=== PATIENT | male | born 1945 | race Caucasian/White ===

== ENCOUNTER 2023-02-24 12:26 | Outpatient (OUT) | payer MEDICARE, SELFPAY ==
[2023-02-24 13:14] LABS: Basophils Absolute Auto 0.1 10^3/uL (0.0-0.1); Basophils Percent Auto 0.8 % (0.2-2.0); Eosinophils Absolute Auto 0.3 10^3/uL (0.0-0.7); Eosinophils Percent Auto 3.8 % (0.9-7.0); Hematocrit 44.3 % (42.0-54.0); Hemoglobin 14.8 g/dL (14.0-18.0); Immature Granulocytes Abs Auto 0.02 10^3/uL (0.00-0.03); Immature Granulocytes Pct Auto 0.2 % (0.0-0.5); Lymphocytes Absolute Auto 2.1 10^3/uL (1.2-3.8); Lymphocytes Percent Auto 23.9 % (20.5-60.0); Mean Corpuscular HGB Conc 33.4 g/dL (29.9-35.2); Mean Corpuscular Hemoglobin 28.2 pg (25.9-34.0); Mean Corpuscular Volume 84.4 fL (80.0-94.0); Mean Platelet Volume 11.9 fL (9.5-13.5); Monocytes Absolute Auto 0.7 10^3/uL (0.3-0.8); Monocytes Percent Auto 8.2 % (1.7-12.0); Neutrophils Absolute Auto 5.6 10^3/uL (1.4-6.5); Neutrophils Percent Auto 63.1 % (43.0-75.0); Platelet Count 225 10^3/uL (150-450); Red Blood Count 5.25 10^6/uL (4.70-6.10); Red Cell Distribution Width 13.4 % (11.0-15.0); White Blood Count 8.9 10^3/uL (4.0-11.0)
[2023-02-24 13:40] LABS: Alanine Aminotransferase 29 U/L (16-63); Albumin Globulin Ratio 1.3; Albumin Level 4.4 g/dL (3.4-5.0); Alkaline Phosphatase 92 U/L (46-116); Anion Gap 15.3; Aspartate Amino Transferase 16 U/L (15-37); BUN Creatinine Ratio 13.6; Bilirubin Total 0.9 mg/dL (0.2-1.0); Calcium 9.3 mg/dL (8.5-10.1); Carbon Dioxide 27.3 mmol/L (21.0-32.0); Chloride 102 mmol/L (98-107); Estimated GFR (African America 56 (>=60); Estimated GFR (Non-African Ame 46 (>=60); Globulin 3.5 g/dL; Glucose 94 mg/dL (74-106); Potassium 4.6 mmol/L (3.5-5.1); Sodium 140 mmol/L (136-145); Total Protein 7.9 g/dL (6.4-8.2)
== END 2023-02-24 12:27 | disposition home or self-care (01) ==
LOC: LAB 12:32
PROVIDERS: Visit Provider Internal Medicine Interventional Cardiology
DX: I25.10 Atherosclerotic heart disease of native coronary artery without angina pectoris (principal); R06.09 Other forms of dyspnea
CPT/HCPCS: 36415; 80053; 85025

== ENCOUNTER 2023-03-15 08:53 | Outpatient (OUT) | payer MEDICARE, SELFPAY ==
--- NOTE | 2023-03-15 | NM_ITS ---
Patient Name: SCOTT ROSADO MR#: [id number] : 1945 Exam Date: 03/15/2023 Ordering Doctor: DR Sotero Carvalho M.D. RADIOLOGY REPORT PROCEDURE: NM CHAITANYA PERF SPECT REST STR COMPARISON: None. INDICATIONS: Atherosclerotic heart disease of [place] coronary artery TECHNIQUE: Exam Description: Stress/Rest two day protocol gated SPECT Rest Imagin.9 mCi Tc-99m Cardiolite IV on 03/16/2023 Stress Imaging 26.4 mCi Tc-99m Cardiolite IV on 03/15/2023 Exercise Protocol: 0.4 mg Lexiscan given IV Heart Rate (bpm): Rest: 72 Max: 89 PMHR: 62 Blood Pressure: Rest: 154/92 Max: 164/92 Symptoms: Rest and peak stress ECG findings were pending and the exercise portion of the study was pending per attending physician Dr. SAEED . For more details please see separate cardiac stress test report. FINDINGS: QUALITY OF STUDY: Good. PERFUSION DEFECT: LOCATION: Basal inferior. Mid-anterior. Mid-inferior. SIZE: Medium (3-4 segments). SEVERITY: Moderate. TYPE: Persistent. WALL MOTION: Mild hypokinesis: LV SIZE: Enlarged; EDV 124 mL. TID / TCD: None; 1.0 LVEF: Normal. Calculated EF 60%. SUMMARY: Myocardial perfusion imaging study has ABNORMAL findings. CONCLUSION: 1. Small size mild severity fixed defect mid anterior wall, LAD distribution 2. Moderate size moderate severity fixed defect in the inferior wall, RCA distribution 3. No reversible ischemia 4. Dilated left ventricle, EDV 124 milliliters 5. Pending exercise test results Dictated by: Scott Torres MD on 03/17/2023 at 09:50 Approved by: Scott Torres MD on 03/17/2023 at 09:56
[2023-03-15] MEDS: REGADENOSON 0.4 MG/5 ML SYRINGE IV (09:40)
== END 2023-03-15 08:54 | disposition home or self-care (01) ==
LOC: CARD 08:53
PROVIDERS: Visit Provider Internal Medicine Interventional Cardiology
DX: I25.10 Atherosclerotic heart disease of native coronary artery without angina pectoris (principal); R06.09 Other forms of dyspnea; I49.3 Ventricular premature depolarization
CPT/HCPCS: 78452; 93017; A9500; J2785

== ENCOUNTER 2023-03-17 09:03 | Outpatient (OUT) | payer MEDICARE, SELFPAY ==
--- NOTE | 2023-03-16 11:12 | CA_ITS ---
Patient Name: KRISTOFER ROSADO MR#: [id number] : 1945 Exam Date: 03/16/2023 Ordering Doctor: DR Sotero Carvalho M.D. ECHOCARDIOGRAM REPORT PROCEDURE: CA ECHO DOPPLER COMPLETE INDICATIONS: Dyspnea, PVCs COMPARISON: None. DESCRIPTION: COMPLETE ECHOCARDIOGRAM Real-time transthoracic echocardiography with 2D, M-mode, spectral and color flow Doppler performed. QUALITY: Technical quality was good. LEFT VENTRICLE: Normal chamber size. Mild concentric left ventricular hypertrophy. LV EF: Global left ventricular systolic function is normal; visually estimated ejection fraction is 55 to 60%. DIASTOLIC: Diastolic function is indeterminate. ATRIAL SEPTUM: Inadequately seen. LEFT ATRIUM: Mild dilatation. RIGHT ATRIUM: Moderate dilatation. RIGHT VENTRICLE: Appears mildly enlarged. Normal right ventricular systolic function. TRICUSPID VALVE: Normal mobility and thickness. Mild regurgitation. Mild pulmonary hypertension. RVSP 36mmHg MITRAL VALVE: Normal mobility and thickness. No evidence of mitral valve stenosis. There is no mitral annular calcification. Mild mitral regurgitation. AORTIC VALVE: Normal trileaflet appearance. Mildly calcified aortic valve. Normal leaflet mobility. No evidence of aortic valve stenosis. No aortic regurgitation. AORTIC ROOT: Normal diameter and appearance. PULMONIC VALVE: Normal thickness and mobility. No stenosis. Mild regurgitation. PERICARDIUM: No evidence of pericardial effusion. IVC: Collapses with inspirations. Normal size. CONCLUSION: 1. Global left ventricular systolic function is normal; visually estimated ejection fraction is 55 to 60% 2. Mildly increased left ventricular wall thickness 3. The right ventricle appears enlarged with normal systolic function 4. Biatrial enlargement 5. Diastolic function is indeterminate 6. Mild tricuspid regurgitation 7. Mild elevated right ventricular systolic pressure; RVSP 36 mmHg 8. Mild mitral regurgitation 9. Mild pulmonic regurgitation Adult Echocardiography Procedure Report Left Ventricle LVEDD (3.7 - 5.6 cm): 5.61 cm LVESD (2.2 - 4.0 cm): 3.68 cm LVIVS thickness (0.6 - 1.2 cm): 1.29 cm LVPW thickness (0.5 - 1.0 cm): 1.16 cm e': 0.12 m/s E - e': 6.01 LVOT Max Gradient: 4.98 mm[Hg] LVOT Area (cm2): 1.12 m/s Peak Velocity (LVOT): 1.12 m/s Mean Velocity (LVOT): 0.73 m/s LVOT Diameter 2.09 cm Left Ventricular Ejection Fraction: 54.08 % Left Atrium LA Volume Index (2D A2C): 40.29 ml/m2 Left Atrium Systolic Dimension: 4.66 cm Mitral Valve MV E to A Ratio: 1.29 Mitral Valve A-Wave Peak Velocity: 0.57 m/s Mitral Valve E-Wave Peak Velocity: 0.74 m/s Right Ventricle RV Internal Diastolic Dimension: 3.57 cm Aorta AO Root Diam: 3.41 cm Ascending Ao Diam: 3.54 cm Aortic Valve AoV Area (Peak Ger): 2.52 cm2, 2.48 cm2 AoV Area (VTI): 2.47 cm2, 2.45 cm2 Peak Velocity(Antegrade Flow): 1.55 m/s, 1.50 m/s Peak Gradient(Antegrade Flow): 9.55 mm[Hg], 8.95 mm[Hg] Mean Velocity(Antegrade Flow): 1.04 m/s, 1.03 m/s Mean Gradient(Antegrade Flow): 5.04 mm[Hg], 4.83 mm[Hg] Velocity Time Integral: 35.40 cm, 34.81 cm Tricuspid Valve Peak Velocity (Regurgitant Flow): 2.85 m/s, 2.49 m/s, 2.68 m/s, 2.87 m/s Pulmonic Valve Mean Gradient: 2.35 mm[Hg], 2.09 mm[Hg] Mean Velocity: 0.72 m/s, 0.65 m/s Peak Velocity: 1.00 m/s Peak Gradient: 3.88 mm[Hg], 4.20 mm[Hg] Right Atrium Right Atrium Systolic Pressure: 70.10 ml, 70.10 ml Dictated by: Sotero Carvalho M.D. on 03/16/2023 at 16:13 Approved by: Sotero Carvalho M.D. on 03/16/2023 at 16:18
--- NOTE | 2023-03-17 | PCN_ITS ---
CARDIAC STRESS TEST Requesting Physician: Procedure Date: 03/17/2023 INDICATION: Dyspnea on exertion, premature ventricular contractions. METHODS: After risks, benefits and alternatives were explained, written informed consent was obtained. The patient was connected to the appropriate hemodynamic and electrocardiographic monitoring. Lexiscan 0.4 mg was infused intravenously. The patient was monitored for the standard duration and discharged in a stable state. FINDINGS HEMODYNAMICS: Resting blood pressure was 154/92 with a maximum blood pressure of 164/92. Resting heart rate was 72 beats per minute, increasing to a maximum of 88 beats per minute. No significant symptoms were reported. ELECTROCARDIOGRAPHY REST EKG: Sinus rhythm, frequent premature ventricular contractures, incomplete right bundle branch block. Septal infarct, age indeterminate. Abnormal resting EKG. DURING INFUSION AND RECOVERY: Frequent premature ventricular contractions are noted. No significant ST-T wave changes seen. FINAL IMPRESSIONS: 1. No ischemic EKG changes seen on Lexiscan pharmacological stress test. 2. Nuclear images are to be read, interpreted and reported in a separate dictation. LORRAINED
== END 2023-03-17 09:04 | disposition home or self-care (01) ==
LOC: NM 09:03
PROVIDERS: Visit Provider Internal Medicine Interventional Cardiology
DX: I25.10 Atherosclerotic heart disease of native coronary artery without angina pectoris (principal); R06.09 Other forms of dyspnea; I49.3 Ventricular premature depolarization
CPT/HCPCS: 93306

== ENCOUNTER 2023-09-19 07:15 | Outpatient (OUT) | payer MEDICARE, SELFPAY ==
--- OUTSIDE RECORDS SUMMARY | 2023-09-19 07:21 | XMS_ITS | CCD ---
Author Organization [facility] CliniSyva Care Team Providers Care Park Aide Name Role Phone PHYSICIAN, DEFAULT Admitting Unavailable PHYSICIAN, DEFAULT Attending Unavailable PHYSICIAN, DEFAULT Admitting Unavailable PHYSICIAN, DEFAULT Attending Unavailable PHYSICIAN, DEFAULT Admitting Unavailable PHYSICIAN, DEFAULT Attending Unavailable PHYSICIAN, DEFAULT Admitting Unavailable PHYSICIAN, DEFAULT Attending Unavailable PHYSICIAN, DEFAULT Admitting Unavailable PHYSICIAN, DEFAULT Attending Unavailable ELTAHAWY, EHAB A Admitting Unavailable ELTAHAWChandan, EHAB A Attending Unavailable VALDOVINOS-JULIO, TARYN Referring Unavailable VALDOVINOS-EMERY, TARYN Primary Care Unavailable FRAN, HERMAN S Admitting Unavailable FRAN, HERMAN S Attending Unavailable VALDOVINOS-EMERY, TARYN Referring Unavailable VALDOVINOS-EMERY, TARYN Primary Care Unavailable [place] Procedure Practitioner Unavailab le FRAN, HERMAN S Surgeon Unavailable [place] Procedure Practitioner Unavailab ERA Buckley Surgeon Unavailable PHYSICIAN, DEFAULT Admitting Unavailable PHYSICIAN, DEFAULT Attending Unavailable VALDOVINOS-EMERY, TARYN Primary Care Unavailable NORMA FARIAS Attending Unavailable MAXIM RAY Referring Unavailable JESÚS, MAXIM Referring Unavailable JESÚS, MAXIM Referring Unavailable JESÚS, MAXIM Referring Unavailable JESÚS, MAXIM Attending Unavailable JESÚS, MAXIM Attending Unavailable JESÚS, MAXIM Admitting Unavailable JESÚS, MAXIM Attending Unavailable ELTAHAWY, EHAB Attending Unavailable Problems Active Problems Problem Classification Problem Date Documented Date Episodic/Chronic Cardiac dysrhythmias (5 sources) Unspecified atrial fibrillation; Translations: [Ventricular premature depolarization] Onset: 12-02-2017 Chronic Cardiac dysrhythmias (2 sources) Palpitations; Translations: [Palpitations] Onset: 09-12-2023 Episodic Coronary atherosclerosis and other heart disease (5 sources) Atherosclerotic heart disease of [place] coronary artery without angina pectoris; Translations: [ATHSCL HEART DISEASE OF [place] CORONARY ARTERY W/O ANG PCTRS] Onset: 11-28-2017 Chronic Essential hypertension (3 sources) Essential (primary) hypertension; Translations: [ESSENTIAL (PRIMARY) HYPERTENSION] Onset: 11-28-2017 Chronic Hypertension with complications and secondary hypertension (2 sources) Hypertensive heart disease without heart failure; Translations: [Hypertensive heart disease without heart failure] Onset: 08-23-2023 Chronic Unclassified (2 sources) + STRESS/CATH 11/28 Onset: 11-28-2017 Past or Other Problems Problem Classification Problem Date Documented Date Episodic/Chronic Other lower respiratory disease (4 sources) Shortness of breath; Translations: [SHORTNESS OF BREATH] Onset: 11-28-2017 Episodic Other lower respiratory disease (1 source) Dyspnea, unspecified; Translations: [DYSPNEA, UNSPECIFIED] Onset: 11-28-2017 Episodic Other lower respiratory disease (2 sources) Other forms of dyspnea; Translations: [Other forms of dyspnea] Onset: 01-13-2022 Episodic Other screening for suspected conditions (not mental disorders or infectious disease) (1 source) Abnormal result of other cardiovascular function study; Translations: [ABNORMAL RESULT OF OTHER CARDIOVASCULAR FUNCTION STUDY] Onset: 11-28-2017 Episodic Screening and history of mental health and substance abuse codes (1 source) Personal history of nicotine dependence; Translations: [PERSONAL HISTORY OF NICOTINE DEPENDENCE] Onset: 11-28-2017 Episodic Results Test Name Value Interpretation Reference Range Facility Office Visiton 08-23-2023 Follow-up visit [id number] Bret Fabian Sr. 1945 M Date Provider Department Center 08/23/2023 MAXIM GILMORE BRENDA [facility] Family History Problem Relation Age of Onset Coronary artery disease Mother Heart attack Mother Stroke Father Family Status - Relation Status Age at Mother Father Level of Service:48022 [place] OFFICE/OUTPATIENT ESTABLISHED LOW MDM 20 MIN Normal [facility] HPon 06-13-2023 [facility] Electrophysiology Consult Note Reason for visit: SVT/PVC HPI: Kristofer Fabian Sr. is a 78 y.o. year old with past medical history of CAD s/p CABG in 2018, hypertension, A-fib, CKD. He was recently seen by Dr. CONCEPCION who noted more shortness of breath than usual at the time during exam, noted that shortness of breath is similar to symptoms prior to his bypass surgery. After his CABG patient had postop A-fib and a supposed history of sinus bradycardia with frequent ventricular ectopy. Recently just had a 30-day event monitor ordered and a TTE to rule out A-fib and cardiomyopathy and lexiscan stress. He has been having increased DAO and can feel palpitations that are associated with dyspnea / racing heart feeling. He was seen by Norma WU and event monitor was reviewed which suggested AF and so was started on DOAC. On my personal review, this appears more of SVT which happened on 03/10/23 and 03/16/23 x 2 episodes. He flet the 03/16/23 episode. Lexiscan stress test on 03/15/23 shows no reversible ischemia, small sized mild severity fixed defect in mid anterior wall of LAD and moderate size moderate severity fixed defect in the inferior wall with RCA distribution, did note dilated LV and noted LVEF 60% TTE 03/16/2023 shows normal LVEF, LA mildly dilated, RA moderately dilated, RV mildly enlarged, RVSP 36 which is mildly elevated Event monitor 02/2023 has multiple events of SVT which appear like A-fib, tachyarrhythmias very fast and hard to differentiate but RR intervals irregular, he does seem to have a conversion pause of just under 2 seconds when converting from SVT to SR ECG 05/17/23 Sr with PVC in bigeminy 03/28/23 SR with PVC PMH: Past Medical History: Diagnosis Date Abnormal ECG Arrhythmia Atrial fibrillation (CMS/HCC) Coronary artery disease Hypertension PSH: Past Surgical History: Procedure Laterality Date CARDIAC CATHETERIZATION CORONARY ARTERY BYPASS GRAFT SH: Social Determinants of Health Tobacco Use: Medium Risk (03/28/2023) Patient History Smoking Tobacco Use: Former Smokeless Tobacco Use: Never Passive Exposure: Not on file Alcohol Use: Not on file Financial Resource Strain: Not on file Food Insecurity: Not on file Transportation Needs: Not on file Physical Activity: Not on file Stress: Not on file Social Connections: Not on file Intimate Partner Violence: Not on file Depression: Not on file Housing Stability: Not on file Utilities: Not on file Allergies: No Known Allergies Weight: 115kg Visit Vitals BP 132/72 (BP Location: Right arm, Patient Position: Sitting) Ht 1.829 m (6') Wt 115 kg (254 lb) SpO2 95% BMI 34.45 kg/m??? Smoking Status Former BSA 2.42 m??? Meds: Current Outpatient Medications on File Prior to Visit Medication Sig Dispense Refill amLODIPine (Norvasc) 5 mg tablet Take 1 tablet (5 mg) by mouth in the morning. as directed 90 tablet 3 apixaban (Eliquis) 5 mg tablet Take 1 tablet (5 mg) by mouth in the morning and at bedtime. 60 tablet 11 aspirin 81 mg EC tablet Take 1 tablet every day by oral route. atorvastatin (Lipitor) 80 mg tablet Take 1 tablet (80 mg) by mouth at bedtime. 90 tablet 3 lisinopril 40 mg tablet Take 1 tablet every day by oral route for 30 days. 90 tablet 3 metoprolol tartrate (Lopressor) 25 mg tablet TAKE ONE (1) TABLET BY MOUTH TWICE DAILY 180 tablet 3 No current facility-administered medications on file prior to visit. ROS: Review of Systems HENT: Positive for hearing loss (severe). Cardiovascular: Positive for dyspnea on exertion. All other systems reviewed and are negative. Physical Exam: Constitutional General Appearance: well-nourished, well-developed, appears stated age Level of Distress: comfortable Psychiatric Mental Status: alert, normal affect Orientation: oriented to time, place, and person Insight: good judgement Eyes Lids and Conjunctivae: non-injected, no xanthelasma ENMT Ears: no lesions on external ear Nose: no lesions on external nose Oropharynx: no cyanosis, no pallor Neck Neck: supple, trachea midline Carotid Arteries: bilateral normal upstroke, no bruits Jugular Veins: normal jugular venous pressure Thyroid: not enlarged Lungs Respiratory Effort: unlabored Chest Exam: normal curvature, no thoracic deformity Auscultation: clear, no wheezing, no rales, no rhonchi Cardiovascular Rate And Rhythm: regular Heart Sounds: normal S1, normal s2, no gallop Systolic Murmur: not heard Diastolic Murmur: not heard Extremities: no cyanosis, no edema, no peripheral signs of emboli Peripheral Pulses Radial Pulse: normal Abdomen Inspection and Palpation: soft, non distended, no bruit, non tender Musculoskeletal Inspection: no joint swelling Neurologic Gait: normal gait Skin Inspection and Palpation: warm and dry Nails: no clubbing Labs: @LABRESULTS@ No results found for: CHOLESTEROL TOTAL , HDL , LDL CALC , LDL D (more content not included)... Normal [facility] NURSTomi 06-13-2023 MARVIN RN educated pt on d/ c instructions. RN encouraged pt to voice any questions or concerns. Pt verbalizes no questions or concerns at this time. Normal [facility] Office Visiton 05-17-2023 Follow-up visit [id number] Bret N Sr[facility] 1945 [facility] Provider Department Center 05/17/2023 241-MAXIM RAY CARD [facility] Family History Problem Relation Age of Onset Coronary artery disease Mother Heart attack Mother Stroke Father Family Status - Relation Status Age at Mother Father Level of Service:72774 [place] OFFICE/OUTPATIENT NEW MODERATE MDM 45 MINUTES Normal [facility] Office Visiton 03-28-2023 Follow-up visit [id number] Bret N Sr. 1945 Provider Department Center 03/28/2023 1596-NORMA FARIAS [facility] Family History Problem Relation Age of Onset Coronary artery disease Mother Heart attack Mother Stroke Father Family Status - Relation Status Age at Mother Father Level of Service:35643 [place] OFFICE/OUTPATIENT ESTABLISHED MOD MDM 30 MIN Normal [facility] Office Visiton 02-24-2023 Follow-up visit [id number] BishopBret hancock N Sr. 1945 [facility] Provider Department Center 02/24/2023 271-SOTERO ASTORGA [facility] Family History Problem Relation Age of Onset Coronary artery disease Mother Heart attack Mother Stroke Father Family Status - Relation Status Age at Mother Father Level of Service:63813 [place] OFFICE/OUTPATIENT ESTABLISHED MOD MDM 30-39 MIN Normal [facility] Complete Blood Count Auto Di ffon 06-27-2020 Basophils (Bld) [#/Vol] 0.1 10*3/uL Normal 0.0-0.2 [facility] Comment on above: Result Comment: PERF ORMED BY: [address] [place] [address] PATHOLOGIST PERSONALIZATION SPECIALIST SANDRA AGUILAR M.D. Performed By: #### L IPID, CMP, CBC #### [address] Basophils/100 WBC (Bld) 0.8 % Normal . [facility] Comment on above: Performed By: #### L IPID, CMP, CBC #### [address] Eosinophils (Bld) [#/Vol] 0.3 10*3/uL Normal 0.0-0.45 [facility] Comment on above: Performed By: #### L IPID, CMP, CBC #### [address] Eosinophils/100 WBC (Bld) 3.5 % Normal . [facility] Comment on above: Performed By: #### L IPID, CMP, CBC #### [address] Erythrocyte distribution width (RBC) [Ratio] 13.4 % Normal 12.0-14.8 [facility] Comment on above: Performed By: #### L IPID, CMP, CBC #### [address] Hematocrit (Bld) [Volume fraction] 41.9 % Normal 38.8-50.0 [facility] Comment on above: Performed By: #### L IPID, CMP, CBC #### [address] Hemoglobin (Bld) [Mass/Vol] 14.5 g/dL Normal 13.0-17.0 [facility] Comment on above: Performed By: #### L IPID, CMP, CBC #### [address] Lymphocytes (Bld) [#/Vol] 1.7 10*3/uL Normal 1.00-4.8 [facility] Comment on above: Performed By: #### L IPID, CMP, CBC #### [place] [address] [place] Lymphocytes/100 WBC (Bld) 17.4 % Normal . [facility] Comment on above: Performed By: #### L IPID, CMP, CBC #### [address] MCH (RBC) [Entitic mass] 29.0 pg Normal 27.5-35.2 [facility] Comment on above: Performed By: #### L IPID, CMP, CBC #### [address] MCV (RBC) [Entitic vol] 83.5 fL Normal 83.5-101 [facility] Comment on above: Performed By: #### L IPID, CMP, CBC #### [address] Mean Corpuscular HGB Conc 34.7 g/dL Normal 32.5-35.6 [facility] Comment on above: Performed By: #### L IPID, CMP, CBC #### [address] Monocytes (Bld) [#/Vol] 0.6 10*3/uL Normal 0.0-0.8 [facility] Comment on above: Performed By: #### L IPID, CMP, CBC #### [address] Monocytes/100 WBC (Bld) 6.2 % Normal . [facility] Comment on above: Performed By: #### L IPID, CMP, CBC #### [address] Neutrophils (Bld) [#/Vol] 7.0 10*3/uL Normal 1.8-7.7 [facility] Comment on above: Performed By: #### L IPID, CMP, CBC #### [place] [address] [place] Neutrophils/100 WBC (Bld) 72.1 % Normal . [facility] Comment on above: Performed By: #### L IPID, CMP, CBC #### [address] Nucleated RBC/100 WBC (Bld) [Ratio] 0.1 % Normal 0-0.5 [facility] Comment on above: Performed By: #### L IPID, CMP, CBC #### [address] [place] [address] [place] Platelet mean volume (Bld) [Entitic vol] 10.9 fL High 6.6-10.1 [facility] Comment on above: Performed By: #### L IPID, CMP, CBC #### [facility] [address] Platelets (Bld) [#/Vol] 189 10*3/uL Normal 150-450 [facility] Comment on above: Performed By: #### L IPID, CMP, CBC #### [address] RBC (Bld) [#/Vol] 5.01 10*6/uL Normal 3.90-5.60 [facility] Comment on above: Performed By: #### L IPID, CMP, CBC #### [address] WBC (Bld) [#/Vol] 9.7 10*3/uL Normal 4.5-11.0 [facility] Comment on above: Performed By: #### L IPID, CMP, CBC #### [address] Comprehensive Metabolic Pane jasiel 06-27-2020 Albumin [Mass/Vol] 4.0 g/dL Normal 3.2-5.5 [facility] Comment on above: Performed By: #### L IPID, CMP, CBC #### [address] Albumin/Globulin [Mass ratio] 1.7 {ratio} Normal [facility] Comment on above: Performed By: #### L IPID, CMP, CBC #### [address] ALP [Catalytic activity/Vol] 68 U/L Normal 32-92 [facility] Comment on above: Performed By: #### L IPID, CMP, CBC #### [address] ALT [Catalytic activity/Vol] 32 U/L Normal 10-60 [facility] Comment on above: Performed By: #### L IPID, CMP, CBC #### [facility] [address] [place] [address] [place] AST [Catalytic activity/Vol] 21 U/L Normal 10-42 [facility] Comment on above: Performed By: #### L IPID, CMP, CBC #### [facility] [address] [place] [id number] [place] Bilirubin [Mass/Vol] 0.8 mg/dL Normal 0.3-1.2 [facility] Comment on above: Performed By: #### L IPID, CMP, CBC #### [facility] [address] Calcium [Mass/Vol] 9.5 mg/dL Normal 8.2-10.2 [facility] Comment on above: Performed By: #### L IPID, CMP, CBC #### [facility] [address] [place] [address] [place] Chloride [Moles/Vol] 104 mmol/L Normal 95-114 [facility] Comment on above: Performed By: #### L IPID, CMP, CBC #### [facility] [address] [place] [address] [place] CO2 [Moles/Vol] 22.8 mmol/L Normal 22.0-30.0 [facility] Comment on above: Performed By: #### L IPID, CMP, CBC #### [facility] [address] [place] [id number] [place] Creatinine [Mass/Vol] 1.38 mg/dL High 0.64-1.27 [facility] Comment on above: Performed By: #### L IPID, CMP, CBC #### [facility] [address] [place] [address] [place] Estimated GFR ( Belinda > 60 Normal [facility] Comment on above: Result Comment: GFR estimated reference range: According to KDOQI guidelines, <60 ml/min/1.73m2 is sufficient to diagnose a patient with chronic kidney disease. Performed By: #### L IPID, CMP, CBC #### [address] [place] [address] [place] Estimated GFR (Non- Am 50 Normal [facility] Comment on above: Performed By: #### L IPID, CMP, CBC #### [address] Globulin (S) [Mass/Vol] 2.4 g/dL Normal [facility] Comment on above: Performed By: #### L IPID, CMP, CBC #### [address] Glucose [Mass/Vol] 103 mg/dL High 70-100 [facility] Comment on above: Result Comment: [facility] Glucose Reference Range is dependent on time and content of last meal. Glucose of more than 200 mg/dL in a nonstressed, ambulatory subject supports the diagnosis of Diabetes Mellitus. ADA recommended reference range Performed By: #### L IPID, CMP, CBC #### [address] Potassium [Moles/Vol] 4.6 mmol/L Normal 3.5-5.1 [facility] Comment on above: Performed By: #### L IPID, CMP, CBC #### [address] Protein [Mass/Vol] 6.4 g/dL Normal 6.1-7.9 [facility] Comment on above: Performed By: #### L IPID, CMP, CBC #### [address] Sodium [Moles/Vol] 138 mmol/L Normal 136-146 [facility] Comment on above: Performed By: #### L IPID, CMP, CBC #### [address] Urea nitrogen [Mass/Vol] 21 mg/dL Normal 9-23 [facility] Comment on above: Performed By: #### L IPID, CMP, CBC #### [address] Lipid Panelon 06-27-2020 Cholesterol [Mass/Vol] 129 mg/dL Low 140-200 [facility] Comment on above: Result Comment: Chol less than 200 mg/dl low risk Chol 201-239 mg/dl borderline risk Chol 240 mg/dl and greater high risk Performed By: #### L IPID, CMP, CBC #### [facility] [address] [place] [id number] [place] Cholesterol in HDL [Mass/Vol] 37 mg/dL Normal 29-71 [facility] Comment on above: Result Comment: HDL CHOL ATP-III CLASSIFICATION Cardiovascular Risk HDL > or equal to 60 mg/dL LOW HDL < 40 mg/dL HIGH Performed By: #### L IPID, CMP, CBC #### [facility] [address] [place] [address] [place] Cholesterol.total/C holesterol in HDL [Mass ratio] 3.5 {ratio} Normal <5.0 [facility] Comment on above: Result Comment: PERF ORMED BY: [place] [address] PATHOLOGIST PERSONALIZATION SPECIALIST SANDRA AGUILAR M.D. Performed By: #### L IPID, CMP, CBC #### [facility] [address] LDL Cholesterol,Calcula ernie 69 mg/dL Normal 0-100 [facility] Comment on above: Result Comment: LDL ATP III CLASSIFICATION LDL less than 100 mg/dL Optimal LDL 100-129 mg/dL Near or above optimal LDL 130-159 mg/dL Borderline high LDL 160-189 mg/dL High LDL greater than 189 mg/dL Very high Performed By: #### L IPID, CMP, CBC #### [facility] [address] [place] [id number] [place] Triglyceride w/Reflex 116 mg/dL Normal 35-149 [facility] Comment on above: Result Comment: TRIG ATP III CLASSIFICATION TRIG less than 150 mg/dL Normal TRIG 150-199 mg/dL Borderline high TRIG 200-500 mg/dL High TRIG greater than 500 mg/dL Very high Standard traceable to the Center for Disease Conrtrol and Prevention (CDC) test method. Performed By: #### L IPID, CMP, CBC #### [facility] [address] [place] [address] [place] VLDL CHOLESTEROL 23 mg/dL Normal [facility] Comment on above: Performed By: #### L IPID, CMP, CBC #### [facility] [address] POC GLUCOSE LABon 12-06-2017 Glucose mass conc 170 mg/dL High 70-100 [facility] Comment on above: Performed By: #### 8 [id number] ####[facility] [address], [facility] Glucose mass conc 135 mg/dL High 70-100 [facility] Comment on above: Performed By: #### 8 [id number] ####[facility] [place] [address], [facility] Glucose mass conc 137 mg/dL High 70-100 [facility] Comment on above: Performed By: #### 8 [id number] ####[facility] BASIC METABOLIC PANELon 11-10 Calcium mass conc 8.8 mg/dL Normal 8.6-10.3 [facility] Comment on above: Order Comment: Unkno wn Performed By: #### [id number] #### [facility] [address] [place] [address], [facility] Chloride molar conc 96 mmol/L Low 98-107 [facility] Comment on above: Order Comment: Unkno wn Performed By: #### [id number] #### [facility] [address] [place] [address], [facility] CO2 molar conc 28 mmol/L Normal 21-31 [facility] Comment on above: Order Comment: Unkno wn Performed By: #### [id number] #### [facility] [address] [place] [address], [facility] Creatinine mass conc 1.43 mg/dL High 0.70-1.30 [facility] Comment on above: Order Comment: Unkno wn Performed By: #### [id number] #### [facility] [address] [place] [address], [place] GFR/1.73 sq M predicted among blacks MDRD vol rate/area (S/P/Bld) 59 ml/min/1.73sq m Abnormal >60 [facility] Comment on above: Order Comment: Unkno wn Result Comment: Calc ulation may not be valid for patients over 70 years Performed By: #### 8 [id number] #### [facility] [address] [place] [address], [place] GFR/1.73 sq M predicted among non-blacks MDRD vol rate/area (S/P/Bld) 49 ml/min/1.73sq m Abnormal >60 [facility] Comment on above: Order Comment: Unkno wn Result Comment: Calc ulation may not be valid for patients over 70 years Performed By: #### 8 [id number] #### [facility] [address] [place] [address], [place] Glucose mass conc 171 mg/dL High 70-100 [facility] Comment on above: Order Comment: Unkno wn Performed By: #### 8 [id number] #### [facility] [address] [place] [address], [place] Potassium molar conc 3.7 mmol/L Normal 3.5-5.1 [facility] Comment on above: Order Comment: Unkno wn Performed By: #### 8 [id number] #### [facility] [address] [place] [address], [place] Sodium molar conc 132 mmol/L Low 136-145 [facility] Comment on above: Order Comment: Unkno wn Performed By: #### [id number] #### [facility] [address] [place] [address], [place] Urea nitrogen mass conc 30 mg/dL High 7-25 [facility] Comment on above: Order Comment: Unkno wn Performed By: #### [id number] #### [facility] [address] CBC COMPLETE BLOOD COUNTon 0 12-05-2017 Erythrocyte distribution width Ratio (RBC) 12.8 % Normal 11.5-15.0 [facility] Comment on above: Order Comment: Unkno wn Performed By: #### 8 [id number] #### [facility] [address] Hematocrit Volume Fraction (Bld) 29.4 % Low 39.0-50.0 [facility] Comment on above: Order Comment: Unkno wn Performed By: #### [id number] #### [facility] [address] [place] [address], [facility] Hemoglobin mass conc (Bld) 10.0 g/dL Low 13.0-17.0 [facility] Comment on above: Order Comment: Unkno wn Performed By: #### [id number] #### [facility] [address] [place] [address], [facility] MCH Entitic mass (RBC) 28.2 pg Normal 27.0-33.0 [facility] Comment on above: Order Comment: Unkno wn Performed By: #### [id number] #### [facility] [address] [place] [address], [facility] MCHC mass conc (RBC) 34.0 g/dL Normal 32.0-35.0 [facility] Comment on above: Order Comment: Unkno wn Performed By: #### 8 [id number] #### [facility] [address] [place] [address], [facility] MCV Entitic volume (RBC) 83.1 fL Normal 82.0-98.0 [facility] Comment on above: Order Comment: Unkno wn Performed By: #### 8 [id number] #### [facility] [address] Nucleated RBC/100 WBC Ratio (Bld) 0 % Normal 0-0 [facility] Comment on above: Order Comment: Unkno wn Performed By: #### 8 5499 #### [facility] [address] [facility] [place] [address], [facility] PLAT CNT 161 10*3/uL Normal 150-400 The [facility] Comment on above: Order Comment: Unkno wn Performed By: #### 8 5499 #### [facility] [address] RBC #/vol (Bld) 3.54 10*6/uL Low 4.20-5.70 [facility] Comment on above: Order Comment: Unkno wn Performed By: #### 8 5499 #### [facility] [address] [facility]. [address] WBC #/vol (Bld) 14.56 10*3/uL High 4.00-10.60 The [facility] Comment on above: Order Comment: Unkno wn Performed By: #### 8 5499 #### [facility] [address] [facility]. [address] CPK-MB PROFILEon 12-05-2017 CK enzyme act/vol 181 U/L Normal 30-223 [facility] Comment on above: Performed By: #### 8 [id number] #### [facility] [address] [facility]. [address] CK.MB mass conc 2.1 ng/mL Critically high 0.0-1.9 [facility] Comment on above: Performed By: #### 8 5499 #### [facility] [address] [facility]. [address] CK.MB mass conc 3.8 ng/mL Normal 0.0-5.[address] [facility] Comment on above: Result Comment: IF T OTAL CK <200 U/L AND: 1. CKMB IS 5-10 NG/ML----BORDERLINE 2. CKMB IS >10 NG/ML----INDIC[place]IVE OF [place] OR IF TOTAL CK >200 U/L AND CKMB INDEX >1.9----[place] Performed By: #### 8 5499 #### [facility] [address] [facility] [address] MAGNESIUM BLOODon 12-05-2017 Magnesium mass conc 2.1 mg/dL Normal 1.9-2.7 The [facility] Comment on above: Order Comment: Unkno wn Performed By: #### 8 [id number] #### [facility] [address] [facility] [address] Operative Reporton 8 Operative Report MR#: [id number] I [facility] Pt. Name: Kristofer Fabian Room #: 3AB [id number] Discharge Date: Birthdate: 1945 OPERATIVE REPORT DATE OF SURGERY: 12/02/2017 SURGEON: Herman Peters MD PREOPERATIVE DIAGNOSIS: Critical coronary artery disease with positive stress test. POSTOPERATIVE DIAGNOSIS: Critical coronary artery disease with positive stress test. PROCEDURE PERFORMED: Coronary artery bypass grafting x3 with a VUONG to the distal left anterior descending coronary artery and reverse saphenous vein grafts to the first diagonal and right posterolateral branch. ANESTHESIA: General endotracheal. COMPLICATIONS: None. DRAINS: #32 mediastinal, #28 left pleural, and #19 pericardial Renato drain. WIRES: Bipolar ventricular. COMPLICATIONS: None. ESTIMATED BLOOD LOSS: 250 mL. INDICATIONS FOR PROCEDURE: Mr. Fabian is a 72-year-old gentleman who had complaints of chest pain and had a positive stress test. Cardiac catheterization was performed, which demonstrated several tight lesions in his proximal and mid left anterior descending coronary artery and a completely occluded right coronary artery. His circumflex system did not have any critical or hemodynamically significant lesions. Ventricular function was well preserved by echocardiography and there was no significant valvular abnormalities. DESCRIPTION OF PROCEDURE: After informed consent had been obtained, the patient was taken to the operating room and after an appropriate time out, general anesthesia was induced successfully. Appropriate cardiovascular monitoring was placed including a radial arterial line and central venous catheter. A transesophageal echo probe was introduced and the preoperative RICHARD was consistent with the patient's previous studies. The patient was positioned and his chest was prepped and draped in the usual sterile fashion. A time-out was again performed and the patient's greater saphenous vein was harvested from the left lower extremity utilizing an endoscopic vein technique. The vein was approximately 3-3.5 mm in size and of fair quality. Simultaneously, a median sternotomy was created and a mammary retractor was placed. The left internal mammary artery was then harvested as a skeletonized pedicle. After mobilization of the left internal mammary artery, a sternal retractor was placed and the pericardium was opened. The patient was heparinized. After the ACT had risen to greater than 400, aorto-atrial cannulation was carried out. A retrograde cardioplegia catheter was placed in the coronary sinus. Cardiopulmonary bypass was then initiated after the ACT had risen to greater than 450. The VUONG pedicle was ligated distally and divided and noted to have excellent flow. Examination of the diaphragmatic surface of the heart showed that there was an adequate posterolateral branch of the right coronary artery that was available for grafting. In a similar fashion, both the VUONG and first diagonal were identified. Aorta was then crossclamped and approximately 1500 mL of cold blood cardioplegia were given in a combined antegrade and retrograde fashion. Additional cardioplegia was given every 20-30 minutes both via the aortic root, coronary sinus, and intermittently down the vein grafts to maintain a nice diastolic arrest. Topical hypothermia was also utilized. The posterolateral branch of the right coronary artery was opened. It was approximately 1.25 mm in size and a fair quality. A segment of reverse saphenous vein was then beveled and anastomosed to the PL branch utilizing a running 7-0 Prolene. It was probed proximally and distally with a 1.25 mm probe. The graft was then brought to the ascending aorta and after creating aortotomy with a 4 mm punch, a proximal anastomosis was created with a running 5-0 suture. Attention was then turned to the fist diagonal, which bifurcated beyond a 90% stenosis. One of two branches was chosen and opened. It was approximately 1.25 mm in size and a fair quality. A reverse saphenous vein graft was anastomosed to this vessel with a running 7-0 Prolene. It was probed prior to completion of the anastomosis with a 1.25 mm probe. This was brought over the pulmonary artery to the left-sided ascending aorta and after creating an aortotomy with a 4 mm punch, a proximal anastomosis was performed with a running 5-0 Prolene stitch. The left-sided pericardium was then divided and the VUONG pedicle was brought into the field. The left anterior descending was opened in its distal third. It was probed and could accommodate a 1.5 mm probe. The VUONG pedicle was spatulated and anastomosed to the LAD with a running 7-0 Prolene stitch. At the completion of this anastomosis, the VUONG was tacked to the epicardium with a single 6-0 suture. The aortic cross-clamp was then removed with suction on the aortic root and the VUONG pedicle was unclamped. The heart returned to a slow junctional rhythm and a bipolar ventricular pacing wire was placed and brought out through the skin. Ventricular pacing was initiated for approximately 10 minutes after the cross-clamp was removed for returning to and sinus rhythm of approximately 80. With reperfusion and rewarming overall contractility looked quite good and the patient was weaned from cardiopulmonary bypass on no inotropic support. The RICHARD showed no segmental wall motion abnormalities and no new valvular abnormalities. Cannula were removed and protamine was given. Hemostasis was obtained. A flow probe was utilized to interrogate all of the grafts and was noted to have adequate flow of approximately 25 mL/minute in both of the vein grafts and approximately 30 mL/minute in the VUONG pedicle. Hemostasis was obtained with the addition of protamine. All cannulation sites were oversewn. The left pleural space was drained with a right angle pleural tubes and the mediastinum was drained with a straight chest tube as well as a 19 mm Renato drain in the posterior pericardium. After hemostasis was assured, the sternum was wired. The tissues overlying the sternum were closed in layers with a subcuticular stitch for the skin. The patient tolerated the procedure well and was then transported to the cardiac recovery unit in hemodynamically stable condition, intubated, and on no inotropic support. At the completion of the procedure, the sponge, needle, and instrument counts were all noted to be correct. Electronically Signed by: Herman Peters MD 12/07/2017 09:40 A Herman Peters MD Date Dict: 12/05/2017/10:54 A/Herman Peters MD Date Trans: 12/05/2017 08:48 P/mmo [id number] cc: Herman Peters MD [address] [facility] [address] Taryn Coley M.D. [address] [facility] [address] Normal [facility] POC GLUCOSE LABon 12-05-2017 Glucose mass conc 144 mg/dL High 70-100 [facility] Comment on above: Performed By: #### 8 5499 ####[facility] [facility] [place] [address], [facility] Glucose mass conc 132 mg/dL High 70-100 [facility] Comment on above: Performed By: #### 8 5499 ####[facility] [facility] [place] [place] [address], [facility] Glucose mass conc 139 mg/dL High 70-100 [facility] Comment on above: Performed By: #### 8 5499 #### [facility] [address] [facility] [place] [address], [facility] Glucose mass conc 152 mg/dL High 70-100 [facility] Comment on above: Performed By: #### 8 5499 #### [facility] [address] [facility] [place] [address], [facility] PORTABLE ABDOMENon 8 PORTABLE ABDOMEN [facility] Department of Radiology [address] [place] [id number] ======== Patient Name: KRISTOFER FABIAN : 1945 Sex: M Age: Race: White Pt. Location: [address] [place] [address] Patient Status: I Ordered Date: 12/05/2017 10:00:00 AM Completed Date: 12/05/2017 11:04 AM Requesting Provider: IRENE BENITEZ Attending Provider: HERMAN PETERS Report Copy To: Signs & Symptoms: Distention History: Patient history not available Comments: R/O Ileus Exam: PORTABLE ABDOMEN ======== PORTABLE ABDOMEN 12/05/2017 11:04 AM EDT SIGNS AND SYMPTOMS: Distention TECHNOLOGIST COMMENTS: abdomen distention check progress QUESTION FOR THE RADIOLOGIST: R/O Ileus PROTOCOL: AP(PA) view was obtained. COMPARISON: None FINDINGS: No gross organomegaly is noted. There is dilated cecum and transverse colon. No mucosal edema is noted however. There is no thumbprinting. No dilatation is significant in the small bowel. Air is seen in the rectum and descending colon. EKG wire overlies the left upper quadrant. No abnormal calcifications. No significant skeletal deformity. IMPRESSION: Colonic dilatation. This can be seen with hypokalemia or localized ileus. It is not extensive enough to be considered pseudoobstruction or [place]'s syndrome. Electronically signed by:Kimberlyn Collado. Transcribed by: [email or web address], User Resident: Electronically Signed by: KIMBERLYN COLLADO @ 12/05/2017 03:22 PM Normal [facility] Comment on above: Order Comment: R/O I leus POTASSIUM BLOODon 12-05-2017 Potassium molar conc 3.8 mmol/L Normal 3.5-5.1 [facility] Comment on above: Order Comment: No: D o not add to previous draw Performed By: #### 4 1406 ####[facility] [place] [address], [facility] TROPONIN-Ion 12-05-2017 Troponin I.cardiac mass conc 0.41 ng/mL High 0.00-0.04 [facility] Comment on above: Result Comment: REFE RENCE RANGES: 0.00 - 0.04 ng/ml NORMAL 0.05 - 0.50 ng/ml INDETERMINATE > 0.50 ng/ml CONSISTENT WITH AN M.I. Performed By: #### 8 5499 #### [facility] [address] [place] [address], [facility] POC GLUCOSE LABon 12-04-2017 Glucose mass conc 164 mg/dL High 70-100 [facility] Comment on above: Performed By: #### 8 5499 #### [facility] [address] [place] [address], [facility] Glucose mass conc 173 mg/dL High 70-100 [facility] Comment on above: Performed By: #### 8 5499 #### [facility] [address] [place] [address], [facility] Glucose mass conc 148 mg/dL High 70-100 [facility] Comment on above: Performed By: #### 8 5499 #### [facility] [address] [place] [address], [facility] ARTERIAL BLOOD GAS WITH ICAo n 12-03-2017 BASE EXCESS -3 mmol/L Low -2-2 [facility] Comment on above: Performed By: #### 3 1302 #### [facility] [address] [place] [address], [facility] [employer] [place] Normal [facility] Comment on above: Performed By: #### 3 1302 #### [facility] [address] [place] [address], [place] HCO3 molar conc (Bld) 22 mmol/L Low 23-27 [facility] Comment on above: Performed By: #### 3 1302 #### [facility] [address] [place] [address], [facility] IONIZED CALCIUM 1.24 mmol/L Normal 1.13-1.32 [facility] Comment on above: Performed By: #### 3 1302 #### [facility] [address] [place] [address], [facility] LPM 3.0 LPM Normal 0.5-20.0 [facility] Comment on above: Performed By: #### 3 1302 #### [facility] [address] [place] [address], [facility] Oxygen ppres (Bld) 121 mm[Hg] Critically high 75-100 T [facility] Comment on above: Performed By: #### 3 1302 #### [facility] [address] [place] [address], [facility] Oxygen saturation in Blood 96.5 % Normal 94.0-97.0 [facility] Comment on above: Performed By: #### 3 1302 #### [facility] [address] [facility] [place] [address], [facility] PCO2 38 mmHg Normal 35-45 [facility] Comment on above: Performed By: #### 3 1302 #### [facility] [address] [place] [address], [facility] pH (Bld) 7.37 [pH] Normal 7.35-7.45 [facility] Comment on above: Performed By: #### 3 1302 #### [facility] [address] [place] [address], [facility] BASIC METABOLIC PANELon 11-10 Calcium mass conc 9.0 mg/dL Normal 8.6-10.3 [facility] Comment on above: Order Comment: , , = ========= , Ordering Provider - VENESSA [employer] SPECIALIST, S , Performed By: #### 0 0071, 45148, 51996 ####[facility] [facility] [place] [address], [facility] Chloride molar conc 105 mmol/L Normal 98-107 [facility] Comment on above: Order Comment: , , = ========= , Ordering Adia [employer] SPECIALIST, S , Performed By: #### 0 0071, , 98850 ####[facility] [place] [address], [facility] CO2 molar conc 24 mmol/L Normal 21-31 The [facility] Comment on above: Order Comment: , , = ========= , Ordering Adia [employer] SPECIALIST, S , Performed By: #### 0 0071, , 16157 ####[place] [address] [facility] [place] [address], [facility] Creatinine mass conc 1.42 mg/dL High 0.70-1.30 [facility] Comment on above: Order Comment: , , = ========= , Ordering Adia - VENESSA [employer] SPECIALIST, S , Performed By: #### 0 0071, , 28784 ####[place] [address] [facility] [place] [address], [facility] GFR/1.73 sq M predicted among blacks MDRD vol rate/area (S/P/Bld) 59 ml/min/1.73sq m Abnormal >60 [facility] Comment on above: Order Comment: , , = ========= , Ordering Adia [employer] SPECIALIST, S , Result Comment: Calc ulation may not be valid for patients over 70 years Performed By: #### 0 0071, 03712, 38780 ####[place] [address] [place] [address], [facility] GFR/1.73 sq M predicted among non-blacks MDRD vol rate/area (S/P/Bld) 49 ml/min/1.73sq m Abnormal >60 [facility] Comment on above: Order Comment: , , = ========= , Ordering Adia [employer] SPECIALIST, S , Result Comment: Calc ulation may not be valid for patients over 70 years Performed By: #### 0 70, , 07870 ####[facility] [facility] [place] [address], [facility] Glucose mass conc 115 mg/dL High 70-100 [facility] Comment on above: Order Comment: , , = ========= , Ordering Adia [employer] SPECIALIST, S , Performed By: #### 0 70, , 14063 ####[place] [address] [facility] [place] [address], [facility] Potassium molar conc 4.3 mmol/L Normal 3.5-5.1 [facility] Comment on above: Order Comment: , , = ========= , Ordering Adia [employer] SPECIALIST, S , Performed By: #### 0 70, , 75374 ####[place] [address] [facility] [place] [address], [facility] Sodium molar conc 134 mmol/L Low 136-145 [facility] Comment on above: Order Comment: , , = ========= , Ordering Adia - VENESSA [employer] SPECIALIST, S , Performed By: #### 0 70, , 32285 ####[facility] [facility] [place] [address], [facility] Urea nitrogen mass conc 23 mg/dL Normal 7-25 [facility] Comment on above: Order Comment: , , = ========= , Ordering Provider - VENESSA [employer] SPECIALIST, S , Performed By: #### 0 0071, 20981, [address]5611 ####[address] CBC COMPLETE BLOOD COUNTon 0 12-03-2017 Erythrocyte distribution width Ratio (RBC) 13.0 % Normal 11.5-15.0 [facility] Comment on above: Order Comment: , , = ========= , Ordering Provider - VENESSA [employer] SPECIALIST, S , Performed By: #### 5 0608 ####[address] Hematocrit Volume Fraction (Bld) 34.0 % Low 39.0-50.0 [facility] Comment on above: Order Comment: , , = ========= , Ordering Provider - VENESSA [employer] SPECIALIST, S , Performed By: #### 5 0608 ####[address] Hemoglobin mass conc (Bld) 11.7 g/dL Low 13.0-17.0 [facility] Comment on above: Order Comment: , , = ========= , Ordering Provider - VENESSA [employer] SPECIALIST, S , Performed By: #### 5 0608 ####[address] MCH Entitic mass (RBC) 28.3 pg Normal 27.0-33.0 [facility] Comment on above: Order Comment: , , = ========= , Ordering Adia - VENESSA WH[employer] SPECIALIST, S , Performed By: #### 5 0608 ####[address] MCHC mass conc (RBC) 34.4 g/dL Normal 32.0-35.0 [facility] Comment on above: Order Comment: , , = ========= , Ordering Provider - VENESSA [employer] SPECIALIST, S , Performed By: #### 5 0608 ####[facility] MCV Entitic volume (RBC) 82.3 fL Normal 82.0-98.0 [facility] Comment on above: Order Comment: , , = ========= , Ordering Provider - VENESSA [employer] SPECIALIST, S , Performed By: #### 5 0608 ####[address] Nucleated RBC/100 WBC Ratio (Bld) 0 % Normal 0-0 [facility] Comment on above: Order Comment: , , = ========= , Ordering Provider - VENESSA [employer] SPECIALIST, S , Performed By: #### 5 0608 ####[address] PLAT CNT 184 10*3/uL Normal 150-400 [facility] Comment on above: Order Comment: , , = ========= , Ordering Provider - VENESSA [employer] SPECIALIST, S , Performed By: #### 5 0608 ####[address] RBC #/vol (Bld) 4.13 10*6/uL Low 4.20-5.70 [facility] Comment on above: Order Comment: , , = ========= , Ordering Provider - VENESSA [employer] SPECIALIST, S , Performed By: #### 5 0608 ####[facility] WBC #/vol (Bld) 15.96 10*3/uL High 4.00-10.60 [facility] Comment on above: Order Comment: , , = ========= , Ordering Provider - VENESSA [employer] SPECIALIST, S , Performed By: #### 5 0608 ####[facility] CPK-MB PROFILEon 12-03-2017 CK enzyme act/vol 228 U/L High 30-223 [facility] Comment on above: Order Comment: post op day 1No: Do not add to previous draw Performed By: #### 3 1302 #### [facility] [address] CK.MB mass conc 8.9 ng/mL Critically high 0.0-1.9 [facility] Comment on above: Order Comment: post op day 1No: Do not add to previous draw Result Comment: M-CR ITICAL RESULT(S) REVIEWED, CALLED TO AND READ BACK BY MARGARETTE RODRIGUEZ RN @ 0542 Performed By: #### 3 1302 #### [facility] [address] CK.MB mass conc 20.2 ng/mL High 0.0-5.0 [place] Comment on above: Order Comment: post op day 1No: Do not add to previous draw Result Comment: M-CR ITICAL RESULT(S) REVIEWED, CALLED TO AND READ BACK BY CRITICAL RESULT(S) REVIEWED, CALLED TO AND READ BACK BY MARGARETTE RODRIGUEZ RN @ 0542 IF TOTAL CK <200 U/L AND: 1. CKMB IS 5-10 NG/ML----BORDERLINE 2. CKMB IS >10 NG/ML----[place]IC[place] OF [place] OR IF TOTAL CK >200 U/L AND CKMB INDEX >1.9----[place] Performed By: #### 3 1302 #### [facility] [address] [place] [address], [place] MAGNESIUM BLOODon 12-03-2017 Magnesium mass conc 2.3 mg/dL Normal 1.9-2.7 [facility] Comment on above: Order Comment: , , = ========= , Ordering Provider - VENESSA [employer] SPECIALIST, S , Performed By: #### 0 0071, 31638, 14658 ####[facility] [place] [address], [place] POC GLUCOSE LABon 12-03-2017 Glucose mass conc 139 mg/dL High 70-100 [facility] Comment on above: Performed By: #### 3 1302 #### [facility] [address] [place] [address], [place] Glucose mass conc 145 mg/dL High 70-100 [facility] Comment on above: Performed By: #### 3 1302 #### [facility] [address] [place] [address], [place] Glucose mass conc 126 mg/dL High 70-100 [facility] Comment on above: Performed By: #### 3 1302 #### [facility] [address] [place] [address], [place] Glucose mass conc 116 mg/dL High 70-100 [facility] Comment on above: Performed By: #### 3 1302 #### [facility] [address] [place] [address], [place] Glucose mass conc 128 mg/dL High 70-100 [facility] Comment on above: Performed By: #### 3 1302 #### [facility] [address] [place] [address], [place] Glucose mass conc 119 mg/dL High 70-100 [facility] Comment on above: Performed By: #### 3 1302 #### [facility] [address] [facility] [place] [place] [address], [facility] Glucose mass conc 129 mg/dL High 70-100 [facility] Comment on above: Performed By: #### 8 5499 ####[facility] [facility] [place] [address], [place] Glucose mass conc 116 mg/dL High 70-100 [facility] Comment on above: Performed By: #### 8 5499 ####[facility] [facility] [place] [place] [address], [place] Glucose mass conc 116 mg/dL High 70-100 [facility] Comment on above: Performed By: #### 8 5499 ####[facility] [facility] [facility] [place] [address], [place] Glucose mass conc 116 mg/dL High 70-100 [facility] Comment on above: Performed By: #### 8 5499 ####[facility] [facility] [place] [place] [address], [place] Glucose mass conc 144 mg/dL High 70-100 [facility] Comment on above: Performed By: #### 8 5499 ####[facility] [facility] [place] [place] [address], [facility] Glucose mass conc 147 mg/dL High 70-100 [facility] Comment on above: Performed By: #### 8 5499 ####[facility] [facility] [place] [place] [address], [facility] PORTABLE CHEST 1 VIEWon 11-10 PORTABLE CHEST 1 VIEW [facility] Department of Radiology [address] [place] [id number] ======== Patient Name: KRISTOFER FABIAN : 1945 Sex: M Age: Race: White Pt. Location: [address] [place] [address] Patient Status: I Ordered Date: 12/03/2017 9:30:00 AM Completed Date: 12/03/2017 10:06 AM Requesting Provider: HERMAN PETERS Attending Provider: HERMAN PETERS Report Copy To: Signs & Symptoms: CABG History: Patient history not available Comments: R/O Atelectasis, Post op day 1 CABG Exam: PORTABLE CHEST 1 VIEW ======== PORTABLE CHEST 1 VIEW 12/03/2017 10:06 AM EDT SIGNS AND SYMPTOMS: CABG TECHNOLOGIST COMMENTS: sob recent cabg QUESTION FOR THE RADIOLOGIST: R/O Atelectasis, Post op day 1 CABG PROTOCOL: AP(PA) view was obtained. COMPARISON: December 02, 2017. FINDINGS: Interval removal of ET tube and NG tube. Right-sided IJ central venous line, left-sided chest tube and mediastinal drain are unchanged. The cardiomediastinal silhouette is unchanged. Trachea is midline. There is obliteration of the left costophrenic angle. Bibasilar airspace opacities. No pneumothorax. IMPRESSION: Interval removal of ET and NG tube, otherwise support tubes and lines are unchanged. Left-sided pleural effusion. Bibasilar airspace opacities likely representing atelectasis. Approved by:Rosalio Reyes on 12/03/2017 1:25 PM EDT. I, Shaw Dent, have reviewed the images and report and concur with these findings. Electronically signed by:Shaw Dent. Transcribed by: [id number], User Resident: ROSALIO REYES Electronically Signed by: SHAW DENT @ 12/03/2017 02:01 PM I personally read this/these film(s) with this resident Normal [facility] Comment on above: Order Comment: R/O A telectasis, Post op day 1 CABG PROTHROMBIN TIMEon 8 INR Coag RelTime (PPP) 1.14 {INR} Normal 0.91-1.16 [facility] Comment on above: Order Comment: , , = ========= , Ordering Provider - VENESSA WHITE NP S , Result Comment: ACCC P RECOMMENDED INR FOR WARFARIN THERAPY ------ ------- CONDITION INR PROPHYLAXIS OF VENOUS THROMBOSIS 2-3 (HIGH-RISK SURGERY) TREATMENT OF VENOUS THROMBOSIS 2-3 TREATMENT OF PULMONARY EMBOLISM 2-3 PREVENTION OF SYSTEMIC EMBOLISM: 2-3 ACUTE MYOCARDIAL INFARCTION TISSUE HEART VALVES VALVULAR HEART DISEASE ATRIAL FIBRILLATION RECURRENT SYSTEMIC EMBOLISM MECHANICAL HEART VALVE 2.5-3.5 FROM: ORAL ANTICOAGULANTS. MECHANISM OF ACTION, CLINICAL EFFECTIVENESS, AND OPTIMAL THERAPEUTIC RANGE. CHEST 1995;108:231S-246S. Performed By: #### 5 1081 ####[facility] [facility] Prothrombin time (PT) Coag time (PPP) 14.6 s Normal 12.3-14.8 [facility] Comment on above: Order Comment: , , = ========= , Ordering Provider - VENESSA WHITE NP S , Result Comment: ALL RESULTS MUST BE INTERPRETED WITH RESPECT TO BLOOD DRAWING ARTIFACT OR DILUTION ERROR OF ANTICOAGULANT AT THE TIME OF SAMPLING. Performed By: #### 5 1391 ####[facility] [place] [address], [place] ACTIVATED CLOTTING TIMEon ACTIVATED CLOTTING TIME 132 sec Normal 82-152 [facility] Comment on above: Performed By: #### 4 6447 #### [facility] [address] [place] [address], [place] ACTIVATED CLOTTING TIME 508 sec High 82-152 [facility] Comment on above: Performed By: #### 6 2586 #### [facility] [address] [place] [address], [place] ACTIVATED CLOTTING TIME 644 sec High 82-152 [facility] Comment on above: Performed By: #### 6 2586 #### [facility] [address] [place] [address], [place] ACTIVATED CLOTTING TIME 479 sec High 82-152 [facility] Comment on above: Performed By: #### 6 2586 #### [facility] [address] [place] [address], [place] ACTIVATED CLOTTING TIME 467 sec High 82-152 [facility] Comment on above: Performed By: #### 6 2586 #### [facility] [address] [place] [address], [place] ACTIVATED CLOTTING TIME 138 sec Normal 82-152 [facility] Comment on above: Performed By: #### 6 2586 #### [facility] [address] [place] [address], [place] APTTon 12-02-2017 aPTT Coag time (Bld) 36.5 s High 25.0-35.0 [facility] Comment on above: Result Comment: ALL RESULTS MUST BE INTERPRETED WITH RESPECT TO BLOOD DRAWING ARTIFACT OR DILUTION ERROR OF ANTICOAGULANT AT THE TIME OF SAMPLING. THE APTT SHOULD NOT BE USED TO MONITOR UNFRACTIONATED HEPARIN THERAPY, THIS LABORATORY NO LONGER HAS AN ESTABLISHED THERAPEUTIC RANGE BASED ON THE APTT. IT IS RECOMMENDED THAT THE [facility] - HEPARIN ASSAY (ANTI-XA ACTIVITY) BE USED FOR THIS PURPOSE. Performed By: #### 5 6101, [id number], [address] #### [facility] [address] ARTERIAL BLOOD GAS WITH ICAo n 12-02-2017 BASE EXCESS -4 mmol/L Low -2-2 [facility] Comment on above: Performed By: #### 4 6447 #### [facility] [address] DELIVERY SYSTEMS MV Normal [facility] Comment on above: Performed By: #### 4 6447 #### [facility] [address] [facility]. [address] FIO2 40 % Normal 21-100 [facility] Comment on above: Performed By: #### 4 6447 #### [facility] [address] [facility] [address] HCO3 molar conc (Bld) 21 mmol/L Low 23-27 [facility] Comment on above: Performed By: #### 4 6447 #### [facility] [address] [facility]. [address] IONIZED CALCIUM 1.23 mmol/L Normal 1.13-1.32 [facility] Comment on above: Performed By: #### 4 6447 #### [facility] [address] [facility] [place] [address], [facility] MIN VOLUME 11.3 Normal [facility] Comment on above: Performed By: #### 4 6447 #### [facility] [address] [facility] [place] [place] [address], [facility] MODALITY CPAP Normal [facility] Comment on above: Performed By: #### 4 6447 #### [facility] [address] Oxygen ppres (Bld) 106 mm[Hg] Critically high 75-100 T [facility] Comment on above: Performed By: #### 4 6447 #### [facility] [address] [place] [address], [place] Oxygen saturation in Blood 95.0 % Normal 94.0-97.0 [facility] Comment on above: Performed By: #### 4 6447 #### [facility] [address] [place] [address], [place] PCO2 38 mmHg Normal 35-45 [facility] Comment on above: Performed By: #### 4 6447 #### [facility] [address] [place] [address], [place] PEEP 5.0 CMH20 Normal [facility] Comment on above: Performed By: #### 4 6447 #### [facility] [address] [place] [address], [place] PF RATIO 265 mmHg Normal 50-400 [facility] Comment on above: Performed By: #### 4 6447 #### [facility] [address] [place] [address], [place] pH (Bld) 7.35 [pH] Normal 7.35-7.45 [facility] Comment on above: Performed By: #### 4 6447 #### [facility] [address] [place] [address], [place] PRESSURE SUPPORT 5 Normal [facility] Comment on above: Performed By: #### 4 6447 #### [facility] [address] [place] [address], [place] BASE EXCESS -5 mmol/L Low -2-2 [facility] Comment on above: Order Comment: on ar rival to CVU Performed By: #### 4 6462 #### [facility] [address] [place] [address], [place] DELIVERY SYSTEMS MV Normal [facility] Comment on above: Order Comment: on ar rival to CVU Performed By: #### 4 6447 #### [facility] [address] [place] [address], [facility] FIO2 50 % Normal 21-100 [facility] Comment on above: Order Comment: on ar rival to CVU Performed By: #### 4 6447 #### [facility] [address] [place] [address], [place] HCO3 molar conc (Bld) 21 mmol/L Low 23-27 [facility] Comment on above: Order Comment: on ar rival to CVU Performed By: #### 4 6447 #### [facility] [address] [place] [address], [facility] IONIZED CALCIUM 1.26 mmol/L Normal 1.13-1.32 [facility] Comment on above: Order Comment: on ar rival to CVU Performed By: #### 4 6447 #### [facility] [address] [place] [address], [place] MIN VOLUME 7.5 Normal [facility] Comment on above: Order Comment: on ar rival to CVU Performed By: #### 4 6447 #### [facility] [address] [place] [address], [place] MODALITY SIMV Normal [facility] Comment on above: Order Comment: on ar rival to CVU Performed By: #### 4 6447 #### [facility] [address] [place] [address], [place] Oxygen ppres (Bld) 113 mm[Hg] Critically high 75-100 T [facility] Comment on above: Order Comment: on ar rival to CVU Performed By: #### 4 6447 #### [facility] [address] [place] [address], [place] Oxygen saturation in Blood 95.0 % Normal 94.0-97.0 [facility] Comment on above: Order Comment: on ar rival to CVU Performed By: #### 4 6447 #### [facility] [address] [place] [address], [facility] PCO2 43 mmHg Normal 35-45 [facility] Comment on above: Order Comment: on ar rival to CVU Performed By: #### 4 6447 #### [facility] [address] [place] [address], [facility] PEEP 5.0 CMH20 Normal [facility] Comment on above: Order Comment: on ar rival to CVU Performed By: #### 4 6447 #### [facility] [address] [place] [address], [facility] PF RATIO 226 mmHg Normal 50-400 [facility] Comment on above: Order Comment: on ar rival to CVU Performed By: #### 4 6447 #### [facility] [address] [place] [address], [facility] pH (Bld) 7.30 [pH] Low 7.35-7.45 [facility] Comment on above: Order Comment: on ar rival to CVU Performed By: #### 4 6447 #### [facility] [address] [place] [address], [facility] PRESSURE SUPPORT 8 Normal [facility] Comment on above: Order Comment: on ar rival to CVU Performed By: #### 4 6447 #### [facility] [address] TIDAL VOLUME (VT) CC 500 Normal [facility] Comment on above: Order Comment: on ar rival to CVU Performed By: #### 4 6447 #### [facility] [address] [place] [address], [facility] BASIC METABOLIC PANELon 08-2 Calcium mass conc 7.7 mg/dL Low 8.6-10.3 [facility] Comment on above: Performed By: #### 4 6447 #### [facility] [address] [place] [address], [place] Chloride molar conc 105 mmol/L Normal 98-107 [facility] Comment on above: Performed By: #### 4 6447 #### [facility] [address] [place] [address], [place] CO2 molar conc 23 mmol/L Normal 21-31 [facility] Comment on above: Performed By: #### 4 6447 #### [facility] [address] [place] [address], [place] Creatinine mass conc 1.45 mg/dL High 0.70-1.30 [facility] Comment on above: Performed By: #### 4 6447 #### [facility] [address] [place] [address], [place] GFR/1.73 sq M predicted among blacks MDRD vol rate/area (S/P/Bld) 58 ml/min/1.73sq m Abnormal >60 [facility] Comment on above: Result Comment: Calc ulation may not be valid for patients over 70 years Performed By: #### 4 6472 #### [facility] [address] [place] [address], [place] GFR/1.73 sq M predicted among non-blacks MDRD vol rate/area (S/P/Bld) 48 ml/min/1.73sq m Abnormal >60 [facility] Comment on above: Result Comment: Calc ulation may not be valid for patients over 70 years Performed By: #### 4 6449 #### [facility] [address] [place] [address], [place] Glucose mass conc 139 mg/dL High 70-100 [facility] Comment on above: Performed By: #### 4 6461 #### [facility] [address] [place] [address], [place] Potassium molar conc 4.6 mmol/L Normal 3.5-5.1 [facility] Comment on above: Performed By: #### 4 6447 #### [facility] [address] [place] [address], [facility] Sodium molar conc 135 mmol/L Low 136-145 [facility] Comment on above: Performed By: #### 4 6447 #### [facility] [address] [place] [address], [facility] Urea nitrogen mass conc 23 mg/dL Normal 7-25 [facility] Comment on above: Performed By: #### 4 6447 #### [facility] [address] [facility]. [address] CBC COMPLETE BLOOD COUNTon 0 12-02-2017 Erythrocyte distribution width Ratio (RBC) 12.8 % Normal 11.5-15.0 [facility] Comment on above: Performed By: #### 4 6447 #### [facility] [address] Hematocrit Volume Fraction (Bld) 33.3 % Low 39.0-50.0 [facility] Comment on above: Performed By: #### 4 6495 #### [facility] [address] [place] [address], [facility] Hemoglobin mass conc (Bld) 11.4 g/dL Low 13.0-17.0 [facility] Comment on above: Performed By: #### 4 6447 #### [facility] [address] [place] [address], [facility] MCH Entitic mass (RBC) 28.1 pg Normal 27.0-33.0 [facility] Comment on above: Performed By: #### 4 6488 #### [facility] [address] [place] [address], [facility] MCHC mass conc (RBC) 34.2 g/dL Normal 32.0-35.0 [facility] Comment on above: Performed By: #### 4 3347 #### [facility] [address] MCV Entitic volume (RBC) 82.2 fL Normal 82.0-98.0 [facility] Comment on above: Performed By: #### 4 6447 #### [facility] [address] [facility] [place] [address], [facility] Nucleated RBC/100 WBC Ratio (Bld) 0 % Normal 0-0 [facility] Comment on above: Performed By: #### 4 6447 #### [facility] [address] [facility] [place] [address], [facility] PLAT CNT 141 10*3/uL Low 150-400 The [facility] Comment on above: Performed By: #### 4 6447 #### [facility] [address] [facility]. [address] RBC #/vol (Bld) 4.05 10*6/uL Low 4.20-5.70 [facility] Comment on above: Performed By: #### 4 6447 #### [facility] [address] WBC #/vol (Bld) 20.03 10*3/uL High 4.00-10.60 [facility] Comment on above: Performed By: #### 4 6447 #### [facility] [address] FIBRINOGENon 12-02-2017 FIBRINOGEN 294 mg/dL Normal 150-425 [facility] Comment on above: Performed By: #### 6 2586 #### [facility] [address] [facility] [address] MAGNESIUM BLOODon 12-02-2017 Magnesium mass conc 2.7 mg/dL Normal 1.9-2.7 [facility] Comment on above: Performed By: #### 4 6447 #### [facility] [address] [place] [address], [facility] PERFUSION BLOOD PANELon 11-10 BASE EXCESS 0.0 mmol/L Normal -2.0-3.0 [facility] Comment on above: Performed By: #### 4 6447 #### [facility] [address] [place] [address], [facility] Glucose mass conc 109 mg/dL High 70-105 [facility] Comment on above: Performed By: #### 4 6447 #### [facility] [address] [place] [address], [facility] Hematocrit Volume Fraction (Bld) 28 % Low 38-51 [facility] Comment on above: Performed By: #### 4 6447 #### [facility] [address] [place] [address], [facility] Hemoglobin mass conc (Bld) 9.5 g/dL Low 12.0-17.0 [facility] Comment on above: Performed By: #### 4 6447 #### [facility] [address] [place] [address], [facility] IONIZED CALCIUM 1.14 mmol/L Normal 1.12-1.32 [facility] Comment on above: Performed By: #### 4 6496 #### [facility] [address] [place] [address], [facility] Oxygen ppres (Bld) 238.0 mm[Hg] High 80.0-105.0 [facility] Comment on above: Performed By: #### 4 6467 #### [facility] [address] [place] [address], [facility] PCO2 41.3 mmHg Normal 35.0-45.0 [facility] Comment on above: Performed By: #### 4 6445 #### [facility] [address] [place] [address], [facility] pH (Bld) 7.39 [pH] Normal 7.35-7.45 [facility] Comment on above: Performed By: #### 4 9709 #### [facility] [address] [place] [address], [facility] Potassium molar conc 4.7 mmol/L Normal 3.5-4.9 [facility] Comment on above: Performed By: #### 4 5770 #### [facility] [address] [facility] [place] [place] [address], [facility] Sodium molar conc 136 mmol/L Low 138-146 [facility] Comment on above: Performed By: #### 4 3828 #### [facility] [address] BASE EXCESS -1.0 mmol/L Normal -2.0-3.0 The [facility] Comment on above: Performed By: #### 4 5530 #### [facility] [address] [facility]. [address] Glucose mass conc 112 mg/dL High 70-105 [facility] Comment on above: Performed By: #### 4 0120 #### [facility] [address] Hematocrit Volume Fraction (Bld) 27 % Low 38-51 [facility] Comment on above: Performed By: #### 4 4499 #### [facility] [address] [place] [address], [facility] Hemoglobin mass conc (Bld) 9.2 g/dL Low 12.0-17.0 [facility] Comment on above: Performed By: #### 4 0161 #### [facility] [address] [place] [address], [facility] IONIZED CALCIUM 0.94 mmol/L Low 1.12-1.32 [facility] Comment on above: Performed By: #### 4 3365 #### [facility] [address] [place] [address], [facility] Oxygen ppres (Bld) 299.0 mm[Hg] High 80.0-105.0 [facility] Comment on above: Performed By: #### 4 6447 #### [facility] [address] [place] [address], [place] PCO2 31.5 mmHg Low 35.0-45.0 [facility] Comment on above: Performed By: #### 4 6447 #### [facility] [address] [place] [address], [facility] pH (Bld) 7.47 [pH] High 7.35-7.45 [facility] Comment on above: Performed By: #### 4 6460 #### [facility] [address] [place] [address], [facility] Potassium molar conc 4.9 mmol/L Normal 3.5-4.9 [facility] Comment on above: Performed By: #### 4 6447 #### [facility] [address] [place] [address], [facility] Sodium molar conc 134 mmol/L Low 138-146 [facility] Comment on above: Performed By: #### 4 6447 #### [facility] [address] [place] [address], [facility] BASE EXCESS 2.0 mmol/L Normal -2.0-3.0 The [facility] Comment on above: Performed By: #### 6 2586 #### [facility] [address] [place] [address], [facility] Glucose mass conc 121 mg/dL High 70-105 [facility] Comment on above: Performed By: #### 6 2586 #### [facility] [address] [place] [address], [facility] Hematocrit Volume Fraction (Bld) 28 % Low 38-51 [facility] Comment on above: Performed By: #### 6 2586 #### [facility] [address] [place] [address], [facility] Hemoglobin mass conc (Bld) 9.5 g/dL Low 12.0-17.0 [facility] Comment on above: Performed By: #### 6 2586 #### [facility] [address] [facility] [place] [address], [facility] IONIZED CALCIUM 1.01 mmol/L Low 1.12-1.32 [facility] Comment on above: Performed By: #### 6 2586 #### [facility] [address] [facility] [place] [address], [facility] Oxygen ppres (Bld) 299.0 mm[Hg] High 80.0-105.0 [facility] Comment on above: Performed By: #### 6 2586 #### [facility] [address] [facility] [place] [address], [facility] PCO2 37.3 mmHg Normal 35.0-45.0 [facility] Comment on above: Performed By: #### 6 2586 #### [facility] [address] [facility] [place] [address], [facility] pH (Bld) 7.45 [pH] Normal 7.35-7.45 [facility] Comment on above: Performed By: #### 6 2586 #### [facility] [address] [place] [address], [facility] Potassium molar conc 4.6 mmol/L Normal 3.5-4.9 [facility] Comment on above: Performed By: #### 6 2586 #### [facility] [address] [place] [address], [facility] Sodium molar conc 134 mmol/L Low 138-146 [facility] Comment on above: Performed By: #### 6 2586 #### [facility] [address] [place] [address], [facility] BASE EXCESS 1.0 mmol/L Normal -2.0-3.0 [facility] Comment on above: Performed By: #### 6 2586 #### [facility] [address] [place] [address], [facility] Glucose mass conc 110 mg/dL High 70-105 [facility] Comment on above: Performed By: #### 6 2586 #### [facility] [address] [place] [address], [facility] Hematocrit Volume Fraction (Bld) 31 % Low 38-51 [facility] Comment on above: Performed By: #### 6 2586 #### [facility] [address] [place] [address], [facility] Hemoglobin mass conc (Bld) 10.5 g/dL Low 12.0-17.0 [facility] Comment on above: Performed By: #### 6 2586 #### [facility] [address] [place] [address], [facility] IONIZED CALCIUM 1.01 mmol/L Low 1.12-1.32 [facility] Comment on above: Performed By: #### 6 2586 #### [facility] [address] [place] [address], [facility] Oxygen ppres (Bld) 334.0 mm[Hg] High 80.0-105.0 [facility] Comment on above: Performed By: #### 6 2586 #### [facility] [address] [place] [address], [facility] PCO2 36.3 mmHg Normal 35.0-45.0 [facility] Comment on above: Performed By: #### 6 2586 #### [facility] [address] [place] [address], [facility] pH (Bld) 7.45 [pH] Normal 7.35-7.45 [facility] Comment on above: Performed By: #### 6 2586 #### [facility] [address] [place] [address], [facility] Potassium molar conc 4.6 mmol/L Normal 3.5-4.9 [facility] Comment on above: Performed By: #### 6 2586 #### [facility] 3000 [place] [address], [facility] Sodium molar conc 135 mmol/L Low 138-146 [facility] Comment on above: Performed By: #### 6 2586 #### [facility] [address] [place] [address], [facility] BASE EXCESS -1.0 mmol/L Normal -2.0-3.0 [facility] Comment on above: Performed By: #### 6 2586 #### [facility] [address] [place] [address], [facility] Glucose mass conc 97 mg/dL Normal 70-105 [facility] Comment on above: Performed By: #### 6 2586 #### [facility] [address] [place] [address], [facility] Hematocrit Volume Fraction (Bld) 36 % Low 38-51 [facility] Comment on above: Performed By: #### 6 2586 #### [facility] [address] [place] [address], [facility] Hemoglobin mass conc (Bld) 12.2 g/dL Normal 12.0-17.0 [facility] Comment on above: Performed By: #### 6 2586 #### [facility] [address] [place] [address], [facility] IONIZED CALCIUM 1.10 mmol/L Low 1.12-1.32 [facility] Comment on above: Performed By: #### 6 2586 #### [facility] [address] [place] [address], [facility] Oxygen ppres (Bld) 396.0 mm[Hg] High 80.0-105.0 [facility] Comment on above: Performed By: #### 6 2586 #### [facility] [address] [place] [address], [facility] PCO2 46.9 mmHg High 35.0-45.0 [facility] Comment on above: Performed By: #### 6 2586 #### [facility] [address] [place] [address], [facility] pH (Bld) 7.34 [pH] Low 7.35-7.45 [facility] Comment on above: Performed By: #### 6 2586 #### [facility] [address] [place] [address], [facility] Potassium molar conc 3.9 mmol/L Normal 3.5-4.9 [facility] Comment on above: Performed By: #### 6 2586 #### [facility] [address] [place] [address], [facility] Sodium molar conc 140 mmol/L Normal 138-146 [facility] Comment on above: Performed By: #### 6 2586 #### [facility] [address] [place] [address], [facility] BASE EXCESS 0.0 mmol/L Normal -2.0-3.0 [facility] Comment on above: Performed By: #### 6 2586 #### [facility] [address] [place] [address], [facility] Glucose mass conc 100 mg/dL Normal 70-105 [facility] Comment on above: Performed By: #### 6 2586 #### [facility] [address] [place] [address], [facility] Hematocrit Volume Fraction (Bld) 43 % Normal 38-51 [facility] Comment on above: Performed By: #### 6 8446 #### [facility] [address] [place] [address], [facility] Hemoglobin mass conc (Bld) 14.6 g/dL Normal 12.0-17.0 [facility] Comment on above: Performed By: #### 6 2586 #### [facility] [address] [place] [address], [facility] IONIZED CALCIUM 1.18 mmol/L Normal 1.12-1.32 [facility] Comment on above: Performed By: #### 6 2586 #### [facility] [address] [place] [address], [facility] Oxygen ppres (Bld) 89.0 mm[Hg] Normal 80.0-105.0 [facility] Comment on above: Performed By: #### 6 2586 #### [facility] [address] [place] [address], [facility] PCO2 35.7 mmHg Normal 35.0-45.0 [facility] Comment on above: Performed By: #### 6 2586 #### [facility] [address] [place] [address], [facility] pH (Bld) 7.43 [pH] Normal 7.35-7.45 [facility] Comment on above: Performed By: #### 6 2586 #### [facility] [address] [place] [address], [facility] Potassium molar conc 4.2 mmol/L Normal 3.5-4.9 [facility] Comment on above: Performed By: #### 6 2586 #### [facility] [address] [place] [address], [facility] Sodium molar conc 138 mmol/L Normal 138-146 [facility] Comment on above: Performed By: #### 6 2586 #### [facility] [address] [place] [address], [facility] POC GLUCOSE LABon 12-02-2017 Glucose mass conc 147 mg/dL High 70-100 [facility] Comment on above: Performed By: #### 4 6447 #### [facility] [address] [facility] [place] [address], [facility] Glucose mass conc 145 mg/dL High 70-100 [facility] Comment on above: Performed By: #### 4 6447 #### [facility] [address] [facility] [place] [place] [address], [facility] Glucose mass conc 128 mg/dL High 70-100 [facility] Comment on above: Performed By: #### 8 5499 ####[facility] [place] [address], [facility] Glucose mass conc 113 mg/dL High 70-100 [facility] Comment on above: Performed By: #### 8 5499 #### [facility] [address] [place], [place] [address] [place] [address] PORTABLE CHEST 1 VIEWon 11-10 PORTABLE CHEST 1 VIEW [facility] Department of Radiology [address] [place] [address] ======== Patient Name: KRISTOFER FABIAN : 1945 Sex: M Age: Race: White Pt. Location: OUTP Patient Status: I Ordered Date: 12/02/2017 6:10:00 PM Completed Date: 12/02/2017 07:11 PM Requesting Provider: HERMAN PETERS Attending Provider: HERMAN PETERS Report Copy To: Signs & Symptoms: Post CABG History: Patient history not available Comments: Check E.T. Position Exam: PORTABLE CHEST 1 VIEW ======== PORTABLE CHEST 1 VIEW 12/02/2017 7:11 PM EDT SIGNS AND SYMPTOMS: Post CABG TECHNOLOGIST COMMENTS: Post op s/p intubation and chest tube placement. QUESTION FOR THE RADIOLOGIST: Check E.T. Position PROTOCOL: AP(PA) view was obtained. COMPARISON: November 28, 2017 FINDINGS: Status post median sternotomy with expected postsurgical changes including left chest tube placement and mediastinal drain. Right IJ venous catheter terminates at the atriocaval junction. ET tube is in satisfactory position. Enteric tube terminates below left hemidiaphragm. Trachea is in the midline. Cardiomediastinal silhouette unchanged. Obliteration of the left costophrenic angle. Bibasilar consolidation more on the left. No pneumothorax. IMPRESSION: Supportive tubes and lines are in satisfactory position. No pneumothorax. Left pleural effusion. Bibasilar consolidation likely represent atelectasis. Approved by:Robin Lenz on 12/02/2017 7:46 PM EDT. I, Shaw Dent, have reviewed the images and report and concur with these findings. Electronically signed by:Shaw Dent. Transcribed by: [id number], User Resident: ROBIN LENZ Electronically Signed by: SHAW DENT @ 12/03/2017 08:48 AM I personally read this/these film(s) with this resident Normal [facility] Comment on above: Order Comment: Check E.T. Position PROTHROMBIN TIMEon 8 INR Coag RelTime (PPP) 1.38 {INR} High 0.91-1.16 [facility] Comment on above: Result Comment: [facility] P RECOMMENDED INR FOR WARFARIN THERAPY ------ ------- CONDITION INR PROPHYLAXIS OF VENOUS THROMBOSIS 2-3 (HIGH-RISK SURGERY) TREATMENT OF VENOUS THROMBOSIS 2-3 TREATMENT OF PULMONARY EMBOLISM 2-3 PREVENTION OF SYSTEMIC EMBOLISM: 2-3 ACUTE MYOCARDIAL INFARCTION TISSUE HEART VALVES VALVULAR HEART DISEASE ATRIAL FIBRILLATION RECURRENT SYSTEMIC EMBOLISM MECHANICAL HEART VALVE 2.5-3.5 FROM: ORAL ANTICOAGULANTS. MECHANISM OF ACTION, CLINICAL EFFECTIVENESS, AND OPTIMAL THERAPEUTIC RANGE. CHEST 1995;108:231S-246S. Performed By: #### 5 6101, 10718, 18321 #### [facility] [address] Prothrombin time (PT) Coag time (PPP) 17.0 s High 12.3-14.8 [facility] Comment on above: Result Comment: ALL RESULTS MUST BE INTERPRETED WITH RESPECT TO BLOOD DRAWING ARTIFACT OR DILUTION ERROR OF ANTICOAGULANT AT THE TIME OF SAMPLING. Performed By: #### 5 6101, 14663, 66775 #### [facility] [address] TYPE AND CROSSMATCHon 2017 ABO INTERPRETATION B Normal [facility] Comment on above: Performed By: #### 6 2594 #### [facility] [address] [facility]. [address] RH INTERPRETATION Negative Normal [facility] Comment on above: Performed By: #### 6 2594 #### [facility] [address] Cardiovascular Lab Reporton 11-29-2017 Cardiovascular Lab Report [facility] Patient Name: Kristofer Fabian MR #: [id number] [facility] Physician: Sotero Astorga M.D. Department of Service Date: 11/28/2017 Medicine Birthdate: 1945 Division of Room #: [facility]iology Adult Cardiovascular Services [address], [place] [address] Cardiovascular Laboratory Report FINAL IMPRESSIONS: 1. 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 2. 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 3. Mild disease of the left circumflex coronary artery. 4. Normal global left ventricular systolic function by noninvasive imaging. RECOMMENDATIONS/PLAN: 1. Consult Cardiothoracic Surgery for coronary artery bypass graft surgery given the number, location, and characteristics of the coronary stenosis and/or occlusion. 2. Aggressive cardiovascular risk factor modification. 3. Optimization of medical management; aspirin, beta-jose ramon, high-intensity statin, and angiotensin-converting enzyme inhibitor are indicated. 4. Follow up with Dr. Coley as scheduled. 5. Follow up with me in the [facility] in the next 2-4 weeks. PROCEDURES: Limited femoral angiography, bilateral selective coronary angiography, placement of a 6-Mosotho MynxGrip closure device. METHODS: After risks, benefits, and alternatives were explained, written informed consent was obtained. The patient was prepped and draped in the usual sterile fashion over both groins. Using 1% lidocaine solution, local infiltration anesthesia was achieved. Using a modified Seldinger technique, access to the right common femoral artery was obtained. A 6-Mosotho 11 cm sheath was inserted without difficulty. Baseline femoral arterial angiography was performed. Bilateral selective coronary angiography was then performed using JL4 and JR4 catheters. After reviewing the images, it was elected to conclude the procedure. A 6-Mosotho MynxGrip closure device was deployed per protocol achieving optimal hemostasis. Overall, the patient tolerated the procedure well. There were no overt complications. He was to be transferred to the [place] [facility] area in stable condition. FINDINGS: Hemodynamics: AO 126/81. LEFT VENTRICULOGRAPHY: This was not performed. Ejection fraction is 60% on stress testing. CORONARY ARTERIES: Left main coronary artery: This arises from the left coronary cusp. It bifurcates into the left anterior descending and left circumflex coronary arteries. It shows 10% distal stenosis. Left anterior descending coronary artery: This shows an 80% proximal stenosis at the bifurcation with a large branching 1st diagonal. The ostium of the diagonal shows an 80%-90% stenosis. The midportion of the left anterior descending shows sequential 80%-90% stenosis. The remainder of the vessel shows mild plaque and luminal irregularities. There are prominent septal to septal collaterals supplying the occluded right coronary artery. Left circumflex coronary artery: This shows a 40%-50% ostial stenosis and a long segment 30%-40% mid-vessel stenosis. It continues as a small caliber AV groove branch. There are zter-yv-dhyud collaterals. Right coronary artery: This is a dominant vessel giving rise to the posterior descending and posterolateral branches. There is a long segment stenosis in the midportion followed by complete occlusion. There are ipsilateral collaterals and contralateral collaterals supplying the distal vessel. Limited femoral angiography: that shows mild plaque and anatomy suitable for closure device. INDICATIONS: Exertional shortness of breath. Electronically Signed by: Sotero Astorga M.D. 12/02/2017 12:54 P Sotero Astorga M.D. Date Dict: 11/28/2017/09:07 Rashaun/Sotero Astorga M.D. Date Trans: 11/29/2017 03:52 Rashaun/dawna DN_[id number] cc: Taryn Coley M.D. [address] [facility] [address] Normal [facility] *MRSA/MSSA CULTUREon 018 *MRSA/MSSA CULTURE Clinical Report: (D) Specimen: NASAL SWAB Collected: 11/28/2017 11:27 Status: Final Last Updated: 11/29/2017 10:02 ISO (Final) No Methicillin Resistant Staphylococcus aureus Isolated (MRSA) ISO (Final) No Methicillin Sensitive Staphylococcus aureus Isolated (MSSA) Normal [facility] Comment on above: Performed By: #### 3 1302 #### [address] CHEST AND LATERALon 11-29-19 18 CHEST AND LATERAL [facility] Department of Radiology [address] [place] [address] ======== Patient Name: KRISTOFER FABIAN : 1945 Sex: M Age: Race: White Pt. Location: Patient Status: O Ordered Date: 11/28/2017 12:50:00 PM Completed Date: 11/28/2017 12:59 PM Requesting Provider: VENESSA WHITE Attending Provider: SOTERO ASTORGA Report Copy To: TARYN COLEY Signs & Symptoms: I25.10 Athscl heart disease of tlingit & ha[place] coronary artery w/o ang pctrs I10 History: [place] Comments: , , , Ordering Provider - VENESSA WHITE YOUTH SERVICES SPECIALIST, S , Exam: CHEST AND LATERAL ======== CHEST AND LATERAL 11/28/2017 12:59 PM EDT SIGNS AND SYMPTOMS: I25.10 Athscl heart disease of tlingit & ha[place] coronary artery w/o ang pctrs I10 TECHNOLOGIST COMMENTS: Pre-op clearance. 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 COMPARISON: None FINDINGS: Trachea is midline. Cardiomediastinal silhouette is enlarged. Bibasilar atelectatic changes. Bilateral costophrenic sulci are clear. There is no pneumothorax. There is no subdiaphragmatic free air. The osseous structures reveal no acute abnormalities. IMPRESSION: Cardiomegaly. Minor bibasilar atelectatic changes. Approved by:ANAHI JAMES on 11/28/2017 1:34 PM EDT. I, Kimberlyn Collado, have reviewed the images and report and concur with these findings. Electronically signed by:Kimberlyn Collado. Transcribed by: [email or web address], User Resident: ANAHI JAMES Electronically Signed by: KIMBERLYN COLLADO @ 11/28/2017 02:39 PM I personally read this/these film(s) with this resident Normal [facility] Comment on above: Order Comment: , , = ========= , Ordering Provider - VENESSA WHITE NP, S , HEMOGLOBIN A1Con 11-28-2017 Hemoglobin A1c/Hemoglobin.tota l mass fraction (Bld) 5.8 % Normal 4.0-6.0 [facility] Comment on above: Performed By: #### 4 6447 #### [facility] [address] [place] [address], [facility] Hemoglobin A1c/Hemoglobin.tota l mass fraction (Bld) 120 mg/dL Normal 70-126 [facility] Comment on above: Performed By: #### 4 6447 #### [facility] [address] [place] [address], [facility] LIVER BATTERYon 11-28-2017 Albumin mass conc 4.0 g/dL Normal 3.5-5.7 [facility] Comment on above: Performed By: #### 9 9909 #### [facility] [address] [place] [address], [facility] ALKALINE PHOSPH 51 IU/L Normal 34-104 [facility] Comment on above: Performed By: #### 9 9909 #### [facility] [address] [place] [address], [place] ALT enzyme act/vol 14 U/L Normal 7-52 [facility] Comment on above: Performed By: #### 9 9909 #### [facility] [address] [place] [address], [facility] AST enzyme act/vol 18 U/L Normal 13-39 [facility] Comment on above: Performed By: #### 9 9909 #### [facility] [address] [place] [address], [place] Bilirubin mass conc 0.5 mg/dL Normal 0.3-1.0 [facility] Comment on above: Performed By: #### 9 9909 #### [facility] [address] [place] [address], [place] Bilirubin.direct mass conc 0.1 mg/dL Normal 0.0-0.2 [facility] Comment on above: Performed By: #### 9 9909 #### [facility] [address] [place] [address], [facility] Protein mass conc 6.5 g/dL Normal 6.0-8.3 [facility] Comment on above: Performed By: #### 9 9909 #### [facility] [address] [place] [address], [facility] TYPE AND SCREENon 11-28-2017 ABO INTERPRETATION B Normal [facility] Comment on above: Performed By: #### 6 2586 #### [facility] [address] [place] [address], [place] RH INTERPRETATION Negative Normal [facility] Comment on above: Performed By: #### 6 2586 #### [facility] [address] [place] [address], [place] Vital Signs Date Time Vital Sign Value Performing Clinician Romeo lora 12-02-2017 21:32-0400 Respiratory rate 12 /min DEFAULT PHYSICIAN [facility] Comment on above: Order Comment: on ar rival to CVU Performed By: #### 4 6447 #### [facility] [address] [place] [address], [facility] Encounters Encounter Date Encounter Type Care Provider Facility Start: 09-16-2023 ambulatory [facility] Start: 09-12-2023 ambulatory [facility] Start: 08-23-2023 End: 08-23-2023 ambulatory [facility] Start: 06-13-2023 End: 06-13-2023 ambulatory [facility] Start: 05-17-2023 End: 05-17-2023 ambulatory [facility] Start: 03-28-2023 End: 03-28-2023 ambulatory NORMA FARIAS [facility] Start: 02-24-2023 End: 02-24-2023 [facility] Start: 01-24-2018 End: 01-25-2018 Patient encounter procedure DEFAULT PHYSICIAN Facility:[facility] Start: 12-02-2017 End: 12-06-2017 Evaluation and management of inpatient HERMAN S FRAN Facility:[facility] Start: 11-28-2017 End: 11-29-2017 Patient encounter procedure EHAB Rashaun [facility]ADDENPAR[facility]AMARIA DEL CARMEN Facility:[facility] Start: 11-22-2017 End: 11-23-2017 Patient encounter procedure DEFAULT PHYSICIAN Facility:[facility] Start: 11-21-2017 End: 11-22-2017 Patient encounter procedure DEFAULT PHYSICIAN Facility:[facility] Start: 11-16-2017 End: 11-17-2017 Patient encounter procedure DEFAULT PHYSICIAN Facility:[facility] Start: 11-16-2017 End: 11-17-2017 Patient encounter procedure DEFAULT PHYSICIAN Facility:[facility] Start: 11-04-2017 End: 11-05-2017 Patient encounter procedure DEFAULT PHYSICIAN Facility:[facility] Procedures Date Procedure Procedure Detail Performing Clinician Start: 12-02-2017 Antibody screen DEFAULT PHYSICIAN Comment on above: Performed By: #### 6 2594 #### [facility] [address] [place] [address], [facility] Start: 12-02-2017 BYPASS 1 COR ART FRO M L INT MAMMARY, OPEN APPROACH HERMAN S FRAN Start: 12-02-2017 BYPASS 2 COR ART FRO M AORTA WITH AUTOL VN, OPEN APPROACH HERMAN S FRAN Start: 12-02-2017 EXCISION OF LEFT SAP HENOUS VEIN, PERC ENDO APPROACH HERMAN Austin PETERS Start: 12-02-2017 INSERT INFUSION DEV IN R INT JUGULAR VEIN, PERC ERA GILLIS Start: 12-02-2017 INSERTION OF MONITOR ING DEVICE INTO UP ART, PERC APPROACH ERA GILLIS Start: 12-02-2017 MEASURE OF ARTERIAL SATURATION, PERIPHERAL, PERC APPROACH HERMAN PETERS Start: 12-02-2017 Performance of Cardi ac Output, Continuous HERMAN Austin PETERS Start: 12-02-2017 ULTRASONOGRAPHY OF R IGHT AND LEFT HEART, TRANSESOPHAGEAL ERA GILLIS Start: 12-02-2017 Ultrasonography of R ight Jugular Veins, Guidance ERA GILLIS Start: 11-28-2017 Antibody screen DEFAULT PHYSICIAN Comment on above: Performed By: #### 6 2586 #### [facility] [address] Payers Date Payer Category Payer Medicare [id number] 2012 [facility] [id number] 1946 Unknown [id number] 1945 Unknown [id number] 1945 Unknown [id number] 1945 Unknown [id number] [id number]. 1945 Unknown [id number] [id number]. 1945 Unknown [id number] 1945 Unknown [id number] 1945 Unknown [id number] Medicare [id number] Unknown Unknown [id number] Progress note 08-23-2023 Note Date & Type Note Facility 08-23-2023 Note [place] Electrophysiology Consult Note Reason for visit: SVT/PVC 08/23/23 Patient here for 2 mo follow up s/p loop monitor implant which was one on 06/13/23. Says he's had 3 episodes of epistaxis since starting Eliquis a few months ago. He is doing well and does not endorse any palpitations. LOOP data: HPI: Kristofer Fabian Sr. is a 78 y.o. year old with past medical history of CAD s/p CABG in 2018, hypertension, A-fib, CKD. He was recently seen by Dr. CONCEPCION who noted more shortness of breath than usual at the time during exam, noted that shortness of breath is similar to symptoms prior to his bypass surgery. After his CABG patient had postop A-fib and a supposed history of sinus bradycardia with frequent ventricular ectopy. Recently just had a 30-day event monitor ordered and a TTE to rule out A-fib and cardiomyopathy and lexiscan stress. He has been having increased DAO and can feel palpitations that are associated with dyspnea / racing heart feeling. He was seen by Norma WU and event monitor was reviewed which suggested AF and so was started on DOAC. On my personal review, this appears more of SVT which happened on 03/10/23 and 03/16/23 x 2 episodes. He flet the 03/16/23 episode. Lexiscan stress test on 03/15/23 shows no reversible ischemia, small sized mild severity fixed defect in mid anterior wall of LAD and moderate size moderate severity fixed defect in the inferior wall with RCA distribution, did note dilated LV and noted LVEF 60% TTE 03/16/2023 shows normal LVEF, LA mildly dilated, RA moderately dilated, RV mildly enlarged, RVSP 36 which is mildly elevated Event monitor 02/2023 has multiple events of SVT which appear like A-fib, tachyarrhythmias very fast and hard to differentiate but RR intervals irregular, he does seem to have a conversion pause of just under 2 seconds when converting from SVT to SR ECG 05/17/23 Sr with PVC in bigeminy 03/28/23 SR with PVC PMH: Past Medical History: Diagnosis Date Abnormal ECG Arrhythmia Atrial fibrillation (CMS/HCC) Coronary artery disease Hypertension PSH: Past Surgical History: Procedure Laterality Date CARDIAC CATHETERIZATION CORONARY ARTERY BYPASS GRAFT SH: Social Determinants of Health Tobacco Use: Medium Risk (06/02/2023) Patient History Smoking Tobacco Use: Former Smokeless Tobacco Use: Never Passive Exposure: Not on file Alcohol Use: Not on file Financial Resource Strain: Not on file Food Insecurity: Not on file Transportation Needs: Not on file Physical Activity: Not on file Stress: Not on file Social Connections: Not on file Intimate Partner Violence: Unknown (06/02/2023) [place] Safety & Environment Fear of Current or Ex-Partner: Not on file Emotionally Abused: Not on file Physically Abused: Not on file Sexually Abused: Not on file Physically or Sexually Abused: Not on file Depression: Not on file Housing Stability: Not on file Utilities: Not on file Allergies: No Known Allergies Weight: 114kg Visit Vitals BP 112/68 (BP Location: Left arm, Patient Position: Sitting) Pulse 58 Ht 1.829 m (6') Wt 114 kg (252 lb) SpO2 95% BMI 34.18 kg/m??? Smoking Status Former BSA 2.41 m??? Meds: Current Outpatient Medications on File Prior to Visit Medication Sig Dispense Refill amLODIPine (Norvasc) 5 mg tablet Take 1 tablet (5 mg) by mouth in the morning. as directed 90 tablet 3 apixaban (Eliquis) 5 mg tablet Take 1 tablet (5 mg) by mouth in the morning and at bedtime. 60 tablet 11 aspirin 81 mg EC tablet Take 1 tablet every day by oral route. atorvastatin (Lipitor) 80 mg tablet Take 1 tablet (80 mg) by mouth at bedtime. 90 tablet 3 lisinopril 40 mg tablet Take 1 tablet every day by oral route for 30 days. 90 tablet 3 metoprolol tartrate (Lopressor) 25 mg tablet TAKE ONE (1) TABLET BY MOUTH TWICE DAILY 180 tablet 3 No current facility-administered medications on file prior to visit. ROS: Review of Systems HENT: Positive for hearing loss (severe) and nosebleeds. Cardiovascular: Positive for dyspnea on exertion and leg swelling. Hematologic/Lymphatic: Bruises/bleeds easily. All other systems reviewed and are negative. Physical Exam: Constitutional General Appearance: well-nourished, well-developed, appears stated age Level of Distress: comfortable Psychiatric Mental Status: alert, normal affect Orientation: oriented to time, place, and person Insight: good judgement Eyes Lids and Conjunctivae: non-injected, no xanthelasma ENMT Ears: no lesions on external ear Nose: no lesions on external nose Oropharynx: no cyanosis, no pallor Neck Neck: supple, trachea midline Carotid Arteries: bilateral normal upstroke, no bruits Jugular Veins: normal jugular venous pressure Thyroid: not enlarged Lungs Respiratory Effort: unlabored Chest Exam: normal curvature, no thoracic deformity Auscultation: clear, no wheezing, no rales, no rhonchi Cardiovascular Rate And Rh (more content not included)... [facility] Procedure note 06-13-2023 Note Date & Type Note Facility 06-13-2023 Note LOOP IMPLANT PROCEDU RE NOTE DATE OF PROCEDURE: 06/13/23 PERFORMING PHYSICIAN: Dr. Maxim Ray RN TRANSITION: KARMA INDICATIONS FOR PROCEDURE: 1. SVT/AF surveillance CONSENT: Patient LOCATION: EP lab PROCEDURAL SEDATION: None FLUOROSCOPY TIME: 0min PREPARATION: Preoperative antibiotics was administered. EBL: 5cc SPECIMEN REMOVED: None PROCEDURES PERFORMED: 1. LOOP implant PROCEDURE NOTE: Patient was brought to the EP lab in the post absorptive state. A procedural pause was performed verifying the patient, the procedure. Sterile prep and drape were performed over the left precordium and anesthesia with 1% lidocaine was followed by a small incision was made in the 3rd intercostal space near the sternum on the left using the [employer] tool. The loop recorder was then injected subcutaneously and noted to have good sensing parameters. Technical details of the device as noted below. The skin was then closed with 3-0 absorbable monofilament suture and glue applied to hold the edges together. Tegaderm was applied to cover the wound. The patient appeared to tolerate the procedure well and was returned to the room in stable condition. No complications were immediately observed. IMPRESSION: Successful placement of LOOP implant with excellent sensing parameters. COMPLICATIONS: None RECOMMENDATIONS: 1. Occlusive dressing to be changed after 7 days. 2. Do not wet the incision. Maxim Ray MD Cardiac Electrophysiology. [facility] Progress note 05-17-2023 Note Date & Type Note Facility 05-17-2023 Note [facility] Consult Note Reason for visit: SVT/PVC HPI: Kristofer N Fabian Sr. is a 78 y.o. year old with past medical history of CAD s/p CABG in 2018, hypertension, A-fib, CKD. He was recently seen by Dr. CONCEPCION who noted more shortness of breath than usual at the time during exam, noted that shortness of breath is similar to symptoms prior to his bypass surgery. After his CABG patient had postop A-fib and a supposed history of sinus bradycardia with frequent ventricular ectopy. Recently just had a 30-day event monitor ordered and a TTE to rule out A-fib and cardiomyopathy and lexiscan stress. He has been having increased DAO and can feel palpitations that are associated with dyspnea / racing heart feeling. He was seen by Norma WU and event monitor was reviewed which suggested AF and so was started on DOAC. On my personal review, this appears more of SVT which happened on 03/10/23 and 03/16/23 x 2 episodes. He flet the 03/16/23 episode. Lexiscan stress test on 03/15/23 shows no reversible ischemia, small sized mild severity fixed defect in mid anterior wall of LAD and moderate size moderate severity fixed defect in the inferior wall with RCA distribution, did note dilated LV and noted LVEF 60% TTE 03/16/2023 shows normal LVEF, LA mildly dilated, RA moderately dilated, RV mildly enlarged, RVSP 36 which is mildly elevated Event monitor 02/2023 has multiple events of SVT which appear like A-fib, tachyarrhythmias very fast and hard to differentiate but RR intervals irregular, he does seem to have a conversion pause of just under 2 seconds when converting from SVT to SR ECG 05/17/23 Sr with PVC in bigeminy 03/28/23 SR with PVC PMH: Past Medical History: Diagnosis Date Abnormal ECG Arrhythmia Atrial fibrillation (CMS/HCC) Coronary artery disease Hypertension PSH: Past Surgical History: Procedure Laterality Date CARDIAC CATHETERIZATION CORONARY ARTERY BYPASS GRAFT SH: Social Determinants of Health Tobacco Use: Medium Risk (03/28/2023) Patient History Smoking Tobacco Use: Former Smokeless Tobacco Use: Never Passive Exposure: Not on file Alcohol Use: Not on file Financial Resource Strain: Not on file Food Insecurity: Not on file Transportation Needs: Not on file Physical Activity: Not on file Stress: Not on file Social Connections: Not on file Intimate Partner Violence: Not on file Depression: Not on file Housing Stability: Not on file Utilities: Not on file Allergies: No Known Allergies Weight: 115kg Visit Vitals BP 132/72 (BP Location: Right arm, Patient Position: Sitting) Ht 1.829 m (6') Wt 115 kg (254 lb) SpO2 95% BMI 34.45 kg/m??? Smoking Status Former BSA 2.42 m??? Meds: Current Outpatient Medications on File Prior to Visit Medication Sig Dispense Refill amLODIPine (Norvasc) 5 mg tablet Take 1 tablet (5 mg) by mouth in the morning. as directed 90 tablet 3 apixaban (Eliquis) 5 mg tablet Take 1 tablet (5 mg) by mouth in the morning and at bedtime. 60 tablet 11 aspirin 81 mg EC tablet Take 1 tablet every day by oral route. atorvastatin (Lipitor) 80 mg tablet Take 1 tablet (80 mg) by mouth at bedtime. 90 tablet 3 lisinopril 40 mg tablet Take 1 tablet every day by oral route for 30 days. 90 tablet 3 metoprolol tartrate (Lopressor) 25 mg tablet TAKE ONE (1) TABLET BY MOUTH TWICE DAILY 180 tablet 3 No current facility-administered medications on file prior to visit. ROS: Review of Systems HENT: Positive for hearing loss (severe). Cardiovascular: Positive for dyspnea on exertion. All other systems reviewed and are negative. Physical Exam: Constitutional General Appearance: well-nourished, well-developed, appears stated age Level of Distress: comfortable Psychiatric Mental Status: alert, normal affect Orientation: oriented to time, place, and person Insight: good judgement Eyes Lids and Conjunctivae: non-injected, no xanthelasma ENMT Ears: no lesions on external ear Nose: no lesions on external nose Oropharynx: no cyanosis, no pallor Neck Neck: supple, trachea midline Carotid Arteries: bilateral normal upstroke, no bruits Jugular Veins: normal jugular venous pressure Thyroid: not enlarged Lungs Respiratory Effort: unlabored Chest Exam: normal curvature, no thoracic deformity Auscultation: clear, no wheezing, no rales, no rhonchi Cardiovascular Rate And Rhythm: regular Heart Sounds: normal S1, normal s2, no gallop Systolic Murmur: not heard Diastolic Murmur: not heard Extremities: no cyanosis, no edema, no peripheral signs of emboli Peripheral Pulses Radial Pulse: normal Abdomen Inspection and Palpation: soft, non distended, no bruit, non tender Musculoskeletal Inspection: no joint swelling Neurologic Gait: normal gait Skin Inspection and Palpation: warm and dry Nails: no clubbing Labs: @LABRESULTS@ No results found for: CHOLESTEROL TOTAL , HDL , LDL CALC , LDL D (more content not included)... [facility] Progress note 03-28-2023 Note Date & Type Note Facility 03-28-2023 Note Patient here for new afib per event monitor. Denies chest pain. Had recent stress test and echo. Says a day or so after these tests, he could feel his heart race for about 30 seconds. This is the only time this has happened he says. He has not been started on AC. Review of Systems HENT: Positive for hearing loss (severe). Cardiovascular: Positive for dyspnea on exertion and palpitations (1 episode of racing ). All other systems reviewed and are negative. [facility] Progress note 03-28-2023 Note Date & Type Note Facility 03-28-2023 Note [facility] Consult Note Reason for visit: afib, hx of post cabg AF, event monitor 03/2023 showing AF HPI: Kristofer Moran Bishop Adan. is a 78 y.o. year old with past medical history of CAD s/p CABG in 2018, hypertension, A-fib, CKD He was recently seen by Dr. astorga who noted more shortness of breath than usual at the time during exam, noted that shortness of breath is similar to symptoms prior to his bypass surgery. After his CABG patient had postop A-fib and a supposed history of sinus bradycardia with frequent ventricular ectopy. Recently just had a 30-day event monitor ordered and a TTE to rule out A-fib and cardiomyopathy and lexiscan stress He has been having increased DAO and can feel palpitations that are associated with dyspnea / racing heart feeling Lexiscan stress test on 03/15/23 shows no reversible ischemia, small sized mild severity fixed defect in mid anterior wall of LAD and moderate size moderate severity fixed defect in the inferior wall with RCA distribution, did note dilated LV and noted LVEF 60% TTE 03/16/2023 shows normal LVEF, LA mildly dilated, RA moderately dilated, RV mildly enlarged, RVSP 36 which is mildly elevated Event monitor 02/2023 has multiple events of SVT which appear like A-fib, tachyarrhythmias very fast and hard to differentiate but RR intervals irregular, he does seem to have a conversion pause of just under 2 seconds when converting from SVT to SR ECG 03/28/23 SR with PVC PMH: Past Medical History: Diagnosis Date Abnormal ECG Arrhythmia Atrial fibrillation (CMS/HCC) Coronary artery disease Hypertension PSH: Past Surgical History: Procedure Laterality Date CARDIAC CATHETERIZATION CORONARY ARTERY BYPASS GRAFT SH: Social Determinants of Health Tobacco Use: Medium Risk (03/28/2023) Patient History Smoking Tobacco Use: Former Smokeless Tobacco Use: Never Passive Exposure: Not on file Alcohol Use: Not on file Financial Resource Strain: Not on file Food Insecurity: Not on file Transportation Needs: Not on file Physical Activity: Not on file Stress: Not on file Social Connections: Not on file Intimate Partner Violence: Not on file Depression: Not on file Housing Stability: Not on file Allergies: No Known Allergies Weight: 112kg Visit Vitals BP 122/80 (BP Location: Left arm, Patient Position: Sitting) Pulse 72 Ht 1.829 m (6') Wt 112 kg (248 lb) SpO2 96% BMI 33.63 kg/m??? Smoking Status Former BSA 2.39 m??? Meds: Current Outpatient Medications on File Prior to Visit Medication Sig Dispense Refill amLODIPine (Norvasc) 5 mg tablet Take 1 tablet (5 mg) by mouth in the morning. as directed 90 tablet 3 aspirin 81 mg EC tablet Take 1 tablet every day by oral route. atorvastatin (Lipitor) 80 mg tablet Take 1 tablet (80 mg) by mouth at bedtime. 90 tablet 3 lisinopril 40 mg tablet Take 1 tablet every day by oral route for 30 days. 90 tablet 3 metoprolol tartrate (Lopressor) 25 mg tablet TAKE ONE (1) TABLET BY MOUTH TWICE DAILY 180 tablet 3 No current facility-administered medications on file prior to visit. ROS: Cardio Basic Cardiovascular Symptoms: no lightheadedness, no leg edema, no syncope, no orthopnea, no PND, no claudication, Constitutional Constitutional: no fever, no night sweats, no significant weight gain, no significant weight loss, no exercise intolerance Eyes Eyes: no dry eyes, no irritation, no vision change ENMT Ears: no difficulty hearing, no ear pain Nose: no frequent nosebleeds, Mouth/Throat: no sore throat, no bleeding gums, no snoring, no dry mouth, no mouth ulcers, no oral abnormalities, no teeth problems Respiratory Respiratory: no cough, no wheezing, no coughing up blood, no sleep apnea Musculoskeletal Musculoskeletal: no muscle aches, no muscle weakness, joint pain+, no back pain, no swelling in the extremities Integumentary Skin no rash, no ulcer, no varicosities, no discoloration, no pruritus Neurologic Neurologic: no loss of consciousness, no weakness, no numbness, no seizures, no dizziness, no headaches Psychiatric Psych: no depression, feeling safe in relationship, no alcohol abuse, Hematologic/Lymphatic Hematologic/Lymphatic no swollen glands, no bruising Physical Exam: Constitutional General Appearance: well-nourished, well-developed, appears stated age Level of Distress: comfortable Psychiatric Mental Status: alert, normal affect Orientation: oriented to time, place, and person Insight: good judgement Eyes Lids and Conjunctivae: non-injected, no xanthelasma ENMT Ears: no lesions on external ear Nose: no lesions on external nose Oropharynx: no cyanosis, no pallor Neck Neck: supple, trachea midline Carotid Arteries: bilateral normal upstroke, no bruits Jugular Veins: normal jugular venous pressure Thyroid: not enlarged Lungs Respiratory Effort: unlabored Chest Exam: normal curvature, no thoracic deformity (more content not included)... [facility] Progress note 02-24-2023 Note Date & Type Note Facility 02-24-2023 Note [facility] Cardiology Clinic Note Chief Complaint: Patient here for 1.5 year follow up CAD, afib, and hypertension. No recent lab work or testing. He denies chest pain, but is c/o worsening SOB w/ minimal exertion. He denies LE edema, but states he does have it. Doesn't know when his BP was last checked. HPI: Kristofer Fabian is a 78 y.o. male with a h/o CAD, CABG in 2018, HTN here in routine follow up He has been having more shortness of breath for the past several months. He denies chest pain. Pertinently, shortness of breath was a symptom prior to bypass surgery. He has no orthopnea, paroxysmal internal dyspnea, he has intermittent lower extremity edema. He denies palpitations, lightheadedness, dizziness or syncope. Cardiology ROS: Review of Systems HENT: Positive for hearing loss (severe). Cardiovascular: Positive for dyspnea on exertion. All other systems reviewed and are negative. Past Medical History He has no past medical history on file. Surgical History He has no past surgical history on file. Social History He has no history on file for tobacco use, alcohol use, and drug use. Family History No family history on file. Allergies Patient has no allergy information on record. Medications Current Outpatient Medications: amLODIPine (Norvasc) 5 mg tablet, Take 1 tablet (5 mg) by mouth in the morning. as directed, Disp: 90 tablet, Rfl: 3 aspirin 81 mg EC tablet, Take 1 tablet every day by oral route., Disp: , Rfl: atorvastatin (Lipitor) 80 mg tablet, Take 1 tablet (80 mg) by mouth at bedtime., Disp: 90 tablet, Rfl: 3 lisinopril 40 mg tablet, Take 1 tablet every day by oral route for 30 days., Disp: 90 tablet, Rfl: 3 metoprolol tartrate (Lopressor) 25 mg tablet, TAKE ONE (1) TABLET BY MOUTH TWICE DAILY, Disp: 180 tablet, Rfl: 3 Last Recorded Vitals BP 120/62 (BP Location: Left arm, Patient Position: Sitting) Pulse 63 Ht 1.829 m (6') Wt 114 kg (251 lb) SpO2 96% BMI 34.04 kg/m??? Physical Examination: GENERAL: alert and oriented x3, well developed, in no acute distress. HEAD: atraumatic, normocephalic. EYES: PAUL, EOMI. NECK: trachea midline, no JVD present, no carotid bruits present. CARDIAC: S1, S2 present. RRR. No murmur, rubs, or gallops. RESPIRATORY: CTAB, no increased effort of breathing, no rales, rhonchi, or wheezing. ABDOMEN: soft, nontender, nondistended. EXTREMITIES: no lower extremity edema, peripheral pulses are 2+ bilaterally. No rash/skin discoloration present. NEURO: strength/sensation equal and symmetric in bilateral upper and lower extremities. PSYCH: appropriate mood, affect, and judgement. 12 lead EKG and strip Sinus bradycardia with frequent premature ventricular contractions and infrequent premature supraventricular contractions. No significant ST-T wave changes. Assessment: 1. Coronary atherosclerosis - s/p 3-V CABG 11/2017 -Denies chest pain, dyspnea -Recent LDL 69 -Continue ASA 81mg daily, atorvastatin 80mg daily, metoprolol 25mg BID I25.10: Atherosclerotic heart disease of [place] coronary artery without angina pectoris 2. Essential hypertension - ??? Controlled, continue amlodipine 5mg daily, lisinopril 40mg daily, metoprolol 25mg BID I10: Essential (primary) hypertension lisinopril 40 mg tablet - Take 1 tablet(s) every day by oral route for 30 days. Qty: 90 tablet(s) Refills: 3 Pharmacy: [facility] 3. Atrial fibrillation - POST OP Regular rhythm on exam today with occasional premature beats I48.91: Unspecified atrial fibrillation 4. Sinus bradycardia with frequent ventricular ectopy Plan: A 30-day event monitor A complete echocardiogram Given his shortness of breath, frequent ventricular ectopy, and the duration of time since his bypass surgery, an ischemic work-up is warranted. We will schedule him for a Lexiscan stress test. Depending on the results of his echocardiogram and stress test he may need further investigations namely coronary angiography Continue medical therapy for coronary artery disease; Aspirin, high intensity statin therapy, beta-jose ramon and an angiotensin-converting enzyme inhibitor Follow-up after testing is complete Sotero Astorga MD, MPH, [facility], [facility], [facility] Interventional Cardiology Pager Email: [email or web address] Summary Purpose Family History No Family History Records FoundNo Family History Records FoundNo Family History Records Found Advance Directives No Advanced Directives Records FoundNo Advanced Directives Records FoundNo Advanced Directives Records Found Hospital Course Note MR#: [id number] [facility] Pt. Name: Kristofer Fabian Admitted: 12/02/2017 Discharged: 12/06/2017 Date of : 1945 Physician: Herman Peters MD DISCHARGE SUMMARY ADMISSION DIAGNOSIS: Coronary artery disease. DISCHARGE DIAGNOSIS: Coronary artery disease status post surgical coronary revascularization. ADMITTING AND DISCHARGING PHYSICIAN: Dr. Peters. PROCEDURES PERFORMED: During this hospitalization, coronary artery bypass grafting x3 on 12/02/2017. HISTORY OF PRESENT STAY AND HOSPITAL COURSE: The patient is a 72-year-old man who has had previous complaints of chest pain suspicious of angina and a positive stress test. He underwent cardiac catheterization, which demonstrated significant disease in his left anterior descending coronary artery and complete occlusion of his right coronary system with [id number] collaterals. He was deemed to be suitable for coronary artery bypass grafting on consultation. The patient was admitted on 12/02/2017 and und (more content not included)... Additional Source Comments (unrecognized sect ion and content) No Status Records FoundNo Status Records FoundNo Status Records Found INFORMATION SOURCE (unrecogn ized section and content) DATE CREATED AUTHOR 08/03/2018 [place] DATE CREATED AUTHOR AUTHOR'S ORGANIZ ATION 04/26/2021 [facility] DATE CREATED AUTHOR AUTHOR'S ORGANIZ ATION 09/17/2023 [facility] FOR RECORDS PERTAINING TO PATIENTS WHO ARE OR HAVE BEEN ENROLLED IN A CHEMICAL DEPENDENCY/SUBSTANCEABUSE PROGRAM, SOME INFORMATION MAY BE OMITTED. This clinical summary was aggregated from multiple sources. Caution should be exercised in using it in the provision of clinical care. This summary normalizes information from multiple sources, and as a consequence, information in this document may materially change the coding, format and clinical context of patient data. In addition, data may be omitted in some cases. CLINICAL DECISIONS SHOULD BE BASED ON THE PRIMARY CLINICAL RECORDS. [employer] provides no warranty or guarantee of the accuracy or completeness of information in this document.
--- NOTE | 2023-09-19 07:26 | CA_ITS ---
Patient Name: KRISTOFER ROSADO MR#: [id number] : 1945 Exam Date: 09/19/2023 Ordering Doctor: DMITRY ESPINOSA ECHOCARDIOGRAM REPORT PROCEDURE: CA ECHO DOPPLER COMPLETE INDICATIONS: Frequent PVCs COMPARISON: None. DESCRIPTION: COMPLETE ECHOCARDIOGRAM Real-time transthoracic echocardiography with 2D, M-mode, spectral and color flow Doppler performed. QUALITY: Technical quality was good. LEFT VENTRICLE: Normal chamber size. Mild concentric left ventricular hypertrophy. Global left ventricular systolic function is normal. LV EF: Estimated left ventricular ejection fraction is 60-65% DIASTOLIC: Normal diastolic function. ATRIAL SEPTUM: LEFT ATRIUM: Normal chamber size. RIGHT ATRIUM: Moderate dilatation. RIGHT VENTRICLE: Mild dilatation. Normal right ventricular systolic function. TRICUSPID VALVE: Normal mobility and thickness. No stenosis with mild to moderate regurgitation. No evidence of pulmonary hypertension. RVSP 31 mmHg MITRAL VALVE: Normal mobility and thickness. No evidence of mitral valve stenosis. There is no mitral annular calcification. Trivial mitral regurgitation. AORTIC VALVE: Normal trileaflet appearance. Thickened aortic valve. Normal leaflet mobility. No evidence of aortic valve stenosis. No aortic regurgitation. AORTIC ROOT: Normal diameter and appearance. PULMONIC VALVE: Normal thickness and mobility. No stenosis. Trivial regurgitation. PERICARDIUM: No evidence of pericardial effusion. IVC: Collapses with inspirations. Normal size. PLEURA: CONCLUSION: 1. Mild concentric left ventricular hypertrophy with normal systolic function. LVEF is estimated at 60 to 65%. 2. Mildly dilated right ventricle with normal systolic function. 3. Right atrium is moderately dilated. 4. Mild to moderate tricuspid regurgitation. 5. Normal right-sided pressures. 6. Patient appears to be in sinus rhythm. Frequent PVCs noted during the exam. Adult Echocardiography Procedure Report Left Ventricle LVEDD (3.7 - 5.6 cm): 5.70 cm LVESD (2.2 - 4.0 cm): 4.01 cm LVIVS thickness (0.6 - 1.2 cm): 1.07 cm LVPW thickness (0.5 - 1.0 cm): 1.17 cm e': 0.11 m/s E - e': 7.00 LVOT Max Gradient: 7.18 mm[Hg] LVOT Area (cm2): 1.34 m/s Peak Velocity (LVOT): 1.34 m/s Mean Velocity (LVOT): 0.83 m/s LVOT Diameter 2.21 cm Left Ventricular Ejection Fraction: 63.27 % Left Atrium LA Volume Index (2D A2C): 30.35 ml/m2 Left Atrium Systolic Dimension: 4.51 cm Mitral Valve MV E to A Ratio: 1.58 Mitral Valve A-Wave Peak Velocity: 0.51 m/s Mitral Valve E-Wave Peak Velocity: 0.80 m/s Right Ventricle RV Internal Diastolic Dimension: 3.92 cm Aorta AO Root Diam: 3.57 cm Ascending Ao Diam: 3.16 cm Aortic Valve AoV Area (Peak Ger): 3.99 cm2, 3.99 cm2 AoV Area (VTI): 3.56 cm2, 3.56 cm2 Peak Velocity(Antegrade Flow): 1.29 m/s Peak Gradient(Antegrade Flow): 6.64 mm[Hg] Mean Velocity(Antegrade Flow): 0.88 m/s Mean Gradient(Antegrade Flow): 3.57 mm[Hg] Velocity Time Integral: 31.04 cm Tricuspid Valve Peak Velocity (Regurgitant Flow): 2.20 m/s, 2.04 m/s, 2.64 m/s Pulmonic Valve Mean Gradient: 2.21 mm[Hg], 2.73 mm[Hg] Mean Velocity: 0.69 m/s, 0.77 m/s Peak Velocity: 1.05 m/s Peak Gradient: 4.11 mm[Hg], 4.71 mm[Hg] Right Atrium Right Atrium Systolic Pressure: 106.34 ml, 106.34 ml Dictated by: Elliott Silverio M.D. on 09/19/2023 at 19:13 Approved by: Elliott Silverio M.D. on 09/19/2023 at 19:17
== END 2023-09-19 07:16 | disposition home or self-care (01) ==
LOC: CARD 07:16
PROVIDERS: Visit Provider Internal Medicine Cardiovascular Disease
DX: I49.3 Ventricular premature depolarization (principal); I10 Essential (primary) hypertension; I48.0 Paroxysmal atrial fibrillation
CPT/HCPCS: 93306

== ENCOUNTER 2024-04-24 14:14 | Outpatient (OUT) | payer MEDICARE, SELFPAY ==
[2024-04-24 14:33] LABS: Basophils Absolute Auto 0.1 10^3/uL (0.0-0.1); Basophils Percent Auto 0.8 % (0.2-2.0); Eosinophils Absolute Auto 0.4 10^3/uL (0.0-0.7); Eosinophils Percent Auto 5.3 % (0.9-7.0); Hematocrit 41.1 % (42.0-54.0); Hemoglobin 13.9 g/dL (14.0-18.0); Immature Granulocytes Abs Auto 0.02 10^3/uL (0.00-0.03); Immature Granulocytes Pct Auto 0.3 % (0.0-0.5); Lymphocytes Absolute Auto 2.1 10^3/uL (1.2-3.8); Lymphocytes Percent Auto 27.4 % (20.5-60.0); Mean Corpuscular HGB Conc 33.8 g/dL (29.9-35.2); Mean Corpuscular Hemoglobin 29.1 pg (25.9-34.0); Mean Platelet Volume 10.9 fL (9.5-13.5); Monocytes Absolute Auto 0.7 10^3/uL (0.3-0.8); Monocytes Percent Auto 8.8 % (1.7-12.0); Neutrophils Absolute Auto 4.4 10^3/uL (1.4-6.5); Neutrophils Percent Auto 57.4 % (43.0-75.0); Platelet Count 208 10^3/uL (150-450); Red Blood Count 4.78 10^6/uL (4.70-6.10); Red Cell Distribution Width 13.3 % (11.0-15.0); White Blood Count 7.6 10^3/uL (4.0-11.0)
--- OUTSIDE RECORDS SUMMARY | 2024-04-24 14:34 | XMS_ITS | CCD ---
Author Organization [facility] Care Team Providers Care Rn Hemodialysis Name Role Phone PHYSICIAN, DEFAULT Admitting Unavailable PHYSICIAN, DEFAULT Attending Unavailable PHYSICIAN, DEFAULT Admitting Unavailable PHYSICIAN, DEFAULT Attending Unavailable PHYSICIAN, DEFAULT Admitting Unavailable PHYSICIAN, DEFAULT Attending Unavailable PHYSICIAN, DEFAULT Admitting Unavailable PHYSICIAN, DEFAULT Attending Unavailable PHYSICIAN, DEFAULT Admitting Unavailable PHYSICIAN, DEFAULT Attending Unavailable ELTAHAWY, EHAB A Admitting Unavailable ELTAHAWY, EHAB A Attending Unavailable VALDOVINOS-JULIO, TARYN Referring Unavailable VALDOVINOS-EMERY, TARYN Primary Care Unavailable FRAN, JOHAN S Admitting Unavailable FRAN, JOHAN S Attending Unavailable VALDOVINOS-EMERY, TARYN Referring Unavailable VALDOVINOS-EMERY, TARYN Primary Care Unavailable [place] Procedure Practitioner Unavailab guillaume PETERS JOHAN S Surgeon Unavailable [place] Procedure Practitioner Unavailab ERA Buckley Surgeon Unavailable PHYSICIAN, DEFAULT Admitting Unavailable PHYSICIAN, DEFAULT Attending Unavailable VALDOVINOS-EMERY, TARYN Primary Care Unavailable Allison Brooks Attending Unavailable Allison Brooks Admitting Unavailable Provider, None Primary Care Unavailable MAXIM RAY Referring Unavailable JESÚSMAXIM Referring Unavailable JESÚS, MAXIM Referring Unavailable JESÚS, MAXIM Attending Unavailable JESÚS, MAXIM Attending Unavailable JESÚSMAXIM Referring Unavailable XIOMARAVELASQUEZ Referring Unavailable JESÚSMAXIM Attending Unavailable JESÚSMAXIM Heller Admitting Unavailable JESÚS, MAXIM Attending Unavailable JESÚSMAXIM Referring Unavailable JESÚS, MAXIM Referring Unavailable JESÚS, MAXIM Referring Unavailable JESÚS, MAXIM Referring Unavailable JESÚS, MAXIM Attending Unavailable JESÚSMAXIM Heller Referring Unavailable JESÚS, MAXIM Referring Unavailable JESÚS, MAXIM Referring Unavailable JESÚS, MAXIM Referring Unavailable JESÚSMAXIM Heller Referring Unavailable Allergies Allergy Classification Reported Allergen(s) Allergy Type Date of Onset Reaction(s) Facility (1 source) No Known Medication Allergies; Translations: [No Known Medication Allergies] Propensity to adverse reactions to drug (disorder) [facility] Repository Problems Active Problems Problem Classification Problem Date Documented Date Episodic/Chronic Cardiac dysrhythmias (5 sources) Unspecified atrial fibrillation; Translations: [Ventricular premature depolarization] Onset: 12-02-2017 Chronic Coronary atherosclerosis and other heart disease (5 sources) Atherosclerotic heart disease of [place] coronary artery without angina pectoris; Translations: [ATHSCL HEART DISEASE OF [place] CORONARY ARTERY W/O ANG PCTRS] Onset: 11-28-2017 Chronic Essential hypertension (3 sources) Essential (primary) hypertension; Translations: [ESSENTIAL (PRIMARY) HYPERTENSION] Onset: 11-28-2017 Chronic Hypertension with complications and secondary hypertension (2 sources) Hypertensive heart disease without heart failure; Translations: [Hypertensive heart disease without heart failure] Onset: 08-23-2023 Chronic Unclassified (2 sources) + STRESS/CATH 11/28 Onset: 11-28-2017 Unclassified (1 source) Supraventricular tachycardia, unspecified; Translations: [Supraventricular tachycardia, unspecified] Onset: 03-20-2024 Past or Other Problems Problem Classification Problem Date Documented Date Episodic/Chronic Cardiac dysrhythmias (4 sources) Bradycardia, unspecified; Translations: [Palpitations] Onset: 09-12-2023 Episodic Other lower respiratory disease (4 sources) Shortness of breath; Translations: [SHORTNESS OF BREATH] Onset: 11-28-2017 Episodic Other lower respiratory disease (1 source) Dyspnea, unspecified; Translations: [DYSPNEA, UNSPECIFIED] Onset: 11-28-2017 Episodic Other screening for suspected conditions (not mental disorders or infectious disease) (1 source) Abnormal result of other cardiovascular function study; Translations: [ABNORMAL RESULT OF OTHER CARDIOVASCULAR FUNCTION STUDY] Onset: 11-28-2017 Episodic Screening and history of mental health and substance abuse codes (1 source) Personal history of nicotine dependence; Translations: [PERSONAL HISTORY OF NICOTINE DEPENDENCE] Onset: 11-28-2017 Episodic Unclassified (1 source) Supraventricular tachycardia, unspecified; Translations: [Supraventricular tachycardia, unspecified] Onset: 03-20-2024 Results Test Name Value Interpretation Reference Range Facility Prep for Procedureon 024 Prep for Procedure [id number] Bret Fabian Sr. 1945 M Date Provider Department Center 03/27/2024 1987-MINNIE FALCON [facility] Family History Problem Relation Age of Onset Coronary artery disease Mother Heart attack Mother Stroke Father Family Status - Relation Status Age at Mother Father Normal [facility] Office Visiton 03-20-2024 Follow-up visit [id number] Bret Fabian Sr. 1945 M Date Provider Department Center 03/20/2024 241-MAXIM RAY [facility] Family History Problem Relation Age of Onset Coronary artery disease Mother Heart attack Mother Stroke Father Family Status - Relation Status Age at Mother Father Level of Service:05816 [place] OFFICE/OUTPATIENT ESTABLISHED HIGH MDM 40 MIN Normal [facility] Coding Summaryon 03-06-2024 Coding Summary HTMLBase 64 DbebsnusEKh4iDi+PGhlYW Q+RK5JVTTkN18llPKpeS6a I4FHDUsBAgngYWCSZKcVUs GqcgBsXG0suPKySBZn IC8+MK8nYSDzNzfrsFQeu4 F5lQZ3P34lov0dITvmpDL4 ZORwPoHgsefzi7tbiFm7ZA cuNmluOyBt TUGsaR86PQD5mG31Zf16nI TntZAvm4dthGi4HqZsDAKq CQR4wWpdAIiyl1JuHRTiJ8 3wjYAlo8B0 UYSakOwddITwImHdcID8dZ 6zBBllnotbm6jufjlsKid8 ml36aEDly7R9zEG8E8Ykwj L2DZBsyALb EbxxsYUXuG4vzgeza9zmjd lpYzBsTZHlXLy5HLw4JLYj tFsdCeCjPN04IPC8LJEyra FvU0VrCFRb jQukBeL6f3S4Dn6IS3NNBh swB2OWNEBCTQnimGP+PC90 ig13E0HwGhbtUud7KRJpXB R2wKA3nP1g JXIlLIgds4Q9mVY3V4Hsto Babn6om3ytUOEbKGuaL76v nHWrc3P2DRTywVU3JTGvfE uzMsFbgH84 Oyc+MCZxcNdlv8ZwSexck8 lda3andOh2NkotKRLchwFm rTecXEA1l1AxKn1bMJEipJ G9jCH2kK1i BpQyVjC1MWllT854LbMqwJ KgAqkpH13jI1MddKX+PHRy Iwp4BAEvoGxrBE8fB9WbRK RpbmctbGVm gFybFS6bJNTksvjoZSZvnZ 3dXAOfK4p2QgJqXuK0TRui U6QwSLRuwemwGs47vC5eVe OpMdR7STtc M2MtjbJ6LPFxoKPwQMgpCE I9D54um2S4PGEwSEQaYDF5 fQP5oQ3idGivdblccDScbA sgdmVydGlj CRcgCLekH051ECQwpIynLr NvZGluZyBEYXRlOiAgMTEv MjYvMjAyNDwvdGQ+PHRkIH F6dMljJEIs sDYwVMkaVc4cvSfopCcmIR 6aWWIutxciQPQufL6oHYLb vYSjoGobZY7zJODyiknxd4 08ZxLyANW7 SSDpyIZbF6JsrI9fIhVqKE AdTXUpP6MisFEnRHckA033 NZovPmO9DKEwcfIhV2LqND FsaWduOiB0 o1Z8Na8Re4TpmllaC5KfuA WhKzMoCbwhRNq3Y9CjZqhx dHI+OE24HORiOL10TJb5PB H3lDzxYUjp OZZcK5ZdrE3zOoIfNKRwKJ RkOyc+PHRhYmxlIHdpZHRo JMpzFZHqAgEtcJtcMG0hOv 9yZGVyLWNv eVmkzKDjSzVmg2cwZUAiGC peQR5rdHwkB2McpWO2OMUy w6b2Hu68W98oX9TzfMU+PG CntHK6iYG8 dK1bQaLfCrW9ZGziG163Zl UdjYMsXnebc1rps2ubpYf6 HaD5QPMfuyUdlRzqCQH7j8 PiUt61A32c IHdpZHRoPSIxNSUiIHZhbG sqbv8weW8aEs0+PGNvbCB3 tUS9iH1lYaLmVwM5IPpcU5 49InRvcCIv Wecre2dkf9iijAm7WaRkGO TgozBrtZdiLPX6n8FlIp19 Q5SjkOonp2NqPio7mp33kP Rsz6R8oMD0 J3GoURJycowfxRLowDcmBA 5kPSJoichwBRSrtM1oFBLt N9o7YxZdIvW7XRluN2Qfig H7LYGwlJYm YSKzgJNEzI0gennxf7ldks akSjYnNXZjMWm8FZk0UJYe kVlsXbKgEMU6JxB3NCG1vG SxkM5wfHcn vyaamL3gExp+HTW0aKPucY HDFJ1zAldtcKK+PHRkIHN0 uSnyPKuhMDVvyV8rUINdJ7 f1ZkJfFaA7 ECcdD8CkmlK0NHTqxMMtPP OwmCADrC8qknlmh2snheqb SlDgUYPhAQv0NAz2FAWygR duOiBsZWZ0 QwL6LEP0hKVdwK9haLhlhc llsH2gQea+QmlydGggRGF0 JBg4P0AqUrb3CGMwlBliUR 0ncGFkZGlu Lt0jwKauxCquOH3bJXGdvs gta979UzQkb2neHQHpdOEh QPkeNFU9R19pd0N1ILZdGY KmGMR2fJV4 bI7cjFzlgobtdUMoiUrbmm StmXomLFrrXAtcK199WQMt aUjkSxGfJFi1Z2JiWqs3QF HkfMipXW8z dJZsEVzjDq6rlKhneBhaJY 8aGDUvnasbh904LdIsr5wo STLffMHyMIyvYKA9O09ts5 C6NTVoIDBo FLV7uUW8yT7fyWlnyouwvB VmdDsgdmVydGljYWwtYWxp W125QETudIrdKkGhtUg9Y2 PlOkl7AKTx pGsfET2qvAMxUXsaDu8cpO eenOkrYH2bYRHocsmmb659 UtGot8oiLXNdiIMnMVahBD Y1F32px7U1 DDIpDOGhMZC2aDY9mX9jvR lnbjogbGVmdDsgdmVydGlj LGbzMUvhA630GAThlHihVm BhdGllbnQg AQhhSWc1W3YdZvbjsQK+PC 71NNLaNF28vLIshLMec9os vRe9BqEzSHIrXXN4sNzfGF mzh5GiYRCn M64tcOXdi1U9LHLcgJhijC KtIzOqdJY2bR1xQJizbrnh b1pydlivMxpzx9gksg39eO 70U98eOTgw ZHRoPSIzMCUiIHZhbGlnbj 6ndU3aKf0+ZYWufMW9pIV6 aU8bLHLcNuC1QWlqV832Ql RvcCIvPjxj t9drv9qoxWn6LlX5EZGxdp LdsCjxSIP4x3TcXo58L19t IHdpZHRoPSIyMCUiIHZhbG iwxn4dfE0s Ii8+PBXvoXK5fWG9eD4xBa DtQmD2RGscG289IyMclKKv XokaW89qW3EefAX+PHRyPj m5WZFrdNko ON9yuJGxXLmbZo8wMVD5Xf QeWiOkKKidG1IuQFCtkeus acizoTY5NMQfQMUvjK33Na 9udDogMTBw bYTFwQ1ihxpuj2cvneopFi KiNQVrHTm1FJk2MDNsjQfc RiEbGLC6KdX2IQB4gDUlvZ 1hbGlnbjog fK6mT6BpMEMofwerNk41eQ 1vOdHxYzQ7SCsiLge+QklT IH5TUIVISFUKORUNEB71NL 91oAIir2X6 nXF4Q7JoQFJskxzxdjtseJ I6RGVkCRYocT12nESlIZhe Of0ps5X9s488PQKfILIhnT 41Jl5csGjg HPTbgKTBqQ7bbjfdd3qrkg hfScZpCPFzCFs8EZa6JJXw dBgmYgRoFVC7NfP1TYK8xG WieV2giJtt rnvxcF6cWoo+MTEvMTAvMT n9BsabvGL+RUTnGTS4eDrh VScnQYBaaS2uCRLrD4m0Kq XrVaN8XMmf R1NnCWXyxrsyAe61cE3xQa EwNjU3OTbuT4TuarJ4VVDr bHIjCZmmEOY4K54xp8G5VK MwMDAwMDA7 pET2uX3exFkwlufkgVXwmI xmvzKukEszFRlnWUbkY379 GWVkeUsqHxi5HMxbGMDtOD 75CH40yZRt k8I4hVF1D4HqFSZpysryvm grwFB8QMTbIORrzX91lNDm KHzwUe6vq9Q8v611QLPbIA CyqE82Po3n xDygCWArkJBJpI6qngqei1 rhtvnqDwDyPCTfPYd4NKi7 SCNdlRopAcZsVAP0OjE8KJ F8wSKtwY8b vUllsfkqnB9kJjw+TUFMRT wvdGQ+WVHuALQ3kTwbILeg AUMqlS8oRPSbI4m3GtNvRu H4AJixP6Kd CJGaocwiAb56dY9bDbXpXo X4LQpwS4JlscG8XQXkrHNo TPseZLR1N39gb4W6QZJiMC WwODQ0iHP1 tC9rrOvjrrppwTBnoBlsdb KgnPmtJNqpHJznQ985TXBq zMfwPlWkSWKwHE6nqArrwM Q+PF33yw78 B7RmDzivNgy7XUHlWWH1aB I8pC6nLSPcSXrnf5J8zPG2 O1MfziFmyk0jo6isKYIzBG wuQ50bfHYp b5K8DDTziXP9YEPghDrpCb VtyP80Ikz+QYZqeHcwq1Sm Devdg6qwd8sqrJn7EqSqUX IgdmFsaWdu SIJ2x2TmYl36G78vFBxjTM YdMTXyGXAkRMTblGdsxf0u aT0eRy8+SLFegYP2tNY0qQ 6bYhMnFsO2 XWynL238FkAatMPzDfpoq7 mah0nrwHn7FwXzVDDdzdJo cNtyLNS7u8EfTi66P7BghS rmr0NqYmg0 re12pJVcg4Y4aTL4P7IyVQ UeuqyldSXprZsqVZ9lQMWt rvvuQCGepY5kRYIjX0g4Wx ItXcB2KEul S6AuvtY8EAZjrRWnOZStsH MTeG2dbaitc8hosxpqTaYm HCSbIBs2LRp2GTHdpHzgGr HvWJO4ErZ7 ZZI4fWZzjN5jjXqebpxtkE 9wOyc+OHs0x6awkBHyAH2m oTK0PJ89DT47eILxu6V5aI L6N2VvBZCa xejucqruoLT9BOEjUMCqdE 79Uk5ilYjlOx2sXNXjADQ9 ENEjhGThC7CimC6xZvYeHX YhYQBiM1Jb wHXxVWvtM181KFfgHmM3FC IbgdXrJ9YnKJOexTnxAvD0 i4R7Fc8VXQ79GH17LE06jC Xfl9E6dSF8 F3VlCWYlanebgkigbFN0ZP JxXIWqvQ48Ud0cmTjeOw5d TDGoKPS2SPGnrOBwM7CzlD 9yOiAjMDAw VBRhD6FquZOoSQtuY782GD yqYdK3AKMabzDkV9VtMRBv zKynSsG9e4J2Lr8NCq50ZY 41OI64zQLy p7W0sEA2T1NsJIZeevjbvr cwrMN1PNEqFUVrfF39Qd1g nAwkYa2qDRNaWEM3FGArpO ZaT4MutM6w MqElZPTuMERzW1HngAQjNZ jpI689VDzsLlU8ZRLwlaDy G2VdHUIwiJavWgL4g2O3Jh 3WAHrncsg6 T8LaOitthMG+TN47WFNtEY 67eRBqoCBxj2hmcBb5RfWf RXAqFSR9jZbcQCnyj8EkAO IaW69npFHa c2U (more content not included)... Normal [facility] ED Clinical Summaryon 2023 ED Clinical Summary [facility] - Emergency Department [address] [place] [id number] ED Clinical Summary PERSON INFORMATION Name: KRISTOFER FABIAN Age: 79 Years Sex: MALE : 1945 MRN: Acct#: Visit Reason: Fall; LT ARM SKIN TEAR Arrival: 02/27/2024 13:52:03 Discharge: 02/27/2024 15:08:00 LOS: 000 01:16 Check In: 02/27/2024 13:52:03 Checkout:02/27/2024 15:08:00 Address: [address] [place] [address] PCP: Provider, None PROVIDER INFORMATION Provider Role Assigned Unassigned Deepti Harper ELECTROTHERAPIST Nurse 02/27/2024 13:55:09 Allison Brooks PET COUNSELOR ED PA 02/27/2024 13:56:44 VITALS INFORMATION Vital Sign Triage Latest Temperature Tympanic Temperature Temporal Artery 36.4 DegC Pulse Rate 78 bpm 78 bpm O2 Sat 98 % 98 % Respiratory Rate 18 br/min 18 br/min Blood Pressure /94 mmHg /94 mmHg MEDICAL INFORMATION Medications Given: Medication Dose Route tetanus/diphth/pertuss (Tdap) adult/adol 0.5 mL Intramuscular bacitracin topical 500 unit(s) Topical Allergy Information: No Known Medication Allergies PHYSICIAN DOCUMENTATION DISCHARGE INFORMATION: Discharge Disposition: Home Discharge Location: Home PATIENT EDUCATION INFORMATION Instructions: Fall Prevention in the Home, Adult; Wound Care, Adult Follow-Up: With: Address: When: Follow up with primary care provider Within 3 to 5 days DIAGNOSIS: 1:Fall at home; 2:Skin tear of upper extremity; Unspecified place in unspecified non-institutional (private) residence as the place of occurrence of the external cause Patient Understands: Yes - Patient/family/caregiv er verbalizes understanding of instructions given Comment: [facility] ED Note-Nursingon 02-27-2024 ED Note-Nursing Pt ambulatory back t o ED RM 6 C/O falling into a trash can in his yard and having a medium size skin tear on the left arm, pt has a little scrap on his forehead. Pt is on blood thinners, pt stated i tripped in my yard while pushing the trash can and ended up head first in the can' pt denies any dizziness. pt skin tear is up on the top part of his arm, open, not bleeding. skin is gone. pt is A/Ox4 call light within reach [facility] ED Patient Summaryon 024 ED Patient Summary [facility] - Emergency Department [address] [place] [address] PATIENT DISCHARGE INSTRUCTIONS Patient Information Name: KRISTOFER FABIAN Age: 79 Years Date of : 1945 Reason For Visit: Fall; LT ARM SKIN TEAR Arrival Time: 02/27/2024 13:52:03 Primary Care Physician: Provider, None Attending Physician: Hunter Zavala MD Comment: Visit Diagnosis: Diagnoses This Visit Fall ([id number]) Fall at home (W19.XXXA) Skin tear of upper extremity (S41.119A) Unspecified place in unspecified non-institutional (private) residence as the place of occurrence of the external cause (Y92.009) The Pharmacy at [facility] is open Tuesday through Tuesday from 9A to 6P and Tuesday and Tuesday from 9A to 5P Prescription Information: If you have been given a prescription for narcotics, seek immediate medical attention if you have any difficulty breathing or any sudden status changes such as confusion and sleepiness. If you or anyone you know is experiencing suicidal thoughts, mental health, alcohol and/or drug addiction problems; contact the [facility] 01/11 Crisis Hotline -Text 6DZFX zl 075495. If you received any narcotics, sedation, or any other medication that causes drowsiness for the next 24 hours, unless otherwise directed: ? Do not drive a car. ? Do not operate machinery such as power tools, lawn mowers, drills, sewing machines, or stoves ? Avoid alcoholic beverages and drugs for allergies, nerves, or sleep ? Do not make important personal or business decisions or sign any legal documents With: Address: When: Follow up with primary care provider Within 3 to 5 days Medication Information: The exam and treatment you received today in the [facility] Emergency Department were for an urgent problem and are not intended as complete care. It is important for you to follow up with a doctor, nurse practitioner, or physician?s preschool teacher assistant for ongoing care. If your symptoms become worse or you do not improve as expected and you are unable to reach your usual health care provider, you should return to the Emergency Department, we are available 24 hours a day. For those patients who have received Radiology results, the interpretation of your X-ray as given to you by our Emergency Department physician is only a preliminary report. The Radiologist will review your films and if there is a change in the diagnosis you will be notified by phone. Please make sure you have provided a working phone number so we can reach you if necessary. In the event that you had a lab culture while you were a patient in the Emergency Department, you will be notified by phone if there is a need to change your antibiotic. Please make sure you have provided a working phone number so we can reach you if necessary. [facility] Emergency Department has provided you with a complete list of medications post discharge. Please inform your clinical researcher/provider of your visit and for further instruction on these medications. Any specific questions regarding your chronic medications and dosages should be discussed with your primary care physician(s) and/or pharmacist. New Medications [facility] [address], [place] [id number], [phone] bacitracin topical (bacitracin 500 units/g topical ointment) 1 suleiman Topical (on the skin) 4 times a day for 3 Days. Refills: 0. Additional medications on your home medication list not specifically addressed. Please contact the ordering physician if you have questions about these medications. amLODIPine (amLODIPine 5 mg oral tablet) apixaban (Eliquis 5 mg oral tablet) 1 tab(s) Oral (given by mouth) 2 times per day. atorvastatin (atorvastatin 80 mg oral tablet) metoprolol (Metoprolol Tartrate 25 mg oral tablet) Visit Information Allergies: Substance Reaction Symptoms Type Comments No Known Medication Allergies Drug Vital Signs: Vitals and Measurements this Visit (last charted value for your 02/27/2024 visit) Vital Signs This Visit Temperature Temporal Artery: 36.4 DegC Peripheral Pulse Rate: 78 bpm Respiratory Rate: 18 br/min Systolic Blood Pressure: 160 mmHg Diastolic Blood Pressure: 94 mmHg SpO2: 98 % Oxygen Therapy: Room air Measurements This Visit Height/Length Measured: 183 cm Weight Measured: 113.40 kg Weight Dosin.400 kg Body Mass Index: 33.86 kg/m2 Problems List: Problem Onset Comments No Problems found Patient Education Fall Prevention in the Home, Adult Falls can cause injuries and affect people of all ages. There are many simple things that you can do to make your home safe and to help prevent falls. If you need it, ask for help making these changes. What actions can I take to prevent falls? General information ? Use good lighting in all rooms. Make sure to: ? Replace any light bulbs that (more content not included)... Normal [facility] Office Visiton 11-22-2023 Follow-up visit [id number] Bret Fabian Sr. 1945 M Date Provider Department Center 11/22/2023 MAXIM GILMORE Family History Problem Relation Age of Onset Coronary artery disease Mother Heart attack Mother Stroke Father Family Status - Relation Status Age at Mother Father Level of Service:20474 [place] OFFICE/OUTPATIENT ESTABLISHED LOW MDM 20 MIN Normal [facility] Office Visiton 08-23-2023 Follow-up visit [id number] Wu Fabianbrent Moran Sr. 1945 M Date Provider Department Center 08/23/2023 Robinson-JESÚS MAXIM BRENDA Wheelermiki Ornelas Family History Problem Relation Age of Onset Coronary artery disease Mother Heart attack Mother Stroke Father Family Status - Relation Status Age at Mother Father Level of Service:61318 [place] OFFICE/OUTPATIENT ESTABLISHED LOW MDM 20 MIN Normal [facility] Reason for visit: SVT/PVC [...] racing heart feeling. He was seen by Alonzo WU and event monitor was reviewed which [...] LDL D (more content not included)... Normal [facility] NURSNOTEon 06-13-2023 NURSNOTE RN educated pt on d/ c instructions. RN encouraged pt to voice any questions or concerns. Pt verbalizes no questions or concerns at this time. Normal [facility] Office Visiton 05-17-2023 Follow-up visit [id number] Bret Fabian Sr. 1945 M Date Provider Department Center 05/17/2023 MAXIM GILMORE BRENDA [facility] Family History Problem Relation Age of Onset Coronary artery disease Mother Heart attack Mother Stroke Father Family Status - Relation Status Age at Mother Father Level of Service:08848 [place] OFFICE/OUTPATIENT NEW MODERATE MDM 45 MINUTES Normal [facility] Complete Blood Count Auto Di ffon 06-27-2020 Basophils (Bld) [#/Vol] 0.1 10*3/uL Normal 0.0-0.2 [facility] Comment on above: Result Comment: PERF ORMED BY: [facility] [address] [place] [address] PATHOLOGIST HONING JOB SETTER SANDRA AGUILAR M.D. Performed By: #### L IPID, CMP, CBC #### [facility] [address] [place] [address] [place] Basophils/100 WBC (Bld) 0.8 % Normal . [facility] Comment on above: Performed By: #### L IPID, CMP, CBC #### [facility] [address] Eosinophils (Bld) [#/Vol] 0.3 10*3/uL Normal 0.0-0.45 [facility] Comment on above: Performed By: #### L IPID, CMP, CBC #### [facility] [address] [place] [address] [place] Eosinophils/100 WBC (Bld) 3.5 % Normal . [facility] Comment on above: Performed By: #### L IPID, CMP, CBC #### [address] Erythrocyte distribution width (RBC) [Ratio] 13.4 % Normal 12.0-14.8 [facility] Comment on above: Performed By: #### L IPID, CMP, CBC #### [address] Hematocrit (Bld) [Volume fraction] 41.9 % Normal 38.8-50.0 [facility] Comment on above: Performed By: #### L IPID, CMP, CBC #### [place] [address] [place] Hemoglobin (Bld) [Mass/Vol] 14.5 g/dL Normal 13.0-17.0 [facility] Comment on above: Performed By: #### L IPID, CMP, CBC #### [place] [address] [place] Lymphocytes (Bld) [#/Vol] 1.7 10*3/uL Normal 1.00-4.8 [facility] Comment on above: Performed By: #### L IPID, CMP, CBC #### [place] [address] [place] Lymphocytes/100 WBC (Bld) 17.4 % Normal . [facility] Comment on above: Performed By: #### L IPID, CMP, CBC #### [address] MCH (RBC) [Entitic mass] 29.0 pg Normal 27.5-35.2 [facility] Comment on above: Performed By: #### L IPID, CMP, CBC #### [address] MCV (RBC) [Entitic vol] 83.5 fL Normal 83.5-101 [facility] Comment on above: Performed By: #### L IPID, CMP, CBC #### [address] Mean Corpuscular HGB Conc 34.7 g/dL Normal 32.5-35.6 [facility] Comment on above: Performed By: #### L IPID, CMP, CBC #### [address] Monocytes (Bld) [#/Vol] 0.6 10*3/uL Normal 0.0-0.8 [facility] Comment on above: Performed By: #### L IPID, CMP, CBC #### [address] Monocytes/100 WBC (Bld) 6.2 % Normal . [facility] Comment on above: Performed By: #### L IPID, CMP, CBC #### [address] Neutrophils (Bld) [#/Vol] 7.0 10*3/uL Normal 1.8-7.7 [facility] Comment on above: Performed By: #### L IPID, CMP, CBC #### [address] Neutrophils/100 WBC (Bld) 72.1 % Normal . [facility] Comment on above: Performed By: #### L IPID, CMP, CBC #### [address] Nucleated RBC/100 WBC (Bld) [Ratio] 0.1 % Normal 0-0.5 [facility] Comment on above: Performed By: #### L IPID, CMP, CBC #### [address] Platelet mean volume (Bld) [Entitic vol] 10.9 fL High 6.6-10.1 [facility] Comment on above: Performed By: #### L IPID, CMP, CBC #### [address] Platelets (Bld) [#/Vol] 189 10*3/uL Normal 150-450 [facility] Comment on above: Performed By: #### L IPID, CMP, CBC #### [address] RBC (Bld) [#/Vol] 5.01 10*6/uL Normal 3.90-5.60 [place] Comment on above: Performed By: #### L IPID, CMP, CBC #### [address] WBC (Bld) [#/Vol] 9.7 10*3/uL Normal 4.5-11.0 [facility] Comment on above: Performed By: #### L IPID, CMP, CBC #### [address] Comprehensive Metabolic Pane jasiel 06-27-2020 Albumin [Mass/Vol] 4.0 g/dL Normal 3.2-5.5 [facility] Comment on above: Performed By: #### L IPID, CMP, CBC #### [address] Albumin/Globulin [Mass ratio] 1.7 {ratio} Normal [facility] Comment on above: Performed By: #### L IPID, CMP, CBC #### [address] ALP [Catalytic activity/Vol] 68 U/L Normal 32-92 [facility] Comment on above: Performed By: #### L IPID, CMP, CBC #### [facility] [address] [place] [address] [place] ALT [Catalytic activity/Vol] 32 U/L Normal 10-60 [facility] Comment on above: Performed By: #### L IPID, CMP, CBC #### [facility] [address] [place] [address] [place] AST [Catalytic activity/Vol] 21 U/L Normal 10-42 [facility] Comment on above: Performed By: #### L IPID, CMP, CBC #### [facility] [address] [place] [id number] [place] Bilirubin [Mass/Vol] 0.8 mg/dL Normal 0.3-1.2 [facility] Comment on above: Performed By: #### L IPID, CMP, CBC #### [facility] [address] [place] [address] [place] Calcium [Mass/Vol] 9.5 mg/dL Normal 8.2-10.2 [facility] Comment on above: Performed By: #### L IPID, CMP, CBC #### [facility] [address] [place] [address] [place] Chloride [Moles/Vol] 104 mmol/L Normal 95-114 [facility] Comment on above: Performed By: #### L IPID, CMP, CBC #### [facility] [address] [place] [address] [place] CO2 [Moles/Vol] 22.8 mmol/L Normal 22.0-30.[address] [facility] Comment on above: Performed By: #### L IPID, CMP, CBC #### [facility] [address] [place] [id number] [place] Creatinine [Mass/Vol] 1.38 mg/dL High 0.64-1.27 [facility] Comment on above: Performed By: #### L IPID, CMP, CBC #### [facility] [address] [place] [id number] [place] Estimated GFR ( Belinda > 60 Normal [facility] Comment on above: Result Comment: GFR estimated reference range: According to KDOQI guidelines, <60 ml/min/1.73m2 is sufficient to diagnose a patient with chronic kidney disease. Performed By: #### L IPID, CMP, CBC #### [facility] [address] Estimated GFR (Non- Am 50 Normal [facility] Comment on above: Performed By: #### L IPID, CMP, CBC #### [facility] [address] Globulin (S) [Mass/Vol] 2.4 g/dL Normal [facility] Comment on above: Performed By: #### L IPID, CMP, CBC #### [address] Glucose [Mass/Vol] 103 mg/dL High 70-100 [facility] Comment on above: Result Comment: [place] Glucose Reference Range is dependent on time and content of last meal. Glucose of more than 200 mg/dL in a nonstressed, ambulatory subject supports the diagnosis of Diabetes Mellitus. ADA recommended reference range Performed By: #### L IPID, CMP, CBC #### [address] Potassium [Moles/Vol] 4.6 mmol/L Normal 3.5-5.1 [facility] Comment on above: Performed By: #### L IPID, CMP, CBC #### [address] Protein [Mass/Vol] 6.4 g/dL Normal 6.1-7.9 [facility] Comment on above: Performed By: #### L IPID, CMP, CBC #### [place] [address] [place] Sodium [Moles/Vol] 138 mmol/L Normal 136-146 [facility] Comment on above: Performed By: #### L IPID, CMP, CBC #### [facility] [address] Urea nitrogen [Mass/Vol] 21 mg/dL Normal 9-23 [facility] Comment on above: Performed By: #### L IPID, CMP, CBC #### [facility] [address] [place] [id number] [place] Lipid Panelon 06-27-2020 Cholesterol [Mass/Vol] 129 mg/dL Low 140-200 [facility] Comment on above: Result Comment: Chol less than 200 mg/dl low risk Chol 201-239 mg/dl borderline risk Chol 240 mg/dl and greater high risk Performed By: #### L IPID, CMP, CBC #### [facility] [address] Cholesterol in HDL [Mass/Vol] 37 mg/dL Normal 29-71 [facility] Comment on above: Result Comment: HDL CHOL ATP-III CLASSIFICATION Cardiovascular Risk HDL > or equal to 60 mg/dL LOW HDL < 40 mg/dL HIGH Performed By: #### L IPID, CMP, CBC #### [facility] [address] Cholesterol.total/C holesterol in HDL [Mass ratio] 3.5 {ratio} Normal <5.0 [facility] Comment on above: Result Comment: PERF ORMED BY: [place] [address] PATHOLOGIST H[employer]ING JOB SETTER SANDRA AGUILAR M.D. Performed By: #### L IPBIJAL, CMP, CBC #### [facility] [address] LDL Cholesterol,Calcula ernie 69 mg/dL Normal 0-100 [facility] Comment on above: Result Comment: LDL ATP III CLASSIFICATION LDL less than 100 mg/dL Optimal LDL 100-129 mg/dL Near or above optimal LDL 130-159 mg/dL Borderline high LDL 160-189 mg/dL High LDL greater than 189 mg/dL Very high Performed By: #### L IPID, CMP, CBC #### [facility] [address] [place] [address] [place] Triglyceride w/Reflex 116 mg/dL Normal 35-149 [facility] Comment on above: Result Comment: TRIG ATP III CLASSIFICATION TRIG less than 150 mg/dL Normal TRIG 150-199 mg/dL Borderline high TRIG 200-500 mg/dL High TRIG greater than 500 mg/dL Very high Standard traceable to the Center for Disease Conrtrol and Prevention (CDC) test method. Performed By: #### L IPID, CMP, CBC #### [facility] [address] VLDL CHOLESTEROL 23 mg/dL Normal [facility] Comment on above: Performed By: #### L IPID, CMP, CBC #### [facility] [address] POC GLUCOSE LABon 12-06-2017 Glucose mass conc 170 mg/dL High 70-100 [facility] Comment on above: Performed By: #### 8 5499 ####[facility] [place] [address], [facility] Glucose mass conc 135 mg/dL High 70-100 [facility] Comment on above: Performed By: #### 8 5499 ####[facility] [place] [address], [facility] Glucose mass conc 137 mg/dL High 70-100 [facility] Comment on above: Performed By: #### 8 5499 ####[facility] [place] [address], [facility] BASIC METABOLIC PANELon 11-10 Calcium mass conc 8.8 mg/dL Normal 8.6-10.3 [facility] Comment on above: Order Comment: Unkno wn Performed By: #### 8 5499 #### [facility] [address] [place] [address], [facility] Chloride molar conc 96 mmol/L Low 98-107 [facility] Comment on above: Order Comment: Unkno wn Performed By: #### 8 5499 #### [facility] [address] [place] [address], [facility] CO2 molar conc 28 mmol/L Normal 21-31 [facility] Comment on above: Order Comment: Unkno wn Performed By: #### 8 5499 #### [facility] [address] [place] [address], [place] Creatinine mass conc 1.43 mg/dL High 0.70-1.30 The [facility] Comment on above: Order Comment: Unkno wn Performed By: #### 8 5499 #### [facility] [address] [place] [address], [place] GFR/1.73 sq M predicted among blacks MDRD vol rate/area (S/P/Bld) 59 ml/min/1.73sq m Abnormal >60 [facility] Comment on above: Order Comment: Unkno wn Result Comment: Calc ulation may not be valid for patients over 70 years Performed By: #### 8 5499 #### [facility] [address] [place] [address], [place] GFR/1.73 sq M predicted among non-blacks MDRD vol rate/area (S/P/Bld) 49 ml/min/1.73sq m Abnormal >60 [facility] Comment on above: Order Comment: Unkno wn Result Comment: Calc ulation may not be valid for patients over 70 years Performed By: #### 8 5499 #### [facility] [address] [place] [address], [place] Glucose mass conc 171 mg/dL High 70-100 [facility] Comment on above: Order Comment: Unkno wn Performed By: #### 8 5499 #### [facility] [address] [place] [address], [place] Potassium molar conc 3.7 mmol/L Normal 3.5-5.1 [facility] Comment on above: Order Comment: Unkno wn Performed By: #### 8 5499 #### [facility] [address] [place] [address], [place] Sodium molar conc 132 mmol/L Low 136-145 [facility] Comment on above: Order Comment: Unkno wn Performed By: #### 8 5499 #### [facility] [address] [place] [address], [facility] Urea nitrogen mass conc 30 mg/dL High 7-25 [facility] Comment on above: Order Comment: Unkno wn Performed By: #### 8 5499 #### [facility] [address] [place] [address], [facility] CBC COMPLETE BLOOD COUNTon 12-05-2017 Erythrocyte distribution width Ratio (RBC) 12.8 % Normal 11.5-15.0 The [facility] Comment on above: Order Comment: Unkno wn Performed By: #### 8 5499 #### [facility] [address] [place] [address], [facility] Hematocrit Volume Fraction (Bld) 29.4 % Low 39.0-50.0 The [facility] Comment on above: Order Comment: Unkno wn Performed By: #### 8 5499 #### [facility] [address] [place] [address], [facility] Hemoglobin mass conc (Bld) 10.0 g/dL Low 13.0-17.0 The [facility] Comment on above: Order Comment: Unkno wn Performed By: #### 8 5499 #### [facility] [address] [place] [address], [facility] MCH Entitic mass (RBC) 28.2 pg Normal 27.0-33.0 The [facility] Comment on above: Order Comment: Unkno wn Performed By: #### 8 5499 #### [facility] [address] [place] [address], [facility] MCHC mass conc (RBC) 34.0 g/dL Normal 32.0-35.0 The [facility] Comment on above: Order Comment: Unkno wn Performed By: #### 8 [id number] #### [facility] [address] [place] [address], [facility] MCV Entitic volume (RBC) 83.1 fL Normal 82.0-98.0 [facility] Comment on above: Order Comment: Unkno wn Performed By: #### 8 [id number] #### [facility] [address] [facility]. [address] Nucleated RBC/100 WBC Ratio (Bld) 0 % Normal 0-0 The [facility] Comment on above: Order Comment: Unkno wn Performed By: #### 8 [id number] #### [facility] [address] [facility] [place] [address], [facility] PLAT CNT 161 10*3/uL Normal 150-400 The [facility] Comment on above: Order Comment: Unkno wn Performed By: #### 8 [id number] #### [facility] [address] [facility]. [address] RBC #/vol (Bld) 3.54 10*6/uL Low 4.20-5.70 [facility] Comment on above: Order Comment: Unkno wn Performed By: #### 8 5499 #### [facility] [address] [facility]. [address] WBC #/vol (Bld) 14.56 10*3/uL High 4.00-10.[address] [facility] Comment on above: Order Comment: Unkno wn Performed By: #### 8 5499 #### [facility] [address] [facility]. [address] CPK-MB PROFILEon 12-05-2017 CK enzyme act/vol 181 U/L Normal 30-223 [facility] Comment on above: Performed By: #### 8 5499 #### [facility] [address] [facility]. [address] CK.MB mass conc 2.1 ng/mL Critically high 0.0-1.9 The [facility] Comment on above: Performed By: #### 8 5499 #### [facility] [address] [facility]. [address] CK.MB mass conc 3.8 ng/mL Normal 0.0-5.0 [facility] Comment on above: Result Comment: IF T OTAL CK <200 U/L AND: 1. CKMB IS 5-10 NG/ML----BORDERLINE 2. CKMB IS >10 NG/ML----INDIC[place]IVE OF [place] OR IF TOTAL CK >200 U/L AND CKMB INDEX >1.9----[place] Performed By: #### 8 5499 #### [facility] [address] MAGNESIUM BLOODon 12-05-2017 Magnesium mass conc 2.1 mg/dL Normal 1.9-2.7 [facility] Comment on above: Order Comment: Unkno wn Performed By: #### 8 5499 #### [facility] [address] Operative Reporton 8 Operative Report MR#: [id number] I [facility] Pt. Name: Kristofer Fabian Room #: 3AB [id number] Discharge Date: Birthdate: 1945 OPERATIVE REPORT DATE OF SURGERY: 12/02/2017 SURGEON: Johan Peters MD PREOPERATIVE DIAGNOSIS: Critical coronary artery [...] noted to be correct. Electronically Signed by: Johan Peters MD 12/07/2017 09:40 A Johan Peters MD Date Dict: 12/05/2017/10:54 A/Johan Peters MD Date Trans: 12/05/2017 08:48 P/mmo [id number] cc: Johan Peters MD [address] [facility] M S [address] [facility] [address] Taryn Coley M.D. [address] [facility]. [facility] [address] Normal The [facility] POC GLUCOSE LABon 12-05-2017 Glucose mass conc 144 mg/dL High 70-100 [facility] Comment on above: Performed By: #### 8 5499 ####[facility] [place] [address], [facility] Glucose mass conc 132 mg/dL High 70-100 [facility] Comment on above: Performed By: #### 8 5499 ####[facility] [place] [address], [facility] Glucose mass conc 139 mg/dL High 70-100 [facility] Comment on above: Performed By: #### 8 5499 #### [facility] [address] [place] [address], [facility] Glucose mass conc 152 mg/dL High 70-100 [facility] Comment on above: Performed By: #### 8 5499 #### [facility] [address] [place] [address], [facility] PORTABLE ABDOMENon 8 PORTABLE ABDOMEN [facility] Department of Radiology [address] [place] [id number] ======== Patient Name: KRISTOFER FABIAN : 1945 Sex: M Age: Race: White Pt. Location: [address] [place] [address] Patient Status: I Ordered Date: 12/05/2017 10:00:00 AM Completed Date: 12/05/2017 11:04 AM Requesting Provider: IRENE BENITEZ Attending Provider: JOHAN PETERS Report Copy To: Signs & Symptoms: [...] extensive enough to be considered pseudoobstruction or Angie's syndrome. Electronically signed by:Kimberlyn Collado. Transcribed by: [email or web address], User Resident: Electronically Signed by: KIMEBRLYN COLLADO @ 12/05/2017 03:22 PM Normal The [facility] Comment on above: Order Comment: R/O I leus POTASSIUM BLOODon 12-05-2017 Potassium molar conc 3.8 mmol/L Normal 3.5-5.1 [facility] Comment on above: Order Comment: No: D o not add to previous draw Performed By: #### 4 1406 ####[facility] [facility] [place] [address], [facility] TROPONIN-Ion 12-05-2017 Troponin I.cardiac mass conc 0.41 ng/mL High 0.00-0.04 [facility] Comment on above: Result Comment: REFE RENCE RANGES: 0.00 - 0.04 ng/ml NORMAL 0.05 - 0.50 ng/ml INDETERMINATE > 0.50 ng/ml CONSISTENT WITH AN M.I. Performed By: #### 8 5499 #### [facility] [address] [place] [address], [facility] POC GLUCOSE LABon 12-04-2017 Glucose mass conc 164 mg/dL High 70-100 [facility] Comment on above: Performed By: #### 8 5499 #### [facility] [address] [place] [address], [facility] Glucose mass conc 173 mg/dL High 70-100 [facility] Comment on above: Performed By: #### 8 5499 #### [facility] [address] [place] [address], [facility] Glucose mass conc 148 mg/dL High 70-100 [facility] Comment on above: Performed By: #### 8 5499 #### [facility] [address] [place] [address], [facility] ARTERIAL BLOOD GAS WITH ICAo n 12-03-2017 BASE EXCESS -3 mmol/L Low -2-[address] [facility] Comment on above: Performed By: #### 3 1302 #### [facility] [address] [place] [address], [facility] [employer] [place] Normal The [facility] Comment on above: Performed By: #### 3 1302 #### [facility] [address] [place] [address], [facility] HCO3 molar conc (Bld) 22 mmol/L Low 23-27 The [facility] Comment on above: Performed By: #### 3 1302 #### [facility] [address] [place] [address], [facility] IONIZED CALCIUM 1.24 mmol/L Normal 1.13-1.[address] [facility] Comment on above: Performed By: #### 3 1302 #### [facility] [address] [place] [address], [facility] LPM 3.0 LPM Normal 0.5-20.0 The [facility] Comment on above: Performed By: #### 3 1302 #### [facility] [address] [place] [address], [facility] Oxygen ppres (Bld) 121 mm[Hg] Critically high 75-100 T he [facility] Comment on above: Performed By: #### 3 1302 #### [facility] [address] [place] [address], [facility] Oxygen saturation in Blood 96.5 % Normal 94.0-97.0 The [facility] Comment on above: Performed By: #### 3 1302 #### [facility] [address] [place] [address], [facility] PCO2 38 mmHg Normal 35-45 The [facility] Comment on above: Performed By: #### 3 1302 #### [facility] [address] [place] [address], [facility] pH (Bld) 7.37 [pH] Normal 7.35-7.45 The [facility] Comment on above: Performed By: #### 3 1302 #### [facility] [address] [place] [address], [place] BASIC METABOLIC PANELon 11-10 Calcium mass conc 9.0 mg/dL Normal 8.6-10.3 [facility] Comment on above: Order Comment: , , = ========= , Ordering Provider - VENESSA WHITE BRINE MIXER OPERATOR, S , Performed By: #### 0 0071, , 50850 ####[facility] [facility] [place] [place] [address], [facility] Chloride molar conc 105 mmol/L Normal 98-107 [facility] Comment on above: Order Comment: , , = ========= , Ordering Adia WHITE BRINE MIXER OPERATOR, S , Performed By: #### 0 0071, , 30586 ####[facility] [facility] [place] [place] [address], [facility] CO2 molar conc 24 mmol/L Normal 21-31 The [facility] Comment on above: Order Comment: , , = ========= , Ordering Adia - VENESSA WHITE BRINE MIXER OPERATOR, S , Performed By: #### 0 1, , 23503 ####[facility] [facility] [place] [address], [facility] Creatinine mass conc 1.42 mg/dL High 0.70-1.30 The [facility] Comment on above: Order Comment: , , = ========= , Ordering Adia - VENESSA WHITE BRINE MIXER OPERATOR, S , Performed By: #### 0 1, , 41993 ####[facility] [facility] [place] [address], [facility] GFR/1.73 sq M predicted among blacks MDRD vol rate/area (S/P/Bld) 59 ml/min/1.73sq m Abnormal >60 The [facility] Comment on above: Order Comment: , , = ========= , Ordering Adia - VENESSA WHITE BRINE MIXER OPERATOR, S , Result Comment: Calc ulation may not be valid for patients over 70 years Performed By: #### 0 70, , 75249 ####[facility] [place] [address], [facility] GFR/1.73 sq M predicted among non-blacks MDRD vol rate/area (S/P/Bld) 49 ml/min/1.73sq m Abnormal >60 [facility] Comment on above: Order Comment: , , = ========= , Ordering Adia WHITE BRINE MIXER OPERATOR, S , Result Comment: Calc ulation may not be valid for patients over 70 years Performed By: #### 0 70, , 19296 ####[place] [address] [place] [address], [facility] Glucose mass conc 115 mg/dL High 70-100 [facility] Comment on above: Order Comment: , , = ========= , Ordering Adia - VENESSA WHITE BRINE MIXER OPERATOR, S , Performed By: #### 0 70, , 06291 ####[place] [address], [facility] Potassium molar conc 4.3 mmol/L Normal 3.5-5.1 The [facility] Comment on above: Order Comment: , , = ========= , Ordering Adia WHITE BRINE MIXER OPERATOR, S , Performed By: #### 0 70, , 81152 ####[place] [address] [place] [address], [facility] Sodium molar conc 134 mmol/L Low 136-145 [facility] Comment on above: Order Comment: , , = ========= , Ordering Adia WHITE BRINE MIXER OPERATOR, S , Performed By: #### 0 70, , [address]1666 ####[place] [address] [facility].[address] Urea nitrogen mass conc 23 mg/dL Normal 7-25 The [facility] Comment on above: Order Comment: , , = ========= , Ordering Adia WHITE BRINE MIXER OPERATOR, S , Performed By: #### 0 0071, [address]3927, [address] ####[address] CBC COMPLETE BLOOD COUNTon 0 12-03-2017 Erythrocyte distribution width Ratio (RBC) 13.0 % Normal 11.5-15.0 The [facility] Comment on above: Order Comment: , , = ========= , Ordering Adia - VENESSA WHITE BRINE MIXER OPERATOR, S , Performed By: #### 5 0608 ####[address] Hematocrit Volume Fraction (Bld) 34.0 % Low 39.0-50.0 The [facility] Comment on above: Order Comment: , , = ========= , Ordering Adia - VENESSA WHITE BRINE MIXER OPERATOR, S , Performed By: #### 5 0608 ####[address] Hemoglobin mass conc (Bld) 11.7 g/dL Low 13.0-17.0 The [facility] Comment on above: Order Comment: , , = ========= , Ordering Adia - VENESSA WHITE BRINE MIXER OPERATOR, S , Performed By: #### 5 0608 ####[address] MCH Entitic mass (RBC) 28.3 pg Normal 27.0-33.0 The [facility] Comment on above: Order Comment: , , = ========= , Ordering Provider - VENESSA WHITE BRINE MIXER OPERATOR, S , Performed By: #### 5 0608 ####[place] [address] [facility].[address] MCHC mass conc (RBC) 34.4 g/dL Normal 32.0-35.0 [facility] Comment on above: Order Comment: , , = ========= , Ordering Provider - VENESSA WHITE BRINE MIXER OPERATOR, S , Performed By: #### 5 0608 ####[address] MCV Entitic volume (RBC) 82.3 fL Normal 82.0-98.0 [facility] Comment on above: Order Comment: , , = ========= , Ordering Provider - VENESSA WHITE BRINE MIXER OPERATOR, S , Performed By: #### 5 0608 ####[place] [address] Nucleated RBC/100 WBC Ratio (Bld) 0 % Normal 0-0 The [facility] Comment on above: Order Comment: , , = ========= , Ordering Provider - VENESSA WHITE BRINE MIXER OPERATOR, S , Performed By: #### 5 0608 ####[address] PLAT CNT 184 10*3/uL Normal 150-400 The [facility] Comment on above: Order Comment: , , = ========= , Ordering Provider - VENESSA WHITE BRINE MIXER OPERATOR, S , Performed By: #### 5 0608 ####[address] RBC #/vol (Bld) 4.13 10*6/uL Low 4.20-5.70 [facility] Comment on above: Order Comment: , , = ========= , Ordering Provider - VENESSA WHITE BRINE MIXER OPERATOR, S , Performed By: #### 5 0608 ####[facility] WBC #/vol (Bld) 15.96 10*3/uL High 4.00-10.60 [facility] Comment on above: Order Comment: , , = ========= , Ordering Provider - VENESSA WHITE BRINE MIXER OPERATOR, S , Performed By: #### 5 0608 ####[facility] CPK-MB PROFILEon 12-03-2017 CK enzyme act/vol 228 U/L High 30-223 [facility] Comment on above: Order Comment: post op day 1No: Do not add to previous draw Performed By: #### 3 1302 #### [facility] [address] CK.MB mass conc 8.9 ng/mL Critically high 0.0-1.9 [facility] Comment on above: Order Comment: post op day 1No: Do not add to previous draw Result Comment: M-CR ITICAL RESULT(S) REVIEWED, CALLED TO AND READ BACK BY MARGARETTE RODRIGUEZ RN @ 0542 Performed By: #### 3 1302 #### [facility] [address] [place] [address], [facility] CK.MB mass conc 20.2 ng/mL High 0.0-5.0 [facility] Comment on above: Order Comment: post op day 1No: Do not add to previous draw Result Comment: M-CR ITICAL RESULT(S) REVIEWED, CALLED TO AND READ BACK BY CRITICAL RESULT(S) REVIEWED, CALLED TO AND READ BACK BY MARGARETTE RODRIGUEZ RN @ 0542 IF TOTAL CK <200 U/L AND: 1. CKMB IS 5-10 NG/ML----BORDERLINE 2. CKMB IS >10 NG/ML----INDIC[place]IVE OF [place] OR IF TOTAL CK >200 U/L AND CKMB INDEX >1.9----[place] Performed By: #### 3 1302 #### [facility] [address] [place] [address], [place] MAGNESIUM BLOODon 12-03-2017 Magnesium mass conc 2.3 mg/dL Normal 1.9-2.7 [facility] Comment on above: Order Comment: , , = ========= , Ordering Provider - VENESSA WHITE NP, S , Performed By: #### 0 0071, [id number], [id number] ####[facility] [place] [address], [place] POC GLUCOSE LABon 12-03-2017 Glucose mass conc 139 mg/dL High 70-100 [facility] Comment on above: Performed By: #### 3 1302 #### [facility] [address] [place] [address], [place] Glucose mass conc 145 mg/dL High 70-100 [facility] Comment on above: Performed By: #### 3 1302 #### [facility] [address] [facility] [place] [address], [place] Glucose mass conc 126 mg/dL High 70-100 [facility] Comment on above: Performed By: #### 3 1302 #### [facility] [address] [place] [address], [place] Glucose mass conc 116 mg/dL High 70-100 [facility] Comment on above: Performed By: #### 3 1302 #### [facility] [address] [place] [address], [place] Glucose mass conc 128 mg/dL High 70-100 [facility] Comment on above: Performed By: #### 3 1302 #### [facility] [address] [place] [address], [place] Glucose mass conc 119 mg/dL High 70-100 [facility] Comment on above: Performed By: #### 3 1302 #### [facility] [address] [place] [address], [place] Glucose mass conc 129 mg/dL High 70-100 [facility] Comment on above: Performed By: #### 8 5499 ####[facility] [place] [address], [place] Glucose mass conc 116 mg/dL High 70-100 [facility] Comment on above: Performed By: #### 8 5499 ####[facility] [place] [address], [place] Glucose mass conc 116 mg/dL High 70-100 [facility] Comment on above: Performed By: #### 8 5499 ####[facility] [facility] [place] [address], [place] Glucose mass conc 116 mg/dL High 70-100 [facility] Comment on above: Performed By: #### 8 5499 ####[facility] [facility] [place] [address], [place] Glucose mass conc 144 mg/dL High 70-100 [facility] Comment on above: Performed By: #### 8 5499 ####[facility] [place] [address], [place] Glucose mass conc 147 mg/dL High 70-100 [facility] Comment on above: Performed By: #### 8 5499 ####[facility] [place] [address], [place] PORTABLE CHEST 1 VIEWon 11-10 PORTABLE CHEST 1 VIEW [facility] Department of Radiology [address] [place] [id number] ======== Patient Name: KRISTOFER FABIAN : 1945 Sex: M Age: Race: White Pt. Location: [id number] Patient Status: I Ordered Date: 12/03/2017 9:30:00 AM Completed Date: 12/03/2017 10:06 AM Requesting Provider: JOHAN PETERS Attending Provider: JOHAN PETERS Report Copy To: Signs & Symptoms: [...] by:Rosalio Reyes on 12/03/2017 1:25 PM EDT. Shaw Lancaster, have reviewed the images and report and concur with these findings. Electronically signed by:Shaw Dent. Transcribed by: [id number], User Resident: ROSALIO REYES Electronically Signed by: SHAW DENT @ 12/03/2017 02:01 PM I personally read this/these film(s) with this resident Normal The [facility] Comment on above: Order Comment: R/O A telectasis, Post op day 1 CABG PROTHROMBIN TIMEon 8 INR Coag RelTime (PPP) 1.14 {INR} Normal 0.91-1.16 [facility] Comment on above: Order Comment: , , = ========= , Ordering Provider - VENESSA WHITE NP, S , Result Comment: ACCC P RECOMMENDED [...] RANGE. CHEST 1995;108:[id number]. Performed By: #### 5 6101 ####[facility] Prothrombin time (PT) Coag time (PPP) 14.6 s Normal 12.3-14.8 [facility] Comment on above: Order Comment: , , = ========= , Ordering Provider - VENESSA WHITE BRINE MIXER OPERATOR, S , Result Comment: ALL RESULTS MUST BE INTERPRETED WITH RESPECT TO BLOOD DRAWING ARTIFACT OR DILUTION ERROR OF ANTICOAGULANT AT THE TIME OF SAMPLING. Performed By: #### 5 6101 ####[facility] [place] [address], [place] ACTIVATED CLOTTING TIMEon ACTIVATED CLOTTING TIME 132 sec Normal 82-152 [facility] Comment on above: Performed By: #### 4 6447 #### [facility] [address] [place] [address], [place] ACTIVATED CLOTTING TIME 508 sec High 82-152 [facility] Comment on above: Performed By: #### 6 2586 #### [facility] [address] [place] [address], [place] ACTIVATED CLOTTING TIME 644 sec High 82-152 [facility] Comment on above: Performed By: #### 6 2586 #### [facility] [address] [place] [address], [place] ACTIVATED CLOTTING TIME 479 sec High 82-152 [facility] Comment on above: Performed By: #### 6 2586 #### [facility] [address] [place] [address], [place] ACTIVATED CLOTTING TIME 467 sec High 82-152 [facility] Comment on above: Performed By: #### 6 2586 #### [facility] [address] [place] [address], [place] ACTIVATED CLOTTING TIME 138 sec Normal 82-152 [facility] Comment on above: Performed By: #### 6 2586 #### [facility] [address] [place] [address], [place] APTTon 12-02-2017 aPTT Coag time (Bld) 36.5 s High 25.0-35.0 [facility] Comment on above: Result Comment: ALL RESULTS [...] THIS PURPOSE. Performed By: #### 5 6101, [id number], 97[address] #### [facility] [address] ARTERIAL BLOOD GAS WITH ICAo n 12-02-2017 BASE EXCESS -4 mmol/L Low -2-[address] [facility] Comment on above: Performed By: #### 4 6447 #### [facility] [address] DELIVERY SYSTEMS MV Normal [facility] Comment on above: Performed By: #### 4 6447 #### [facility] [address] FIO2 40 % Normal 21-100 [facility] Comment on above: Performed By: #### 4 6447 #### [facility] [address] HCO3 molar conc (Bld) 21 mmol/L Low 23-27 [facility] Comment on above: Performed By: #### 4 6447 #### [facility] [address] IONIZED CALCIUM 1.23 mmol/L Normal 1.13-1.32 [facility] Comment on above: Performed By: #### 4 6447 #### [facility] [address] [place] [address], [facility] MIN VOLUME 11.3 Normal [facility] Comment on above: Performed By: #### 4 6439 #### [facility] [address] [place] [address], [facility] MODALITY CPAP Normal [facility] Comment on above: Performed By: #### 4 1345 #### [facility] [address] [place] [address], [place] Oxygen ppres (Bld) 106 mm[Hg] Critically high 75-100 T he [facility] Comment on above: Performed By: #### 4 6447 #### [facility] [address] [place] [address], [place] Oxygen saturation in Blood 95.0 % Normal 94.0-97.0 [facility] Comment on above: Performed By: #### 4 6447 #### [facility] [address] [place] [address], [place] PCO2 38 mmHg Normal 35-45 [facility] Comment on above: Performed By: #### 4 6447 #### [facility] [address] [place] [address], [place] PEEP 5.0 CMH20 Normal [facility] Comment on above: Performed By: #### 4 6447 #### [facility] [address] [place] [address], [place] PF RATIO 265 mmHg Normal 50-400 [facility] Comment on above: Performed By: #### 4 6447 #### [facility] [address] [place] [address], [place] pH (Bld) 7.35 [pH] Normal 7.35-7.45 [facility] Comment on above: Performed By: #### 4 6447 #### [facility] [address] [place] [address], [place] PRESSURE SUPPORT 5 Normal [facility] Comment on above: Performed By: #### 4 6451 #### [facility] [address] [place] [address], [place] BASE EXCESS -5 mmol/L Low -2-[address] [facility] Comment on above: Order Comment: on ar rival to CVU Performed By: #### 4 7302 #### [facility] [address] [place] [address], [facility] DELIVERY SYSTEMS MV Normal [facility] Comment on above: Order Comment: on ar rival to CVU Performed By: #### 4 6447 #### [facility] [address] [place] [address], [place] FIO2 50 % Normal 21-100 The [facility] Comment on above: Order Comment: on ar rival to CVU Performed By: #### 4 6447 #### [facility] [address] [place] [address], [facility] HCO3 molar conc (Bld) 21 mmol/L Low 23-27 The [facility] Comment on above: Order Comment: on ar rival to CVU Performed By: #### 4 6447 #### [facility] [address] [place] [address], [facility] IONIZED CALCIUM 1.26 mmol/L Normal 1.13-1.[address] [facility] Comment on above: Order Comment: on ar rival to CVU Performed By: #### 4 6447 #### [facility] [address] [place] [address], [facility] MIN VOLUME 7.5 Normal [facility] Comment on above: Order Comment: on ar rival to CVU Performed By: #### 4 6447 #### [facility] [address] [place] [address], [facility] MODALITY SIMV Normal [facility] Comment on above: Order Comment: on ar rival to CVU Performed By: #### 4 6451 #### [facility] [address] [place] [address], [facility] Oxygen ppres (Bld) 113 mm[Hg] Critically high 75-100 T he [facility] Comment on above: Order Comment: on ar rival to CVU Performed By: #### 4 6444 #### [facility] [address] [place] [address], [facility] Oxygen saturation in Blood 95.0 % Normal 94.0-97.0 [facility] Comment on above: Order Comment: on ar rival to CVU Performed By: #### 4 6447 #### [facility] [address] [place] [address], [place] PCO2 43 mmHg Normal 35-45 The [facility] Comment on above: Order Comment: on ar rival to CVU Performed By: #### 4 6447 #### [facility] [address] [place] [address], [place] PEEP 5.0 CMH20 Normal [facility] Comment on above: Order Comment: on ar rival to CVU Performed By: #### 4 6447 #### [facility] [address] [place] [address], [place] PF RATIO 226 mmHg Normal 50-400 The [facility] Comment on above: Order Comment: on ar rival to CVU Performed By: #### 4 6447 #### [facility] [address] [place] [address], [place] pH (Bld) 7.30 [pH] Low 7.35-7.45 [facility] Comment on above: Order Comment: on ar rival to CVU Performed By: #### 4 6447 #### [facility] [address] [place] [address], [place] PRESSURE SUPPORT 8 Normal [facility] Comment on above: Order Comment: on ar rival to CVU Performed By: #### 4 6447 #### [facility] [address] [place] [address], [place] TIDAL VOLUME (VT) CC 500 Normal [facility] Comment on above: Order Comment: on ar rival to CVU Performed By: #### 4 6447 #### [facility] [address] [place] [address], [place] BASIC METABOLIC PANELon 08-2 4-2018 Calcium mass conc 7.7 mg/dL Low 8.6-10.3 [facility] Comment on above: Performed By: #### 4 6447 #### [facility] [address] [place] [address], [place] Chloride molar conc 105 mmol/L Normal 98-107 [facility] Comment on above: Performed By: #### 4 6447 #### [facility] [address] [place] [address], [place] CO2 molar conc 23 mmol/L Normal 21-31 The [facility] Comment on above: Performed By: #### 4 6447 #### [facility] [address] [place] [address], [place] Creatinine mass conc 1.45 mg/dL High 0.70-1.30 [facility] Comment on above: Performed By: #### 4 6447 #### [facility] [address] [place] [address], [place] GFR/1.73 sq M predicted among blacks MDRD vol rate/area (S/P/Bld) 58 ml/min/1.73sq m Abnormal >60 [facility] Comment on above: Result Comment: Calc ulation may not be valid for patients over 70 years Performed By: #### 4 6411 #### [facility] [address] [place] [address], [place] GFR/1.73 sq M predicted among non-blacks MDRD vol rate/area (S/P/Bld) 48 ml/min/1.73sq m Abnormal >60 [facility] Comment on above: Result Comment: Calc ulation may not be valid for patients over 70 years Performed By: #### 4 6481 #### [facility] [address] [place] [address], [place] Glucose mass conc 139 mg/dL High 70-100 [facility] Comment on above: Performed By: #### 4 6447 #### [facility] [address] Potassium molar conc 4.6 mmol/L Normal 3.5-5.1 [facility] Comment on above: Performed By: #### 4 6447 #### [facility] [address] Sodium molar conc 135 mmol/L Low 136-145 [facility] Comment on above: Performed By: #### 4 6447 #### [facility] [address] Urea nitrogen mass conc 23 mg/dL Normal 7-25 [facility] Comment on above: Performed By: #### 4 6447 #### [facility] [address] [facility] [address] CBC COMPLETE BLOOD COUNTon 0 12-02-2017 Erythrocyte distribution width Ratio (RBC) 12.8 % Normal 11.5-15.0 [facility] Comment on above: Performed By: #### 4 6447 #### [facility] [address] [facility] [address] Hematocrit Volume Fraction (Bld) 33.3 % Low 39.0-50.0 [facility] Comment on above: Performed By: #### 4 6450 #### [facility] [address] Hemoglobin mass conc (Bld) 11.4 g/dL Low 13.0-17.0 The [facility] Comment on above: Performed By: #### 4 6440 #### [facility] [address] MCH Entitic mass (RBC) 28.1 pg Normal 27.0-33.0 The [facility] Comment on above: Performed By: #### 4 6481 #### [facility] 3000 [facility]. [address] MCHC mass conc (RBC) 34.2 g/dL Normal 32.0-35.0 [facility] Comment on above: Performed By: #### 4 6447 #### [facility] [address] [facility] [place] [address], [facility] MCV Entitic volume (RBC) 82.2 fL Normal 82.0-98.0 The [facility] Comment on above: Performed By: #### 4 6447 #### [facility] [address] [facility]. [address] Nucleated RBC/100 WBC Ratio (Bld) 0 % Normal 0-0 The [facility] Comment on above: Performed By: #### 4 6447 #### [facility] [address] [facility]. [address] PLAT CNT 141 10*3/uL Low 150-400 The [facility] Comment on above: Performed By: #### 4 6447 #### [facility] [address] [facility] [place] [address], [facility] RBC #/vol (Bld) 4.05 10*6/uL Low 4.20-5.70 [facility] Comment on above: Performed By: #### 4 6447 #### [facility] [address] [facility] [place] [address], [facility] WBC #/vol (Bld) 20.03 10*3/uL High 4.00-10.[address] [facility] Comment on above: Performed By: #### 4 6447 #### [facility] [address] [facility] [place] [address], [facility] FIBRINOGENon 12-02-2017 FIBRINOGEN 294 mg/dL Normal 150-425 [facility] Comment on above: Performed By: #### 6 2586 #### [facility] [address] [facility] [place] [place] [address] MAGNESIUM BLOODon 12-02-2017 Magnesium mass conc 2.7 mg/dL Normal 1.9-2.7 [facility] Comment on above: Performed By: #### 4 6447 #### [facility] [address] [place] [address], [place] PERFUSION BLOOD PANELon 11-10 BASE EXCESS 0.0 mmol/L Normal -2.0-3.[address] [facility] Comment on above: Performed By: #### 4 6447 #### [facility] [address] [place] [address], [facility] Glucose mass conc 109 mg/dL High 70-105 [facility] Comment on above: Performed By: #### 4 6447 #### [facility] [address] [place] [address], [facility] Hematocrit Volume Fraction (Bld) 28 % Low 38-51 [facility] Comment on above: Performed By: #### 4 6447 #### [facility] [address] [place] [address], [facility] Hemoglobin mass conc (Bld) 9.5 g/dL Low 12.0-17.0 [facility] Comment on above: Performed By: #### 4 6447 #### [facility] [address] [place] [address], [facility] IONIZED CALCIUM 1.14 mmol/L Normal 1.12-1.[address] [facility] Comment on above: Performed By: #### 4 6447 #### [facility] [address] [place] [address], [facility] Oxygen ppres (Bld) 238.0 mm[Hg] High 80.0-105.0 [facility] Comment on above: Performed By: #### 4 6447 #### [facility] [address] [place] [address], [facility] PCO2 41.3 mmHg Normal 35.0-45.0 [facility] Comment on above: Performed By: #### 4 6447 #### [facility] [address] [place] [address], [facility] pH (Bld) 7.39 [pH] Normal 7.35-7.45 [facility] Comment on above: Performed By: #### 4 6447 #### [facility] [address] [place] [address], [facility] Potassium molar conc 4.7 mmol/L Normal 3.5-4.9 The [facility] Comment on above: Performed By: #### 4 6447 #### [facility] [address] [place] [address], [facility] Sodium molar conc 136 mmol/L Low 138-146 [facility] Comment on above: Performed By: #### 4 6447 #### [facility] [address] BASE EXCESS -1.0 mmol/L Normal -2.0-3.0 The [facility] Comment on above: Performed By: #### 4 6447 #### [facility] [address] [facility]. [address] Glucose mass conc 112 mg/dL High 70-105 [facility] Comment on above: Performed By: #### 4 6447 #### [facility] [address] Hematocrit Volume Fraction (Bld) 27 % Low 38-51 The [facility] Comment on above: Performed By: #### 4 6447 #### [facility] [address] [place] [address], [facility] Hemoglobin mass conc (Bld) 9.2 g/dL Low 12.0-17.0 [facility] Comment on above: Performed By: #### 4 6447 #### [facility] [address] [place] [address], [facility] IONIZED CALCIUM 0.94 mmol/L Low 1.12-1.32 [facility] Comment on above: Performed By: #### 4 6447 #### [facility] [address] [place] [address], [facility] Oxygen ppres (Bld) 299.0 mm[Hg] High 80.0-105.0 The [facility] Comment on above: Performed By: #### 4 6447 #### [facility] [address] [place] [address], [facility] PCO2 31.5 mmHg Low 35.0-45.0 The [facility] Comment on above: Performed By: #### 4 6447 #### [facility] [address] [place] [address], [facility] pH (Bld) 7.47 [pH] High 7.35-7.45 [facility] Comment on above: Performed By: #### 4 6447 #### [facility] [address] [place] [address], [facility] Potassium molar conc 4.9 mmol/L Normal 3.5-4.9 [facility] Comment on above: Performed By: #### 4 6447 #### [facility] [address] [place] [address], [facility] Sodium molar conc 134 mmol/L Low 138-146 [facility] Comment on above: Performed By: #### 4 6447 #### [facility] [address] [place] [address], [facility] BASE EXCESS 2.0 mmol/L Normal -2.0-3.0 The [facility] Comment on above: Performed By: #### 6 2586 #### [facility] [address] [place] [address], [facility] Glucose mass conc 121 mg/dL High 70-105 [facility] Comment on above: Performed By: #### 6 2586 #### [facility] [address] [place] [address], [facility] Hematocrit Volume Fraction (Bld) 28 % Low 38-51 The [facility] Comment on above: Performed By: #### 6 2586 #### [facility] [address] [place] [address], [facility] Hemoglobin mass conc (Bld) 9.5 g/dL Low 12.0-17.0 [facility] Comment on above: Performed By: #### 6 2586 #### [facility] [address] [place] [address], [facility] IONIZED CALCIUM 1.01 mmol/L Low 1.12-1.32 [facility] Comment on above: Performed By: #### 6 2586 #### [facility] [address] [place] [address], [facility] Oxygen ppres (Bld) 299.0 mm[Hg] High 80.0-105.0 [facility] Comment on above: Performed By: #### 6 2586 #### [facility] [address] [place] [address], [facility] PCO2 37.3 mmHg Normal 35.0-45.0 [facility] Comment on above: Performed By: #### 6 2586 #### [facility] [address] [place] [address], [facility] pH (Bld) 7.45 [pH] Normal 7.35-7.45 [facility] Comment on above: Performed By: #### 6 2586 #### [facility] [address] [place] [address], [facility] Potassium molar conc 4.6 mmol/L Normal 3.5-4.9 [facility] Comment on above: Performed By: #### 6 2586 #### [facility] [address] [place] [address], [place] Sodium molar conc 134 mmol/L Low 138-146 [facility] Comment on above: Performed By: #### 6 2586 #### [facility] [address] [facility]. [address] BASE EXCESS 1.0 mmol/L Normal -2.0-3.[address] [facility] Comment on above: Performed By: #### 6 2586 #### [facility] [address] [facility]. [address] Glucose mass conc 110 mg/dL High 70-105 [facility] Comment on above: Performed By: #### 6 2586 #### [facility] [address] [facility]. [address] Hematocrit Volume Fraction (Bld) 31 % Low 38-51 [facility] Comment on above: Performed By: #### 6 2586 #### [facility] [address] [facility]. [address] Hemoglobin mass conc (Bld) 10.5 g/dL Low 12.0-17.0 [facility] Comment on above: Performed By: #### 6 2586 #### [facility] [address] IONIZED CALCIUM 1.01 mmol/L Low 1.12-1.[address] [facility] Comment on above: Performed By: #### 6 2586 #### [facility] [address] [facility]. [address] Oxygen ppres (Bld) 334.0 mm[Hg] High 80.0-105.0 [facility] Comment on above: Performed By: #### 6 2586 #### [facility] [address] [place] [address], [facility] PCO2 36.3 mmHg Normal 35.0-45.0 [facility] Comment on above: Performed By: #### 6 2586 #### [facility] [address] [place] [address], [facility] pH (Bld) 7.45 [pH] Normal 7.35-7.45 [facility] Comment on above: Performed By: #### 6 2586 #### [facility] [address] [place] [address], [place] Potassium molar conc 4.6 mmol/L Normal 3.5-4.9 [facility] Comment on above: Performed By: #### 6 2586 #### [facility] [address] [place] [address], [facility] Sodium molar conc 135 mmol/L Low 138-146 [facility] Comment on above: Performed By: #### 6 2586 #### [facility] [address] [place] [address], [facility] BASE EXCESS -1.0 mmol/L Normal -2.0-3.0 [facility] Comment on above: Performed By: #### 6 2586 #### [facility] [address] [place] [address], [facility] Glucose mass conc 97 mg/dL Normal 70-105 [facility] Comment on above: Performed By: #### 6 2586 #### [facility] [address] [place] [address], [facility] Hematocrit Volume Fraction (Bld) 36 % Low 38-51 [facility] Comment on above: Performed By: #### 6 2586 #### [facility] [address] [place] [address], [facility] Hemoglobin mass conc (Bld) 12.2 g/dL Normal 12.0-17.0 [facility] Comment on above: Performed By: #### 6 2586 #### [facility] [address] [place] [address], [place] IONIZED CALCIUM 1.10 mmol/L Low 1.12-1.[address] [facility] Comment on above: Performed By: #### 6 2586 #### [facility] [address] [place] [address], [facility] Oxygen ppres (Bld) 396.0 mm[Hg] High 80.0-105.0 [facility] Comment on above: Performed By: #### 6 2586 #### [facility] [address] [place] [address], [facility] PCO2 46.9 mmHg High 35.0-45.0 [facility] Comment on above: Performed By: #### 6 2586 #### [facility] [address] [facility] [place] [address], [facility] pH (Bld) 7.34 [pH] Low 7.35-7.45 [facility] Comment on above: Performed By: #### 6 2586 #### [facility] [address] [facility] [place] [address], [facility] Potassium molar conc 3.9 mmol/L Normal 3.5-4.9 [facility] Comment on above: Performed By: #### 6 2586 #### [facility] [address] [facility] [place] [address], [facility] Sodium molar conc 140 mmol/L Normal 138-146 [facility] Comment on above: Performed By: #### 6 2586 #### [facility] [address] [place] [address], [facility] BASE EXCESS 0.0 mmol/L Normal -2.0-3.0 The [facility] Comment on above: Performed By: #### 6 2586 #### [facility] [address] [facility] [place] [address], [facility] Glucose mass conc 100 mg/dL Normal 70-105 [facility] Comment on above: Performed By: #### 6 2586 #### [facility] [address] [place] [address], [facility] Hematocrit Volume Fraction (Bld) 43 % Normal 38-51 [facility] Comment on above: Performed By: #### 6 2586 #### [facility] [address] [place] [address], [facility] Hemoglobin mass conc (Bld) 14.6 g/dL Normal 12.0-17.0 [facility] Comment on above: Performed By: #### 6 2586 #### [facility] [address] [place] [address], [facility] IONIZED CALCIUM 1.18 mmol/L Normal 1.12-1.[address] [facility] Comment on above: Performed By: #### 6 2586 #### [facility] [address] [place] [address], [facility] Oxygen ppres (Bld) 89.0 mm[Hg] Normal 80.0-105.0 The [facility] Comment on above: Performed By: #### 6 2586 #### [facility] [address] [place] [address], [facility] PCO2 35.7 mmHg Normal 35.0-45.0 [facility] Comment on above: Performed By: #### 6 2586 #### [facility] [address] [place] [address], [facility] pH (Bld) 7.43 [pH] Normal 7.35-7.45 [facility] Comment on above: Performed By: #### 6 2586 #### [facility] [address] [place] [address], [facility] Potassium molar conc 4.2 mmol/L Normal 3.5-4.9 [facility] Comment on above: Performed By: #### 6 2586 #### [facility] [address] [place] [address], [place] Sodium molar conc 138 mmol/L Normal 138-146 [facility] Comment on above: Performed By: #### 6 2586 #### [facility] [address] [facility] [place] [address], [facility] POC GLUCOSE LABon 12-02-2017 Glucose mass conc 147 mg/dL High 70-100 [facility] Comment on above: Performed By: #### 4 6447 #### [facility] [address] [place] [address], [facility] Glucose mass conc 145 mg/dL High 70-100 [facility] Comment on above: Performed By: #### 4 6447 #### [facility] [address] [facility] [place] [address], [facility] Glucose mass conc 128 mg/dL High 70-100 [facility] Comment on above: Performed By: #### 8 5499 ####[facility] [facility] [place] [address], [facility] Glucose mass conc 113 mg/dL High 70-100 [facility] Comment on above: Performed By: #### 8 5499 #### [facility] [address] [facility] [place] [address], [facility] PORTABLE CHEST 1 VIEWon 11-10 PORTABLE CHEST 1 VIEW [facility] Department of Radiology [address] [place] [id number] ======== Patient Name: KRISTOFER FABIAN : 1945 Sex: M Age: Race: White Pt. Location: OUTP Patient Status: I Ordered Date: 12/02/2017 6:10:00 PM Completed Date: 12/02/2017 07:11 PM Requesting Provider: JOHAN PETERS Attending Provider: JOHAN PETERS Report Copy To: Signs & Symptoms: [...] findings. Electronically signed by:Shaw Dent. Transcribed by: [email or web address], User Resident: ROBIN LENZ Electronically Signed by: SHAW DENT @ 12/03/2017 08:48 AM I personally read this/these film(s) with this resident Normal [facility] Comment on above: Order Comment: Check E.T. Position PROTHROMBIN TIMEon 8 INR Coag RelTime (PPP) 1.38 {INR} High 0.91-1.16 [facility] Comment on above: Result Comment: ACCC P RECOMMENDED INR FOR [...] CHEST 1995;108:[id number]-246S. Performed By: #### 5 6101, 15291, 89[address] #### [facility] [address] Prothrombin time (PT) Coag time (PPP) 17.0 s High 12.3-14.8 [facility] Comment on above: Result Comment: ALL RESULTS MUST BE INTERPRETED WITH RESPECT TO BLOOD DRAWING ARTIFACT OR DILUTION ERROR OF ANTICOAGULANT AT THE TIME OF SAMPLING. Performed By: #### 5 6101, 73230, 585[address] #### [facility] [address] TYPE AND CROSSMATCHon 2017 ABO INTERPRETATION B Normal [facility] Comment on above: Performed By: #### 6 2594 #### [facility] [address] [place] [address], [place] RH INTERPRETATION Negative Normal [facility] Comment on above: Performed By: #### 6 2594 #### [facility] [address] [place] [address], [facility] Cardiovascular Lab Reporton 11-29-2017 Cardiovascular Lab Report [facility] Patient Name: Kristofer Fabian MR #: [id number] [facility] Physician: Sotero Hugo M.D. Department of Service Date: 11/28/2017 Medicine Birthdate: 1945 Division of Room #: Cardiology Adult Cardiovascular Services [facility] [address] [place] [id number] Cardiovascular Laboratory Report FINAL IMPRESSIONS: 1. 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 2. Chronic total occlusion of the [...] 5. Follow up with me in the [facility] in the next 2-4 weeks. PROCEDURES: Limited femoral angiography, bilateral selective coronary angiography, placement of a 6-Fijian MynxGrip closure device. METHODS: After risks, benefits, and alternatives were explained, written informed consent was obtained. The patient was prepped and draped in the usual sterile fashion over both groins. Using 1% lidocaine solution, local infiltration anesthesia was achieved. Using a modified Seldinger technique, access to the right common femoral artery was obtained. A 6-Fijian 11 cm sheath was inserted without difficulty. Baseline femoral arterial angiography was performed. Bilateral selective coronary angiography was then performed using JL4 and JR4 catheters. After reviewing the images, it was elected to conclude the procedure. A 6-Fijian MynxGrip closure device was deployed per protocol achieving optimal hemostasis. Overall, the patient tolerated the procedure well. There were no overt complications. He was to be transferred to the holding area in stable condition. FINDINGS: Hemodynamics: AO [...] small caliber AV groove branch. There are uklh-pj-eqght collaterals. Right coronary artery: This is a [...] shortness of breath. Electronically Signed by: Sotero Hugo M.D. 12/02/2017 12:54 P Sotero Hugo M.D. Date Dict: 11/28/2017/09:07 Rashaun/Sotero Hugo M.D. Date Trans: 11/29/2017 03:52 Rashaun/dawna [id number] cc: Taryn Coley M.D. [address] [place] [address] Normal [facility] *MRSA/MSSA CULTUREon 018 *MRSA/MSSA CULTURE Clinical Report: (D) Specimen: NASAL SWAB Collected: 11/28/2017 11:27 Status: Final Last Updated: 11/29/2017 10:02 ISO (Final) No Methicillin Resistant Staphylococcus aureus Isolated (MRSA) ISO (Final) No Methicillin Sensitive Staphylococcus aureus Isolated (MSSA) Normal The [facility] Comment on above: Performed By: #### 3 1302 #### [address] [place] [address], [facility] CHEST AND LATERALon 11-29-19 CHEST AND LATERAL [facility] Department of Radiology [address] [place] [phone] ======== Patient Name: KRISTOFER FABIAN : 1945 Sex: M Age: Race: White Pt. Location: Patient Status: O Ordered Date: 11/28/2017 12:50:00 PM Completed Date: 11/28/2017 12:59 PM Requesting Provider: VENESSA WHITE Attending Provider: SOTERO HUGO Report Copy To: TARYN COLEY Signs & Symptoms: I25.10 Athscl heart disease of [place] coronary artery w/o ang pctrs I10 History: Verónica Comments: , , , Ordering Provider - Austin BARROSO NP , Exam: CHEST AND LATERAL ======== CHEST AND LATERAL 11/28/2017 12:59 PM EDT SIGNS AND SYMPTOMS: I25.10 Athscl heart disease of [place] coronary artery w/o ang pctrs I10 TECHNOLOGIST COMMENTS: Pre-op clearance. S/P label rewinder procedure today QUESTION FOR THE RADIOLOGIST: , , , Ordering Provider - Austin BARROSO NP , PROTOCOL: AP(PA) and Lateral views were [...] findings. Electronically signed by:Kimberlyn Collado. Transcribed by: [email or web address], User Resident: ANAHI JAMES Electronically Signed by: KIMBERLYN COLLADO @ 11/28/2017 02:39 PM I personally read this/these film(s) with this resident Normal The [facility] Comment on above: Order Comment: , , = ========= , Ordering Provider - VENESSA WHITE NP, S , HEMOGLOBIN A1Con 11-28-2017 Hemoglobin A1c/Hemoglobin.tota l mass fraction (Bld) 5.8 % Normal 4.0-6.0 [facility] Comment on above: Performed By: #### 4 6447 #### [facility] [address] [facility]. [address] Hemoglobin A1c/Hemoglobin.tota l mass fraction (Bld) 120 mg/dL Normal 70-126 [facility] Comment on above: Performed By: #### 4 6447 #### [facility] [address] [facility] [place] [address], [facility] LIVER BATTERYon 11-28-2017 Albumin mass conc 4.0 g/dL Normal 3.5-5.7 [facility] Comment on above: Performed By: #### 9 9909 #### [facility] [address] [facility] [place] [address], [facility] ALKALINE PHOSPH 51 IU/L Normal 34-104 The [facility] Comment on above: Performed By: #### 9 9909 #### [facility] [address] [place] [address], [place] ALT enzyme act/vol 14 U/L Normal 7-[address] [facility] Comment on above: Performed By: #### 9 9909 #### [facility] [address] [place] [address], [place] AST enzyme act/vol 18 U/L Normal 13-[address] [facility] Comment on above: Performed By: #### 9 9909 #### [facility] [address] [place] [address], [place] Bilirubin mass conc 0.5 mg/dL Normal 0.3-1.0 The [facility] Comment on above: Performed By: #### 9 9909 #### [facility] [address] [place] [address], [place] Bilirubin.direct mass conc 0.1 mg/dL Normal 0.0-0.2 [facility] Comment on above: Performed By: #### 9 9909 #### [facility] [address] [place] [address], [place] Protein mass conc 6.5 g/dL Normal 6.0-8.3 [facility] Comment on above: Performed By: #### 9 9909 #### [facility] [address] [place] [address], [facility] TYPE AND SCREENon 11-28-2017 ABO INTERPRETATION B Normal The [facility] Comment on above: Performed By: #### 6 2586 #### [facility] [address] [place] [address], [place] RH INTERPRETATION Negative Normal [facility] Comment on above: Performed By: #### 6 2586 #### [facility] [address] [place] [address], [place] Vital Signs Date Time Vital Sign Value Performing Clinician Romeo lora 12-02-2017 21:32-0400 Respiratory rate 12 /min DEFAULT PHYSICIAN The [facility] Comment on above: Order Comment: on ar rival to CVU Performed By: #### 4 6447 #### [facility] [address] Encounters Encounter Date Encounter Type Care Provider Facility Start: 04-16-2024 ambulatory [facility] Start: 04-16-2024 ambulatory [facility] Start: 04-09-2024 ambulatory [facility] Start: 04-05-2024 ambulatory [facility] Start: 03-20-2024 End: 03-20-2024 ambulatory [facility] Start: 03-19-2024 [facility] Start: 02-27-2024 End: 02-27-2024 Emergency department patient visit Allison Brooks Facility:[facility] Start: 02-20-2024 ambulatory [facility] Start: 02-09-2024 ambulatory [facility] Start: 01-11-2024 [facility] Start[facility] 12-29-2023 [facility] Start: 11-22-2023 End: 11-22-2023 [facility] Start: 11-15-2023 [facility] Start: 09-16-2023 ambulatory [facility] Start: 09-12-2023 ambulatory [facility] Start: 08-23-2023 End: 08-23-2023 [facility] Start: 06-13-2023 End: 06-13-2023 [facility] Start: 05-17-2023 End: 05-17-2023 [facility] Start: 01-24-2018 End: 01-25-2018 Patient encounter procedure DEFAULT PHYSICIAN Facility:[facility] Start: 12-02-2017 End: 12-06-2017 Evaluation and management of inpatient JOHAN S FRAN Facility:[facility] Start: 11-28-2017 End: 11-29-2017 Patient encounter procedure EHAB Rashaun HUGO Facility:[facility] Start: 11-22-2017 End: 11-23-2017 Patient encounter procedure DEFAULT PHYSICIAN Facility:[facility] Start: 11-21-2017 End: 11-22-2017 Patient encounter procedure DEFAULT PHYSICIAN Facility:[facility] Start: 11-16-2017 End: 11-17-2017 Patient encounter procedure DEFAULT PHYSICIAN Facility:[facility] Start: 11-16-2017 End: 11-17-2017 Patient encounter procedure DEFAULT PHYSICIAN Facility:[facility] Start: 11-04-2017 End: 11-05-2017 Patient encounter procedure DEFAULT PHYSICIAN Facility:[facility] Procedures Date Procedure Procedure Detail Performing Clinician Start: 12-02-2017 Antibody screen DEFAULT PHYSICIAN Comment on above: Performed By: #### 6 2594 #### [facility] [address] [facility] [address] Start: 12-02-2017 BYPASS 1 COR ART FRO M L INT MAMMARY, OPEN APPROACH JOHAN S FRAN Start: 12-02-2017 BYPASS 2 COR ART FRO M AORTA WITH AUTOL VN, OPEN APPROACH JOHAN S FRAN Start: 12-02-2017 EXCISION OF LEFT SAP HENOUS VEIN, PERC ENDO APPROACH JOHAN S FRAN Start: 12-02-2017 INSERT INFUSION DEV IN R INT JUGULAR VEIN, PERC ERA GILLIS Start: 12-02-2017 INSERTION OF MONITOR ING DEVICE INTO UP ART, PERC APPROACH ERA GILLIS Start: 12-02-2017 MEASURE OF ARTERIAL SATURATION, PERIPHERAL, PERC APPROACH JOHAN S FRAN Start: 12-02-2017 Performance of Cardi ac Output, Continuous JOHAN S FRAN Start: 12-02-2017 ULTRASONOGRAPHY OF R IGHT AND LEFT HEART, TRANSESOPHAGEAL ERA GILLIS Start: 12-02-2017 Ultrasonography of R ight Jugular Veins, Guidance ERA GILLIS Start: 11-28-2017 Antibody screen DEFAULT PHYSICIAN Comment on above: Performed By: #### 6 2586 #### [facility] [address] [place] [address], [place] Payers Date Payer Category Payer Medicare [id number] 2012 Unknown [id number] 1946 Unknown [id number] 2.16.8 [id number] 1945 Unknown [id number] 2.16.8 [id number] 1945 Unknown [id number] 2.16.8 [id number] 1945 Unknown [id number] 2.16.8 [id number] 1945 Unknown [id number] 2.16.8 [id number] 1945 Unknown [id number] 2.16.8 [id number] 1945 Unknown [id number] 2.16.8 [id number] 1945 Unknown [id number] 2.16.8 [id number] 1945 Unknown [id number] 2.16.8 [id number] Medicare [id number] Unknown Unknown [id number] Progress note 03-20-2024 Note Date & Type Note Facility 03-20-2024 Note [facility] Electrophysiology Consult Note Reason for visit: SVT/PVC 03/20/24 Doing very well, but tires easily. Denies chest pain, palpitations, lightheadedness/syncope, and bleeding on Eliquis. Denies feeling heart racing or palpitations. States he has only felt one episode of palpitations months ago. Pulse check: NSR, PVCs Loop review: Likely AF seen on monitor along with episodes of SVT 11/22/23 Patient here for 3 mo follow up afib and loop recorder data review. Denies chest pain, palpitations, lightheadedness/syncope, and bleeding on Eliquis. DAO remains unchanged. Had echo in September 2023. During rest he was noted to be in sinus rhythm with PVC and bigeminy but with ambulation his heart rate picked up with suppression of PVC. Despite the absence of PVC patient completed an exercise related dyspnea. His last stress test that was done in March 2023 revealed fixed defect in the inferior wall with no reversible ischemia. 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 08/23/23 Patient here for 2 mo follow up s/p loop monitor implant which was one on 06/13/23. Says he's had 3 episodes of epistaxis since starting Eliquis a few months ago. He is doing well and does not endorse any palpitations. LOOP data: HPI: Kristofer Fabian . is a 79 y.o. year old with past medical history [...] racing heart feeling. He was seen by Alonzo WU and event monitor was reviewed which [...] on file Intimate Partner Violence: Unknown (06/02/2023) [facility] Safety & Environment Fear of Current or Ex-Partner: Not on file Emotionally Abused: Not on file Physically Abused: Not on file Sexually Abused: Not on file Physically or Sexually Abused: Not on file Depression: Not on file Housing Stability: Not on file Utilities: Not on file Health Literacy: Not on file Allergies: No Known Allergies Weight: 118kg Visit Vitals BP 142/80 (BP Location: Left arm, Patient Position: Sitting) Pulse 68 Ht 1.829 m (6') Wt 118 kg (261 lb) SpO2 97% BMI 35.40 kg/m??? Smoking Status Former BSA 2.45 m??? Meds: Current Outpatient Medications on File Prior to Visit Medication Sig Dispense Refill amLODIPine (Norvasc) 5 mg tablet Take 1 tablet (5 mg) by mouth once daily as directed. as directed 90 tablet 3 apixaban (Eliquis) 5 mg tablet Take 1 tablet (5 mg) by mouth two times daily. 180 tablet 3 atorvastatin (Lipitor) 80 mg tablet Take 1 tablet (80 mg) by mouth at bedtime. 90 tablet 3 lisinopril 40 mg tablet Take 1 tablet every day by oral route for 30 days. 90 tablet 3 metoprolol tartrate (Lopressor) 25 mg tablet TAKE ONE (1) TABLET BY MOUTH TWICE DAILY 180 tablet 3 [DISCONTINUED] aspirin 81 mg EC tablet Take 1 tablet every day by oral route. No current facility-administered medications on fi (more content not included)... [facility] Progress note 03-20-2024 Note Date & Type Note Facility 03-20-2024 Note Patient here for 4 m o follow up CAD, hypertension, and SVT. Doing very well, but tires easily. Denies chest pain, palpitations, lightheadedness/syncope, and bleeding on Eliquis. Review of Systems Constitutional: Positive for malaise/fatigue. HENT: Positive for hearing loss. Cardiovascular: Positive for dyspnea on exertion. All other systems reviewed and are negative. [facility] Clinical Note 02-27-2024 Note Date & Type Note Facility 02-27-2024 Note Education Materials Caregiving Fall Prevention in the Home, Adult Falls can cause injuries and affect people of all ages. There are many simple things that you can do to make your home safe and to help prevent falls. If you need it, ask for help making these changes. What actions can I take to prevent falls? General information ? Use good lighting in all rooms. Make sure to: ? Replace any light bulbs that burn out. ? Turn on lights if it is dark and use night-lights. ? Keep items that you use often in [id number] places. Lower the shelves around your home if needed. ? Move furniture so that there are clear paths around it. ? Do not keep throw rugs or other things on the floor that can make you trip. ? If any of your floors are uneven, fix them. ? Add color or contrast paint or tape to clearly sixto and help you see: ? Grab bars or handrails. ? First and last steps of staircases. ? Where the edge of each step is. ? If you use a ladder or stepladder: ? Make sure that it is fully opened. Do not climb a closed ladder. ? Make sure the sides of the ladder are locked in place. ? Have someone hold the ladder while you use it. ? Know where your pets are as you move through your home. What can I do in the bathroom? ? Keep the floor dry. Clean up any water that is on the floor right away. ? Remove soap buildup in the bathtub or shower. Buildup makes bathtubs and showers slippery. ? Use non-skid mats or decals on the floor of the bathtub or shower. ? Attach bath mats securely with double-sided, non-slip rug tape. ? If you need to sit down while you are in the shower, use a non-slip stool. ? Install grab bars by the toilet and in the bathtub and shower. Do not use towel bars as grab bars. What can I do in the bedroom? ? Make sure that you have a light by your bed that is easy to reach. ? Do not use any sheets or blankets on your bed that hang to the floor. ? Have a firm bench or chair with side arms that you can use for support when you get dressed. What can I do in the kitchen? ? Clean up any spills right away. ? If you need to reach something above you, use a sturdy step stool that has a grab bar. ? Keep electrical cables out of the way. ? Do not use floor chinese or wax that makes floors slippery. What can I do with my stairs? ? Do not leave anything on the stairs. ? Make sure that you have a light switch at the top and the bottom of the stairs. Have them installed if you do not have them. ? Make sure that there are handrails on both sides of the stairs. Fix handrails that are broken or loose. Make sure that handrails are as long as the staircases. ? Install non-slip stair treads on all stairs in your home if they do not have carpet. ? Avoid having throw rugs at the top or bottom of stairs, or secure the rugs with carpet tape to prevent them from moving. ? Choose a carpet design that does not hide the edge of steps on the stairs. Make sure that carpet is firmly attached to the stairs. Fix any carpet that is loose or worn. What can I do on the outside of my home? ? Use bright outdoor lighting. ? Repair the edges of walkways and driveways and fix any cracks. Clear paths of anything that can make you trip, such as tools or rocks. ? Add color or contrast paint or tape to clearly sixto and help you see high doorway thresholds. ? Trim any bushes or trees on the main path into your home. ? Check that handrails are securely fastened and in good repair. Both sides of all steps should have handrails. ? Install guardrails along the edges of any raised decks or porches. ? Have leaves, snow, and ice cleared regularly. Use sand, salt, or ice melt on walkways during winter months if you live where there is ice and snow. ? In the garage, clean up any spills right away, including grease or oil spills. What other actions can I take? ? Review your medicines with your health care provider. Some medicines can make you confused or feel dizzy. This can increase your chance of falling. ? Wear closed-toe shoes that fit well and support your feet. Wear shoes that have rubber soles and low heels. ? Use a cane, walker, scooter, or crutches that help you move around if needed. Talk with your provider about other ways that you can decrease your risk of falls. This may include seeing a physical therapist to learn to do exercises to improve movement and strength. Where to find more information ? Centers for Disease Control and Prevention, [place]: cdc.gov ? National [place] on Aging: main.nih.gov ? [employer] [place] on Aging: main.nih.gov Contact a health care provider if: ? You are afraid of falling at home. ? You feel weak, drowsy, or dizzy at home. ? You fall at home. Get help right away if you: ? Lose consciousness or have trouble moving after a fall. ? Have a fall that causes a head injury. These symptoms may be an emergency. Get (more content not included)... [facility] Progress note 11-22-2023 Note Date & Type Note Facility 11-22-2023 Note [facility] Electrophysiology Consult Note Reason for visit: SVT/PVC 11/22/23 Patient here for 3 mo follow up afib and loop recorder data review. Denies chest pain, palpitations, lightheadedness/syncope, and bleeding on Eliquis. DAO remains unchanged. Had echo in September 2023. During rest he was noted to be in sinus rhythm with PVC and bigeminy but with ambulation his heart rate picked up with suppression of PVC. Despite the absence of PVC patient completed an exercise related dyspnea. His last stress test that was done in March 2023 revealed fixed defect in the inferior wall with no reversible ischemia. 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 08/23/23 Patient here for 2 mo follow [...] racing heart feeling. He was seen by Alonzo WU and event monitor was reviewed which [...] on file Intimate Partner Violence: Unknown (06/02/2023) [facility] Safety & Environment Fear of Current or Ex-Partner: Not on file Emotionally Abused: Not on file Physically Abused: Not on file Sexually Abused: Not on file Physically or Sexually Abused: Not on file Depression: Not on file Housing Stability: Not on file Utilities: Not on file Allergies: No Known Allergies Weight: 115kg Visit Vitals BP 130/64 (BP Location: Right arm, Patient Position: Sitting) Pulse 58 Ht 1.829 m (6') Wt 115 kg (253 lb) SpO2 96% BMI 34.31 kg/m??? Smoking Status Former BSA 2.42 m??? Meds: Current Outpatient Medications on File Prior to Visit Medication Sig Dispense Refill amLODIPine (Norvasc) 5 mg tablet Take 1 tablet (5 mg) by mouth once daily as directed. as directed 90 tablet 3 apixaban (Eliquis) 5 mg tablet Take 1 tablet (5 mg) by mouth two times daily. 180 tablet 3 aspirin 81 mg EC tablet [...] BY MOUTH TWICE DAILY 180 tablet 3 [DISCONTINUED] apixaban (Eliquis) 5 mg tablet Take 1 tablet (5 mg) by mouth in the morning and at bedtime. 60 tablet 11 No current facility-administered medications on file prior to visit. ROS: Review of Systems HENT: Positive for hearing loss (severe). Cardiovascular: Positive for dyspnea on exertion. All other systems reviewed and are negative. Physical Exam: Constitutional General Appearance: well-nourished, (more content not included)... [facility] Progress note 08-23-2023 Note Date & Type Note Facility 08-23-2023 Note [facility] Electrophysiology Consult Note Reason for visit: SVT/PVC [...] racing heart feeling. He was seen by Alonzo WU and event monitor was reviewed which [...] on file Intimate Partner Violence: Unknown (06/02/2023) [facility] Safety & Environment Fear of Current or [...] Rate And Rh (more content not included)... [facility] Procedure note 06-13-2023 Note Date & Type Note Facility 06-13-2023 Note LOOP IMPLANT PROCEDU RE NOTE DATE OF PROCEDURE: 06/13/23 PERFORMING PHYSICIAN: Dr. Maxim Ray LOADER OPERATOR/GROUND LEADER: KARMA INDICATIONS FOR PROCEDURE: 1. SVT/AF surveillance [...] the sternum on the left using the [employer] tool. The loop recorder was then injected [...] the incision. Maxim Ray MD Cardiac Electrophysiology. [facility] Progress note 05-17-2023 Note Date & Type Note Facility 05-17-2023 Note [facility] Electrophysiology Consult Note Reason for visit: SVT/PVC HPI: Kristofer Fabian is a 78 y.o. year old with [...] racing heart feeling. He was seen by Alonzo WU and event monitor was reviewed which [...] , LDL D (more content not included)... [facility] Summary Purpose Family History No Family History Records FoundNo Family History Records FoundNo Family History Records FoundNo Family History Records Found Advance Directives No Advanced Directives Records FoundNo Advanced Directives Records FoundNo Advanced Directives Records FoundNo Advanced Directives Records Found Hospital Course Note MR#: [id number] [facility] Pt. Name: Kristofer Fabian Admitted: 12/02/2017 Discharged: 12/06/2017 Date of : 1945 Physician: Johan Peters MD DISCHARGE SUMMARY ADMISSION DIAGNOSIS: Coronary [...] occlusion of his right coronary system with [id number] collaterals. He was deemed to be suitable for coronary artery bypass grafting on consultation. The patient was admitted on 12/02/2017 and und (more content not included)... Additional Source Comments (unrecognized sect ion and content) No Status Records FoundNo Status Records FoundNo Status Records FoundNo Status Records Found INFORMATION SOURCE (unrecogn ized section and content) DATE CREATED AUTHOR 08/03/2018 [facility] DATE CREATED AUTHOR AUTHOR'S ORGANIZ ATION 04/26/2021 [facility] DATE CREATED AUTHOR AUTHOR'S ORGANIZ ATION 03/08/2024 [facility] DATE CREATED AUTHOR AUTHOR'S ORGANIZ ATION 04/22/2024 [facility] FOR RECORDS PERTAINING TO PATIENTS WHO ARE [...] BE BASED ON THE PRIMARY CLINICAL RECORDS. [facility]. provides no warranty or guarantee of the accuracy or completeness of information in this document.
[2024-04-24 14:54] LABS: Anion Gap 11.9; BUN Creatinine Ratio 11.5; Calcium 9.5 mg/dL (8.5-10.1); Chloride 105 mmol/L (98-107); Estimated GFR (African America 56 (>=60 mL/min/1.73m^2); Estimated GFR (Non-African Ame 46 (>=60 mL/min/1.73m^2); Glucose 97 mg/dL (74-106); Potassium 4.9 mmol/L (3.5-5.1); Sodium 139 mmol/L (136-145)
== END 2024-04-24 14:15 | disposition home or self-care (01) ==
LOC: LAB 14:15
PROVIDERS: Visit Provider Internal Medicine Cardiovascular Disease
DX: I48.0 Paroxysmal atrial fibrillation (principal)
CPT/HCPCS: 36415; 80048; 85025

== ENCOUNTER 2025-01-28 09:25 | Outpatient (OUT) | payer MEDICARE, SELFPAY ==
--- OUTSIDE RECORDS SUMMARY | 2025-01-22 10:20 | XMS_ITS | Encounter Summary ---
Author Organization [facility] Address [address] [place] [address] Care Team Providers Care Environmental Inspector Name Role Phone Scott Logan MD Primary Care Provider Reason for Referral * Consultation (Routine) - Pending Review Specialty Diagnoses / Procedures Referred By Alexander nichols Referred To Contact Cardiology Diagnoses Frequent PVCs Procedures FL OFFICE/OUTPATIENT [facility] HIGH MDM 60 MINUTES Sandrine Toledo CNP [address] [place] [address] Phone: tel: fax: [facility] [address] [place] [address] Referral ID Status Reason Start Date Expiration Date Visits Requested Visits Authorized [id number] Pending Review Specialty Services Required 5 01/22/2026 1 1 * Imaging (Routine) - Pending Review Specialty Diagnoses / Procedures Referred By Alexander nichols Referred To Contact Cardiology Diagnoses PVC (premature ventricular contraction) Procedures Transthoracic echo (TTE) complete Sandrine Toledo CNP [address] [place] [address] Phone: tel: fax: Referral ID Status Reason Start Date Expiration Date Visits Requested Visits Authorized [id number] Pending Review Perform Procedure 01/22/2026 1 1 Reason for Visit * Reason Comments Follow-up Patient is here toda y for a 6 month follow up appointment. Patient denies chest pain. Patient has had no testing since his last office visit with cardiology. [facility] Atrial Fibrillation Coronary Artery Disease Hypertension SVT PVC Cardiomyopathy Shortness of Breath SOB/DAO not as bad a s it use to be Fatigue Not as bad as it has been in the past Edema Bilateral edema whic h resolves with elevating legs. Encounter Details Date Type Department Care Team (Late st Contact Info) Description 01/22/2025 10:20 AM EDT Office Visit [facility] [address] [place] [address] Sandrine Toledo, COMPLAINT COORDINATOR [address] [place] [id number] PVC (premature ventricular contraction) (Primary Dx); Venous insufficiency of both lower extremities; Benign hypertensive heart disease without congestive heart failure; Frequent PVCs; Mixed hyperlipidemia; Coronary artery disease involving [place] coronary artery of [place] heart without angina pectoris; Hx of CABG; Leg edema Social History Tobacco Use Types Packs/Day Years Used Date Smoking Tobacco: Former Cigarettes Smokeless Tobacco: Never Alcohol Use Standard Drinks/Week Comments Not Currently 0 (1 standard drink = 0.6 oz pur e alcohol) [facility] Utilities Answer Date Recorded In the past 12 months has e Consulted, gas, oil, or water [employer] threatened to shut off services in your home? No 05/10/2024 Humiliation, Afraid, Rape, and Kick questionnair e Answer Date Recorded Within the last year, have y ou been afraid of your partner or ex-partner? No 05/10/2024 Emotionally Abused Not on file 05/10/2024 Physically Abused Not on file 05/10/2024 Sexually Abused Not on file 05/10/2024 Overall Financial Resource Strain (CARDIA) Answe r Date Recorded How hard is it for you to pa y for the very basics like food, housing, medical care, and heating? Not hard at all 05/10/2024 Transportation Answer Date Recorded In the past 12 months, has l ack of transportation kept you from medical appointments or from getting medications? No 05/10/2024 Lack of Transportation (Non-Medical) Not on file 05/10/2024 Housing Stability Vital Sign Answer Jere e Recorded In the last 12 months, was t here a time when you were not able to pay the mortgage or rent on time? No 05/10/2024 Number of Times Moved in the Last Year Not on fi le 05/10/2024 At any time in the past 12 m [facility], were you homeless or living in a retirement (including now)? No 05/10/2024 Hunger Vital Sign Answer Date Recorded Within the past 12 months, y ou worried that your food would run out before you got the money to buy more. Never true 05/10/19 25 Ran Out of Food in the Last Year Not on file 05/10/2024 Sex and Gender Information Value Date Recorded Sex Assigned at Male 05/16/2023 7:18 AM EST Legal Sex Male 12:07 AM EDT Gender Identity Male 05/16/2023 7:18 AM EST Sexual Orientation Heterosexual or Straight 08/2023 7:18 AM EST documented as of this encounter Last Filed Vital Signs Vital Sign Reading Time Taken Comments Blood Pressure 150/71 01/22/2025 10:19 AM EDT Pulse 60 01/22/2025 10:19 AM EDT Temperature - - Respiratory Rate - - Oxygen Saturation 95% 01/22/2025 10:19 AM EDT Inhaled Oxygen Concentration - - Weight 115 kg (253 lb) 01/22/2025 10:19 AM EDT Height 182.9 cm (6') 01/22/2025 10:19 AM EDT Body Mass Index 34.31 01/22/2025 10:19 AM EDT documented in this encounter Functional Status * BP Answer Date of Assessment Author 150/71 01/22/2025 10:19 AM EDT Suzy White am, [place] * Pulse Answer Date of Assessment Author 60 01/22/2025 10:19 AM EDT Suzy White am, [place] * Patient Position Answer Date of Assessment Author Sitting 01/22/2025 10:19 AM EDT Suzy White am, [place] * BP Answer Date of Assessment Author 150/71 01/22/2025 10:19 AM EDT Suzy White am, [place] * Pulse Answer Date of Assessment Author 60 01/22/2025 10:19 AM EDT Suzy White am, [place] * SpO2 Answer Date of Assessment Author 95 01/22/2025 10:19 AM EDT Suzy White am, [place] * BP Location Answer Date of Assessment Author Left arm 01/22/2025 10:19 AM EDT Suzy White am, [place] * Patient Position Answer Date of Assessment Author Sitting 01/22/2025 10:19 AM EDT Suzy White am, [place] documented as of this encounter Patient Instructions * Patient Instructions* Sandrine Toledo CNP - 01/22/2025 10:20 AM EDT Replace metoprolol with carvedilol. Dose is 6.25mg twice daily. Continue to monitor your blood pressure at home. Best to take 2 hours after AM medications. Let us know if you are getting low readings or high readings of BP >130/90 consistently. Let us know if you do not hear from [facility] for referral for management of your frequent PVCs. documented in this encounter Progress Notes * Sandrine Toledo CNP - 01/22/2025 10:20 AM EDT Images from the original note were not included. Cardiovascular Medicine [facility] SUBJECTIVE Chief Complaint Patient presents with Follow-up Patient is here today for a 6 month follow up appointment. Patient denies chest pain. Patient has had no testing since his last office visit with cardiology. [facility] Atrial Fibrillation Coronary Artery Disease Hypertension SVT PVC Cardiomyopathy Shortness of Breath SOB/DAO not as bad as it use to be Fatigue Not as bad as it has been in the past Edema Bilateral edema which resolves with elevating legs. Scott Luisa Fabian Sr. is a 79 y.o. male here for follow-up. Atrial Fibrillation Symptoms include shortness of breath. Past medical history includes atrial fibrillation and CAD. Coronary Artery Disease Symptoms include shortness of breath. Hypertension Associated symptoms include shortness of breath. Shortness of Breath His past medical history is significant for CAD. Fatigue Associated symptoms include fatigue. Edema Associated symptoms include fatigue. Past medical history is significant for CAD. PMHx: CAD s/p CABG in 2018, hypertension, A-fib, CKD, PVCs s/p ablation Patient here for follow up PVC ablation performed on 05/10/[address] Ray. Says his DAO is muchbetter. Denies chest pain, palpitations, lightheadedness/syncope, and bleeding on Eliquis. 06/07/2024 He states he feels like he has more energy and is able to do more activities without getting SOB. He has mild leg swelling - this is stable. Denies c/o CP, dyspnea, orthopnea, PND, dizziness/LH, palpitations, syncope. 01/22/2025 He states he has been doing well since last seen. Dr. Ray referred him to [facility] after his last visit to further discuss repeat PVC ablation. He has not seen them, he notes he never received a phone call. Denies c/o CP, dyspnea, orthopnea, PND, dizziness/LH, palpitations, syncope. Leg swelling has been controlled. He is taking lasix maybe one day a week. 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 Paroxysmal A-fib ([facility]/HCC) SVT (supraventricular tachycardia) PVC (premature ventricular contraction) Cardiomyopathy ([facility]/HCC) Past Medical History: Diagnosis Date Abnormal ECG Arrhythmia Atrial fibrillation (CMS/HCC) Coronary arteriosclerosis Coronary artery disease HL (hearing loss) Hyperlipidemia Hypertension PVC (premature ventricular contraction) Family History Problem Relation Name Age of Onset Coronary artery disease Mother Heart attack Mother Stroke Father Social History Tobacco Use Smoking status: Former Types: Cigarettes Smokeless tobacco: Never Substance Use Topics Alcohol use: Not Currently Drug use: Not Currently No Known Allergies Review of Systems Constitutional: Positive for fatigue. Respiratory: Positive for shortness of breath. Constitutional: Positive for malaise/fatigue. HENT: Positive for hearing loss. Cardiovascular: Positive for dyspnea on exertion (improving). All other systems reviewed and are negative. OBJECTIVE Visit Vitals BP 150/71 (BP Location: Left arm, Patient Position: Sitting) Pulse 60 Ht 1.829 m (6') Wt 115 kg (253 lb) SpO2 95% BMI 34.31 kg/m?? Smoking Status Former BSA 2.42 m?? Medications: Current Outpatient Medications: acetaminophen (Tylenol) 500 mg tablet, Take by mouth every 6 (six) hours if needed for mild pain (1-3 pain score)., Disp: , Rfl: amLODIPine (Norvasc) 5 mg tablet, Take 1 tablet (5 mg) by mouth once daily as directed. as directed, Disp: 90 tablet, Rfl: 3 apixaban (Eliquis) 5 mg tablet, Take 1 tablet (5 mg) by mouth two times daily., Disp: 180 tablet, Rfl: 3 atorvastatin (Lipitor) 80 mg tablet, Take 1 tablet (80 mg) by mouth at bedtime., Disp: 90 tablet, Rfl: 3 cyanocobalamin (Vitamin B-12) 1,000 mcg tablet, Take 1,000 mcg by mouth in the morning., Disp: , Rfl: furosemide (Lasix) 40 mg tablet, Take 1 tablet (40 mg) by mouth if needed each day (fluid retentionwtih abdomional distention or leg swelling)., Disp: 30 tablet, Rfl: 3 glucosamine-chondroitin 500-400 mg tablet, Take 1 tablet by mouth two times daily., Disp: , Rfl: lisinopril 40 mg tablet, Take 1 tablet every day by oral route for 30 days. (Patient taking differently: in the morning. Take 1 tablet every day by oral route for 30 days.), Disp: 90 tablet, Rfl: 3 multivitamin tablet, Take 1 tablet by mouth in the morning., Disp: , Rfl: carvedilol (Coreg) 6.25 mg tablet, Take 1 tablet (6.25 mg) by mouth with breakfast and with eveningmeal., Disp: 180 tablet, Rfl: 3 Physical Exam Constitutional: Appearance: Normal appearance. HENT: Head: Normocephalic and atraumatic. Right Ear: External ear normal. Left Ear: External ear normal. Eyes: Extraocular Movements: Extraocular movements intact. Pupils: Pupils are equal, round, and reactive to light. Neck: Vascular: No carotid bruit. Cardiovascular: Rate and Rhythm: Regular rhythm. Bradycardia present. Pulses: Normal pulses. Heart sounds: Normal heart sounds. Comments: Occasional premature beats Pulmonary: Effort: Pulmonary effort is normal. Breath sounds: Normal breath sounds. Abdominal: General: Bowel sounds are normal. Palpations: Abdomen is soft. Musculoskeletal: General: Normal range of motion. Cervical back: Neck supple. Right lower leg: Edema present. Left lower leg: Edema present. Comments: +1 BLE edema Skin: General: Skin is warm and dry. Neurological: General: No focal deficit present. Mental Status: He is alert and oriented to person, place, and time. Psychiatric: Mood and Affect: Mood normal. Behavior: Behavior normal. Thought Content: Thought content normal. Judgment: Judgment normal. Labs: Admission on 05/10/2024, Discharged on 05/11/2024 Component Date Value Ref Range Status Ventricular Rate 05/10/2024 83 BPM Corrected Atrial Rate 05/10/2024 60 BPM Corrected FL Interval 05/10/2024 206 ms Corrected QRS DURATION 05/10/2024 98 ms Corrected QT Interval 05/10/2024 422 ms Corrected QTC CALCULATION(BAZETT) 05/10/2024 495 ms Corrected P [place] 05/10/2024 40 degrees Corrected R-[place] 05/10/2024 -4 degrees Corrected T Wave [place] 05/10/2024 22 degrees Corrected Protime 05/10/2024 14.5 12.3 - 14.8 Seconds Final INR 05/10/2024 1.13 (H) 0.90 - 1.10 Final Glucose POC 05/10/2024 109 (H) 70 - 105 mg/dL Final Ventricular Rate 05/10/2024 74 BPM Final Atrial Rate 05/10/2024 74 BPM Final FL Interval 05/10/2024 186 ms Final QRS DURATION 05/10/2024 102 ms Final QT Interval 05/10/2024 434 ms Final QTC CALCULATION(BAZETT) 05/10/2024 481 ms Final P [place] 05/10/2024 55 degrees Final R-[place] 05/10/2024 -15 degrees Final T Wave [place] 05/10/2024 32 degrees Final Glucose POC 05/10/2024 115 (H) 70 - 105 mg/dL Final Ventricular Rate 05/11/2024 74 BPM Final Atrial Rate 05/11/2024 74 BPM Final FL Interval 05/11/2024 178 ms Final QRS DURATION 05/11/2024 102 ms Final QT Interval 05/11/2024 408 ms Final QTC CALCULATION(BAZETT) 05/11/2024 452 ms Final P [place] 05/11/2024 35 degrees Final R-[place] 05/11/2024 -10 degrees Final T Wave [place] 05/11/2024 37 degrees Final Auto WBC 05/11/2024 9.74 4.00 - 10.60 10*3/uL Final RBC 05/11/2024 4.83 4.20 - 5.70 10*6/uL Final Hemoglobin 05/11/2024 13.9 13.0 - 17.0 g/dL Final Hematocrit 05/11/2024 41.2 39.0 - 55.0 % Final MCV 05/11/2024 85.3 82.0 - 98.0 fL Final MCH 05/11/2024 28.8 27.0 - 33.0 pg Final MCHC 05/11/2024 33.7 32.0 - 35.0 g/dL Final RDW 05/11/2024 13.6 11.5 - 15.0 % Final Platelets 05/11/2024 225 150 - 400 10*3/uL Final BNP 05/11/2024 113 (H) 0 - 100 pg/mL Final Sodium 05/11/2024 137 136 - 145 mmol/L Final Potassium 05/11/2024 3.9 3.5 - 5.1 mmol/L Final Chloride 05/11/2024 103 98 - 107 mmol/L Final CO2 05/11/2024 27 21 - 31 mmol/L Final Anion Gap 05/11/2024 11 7 - 20 mmol/L Final BUN 05/11/2024 24 7 - 25 mg/dL Final Creatinine 05/11/2024 1.27 0.70 - 1.30 mg/dL Final BUN/Creatinine Ratio 05/11/2024 18.9 Final Glucose 05/11/2024 147 (H) 70 - 100 mg/dL Final Calcium 05/11/2024 9.3 8.6 - 10.3 mg/dL Final AST 05/11/2024 21 13 - 39 U/L Final ALT (SGPT) 05/11/2024 11 7 - 52 U/L Final Alkaline Phosphatase 05/11/2024 71 34 - 104 U/L Final Total Protein 05/11/2024 7.1 6.0 - 8.3 g/dL Final Albumin 05/11/2024 4.5 3.5 - 5.7 g/dL Final Total Bilirubin 05/11/2024 1.0 0.3 - 1.0 mg/dL Final eGFR 05/11/2024 57.8 (L) >60.0 mL/min/1.73m*2 Final Magnesium 05/11/2024 2.2 1.9 - 2.7 mg/dL Final Lab Results Component Value Date BNP 113 (H) 05/11/2024 No results found for: CHOL , TRIG , HDL , LDLCALC , LDLDIRECT Testing/Procedures: No results found for this or any previous visit (from the past 4464 hours). EKG 07/31/24 PVC/ VT ABLATION PROCEDURE REPORT DATE OF PROCEDURE: 05/10/2024 PERFORMING PHYSICIAN: Dr. Maxim Ray NAME OF THE PROCEDURE: PVC/ VT Ablation INDICATIONS FOR PROCEDURE: 1. Symptomatic PVC burden. 2. Non sustained VT. 3. Cardiomyopathy. POST PROCEDURE DIAGNOSIS 1. Symptomatic PVC burden with limited frequency after anesthesia was instituted. The location was mapped to the inferoseptal aspect of the RV adjacent to tricuspid valve. 2. Dual AV node physiology. 3. No retrograde accessory pathway. RECOMMENDATIONS 1. Eliquis 5mg bid to be continued. 2. Observe and allow for lesion maturation. 3. If PVC burden still high, then re-map without GA/ referral to [facility]. Maxim Ray MD Cardiac Electrophysiology Lexiscan stress test on 03/15/23 shows no reversible ischemia, small sized mild severity fixed defect in mid anterior wall of LAD and moderate size moderate severity fixed defect in the inferior wall with RCA distribution, did note dilated LV and noted LVEF 60% TTE 03/16/2023 shows normal LVEF, LA mildly dilated, RA moderately dilated, RV mildly enlarged, [id number] which is mildly elevated Event monitor 02/2023 has multiple events of SVT which appear like A-fib, tachyarrhythmias very fast and hard to differentiate but RR intervals irregular, he does seem to have a conversion pause of just under 2 seconds when converting from SVT to SR ECG 03/28/23 SR with PVC Coronary angiogram: Refer to [facility] heart cath 11/28/2017 ASSESSMENT/PLAN: Diagnoses and all orders for this visit: PVC (premature ventricular contraction) - Transthoracic echo (TTE) complete; Future Venous insufficiency of both lower extremities - Compression stockings Benign hypertensive heart disease without congestive heart failure - carvedilol (Coreg) 6.25 mg tablet; Take 1 tablet (6.25 mg) by mouth with breakfast and with evening meal. Frequent PVCs - Ambulatory referral to Cardiac Electrophysiology; Future Mixed hyperlipidemia - Lipid panel; Future Coronary artery disease involving [place] coronary artery of [place] heart without angina pectoris Hx of CABG Leg edema PVC's -s/p PVC ablation 05/10/2024, unsuccessful -LOOP recorder recent reports shows PVC burden running 15-23% -Pt referred to [facility] after last visit but he states he did not hear from them to schedule appt. Willresend referral. -Continue lopresor 25mg BID CAD HLD - s/p 3-V CABG 11/2017 -stress 03/2023 negative for reversible ischemia -Denies chest pain, dyspnea -LDL 69 per 2020 labs -Will need lipid panel with next labs -Continue ASA 81mg daily, atorvastatin 80mg daily, metoprolol 25mg BID HTN -Elevated -Will switch metoprolol to carvedilol 6.25mg BID. -Monitor BP at home and let us know if having continued elevated readings. -continue amlodipine 5mg daily, lisinopril 40mg daily, metoprolol 25mg BID PAF, [id number] 4 (x2 age, htn, CAD) -Denies any palpitations -Continue eliquis 5mg BID and BB #LE edema -Continue as needed lasix -Compression stockings ordered Follow up in about 4 months (around 05/25/2025). Sandrine Toledo CNP [facility] Cardiovascular Medicine documented in this encounter Plan of Treatment Scheduled Orders Name Type Priority Associated Diagnoses Orde r Schedule Transthoracic echo (TTE) complete Echocardiography Routine PVC (premature ventricular contraction) Expected: 01/22/2025 (Approximate), Expires: 01/22/2027 Lipid panel Lab Routine Mixed hyperlipidemia Expected: 01/24/2025 (Approximate), Expires: 01/24/2026 Scheduled Referrals Name Type Priority Associated Diagnoses Order Schedule Ambulatory referral to Cardiac Electrophysiology Outpatient Referral Routine Frequent PVCs Expected: 01/22/2025 (Approximate), Expires: 07/23/2025 documented as of this encounter Visit Diagnoses Diagnosis PVC (premature ventricular contraction)- Primary Other premature beats Venous insufficiency of both lower extremities Benign hypertensive heart disease without congestive heart failure Benign hypertensive heart disease without heart failure Frequent PVCs Mixed hyperlipidemia Coronary artery disease involving [place] coronary artery of [place] heart without angina pectoris Hx of CABG Postsurgical aortocoronary bypass status Leg edema Edema documented in this encounter Care Teams Environmental Inspector Relationship Specialty Start Date End Date Scott Logan MD [address] PCP - General 02/24/23 documented as of this encounter
--- NOTE | 2025-01-28 09:30 | CA_ITS ---
Patient Name: KRISTOFER ROSADO MR#: [id number] : 1945 Exam Date: 01/28/2025 Ordering Doctor: MARIANA VIEIRA CNP ECHOCARDIOGRAM REPORT PROCEDURE: CA ECHO DOPPLER COMPLETE INDICATIONS: PVC's, CABGx3, hypertension COMPARISON: None. DESCRIPTION: COMPLETE ECHOCARDIOGRAM Real-time transthoracic echocardiography with 2D, M-mode, spectral and color flow Doppler performed. QUALITY: Technical quality was good. LEFT VENTRICLE: Normal chamber size. Mild concentric left ventricular hypertrophy. Calculated left ventricular ejection fraction is 71%. LV EF: Global left ventricular systolic function is normal; visually estimated ejection fraction 60 to 65%. No significant wall motion abnormalities. DIASTOLIC: Normal diastolic function. ATRIAL SEPTUM: Visually appears intact. LEFT ATRIUM: Normal chamber size. RIGHT ATRIUM: Mild dilatation. RIGHT VENTRICLE: Normal chamber size. Normal right ventricular systolic function. TRICUSPID VALVE: Normal mobility and thickness. No stenosis with mild to moderate regurgitation. No evidence of pulmonary hypertension. RVSP 32 mmHg MITRAL VALVE: Normal mobility and thickness. No evidence of mitral valve stenosis. There is no mitral annular calcification. Mild mitral regurgitation. AORTIC VALVE: Normal trileaflet appearance. Thickened aortic valve. Normal leaflet mobility. No evidence of aortic valve stenosis. No aortic regurgitation. AORTIC ROOT: Normal diameter and appearance. Ascending aorta is normal in size. PULMONIC VALVE: Normal thickness and mobility. No stenosis. Mild regurgitation. PERICARDIUM: No evidence of pericardial effusion. IVC: Collapses with inspirations. IVC is normal in size. CONCLUSION: 1. Global left ventricular systolic function is normal; visually estimated ejection fraction 60 to 65% 2. Normal right ventricular size and systolic function 3. Atrophy 4. Normal diastolic function 5. The right atrium is mildly dilated 6. Mild to moderate tricuspid regurgitation 7. Mild mitral regurgitation 8. Mild pulmonic regurgitation Adult Echocardiography Procedure Report Left Ventricle LVEDD (3.7 - 5.6 cm): 4.86 cm LVESD (2.2 - 4.0 cm): 2.98 cm LVIVS thickness (0.6 - 1.2 cm): 1.11 cm LVPW thickness (0.5 - 1.0 cm): 1.23 cm e': 0.11 m/s E - e': 7.06 LVOT Max Gradient: 3.71 mm[Hg] LVOT Area (cm2): 0.96 m/s Peak Velocity (LVOT): 0.96 m/s Mean Velocity (LVOT): 0.66 m/s LVOT Diameter 2.14 cm Left Ventricular Ejection Fraction: 71.07 % Left Atrium LA Volume Index (2D A2C): 26.76 ml/m2 Left Atrium Systolic Dimension: 4.48 cm Mitral Valve MV E to A Ratio: 1.51 Mitral Valve A-Wave Peak Velocity: 0.51 m/s Mitral Valve E-Wave Peak Velocity: 0.76 m/s Right Ventricle Aorta AO Root Diam: 3.55 cm Ascending Ao Diam: 2.85 cm Aortic Valve AoV Area (Peak Ger): 3.28 cm2, 3.28 cm2 AoV Area (VTI): 3.93 cm2, 3.93 cm2 Peak Velocity(Antegrade Flow): 1.05 m/s Peak Gradient(Antegrade Flow): 4.43 mm[Hg] Mean Velocity(Antegrade Flow): 0.74 m/s Mean Gradient(Antegrade Flow): 2.44 mm[Hg] Velocity Time Integral: 21.86 cm Tricuspid Valve Peak Velocity (Regurgitant Flow): 2.69 m/s, 2.71 m/s, 2.67 m/s Pulmonic Valve Mean Gradient: 2.55 mm[Hg] Mean Velocity: 0.73 m/s Peak Velocity: 1.24 m/s, 1.00 m/s Peak Gradient: 3.96 mm[Hg], 6.12 mm[Hg] Right Atrium Right Atrium Systolic Pressure: 66.08 ml, 66.08 ml Dictated by: Sotero Carvalho M.D. on 01/28/2025 at 15:39 Approved by: Sotero Carvalho M.D. on 01/28/2025 at 15:48
--- OUTSIDE RECORDS SUMMARY | 2025-01-28 09:38 | XMS_ITS | Clinical Summary ---
Author Organization [facility] Address [address] [place] [address] Care Team Providers Care Cable Weaver Name Role Phone Scott Logan MD Primary Care Provider [phone] Allergies No known active allergies Medications lisinopril 40 mg tabletIndication s:Essential hypertension Take 1 tablet every day by oral route for 30 days. 90 tablet 3 05/17/19 24 Active Additional Information Patient taking differently: Every morning, Take 1 tablet every day by oral route for 30 days., Reported on 01/22/2025 apixaban (Eliquis) 5 mg tabletIndication s:Paroxysmal atrial fibrillation (CMS/HCC) Take 1 tablet (5 mg) by mouth two times daily. 180 tablet 3 11/17/19 24 Active acetaminophen (Tylenol) 500 mg tablet Take by mouth every 6 (six) hours if needed for mild pain (1-3 pain score). Active cyanocobalamin (Vitamin B-12) 1,000 mcg tablet Take 1,000 mcg by mouth in the morning. Active multivitamin tablet Take 1 tablet by mouth in the morning. Active glucosamine-maren droitin 500-400 mg tablet Take 1 tablet by mouth two times daily. Active furosemide (Lasix) 40 mg tabletIndication s:PVC (premature ventricular contraction) Take 1 tablet (40 mg) by mouth if needed each day (fluid retention wtih abdomional distention or leg swelling). 30 tablet 3 05/11/19 25 Active atorvastatin (Lipitor) 80 mg tabletIndication s:Coronary artery disease, unspecified vessel or lesion type, unspecified whether angina present, unspecified whether [place] or transplanted heart Take 1 tablet (80 mg) by mouth at bedtime. 90 tablet 3 10/10/19 25 Active amLODIPine (Norvasc) 5 mg tabletIndication s:Benign hypertensive heart disease without congestive heart failure Take 1 tablet (5 mg) by mouth once daily as directed. as directed 90 tablet 3 10/10/19 25 Active carvedilol (Coreg) 6.25 mg tabletIndication s:Benign hypertensive heart disease without congestive heart failure Take 1 tablet (6.25 mg) by mouth with breakfast and with evening meal. 180 tablet 3 01/23/20 25 026 Active metoprolol tartrate (Lopressor) 25 mg tabletIndication s:Essential hypertension TAKE ONE (1) TABLET BY MOUTH TWICE DAILY 180 tablet 3 10/10/19 25 025 Discontin ued(Med List Cleanup) Active Problems Problem Noted Date Diagnosed Date Cardiomyopathy 06/07/2024 Paroxysmal A-fib 03/20/2024 SVT (supraventricular tachycardia) 03/20/2024 PVC (premature ventricular contraction) 03/20/20 24 Encounter for therapeutic drug level monitoring 08/23/2023 08/23/2023 exterminator termite (current) use of anticoagulants 202308/23/2023 PAF (paroxysmal atrial fibrillation) 05/17/2023 Encounter for fitting and adjustment of hearing aid 03/28/2023 03/28/2023 Essential (primary) hypertension 03/28/2023 03/28/2023 Age-related nuclear cataract, bilateral 02/25/20 23 02/24/2023 Hearing loss 02/24/2023 02/24/2023 Sensorineural hearing loss, bilateral 02/24/2023 02/24/2023 Visual impairment 02/24/2023 02/24/2023 Atrial fibrillation 12/28/2017 Coronary arteriosclerosis 11/28/2017 Dyspnea on exertion 11/16/2017 Fatigue 11/16/2017 Encounters Date Type Department Care Team Description 01/22/2025 10:20 AM EDT Office Visit [facility] [place] [address] [place] [address] Sandrine Toledo CNP PVC (premature ventricular contraction) (Primary Dx); Venous insufficiency of both lower extremities; Benign hypertensive heart disease without congestive heart failure; Frequent PVCs; Mixed hyperlipidemia; Coronary artery disease involving [place] coronary artery of [place] heart without angina pectoris; Hx of CABG; Leg edema 12/28/2024 11:45 AM EDT Ancillary Procedure [facility] [address] [place] [address] Awareness of heartbeats 12/28/2024 Orders Only [facility] [address] [place] [address] Victor Hugo Corcoran MD 11/27/2024 10:20 AM EDT Ancillary Procedure [facility] [address] [place] [address] Awareness of heartbeats 11/24/2024 Orders Only [facility] [address] [place] [address] Victor Hugo Corcoran MD 10/29/2024 10:50 AM EDT Ancillary Procedure [facility] [address] [place] [address] Awareness of heartbeats from Last 3 Months Family History Medical History Relation Name Comments Stroke Father Coronary artery disease Mother Heart attack Mother Relation Name Status Comments Brother Father Mother Sister Social History Tobacco Use Types Packs/Day Years Used Date Smoking Tobacco: Former Cigarettes Smokeless Tobacco: Never Tobacco Cessation:Counseling Given: Not Answered Alcohol Use Standard Drinks/Week Comments Not Currently 0 (1 standard drink = 0.6 oz pur e alcohol) [facility] Utilities Answer Date Recorded In the past 12 months has [facility] [employer], gas, oil, or water [employer] threatened to shut off services in your [...] any time in the past 12 m [facility], were you homeless or living in a penitentiary (including now)? No 05/10/2024 Hunger Vital Sign [...] Heterosexual or Straight 08/2023 7:18 AM EST Last Filed Vital Signs Vital Sign Reading Time Taken Comments Blood Pressure 150/71 01/22/2025 10:19 AM EDT Pulse 60 01/22/2025 10:19 AM EDT Temperature 36.4 C (97.6 F) 05/11/2024 12:38 PM EST Respiratory Rate 19 05/11/2024 12:38 PM EST Oxygen Saturation 95% 01/22/2025 10:19 AM EDT Inhaled Oxygen Concentration - - Weight 115 kg (253 lb) 01/22/2025 10:19 AM EDT Height 182.9 cm (6') 01/22/2025 10:19 AM EDT Body Mass Index 34.31 01/22/2025 10:19 AM EDT Plan of Treatment Health Maintenance Due Date Last Done Comments Medicare Annual Wellness (AWV) 1945 Depression Screening 1957 Pneumococcal Vaccine: 50+ Years (1 of 2 - PCV) 1965 05/18/2012 Zoster Vaccines (1 of 2) 02/19/1996 COVID-19 Vaccine (1 - 2023- season) 2024 11/20/2020 Influenza Vaccine (#1) 2024 , 06/07/2018, 02/10/2016, Additional history exists Fall Risk Screening 05/11/2025 05/11/2024 Adult Tetanus 02/26/2034 02/27/2024 HIB Vaccines Aged Out No longer eligi ble based on patient's age to complete this topic HPV Vaccines Aged Out No longer eligi ble based on patient's age to complete this topic IPV Vaccines Aged Out No longer eligi ble based on patient's age to complete this topic Meningococcal B Vaccine Aged Out No l onger eligible based on patient's age to complete this topic Meningococcal Vaccine Aged Out No jasiel marcial eligible based on patient's age to complete this topic Rotavirus Vaccines Aged Out No longer eligible based on patient's age to complete this topic Medical Devices Implanted Type Area Field Software Engineer Device Identifier Shelf Expiration Date Model / Serial / Lot Monitor,Cardia c,Lux,Dxii+[facility] - [id number] - [id number] Implanted:Qty: 1 on 06/13/2023 by Maxim Ray MD at [facility] Implantable Loop Recorder [employer] 11/15/2024 [id number] / [id number] / Procedures Procedure Name Priority Date/Time Associated Diagnosis Comments CARDIAC DEVICE CHECK CHECK - REMOTE Routine 01/01/2025 11:16 AM EDT Awareness of heartbeats CARDIAC DEVICE CHECK - REMOTE - LOOP RECORDER (ILR) Routine 12/28/2024 12:00 AM EDT CARDIAC DEVICE CHECK CHECK - REMOTE Routine 11/28/2024 11:50 AM EDT Awareness of heartbeats CARDIAC DEVICE CHECK - REMOTE - LOOP RECORDER (ILR) Routine 11/24/2024 12:00 AM EDT CARDIAC DEVICE CHECK CHECK - REMOTE Routine 11/01/2024 4:20 PM EDT Awareness of heartbeats from Last 3 Months Results * CARDIAC DEVICE CHECK - REMOTE - LOOP RECORDER (ILR) (01/01/2025 11:16 AM EDT) Only the most recent of3 resultswithin the time period is included. us Maxim Ray MD CV IMPLANTABLE CARDIAC DEVICE [place] OCEDURES Final Result CPACS * Cardiac device check - Remote loop recorder (ILR) (12/28/2024 12:00 AM EDT) Only the most recent of2 resultswithin the time period is included. Anatomical Region Laterality Modality Other 12/28/2024 us Vit[employer] Hugo Corcoran MD CV IMPLANTABLE CARDIAC DEVICE PROCEDURES Final Result from Last 3 Months Insurance MEDICARE Advance Directives * Full Code (Latest Code Status on File) Date Activated Date Inactivated Comments 05/10/2024 2:37 PM 05/11/2024 4:02 PM Care Teams Cable Weaver Relationship Specialty Start Date End Date Scott Logan MD [address] [facility] - General 02/24/23
--- OUTSIDE RECORDS SUMMARY | 2025-01-28 09:39 | XMS_ITS | Clinical Summary ---
Author Organization [facility] Address [address] [place] [address] Care Team Providers Care Building Superintendent Name Role Phone Maxim Ray MD Unavailable Ashvin Jacobo MD Unavailable Palmira Franco [facility] Unavailable [phone] Sandrine Toledo MD Unavailable [phone] Medications amLODIPine (NORVASC) 5 mg tablet TAKE 1 TABLET BY MOUTH IN THE MORNING DIRECTED 04/21/2023 Active ELIQUIS 5 mg tab(s) Take 5 mg by mouth two times a day. 03/28/2023 Active atorvastatin (LIPITOR) 80 mg tablet Take 80 mg by mouth daily at bedtime. 03/02/2023 Active lisinopril (ZESTRIL) 40 mg tablet Take 1 tablet by mouth every afternoon. 02/22/2023 Active metoprolol tartrate, short acting, (LOPRESSOR) 25 mg tablet Take 1 tablet by mouth every 12 hours. 04/21/2023 Active Social History Tobacco Use Types Packs/Day Years Used Date Smoking Tobacco: Never Assessed Sex and Gender Information Value Date Recorded Sex Assigned at Not on file Legal Sex Male 9:01 AM EST Gender Identity Not on file Sexual Orientation Not on file Plan of Treatment Upcoming Encounters Date Type Department Care Team (Late st Contact Info) Description 05/28/2025 3:00 PM EST Office Visit Cardiology [address] [place], [place] [id number] [place] [address] [place] [address] DX: Frequent PVCs [I49.3] Health Maintenance Due Date Last Done Comments Anxiety Screening 02/19/1964 Depression Screening 02/19/1964 Hepatitis C Screening 02/19/1964 DTaP,Tdap,Td Vaccine (1 - Tdap) 1965 Diabetes Screening 1991 Pneumococcal Vaccine: 50+ (1 of 1 - PCV) 02/19/1996 Shingrix Vaccine (1 of 2) 02/19/1996 RSV Vaccine (1 - 1-dose 75+ series) 2021 Advance Directive Discussion 04/11/2024 Covid-19 Vaccine (1 - 2024-26 season) 2024 Influenza Vaccine (#1) 2024 Insurance MEDICARE [employer] Care Teams Building Superintendent Relationship Specialty Start Date End Date Maxim Ray MD [address] [place] [address] Primary Staff Physician Cardiology 08/01/24 Ashvin Jacobo MD [address] [facility] [address] [place] [address] Director Underwriter Sales Cardiology 08/01/[address] [place] [address] Pharmacist Pharmacy 08/01/24 Sandrine Toledo MD [address] [place] [phone] Referring Cardiology 01/24/25
--- OUTSIDE RECORDS SUMMARY | 2025-01-28 09:39 | XMS_ITS | Encounter Summary ---
Author Organization [facility] Address [address] [place] [address] Care Team Providers Care Recreation Establishment Manager Name Role Phone Scott Logan MD Primary Care Provider [phone] Encounter Details Date Type Department Care Team (Late st Contact Info) Description 09/26/2024 Orders Only [facility] [address] [place] [address] Victor Hugo Corcoran MD [address] [place] [address] Social History Tobacco Use Types Packs/Day Years Used Date Smoking Tobacco: Former Cigarettes Smokeless Tobacco: Never Alcohol Use Standard Drinks/Week Comments Not Currently 0 (1 standard drink = 0.6 oz pur e alcohol) [facility] Utilities Answer Date Recorded In the past 12 months has [facility] [employer], gas, oil, or water [employer] threatened to shut off services in your [...] any time in the past 12 m [facility], were you homeless or living in a skilled nursing (including now)? No 05/10/2024 Hunger Vital Sign [...] AM EST documented as of this encounter Plan of Treatment Not on file documented as of this encounter Procedures Procedure Name Priority Date/Time Associated Diagnosis Comments CARDIAC DEVICE CHECK - REMOTE - LOOP RECORDER (ILR) Routine 09/26/2024 12:00 AM EDT documented in this encounter Results * Cardiac device check - Remote loop recorder (ILR) (09/26/2024 12:00 AM EDT) Anatomical Region Laterality Modality Other 09/26/2024 Victor Hugo Corcoran MD CV IMPLANTABLE CARDIAC DEVICE PROCEDURES Final Result documented in this encounter Visit Diagnoses Not on filedocumented in this encounter Care Teams Recreation Establishment Manager Relationship Specialty Start Date End Date Scott Logan MD [address] PCP - General 02/24/23 documented as of this encounter
--- OUTSIDE RECORDS SUMMARY | 2025-01-28 09:39 | XMS_ITS | Encounter Summary ---
Author Organization [facility] Address [address] [place] [address] Care Team Providers Care Budget Coordinator Name Role Phone Scott Logan MD Primary Care Provider [phone] Reason for Visit * Reason Comments Med Refill Encounter Details Date Type Department Care Team (Late st Contact Info) Description 05/18/2023 Refill [facility] [place] [address] [place] [address] Sotero Carvalho MD [address] [facility] [address] [facility] [place] [address] Essential hypertension Social History Tobacco Use Types Packs/Day Years Used Date Smoking Tobacco: Former Cigarettes Smokeless Tobacco: Never Alcohol Use Standard Drinks/Week Comments Not Currently 0 (1 standard drink = 0.6 oz pur e alcohol) Sex and Gender Information Value Date Recorded Sex Assigned at Male 05/16/2023 7:18 AM EST Legal Sex Male 12:07 AM EDT Gender Identity Male 05/16/2023 7:18 AM EST Sexual Orientation Heterosexual or Straight 08/2023 7:18 AM EST documented as of this encounter Plan of Treatment Not on file documented as of this encounter Visit Diagnoses Diagnosis Essential hypertension Unspecified essential hypertension documented in this encounter Care Teams Budget Coordinator Relationship Specialty Start Date End Date Scott Logan MD [address] [facility] PCP - General 02/24/23 documented as of this encounter
--- OUTSIDE RECORDS SUMMARY | 2025-01-28 09:39 | XMS_ITS | Encounter Summary ---
Author Organization [facility] Address [address] [place] [address] Care Team Providers Care Tourist Agent Name Role Phone Scott Logan MD Primary Care Provider [phone] Encounter Details Date Type Department Care Team (Late st Contact Info) Description 08/23/2024 Orders Only [facility] [address] [place] [address] Maxim Ray MD [address] [place] [address] Social History Tobacco Use Types Packs/Day Years Used Date Smoking Tobacco: Former Cigarettes Smokeless Tobacco: Never Alcohol Use Standard Drinks/Week Comments Not Currently 0 (1 standard drink = 0.6 oz pur e alcohol) [facility] Utilities Answer Date Recorded In the past [address] [facility] [employer], gas, oil, or water [employer] threatened to shut off services in your [...] any time in the past 12 m [facility], were you homeless or living in a care home (including now)? No 05/10/2024 Hunger Vital Sign [...] Diagnosis Comments CARDIAC DEVICE CHECK - REMOTE ALERT - LOOP RECORDER (ILR) Routine 08/23/2024 12:00 AM EDT documented in this encounter Results * Cardiac device check - Remote alert loop recorder (ILR) (08/23/2024 12:00 AM EDT) Anatomical Region Laterality Modality Other 08/23/2024 us Maxim Ray MD CV IMPLANTABLE CARDIAC DEVICE [place] OCEDURES Final Result documented in this encounter Visit Diagnoses Not on filedocumented in this encounter Care Teams Tourist Agent Relationship Specialty Start Date End Date Scott Logan MD [address] PCP - General 02/24/23 documented as of this encounter
--- OUTSIDE RECORDS SUMMARY | 2025-01-28 09:40 | XMS_ITS | Encounter Summary ---
Author Organization [facility] Address [address] [place] [address] Care Team Providers Care Rn L And D Name Role Phone Scott Logan MD Primary Care Provider [phone] Encounter Details Date Type Department Care Team (Late st Contact Info) Description 07/27/2024 Orders Only [facility] [address] [place] [address] Victor Hugo Corcoran MD [address] [place] [address] Social History Tobacco Use Types Packs/Day Years Used Date Smoking Tobacco: Former Cigarettes Smokeless Tobacco: Never Alcohol Use Standard Drinks/Week Comments Not Currently 0 (1 standard drink = 0.6 oz pur e alcohol) [facility] Utilities Answer Date Recorded In the past 12 months has [facility] [employer], gas, oil, or water [employer] threatened to shut off services in your [...] any time in the past 12 m [facility], were you homeless or living in a half-way (including now)? No 05/10/2024 Hunger Vital Sign [...] - REMOTE - LOOP RECORDER (ILR) Routine 07/27/2024 12:00 AM EDT documented in this encounter Results * Cardiac device check - Remote loop recorder (ILR) (07/27/2024 12:00 AM EDT) Anatomical Region Laterality Modality Other 07/27/2024 Victor Hugo Corcoran MD CV IMPLANTABLE CARDIAC DEVICE PROCEDURES Final Result documented in this encounter Visit Diagnoses Not on filedocumented in this encounter Care Teams Rn L And D Relationship Specialty Start Date End Date Scott Logan MD [address] PCP - General 02/24/23 documented as of this encounter
--- OUTSIDE RECORDS SUMMARY | 2025-01-28 09:40 | XMS_ITS | Encounter Summary ---
Author Organization [facility] Address [address] [place] [address] Care Team Providers Care Crisis Therapist Name Role Phone Scott Logan MD Primary Care Provider [phone] Reason for Visit * Reason Comments Med Refill Encounter Details Date Type Department Care Team (Late st Contact Info) Description 10/16/2022 Refill [facility] at [place] [address] [place] [phone] Sotero Carvalho MD [address] [facility] [address] [facility] [place] [phone] Benign hypertensive heart disease without congestive heart failure Social History Tobacco Use Types Packs/Day Years [...] as of this encounter Visit Diagnoses Diagnosis Benign hypertensive heart disease without congestive heart failure Benign hypertensive heart disease without heart failure documented in this encounter Care Teams Crisis Therapist Relationship Specialty Start Date End Date Scott Logan MD [address] [facility] - General 02/24/23 documented as of this encounter
--- OUTSIDE RECORDS SUMMARY | 2025-01-28 09:40 | XMS_ITS | Encounter Summary ---
Author Organization [facility] Address [address] [place] [address] Care Team Providers Care Auto Motor Mechanic Name Role Phone Scott Logan MD Primary Care Provider [phone] Reason for Visit * Reason Comments Med Refill Encounter Details Date Type Department Care Team (Late st Contact Info) Description 01/07/2023 Refill [facility] [place] [address] [place] [phone] Sotero Carvalho MD [address] [facility] [address] [facility] [place] [phone] Essential hypertension Social History Tobacco Use Types [...] hypertension documented in this encounter Care Teams Auto Motor Mechanic Relationship Specialty Start Date End Date Scott Logan MD [address] PCP - General 02/24/23 documented as of this encounter
--- OUTSIDE RECORDS SUMMARY | 2025-01-28 09:40 | XMS_ITS | Clinical Summary ---
Author Organization [facility] Address [address] [place] [address] Care Team Providers Care Library Consultant Name Role Phone Unavailable Primary Care Provider Unavailabl e Social History Tobacco Use Types Packs/Day Years Used Date Smoking Tobacco: Never Assessed Sex and Gender Information Value Date Recorded Sex Assigned at Not on file Legal Sex Male 6:51 PM EDT Gender Identity Not on file Sexual Orientation Not on file Plan of Treatment Not on file
--- OUTSIDE RECORDS SUMMARY | 2025-01-28 09:44 | XMS_ITS | CCD ---
Author Organization [facility] Care Team Providers Care Dredge Master Name Role Phone PHYSICIAN, DEFAULT Admitting Unavailable PHYSICIAN, DEFAULT Attending Unavailable PHYSICIAN, DEFAULT Admitting Unavailable PHYSICIAN, DEFAULT Attending Unavailable PHYSICIAN, DEFAULT Admitting Unavailable PHYSICIAN, DEFAULT Attending Unavailable PHYSICIAN, DEFAULT Admitting Unavailable PHYSICIAN, DEFAULT Attending Unavailable PHYSICIAN, DEFAULT Admitting Unavailable PHYSICIAN, DEFAULT Attending Unavailable ELTAMARIA DEL CARMEN, EHAB A Admitting Unavailable ELTAMARIA DEL CARMEN, EHAB A Attending Unavailable TARYN COLEY Referring Unavailable VALDOVINOS-RAVINY, TARYN Primary Care Unavailable FRAN, HERMAN S Admitting Unavailable FRAN, HERMAN S Attending Unavailable VALDOVINOS-JULIO TARYN Referring Unavailable VALDOVINOS-EMERY, TARYN Primary Care Unavailable SC Procedure Practitioner Unavailab HERMAN May Surgeon Unavailable SC Procedure Practitioner Unavailab ERA Buckley Surgeon Unavailable PHYSICIAN, DEFAULT Admitting Unavailable PHYSICIAN, DEFAULT Attending Unavailable VALDOVINOS-JULIO, TARYN Primary Care Unavailable Allison Brooks Attending Unavailable Allison Brooks Admitting Unavailable Provider, None Primary Care Unavailable MAXIM RAY Attending Unavailable MAXIM RAY Admitting Unavailable MAXIM RAY Attending Unavailable DEVAN BRADFORD Referring Unavailable MARIANA VIEIRA Attending Unavailable MAXIM RAY Referring Unavailable JESÚSMAXIM Referring Unavailable JESÚSMAXIM Referring Unavailable MARIANA VIEIRA Attending Unavailable MAXIM RAY Attending Unavailable MAXIM RAY Referring Unavailable JESÚSMAXIM Referring Unavailable JESÚSMAXIM Referring Unavailable JESÚSMAXIM Referring Unavailable JESÚSMAXIM Referring Unavailable JESÚSMAXIM Referring Unavailable JESÚSMAXIM Referring Unavailable JESÚS, MAXIM Referring Unavailable JESÚS, MAXIM Referring Unavailable JESÚSMAXIM Heller Attending Unavailable VELASQUEZ SOLANO Referring Unavailable JESÚS, MAXIM Referring Unavailable JESÚS, MAXIM Referring Unavailable XIOMARAVELASQUEZ Referring Unavailable Allergies Allergy Classification Reported Allergen(s) Allergy Type Date of Onset Reaction(s) Facility (1 source) No Known Medication Allergies; Translations: [No Known Medication Allergies] Propensity to adverse reactions to drug (disorder) [facility] Repository Problems Active Problems Problem Classification Problem Date Documented Date Episodic/Chronic Cardiac dysrhythmias (5 sources) Unspecified atrial fibrillation; Translations: [Paroxysmal atrial fibrillation] Onset: 12-02-2017 Chronic Cardiac dysrhythmias (2 sources) Palpitations; Translations: [Palpitations] Onset: 01-01-2025 Episodic Coronary atherosclerosis and other heart disease (3 sources) Atherosclerotic heart disease of [place] coronary artery without angina pectoris; Translations: [ATHSCL HEART DISEASE OF [place] CORONARY ARTERY W/O ANG PCTRS] Onset: 11-28-2017 Chronic Disorders of lipid metabolism (2 sources) Mixed hyperlipidemia; Translations: [Mixed hyperlipidemia] Onset: 06-07-2024 Chronic Essential hypertension (1 source) Essential (primary) hypertension; Translations: [ESSENTIAL (PRIMARY) HYPERTENSION] Onset: 11-28-2017 Chronic Hypertension with complications and secondary hypertension (2 sources) Hypertensive heart disease without heart failure; Translations: [Hypertensive heart disease without heart failure] Onset: 01-22-2025 Chronic Other diseases of veins and lymphatics (2 sources) Venous insufficiency (chronic) (peripheral); Translations: [Venous insufficiency (chronic) (peripheral)] Onset: 01-22-2025 Episodic Unclassified (2 sources) + STRESS/CATH 11/28 Onset: 11-28-2017 Unclassified (1 source) Supraventricular tachycardia, unspecified; Translations: [Supraventricular tachycardia, unspecified] Onset: 03-27-2024 Past or Other Problems Problem Classification Problem [...] tachycardia, unspecified; Translations: [Supraventricular tachycardia, unspecified] Onset: 05-10-2024 Results Test Name Value Interpretation Reference Range Facility 37on 01-22-2025 37 Replace metoprolol w ith carvedilol. Dose is 6.25mg twice daily. Continue to monitor your blood pressure at home. Best to take 2 hours after AM medications. Let us know if you are getting low readings or high readings of BP >130/90 consistently. Let us know if you do not hear from [facility] for referral for management of your frequent PVCs. Normal [facility] Office Visiton 01-22-2025 Follow-up visit [id number] Bret Fabian Sr. 1945 Date Provider Department Center 01/22/2025 166-MARIANA VIEIRA BRENDA [facility] Family History Problem Relation Age of Onset Coronary artery disease Mother Heart attack Mother Stroke Father Family Status - Relation Status Age at Mother Father Sister Brother Level of Service:46525 [place] OFFICE/OUTPATIENT ESTABLISHED MOD MDM 30 MIN Reason for Visit and Comments: Follow-up [159991] - Patient is here today for a 6 month follow up appointment. Patient denies chest pain. Patient has had no testing since his last office visit with cardiology. [facility] Atrial Fibrillation [80] Coronary Artery Disease [187] Hypertension [597157] SVT [Other] PVC [Other] Cardiomyopathy [104] Shortness of Breath [694926] - SOB/DAO not as bad as it use to be Fatigue [46] - Not as bad as it has been in the past Edema [[id number]] - Bilateral edema which resolves with elevating legs. Normal [facility] Orders Onlyon 12-28-2024 Orders Only [id number] Bret Fabian Sr. 1945 Date Provider Department Center 12/28/2024 325-DALIA CANALES [facility] Family History Problem Relation Age of Onset Coronary artery disease Mother Heart attack Mother Stroke Father Family Status - Relation Status Age at Mother Father Sister Brother [facility] Orders Onlyon 11-24-2024 Orders Only [id number] Bret Fabian Sr. 1945 M Date Provider Department Center 11/24/2024 DALIA MELGAR [facility] [place] [facility] Family History Problem Relation Age of Onset Coronary artery disease Mother Heart attack Mother Stroke Father Family Status - Relation Status Age at Mother Father Sister Brother [facility] Orders Onlyon 10-26-2024 Orders Only [id number] Bret Fabian N Sr. 1945 M Date Provider Department Center 10/26/2024 325-DALIA CANALES [facility] [place] [facility] Family History Problem Relation Age of Onset Coronary artery disease Mother Heart attack Mother Stroke Father Family Status - Relation Status Age at Mother Father Sister Brother [facility] CNPNon 08-01-2024 CNPN Telephone (CARDMN) KRISTOFER FABIAN SR. ([id number]) 1945 M Date Time Provider Department 08/01/24 YUSRA SOFIA CARDMN During your visit today, we recorded the following information about you: Bk Joe 08/01/2024 3:51 PM Signed Outside medical records scanned into [employer] and shared [employer]. Allergies As of Date: 08/01/2024 (Not on File) Date Reviewed: Never Reviewed Reason for Visit: Received Outside Medical Records [3911] Prescriptions as of 08/01/2024 - amLODIPine (NORVASC) 5 mg tablet TAKE 1 TABLET BY MOUTH IN THE MORNING DIRECTED - ELIQUIS 5 mg tab(s) Take 5 mg by mouth two times a day. - atorvastatin (LIPITOR) 80 mg tablet Take 80 mg by mouth daily at bedtime. - lisinopril (ZESTRIL) 40 mg tablet Take 1 tablet by mouth every afternoon. - metoprolol tartrate, short acting, (LOPRESSOR) 25 mg tablet Take 1 tablet by mouth every 12 hours. Problem List As Of Date: 08/01/2024 (None) Encounter Status:Closed by BK JOE on 08/01/24 [facility] CNPN Telephone (CARDMN) KRISTOFER FABIAN ([id number]) 1945 M Date Time Provider Department 08/01/24 YUSRA SOFIA CARDAVERY During your visit today, we recorded the following information about you: Karol David 08/01/2024 3:37 PM Signed Referral documents received by fax. Forwarded to scheduling team. Karol David, Admin Allergies As of Date: 08/01/2024 (Not on File) Date Reviewed: Never Reviewed Reason for Visit: Appointment [186] Cmt: Referral received - [facility] Prescriptions as of 08/01/2024 - amLODIPine (NORVASC) 5 mg tablet TAKE 1 TABLET BY MOUTH IN THE MORNING DIRECTED - ELIQUIS 5 mg tab(s) Take 5 mg by mouth two times a day. - atorvastatin (LIPITOR) 80 mg tablet Take 80 mg by mouth daily at bedtime. - lisinopril (ZESTRIL) 40 mg tablet Take 1 tablet by mouth every afternoon. - metoprolol tartrate, short acting, (LOPRESSOR) 25 mg tablet Take 1 tablet by mouth every 12 hours. Problem List As Of Date: 08/01/2024 (None) Encounter Status:Closed by KAROL DAVID on 08/01/24 [facility] Office Visiton 07-31-2024 Follow-up visit [id number] Bret Fabian Sr. 1945 M Date Provider Department Center 07/31/2024 [facility]-MAXIM RAY [facility] Family History Problem Relation Age of Onset Coronary artery disease Mother Heart attack Mother Stroke Father Family Status - Relation Status Age at Mother Father Sister Brother Level of Service:91322 [place] OFFICE/OUTPATIENT ESTABLISHED LOW MDM 20 MIN Normal [facility] Follow-Upon 06-07-2024 Follow-Up [id number] Bret Fabian Sr. 1945 M Date Provider Department Center 06/07/2024 MARIANA BARRY BRENDA [facility] Family History Problem Relation Age of Onset Coronary artery disease Mother Heart attack Mother Stroke Father Family Status - Relation Status Age at Mother Father Level of Service:26863 [place] OFFICE/OUTPATIENT ESTABLISHED MOD MDM 30 MIN Reason for Visit and Comments: PVC [Other] Hypertension [988666] Hyperlipidemia [182] Normal [facility] 36on 05-12-2024 36 Post Discharge Call Good morning, I am Nina Marsh RN a lead nurse from [facility]. I am calling you to follow up on your stay with us and make sure all of your questions have been answered. You will be receiving a survey either electronic or via mail and we always aim to receive 9???s and 10???s. If there is any reason you feel as though you cannot give us these scores please indicate that now. RN attempted call at [phone]- voicemail box is full- unable to leave a message. Patient Name Kristofer Moran Fabian Sr. Date 05/12/24 Normal [facility] Telephoneon 05-12-2024 Telephone [id number] Bret Fabian Sr. 1945 M Date Provider Department [place] 05/12/2024 NINA PHILIP JOESLINE [facility] Family History Problem Relation Age of Onset Coronary artery disease Mother Heart attack Mother Stroke Father Family Status - Relation Status Age at Mother Father Reason for Visit and Comments: Hospital Follow-up [832] Normal [facility] 30on 05-11-2024 30 The patient is Moderately Stable - Low risk of patient condition declining or worsening The patient's goals for the shift include comfort The clinical goals for the shift include vss Over the shift, the patient did make progress toward the following goals. Problem: Pain - Adult Goal: Verbalizes/displays adequate comfort level or baseline comfort level Outcome: Progressing Problem: Safety - Adult Goal: Free from fall injury Outcome: Progressing Problem: Discharge Planning Goal: Discharge to home or other facility with appropriate resources Outcome: Progressing Problem: Chronic Conditions and Co-morbidities Goal: Patient's chronic conditions and co-morbidity symptoms are monitored and maintained or improved Outcome: Progressing Normal [facility] B-TYPE NATRIURETIC PEPTIDEon 05-11-2024 Natriuretic peptide B (Bld) [Mass/Vol] 113 pg/mL High 0-100 [facility] Comment on above: Performed By: #### L [id number] ####[facility] ([facility])[address] [place] [address] CBCon 05-11-2024 Erythrocyte distribution width (RBC) [Ratio] 13.6 % Normal 11.5-15.0 [facility] Comment on above: Performed By: #### L [id number] ####[facility] ([facility])[address] [place] [address] ERYTHROCYTE MEAN CORPUSCULAR HEMOGLOBIN CONCENTRATION (G/DL) BY AUTOMATED 33.7 g/dL Normal 32.0-35.0 [facility] Comment on above: Performed By: #### L [id number] ####[facility] ([facility])[address] [place] [address] Hematocrit (Bld) [Volume fraction] 41.2 % Normal 39.0-55.0 [facility] Comment on above: Performed By: #### L [id number] ####[facility] ([facility])[address] [place] [address] Hemoglobin (Bld) [Mass/Vol] 13.9 g/dL Normal 13.0-17.0 [facility] Comment on above: Performed By: #### L [id number] ####[facility] ([facility])[address] [place] [address] MCH (RBC) [Entitic mass] 28.8 pg Normal 27.0-33.0 [facility] Comment on above: Performed By: #### L [id number] ####[facility] ([facility])[address] [place] [address] MCV (RBC) [Entitic vol] 85.3 fL Normal 82.0-98.0 [facility] Comment on above: Performed By: #### L [id number] ####[facility] ([facility])[address] [place] [address] PLATELETS (10*3/UL) IN BLOOD AUTOMATED COUNT 225 10*3/uL Normal 150-400 [facility] Comment on above: Performed By: #### L [id number] ####[facility] ([facility])[address] [place] [address] RBC (Bld) [#/Vol] 4.83 10*6/uL Normal 4.20-5.70 [facility] Comment on above: Performed By: #### L [id number] ####[facility] ([facility])[address] [place] [address] WBC (Bld) [#/Vol] 9.74 10*3/uL Normal 4.00-10.60 [facility] Comment on above: Performed By: #### L [id number] ####[facility] ([facility])[address] [place] [address] COMPREHENSIVE METABOLIC PANE José Luis 05-11-2024 Albumin [Mass/Vol] 4.5 g/dL Normal 3.5-5.7 [facility] Comment on above: Performed By: #### L AB17 #### [facility] ([facility]) [address] [place] [address] ALP [Catalytic activity/Vol] 71 U/L Normal 34-104 [facility] Comment on above: Performed By: #### L [id number] #### [facility] ([facility]) [address] [place] [address] ALT [Catalytic activity/Vol] 11 U/L Normal 7-52 [facility] Comment on above: Performed By: #### L [id number] #### [facility] ([facility]) [address] [place] [address] Anion gap [Moles/Vol] 11 mmol/L Normal 7-20 [facility] Comment on above: Performed By: #### L [id number] #### [facility] ([facility]) [address] [place] [address] AST [Catalytic activity/Vol] 21 U/L Normal 13-39 [facility] Comment on above: Performed By: #### L [id number] #### [facility] ([facility]) [address] [place] [address] Bilirubin [Mass/Vol] 1.0 mg/dL Normal 0.3-1.0 [facility] Comment on above: Performed By: #### L [id number] #### [facility] ([facility]) [address] [place] [address] Calcium [Mass/Vol] 9.3 mg/dL Normal 8.6-10.3 [facility] Comment on above: Performed By: #### L [id number] #### [facility] ([facility]) [address] [place] [address] Chloride [Moles/Vol] 103 mmol/L Normal 98-107 [facility] Comment on above: Performed By: #### L [id number] #### [facility] ([facility]) [address] [place] [address] CO2 [Moles/Vol] 27 mmol/L Normal 21-31 [facility] Comment on above: Performed By: #### L [id number] #### [facility] ([facility]) [address] [place] [address] Creatinine [Mass/Vol] 1.27 mg/dL Normal 0.70-1.30 [facility] Comment on above: Performed By: #### L [id number] #### [facility] ([facility]) [address] [place] [address] GLOMERULAR FILTRATION RATE ML/MIN/1.73 SQ M.PREDICTED 57.8 mL/min/1.73m*2 Low >60.0 [facility] Comment on above: Result Comment: The [facility]???s estimated glomerular filtration rate (eGFR) will no longer include consideration of race in its calculation. The National Kidney Foundation???s eGFR Task Force developed new recommendations for the estimation of the glomerular filtration rate in the [place] They recommend immediate implementation of the new equation refit without the race variable in all laboratories because the calculation does not include race. In addition to not including race in the calculation and reporting, it included diversity in its development, and has acceptable performance characteristics and potential consequences that do not disproportionately affect any one group of individuals. Performed By: #### L [id number] #### [facility] ([facility]) [address] [place] [address] Glucose [Mass/Vol] 147 mg/dL High 70-100 [facility] Comment on above: Performed By: #### L [id number] #### [facility] ([facility]) [address] [place] [address] Potassium [Moles/Vol] 3.9 mmol/L Normal 3.5-5.1 [facility] Comment on above: Performed By: #### L [id number] #### [facility] ([facility]) [address] [place] [address] Protein [Mass/Vol] 7.1 g/dL Normal 6.0-8.3 [facility] Comment on above: Performed By: #### L [id number] #### [facility] ([facility]) [address] [place] [address] Sodium [Moles/Vol] 137 mmol/L Normal 136-145 [facility] Comment on above: Performed By: #### L [id number] #### [facility] ([facility]) [address] [place] [address] Urea nitrogen [Mass/Vol] 24 mg/dL Normal 7-25 [facility] Comment on above: Performed By: #### L [id number] #### [facility] ([facility]) [address] [place] [address] UREA NITROGEN/CREATININE (MASS RATIO) IN SER/PLAS 18.9 Normal [facility] Comment on above: Performed By: #### L [id number] #### [facility] ([facility]) [address] [place] [address] DSon 05-11-2024 DS Admission Admitted 05/10/2024 for PVC (premature ventricular contractions for elective PVC ablation by Dr. Maxim Ray Discharge Diagnosis PVC (premature ventricular contraction) PVC ablation under general anesthesia by Dr. Ray Discharge Disposition Home or Self Care () Discharge Medications Your medication list START taking these medications Instructions Last Dose Given Next Dose Due furosemide 40 mg tablet Commonly known as: Lasix Take 1 tablet (40 mg) by mouth if needed each day (fluid retention wtih abdomional distention or leg swelling). CHANGE how you take these medications Instructions Last Dose Given Next Dose Due lisinopril 40 mg tablet What changed: when to take this Take 1 tablet every day by oral route for 30 days. CONTINUE taking these medications Instructions Last Dose Given Next Dose Due acetaminophen 500 mg tablet Commonly known as: Tylenol amLODIPine 5 mg tablet Commonly known as: Norvasc Take 1 tablet (5 mg) by mouth once daily as directed. as directed apixaban 5 mg tablet Commonly known as: Eliquis Take 1 tablet (5 mg) by mouth two times daily. atorvastatin 80 mg tablet Commonly known as: Lipitor Take 1 tablet (80 mg) by mouth at bedtime. cyanocobalamin 1,000 mcg tablet Commonly known as: Vitamin B-12 glucosamine-chondroitin 500-400 mg tablet metoprolol tartrate 25 mg tablet Commonly known as: Lopressor TAKE ONE (1) TABLET BY MOUTH TWICE DAILY multivitamin tablet Where to Get Your Medications These medications were sent to [facility] [address] [place], [place] [id number] furosemide 40 mg tablet Activity For 1 week No strenuous activity for 1 week then resume usual activities Showering instructions: okay to shower, do not sit down in a tub of water for 1 week Diet Continue on the same type of diet and foods as you were eating before your admission. Drink plenty of water. Allergies Patient has no known allergies. Hospital Course PMH of of CAD s/p CABG in 2018, hypertension, postoperative A-fib, CKD. S/p Loop recorder, CKD IIIa with BL crat 1.4-1.[address] Hugo and Dr. Ray at [facility]. Pertinent home meds: Eliquis, amlodipine, atorvastatin, lisinopril lopressor 25m bid. 04/24/[address] Ray: Patient here for H&P prior to afib ablation scheduled for 05/10/2024. However LOOP data reveals no AF but more PVC. He is symptomatic and likely from PVC and is short of breath likely from poor perfusion. SVT noted on LOOP on Feb 11, 2024 that lasted for 13s. EK04/24/24 SR with PVC in bigeminy. LBBB morphology andn +in I, AVL and neg in III with late transition suggestive of mid RV exit. Had echo in September 2023 at found EF 60-65%, Normal diastolic function, RVSP 31mmHg, mod CHRISTIAN, normal LA. During rest he was noted to be in sinus rhythm with PVC and bigeminy but with ambulation his heart rate picked up with suppression of PVC. Despite the absence of PVC patient complained of exercise related dyspnea. His last stress test that was done in March 2023 revealed fixed defect in the inferior wall with no reversible ischemia. Pertinent past testing -Lexiscan stress test on 03/15/23 shows no reversible ischemia, small sized mild severity fixed defect in mid anterior wall of LAD and moderate size moderate severity fixed defect in the inferior wall with RCA distribution, did note dilated LV and noted LVEF 60% -TTE 03/16/2023 shows normal LVEF, LA mildly dilated, RA moderately dilated, RV mildly enlarged, RVSP 36 which is mildly elevated -Event monitor 02/2023 has multiple events of SVT which appear like A-fib, tachyarrhythmias very fast and hard to differentiate but RR intervals irregular, he does seem to have a conversion pause of just under 2 seconds when converting from SVT to SR Pertinent past labs: 03/2024 ([facility]): H&H WNL. Creat 1.5/GFR 47, NL K+ and na. TSH 1.98 On 05/10/24 patient had elective PVC ablation under general anesthesia by Dr. Ray. Final report is pending. Was well tolerated but Dr. Jesús observed pt to be dyspneic and ordered IV lasix x3 in addition to usual home meds. Today patient says he is feeling well, has been ambulating in room without dyspnea, lightheadedness, palpitations, chest discomfort, abdominal discomfort. Telemetry shows sinus rhythm with rare PVCs. Discussed findings of dyspnea with concern for fluid overload and will discharge with oral Lasix to use as needed. Advised him to start weighing himself daily, and if weight up 2 pounds in 2 days or 5 pounds in a week would be an indication to use the as needed Lasix. Patient indicated good understanding. Reviewed usual post procedure care of groin site with written instructions printing with AVS. Patient discharged in stable condition. For further information see AVS. Pertinent Physical Exam At Time of Discharge Physical Exam P (more content not included)... Normal [facility] HPon 05-11-2024 [facility] Electrophysiology Consult Note Reason for visit: SVT/PVC 05/10/24 Pt here for PVC ablation.' 03/20/24 Doing very well, but tires easily. Denies chest pain, palpitations, lightheadedness/syncope , and bleeding on Eliquis. Denies feeling heart racing or palpitations. States he has only felt one episode of palpitations months ago. Pulse check: NSR, PVCs Loop review: Likely AF seen on monitor along with episodes of SVT 11/22/23 Patient here for 3 mo follow up afib and loop recorder data review. Denies chest pain, palpitations, lightheadedness/syncope , and bleeding on Eliquis. DAO remains unchanged. [...] data: HPI: Kristofer Fabian Sr. is a 79 y.o. year old with [...] loss) Hyperlipidemia Hypertension PVC (premature ventricular contraction) PSH: Past Surgical History: Procedure Laterality Date CARDIAC CATHETERIZATION CARDIAC SURGERY 06/13/2023 LOOP RECORDER- [employer] COMPLETE DENTURE CORONARY ARTERY BYPASS GRAFT TRIPLE BYPASS SH: Social Determinants of Health Tobacco Use: Medium Risk (05/10/2024) Patient History Smoking Tobacco Use: Former Smokeless Tobacco Use: Never Passive Exposure: Not on file Alcohol Use: Not on file Financial Resource Strain: Low Risk (05/10/2024) Overall Financial Resource Strain (CARDIA) Difficulty of Paying Living Expenses: Not hard at all Food Insecurity: No Food Insecurity (05/10/2024) Hunger Vital Sign Worried About Running Out of Food in the Last Year: Never true Ran Out of Food in the Last Year: Not on file Transportation Needs: No Transportation Needs (05/10/2024) Transportation Lack of Transportation (Medical): No Lack of Transportation (Non-Medical): Not on file Physical Activity: Not on file Stress: Not on file Social Connections: Not on file Intimate Partner Violence: Unknown (05/10/2024) Humiliation, Afraid, Rape, and Kick questionnaire Fear of Current or Ex-Partner: No Emotionally Abused: Not on file Physically Abused: Not on file Sexually Abused: Not on file Depression: Not on file Housing Stability: Low Risk (05/10/2024) Housing Stability Vital Sign Unable to Pay for Housing in the Last Year: No Number of Times Moved in the Last Year: Not on file Homeless in the Last Year: No Utilities: Not At Risk (05/10/2024) [facility] Utilities Threatened with loss of utilities: No Health Literacy: Not on file Allergies: No Known Allergies Weight: 118kg Visit Vitals BP (!) 144/94 Pulse 66 Temp 36.4 ???C (97.6 ???F) (T (more content not included)... Normal [facility] MAGNESIUMon 05-11-2024 Magnesium [Mass/Vol] 2.2 mg/dL Normal 1.9-2.7 [facility] Comment on above: Performed By: #### L [id number] #### [facility] ([facility]ER) [address] [place] [address] 30on 05-10-2024 30 The patient is Moderately Stable - Low risk of patient condition declining or worsening The patient's goals for the shift include The clinical goals for the shift include monitor vitals, safety Problem: Pain - Adult Goal: Verbalizes/displays adequate comfort level or baseline comfort level Outcome: Progressing Problem: Safety - Adult Goal: Free from fall injury Outcome: Progressing Flowsheets (Taken 05/10/20241999) Free from fall injury: Assess patient frequently for physical needs Problem: Discharge Planning Goal: Discharge to home or other facility with appropriate resources Outcome: Progressing Flowsheets (Taken 05/10/20241999) Discharge to home or other facility with appropriate resources: Identify barriers to discharge with patient and caregiver Problem: Chronic Conditions and Co-morbidities Goal: Patient's chronic conditions and co-morbidity symptoms are monitored and maintained or improved Outcome: Progressing Flowsheets (Taken 05/10/20241999) Care Plan - Patient's Chronic Conditions and Co-Morbidity Symptoms are Monitored and Maintained or Improved: Monitor and assess patient's chronic conditions and comorbid symptoms for stability, deterioration, or improvement Normal [facility] POCT GLUCOSE METER UNSOLICIT ED RESULTSon 05-10-2024 Glucose [Mass/Vol] 115 mg/dL High 70-105 [facility] Comment on above: Order Comment: Waive d Testing in the ED is performed under the ED CLIA certificate #[id number]. Result Comment: dspe ars Performed By: #### L [id number] #### [facility] (BEAKER) [address] [place] [address] Glucose [Mass/Vol] 109 mg/dL High 70-105 [facility] Comment on above: Order Comment: Waive d Testing in the ED is performed under the ED CLIA certificate #[id number]. Result Comment: aepp ink Performed By: #### L [id number] #### [facility] (BEAKER) [address] [place] [address] PROTIME-INRon 05-10-2024 INR IN PPP BY COAGULATION ASSAY 1.13 High 0.90-1.10 [facility] Comment on above: Result Comment: ACCC P RECOMMENDED INR FOR WARFARIN THERAPY CONDITION INR PROPHYLAXIS OF VENOUS THROMBOSIS 2-3 (HIGH-RISK SURGERY) TREATMENT OF VENOUS THROMBOSIS 2-3 TREATMENT OF PULMONARY EMBOLISM 2-3 PREVENTION OF SYSTEMIC EMBOLISM: 2-3 ACUTE MYOCARDIAL INFARCTION TISSUE HEART VALVES VALVULAR HEART DISEASE ATRIAL FIBRILLATION RECURRENT SYSTEMIC EMBOLISM MECHANICAL HEART VALVE 2.5-3.5 FROM: ORAL ANTICOAGULANTS. MECHANISM OF ACTION, CLINICAL EFFECTIVENESS, AND OPTIMAL THERAPEUTIC RANGE. CHEST 1995;108:231S-246S. Performed By: #### L [id number] ####[facility] ([facility]ER)[address] [place] [address] PROTHROMBIN TIME (PT) IN PPP BY COAGULATION ASSAY 14.5 Seconds Normal 12.3-14.8 [facility] Comment on above: Performed By: #### L [id number] ####[facility] ([facility]ER)[address] [place] [address] Prep for Procedureon 025 Prep for Procedure [id number] Bret Fabian N Sr. 1945 M Date Provider Department Center 05/10/20241986-MINNIE FALCON [facility] Family History Problem Relation Age of Onset Coronary artery disease Mother Heart attack Mother Stroke Father Family Status - Relation Status Age at Mother Father Normal [facility] Office Visiton 04-24-2024 Follow-up visit [id number] Bret Fabian N Sr. 1945 Date Provider Department Center 04/24/2024 241-MAXIM RAY [facility] Family History Problem Relation Age of Onset Coronary artery disease Mother Heart attack Mother Stroke Father Family Status - Relation Status Age at Mother Father Level of Service:90364 SC OFFICE/OUTPATIENT ESTABLISHED HIGH MDM 40 MIN Normal [facility] Prep for Procedureon 024 Prep for Procedure [id number] Bret Fabian N Sr. 1945 M Date Provider Department Center 03/27/20241986-MINNIE FALCON [facility] Family History Problem Relation Age of Onset Coronary artery disease Mother Heart attack Mother Stroke Father Family Status - Relation Status Age at Mother Father Normal [facility] Office Visiton 03-20-2024 Follow-up visit [id number] Bret Moran Sr. 1945 M Date Provider Department Center 03/20/2024 MAXIM GILMORE BRENDA [facility] Family History Problem Relation Age of Onset Coronary artery disease Mother Heart attack Mother Stroke Father Family Status - Relation Status Age at Mother Father Level of Service:56115 SC OFFICE/OUTPATIENT ESTABLISHED HIGH MDM 40 MIN Normal [facility] Coding Summaryon 03-06-2024 Coding Summary HTMLBase 64 UmwprzaoIEu3tLh+PGhlYWQ +AR3RAQNtP17vlOMjzJ7jR5 NMTElOSywgQVBQTElOSyIgb rZpUJ5kmNVsZPGn IC8+PN3dBABwGcztxDIfb7O 4wOU6Z78mim6aKCwocZD3BJ IiQqOipmzgi8gjySn8SBzxH mluOyBt DZOuxJ58UDW3sK08As86zTI jeZSpk7gfxTj5VaSpMWTrNG U6iKcvDOhto1ZkPRDsH55ki TQjv1B9 RMCkaAtdqKOtHmBizKY2mW8 bLMneskbyy1shczeqJph5fn 53jJLwo2G1vSN8S3JdfdF9G GJvbGQg PsvbnXPAyR4ozkcsd0lfskx lYfErYLPfUTo0SEm3CEZqrC otNbMuDQ69DEY8QJKcwyMhD 2FsLWFs jHvyVuM5p4L1Yg8EL9GDOxh jF7IKBQUILWshbFE+PC90cj 84M8EwByczKfg6ULLoKRV3q AM5bI8v FXWiMXubz9D9fDA3P0PseuU mav8dx6bkAHXpOJdaX78lyO Szq5Z4RZOxbHV5HVLstPteP iBzaG93 Oyc+QOFlfHoue2BkVksym1i pa0ewrNd8BfgmUQWjjjCprA seXAR7n6RiUy2iXNTbvKD9l QY6lV7h AlAsSyO1DUytA945JiFkiCC mIehjY78tL2VjpUK+PHRyPj r3SMVwuJngQQ8mD1YaHDNgh mctbGVm vKklVU1zLWGxmkstGECcbX4 mPLYuF9q8JlOoXzG8VYhbD0 EqZUNhndazEw10wV1kNmZfJ uC9UIde I0HvomB5WDRudIJoJObfYEJ 2H33lm8F9MNUzDHClHVF0yV W7kQ0cuPtrvzebcIEhnAlct mVydGlj GLxfMGpkS249BNHgpLhjZcM vZGluZyBEYXRlOiAgMTEvMj YvMjAyNDwvdGQ+YNOgQKV3i WxlPSAn iVGuRWsjPn1gnKkcwHgdVI4 fCRYthegeNIZllX4sBHTinE GbzRgtCT7dIJSmpjjbi262Z iAxMHB0 RXCthYWpM5GinA9yLiVaSCO oNCAnR1IijTLuOKfdL007TF viVuB4SNXoqoLjE4WyPQIxl WduOiB0 l7G1Yc6Lp2IpkqqaV9TxeKP pEfUjKjhaPTa6R0OuRaodfA I+KP74FMUsKR87GZd8KER1g WxlPSdi EYWjS9SpvZ4dQzFpTQHyVTU kOyc+PHRhYmxlIHdpZHRoPS nfRLAbMmLpyCwuBD8vKv8kG GVyLWNv dPckyLWiQhUux6jhTZOlXJj xMN1ayKjrQ6PvwJU3RRWjg6 h3Ph43T32aH7PbsKO+PGNvb XK6aXK7 aW9cYfKxWgI8NUpsP088EsB bcFPsLoxrp6ehr0vlvNv3Bx E7BRPhbyMynYohBIF6k4FfW v77J83z IHdpZHRoPSIxNSUiIHZhbGl ggt6ecE4nDv4+YKQwjSQ3pT K9zP0sErSvZlD1DHgbJ462S nRvcCIv Bqygy8zrq1pkpKs7TbEmKUZ hegSytPsvNAP0w8JmOm79X6 KwpGhqd9NoGoe6ze22xHPto 3H4hOW7 B3ZaAQFvmedfoEHuyEfiXZ2 qFMKjuwmmYAIrhP7bAKFrZ2 h6PcRoLvY6WPifW4YeekC3V GJvbGQg THQomBQCaX2crbjmw0nyddl cEvPxTASxMWk3KGt4PMFnyD kuSnQpGYY9ToQ4LPI2jVTib K5twSix mpyouH8nCnt+OLT4rRYyoZO UTL1bDhrnwHO+KLBjYRQ3pJ pvDJxnCGFyvC0oAKCtZ9i2P iAwLjA1 NEkbR3NwbyU7CWXeqDLrZZG svQZVzY1jmytno6erdpyxUs MfNBBeNDb9OEe9CPUljVljH iBsZWZ0 RbT1EUG7dAYiyC6ziCjflwe bzT0dYph+BnuulOfkWNI6XH d4S8EvJfg4CUDhxWheGB4fq GFkZGlu Mh4zaGmzwFxaPQ7vKIMuyze wc434QlGio5tsCUEepFLfQL keYFV2M90ol9Y5CISgKJOeI QS0oME4 lS4pkQlvtwvkoJMieDizfwZ wnAvoABdyYSrbZ962BEJgpD vlAwCvBYb6U2SfVzi6ZSGfg OpeXB1g qRIzCZewRx8trYvzuQjiCW3 eAPCiuyzsq437YlGbx9cnIM EzvDAaDBadJBR8B12rx1O0D CMwMDAw GIM2tOF2kP1zjYndevpgzDE mdDsgdmVydGljYWwtYWxpZ2 85TRXubXctGnKegTn8C3QiA sb4JWYu pUutNI2frKPbIZogYw9haOi oeCqcWD8xMKEawyfhu907Xc Xfo7yaFZUlpFHtMCjiLAH0E 67av8M1 FPFoBCBzRCX7xZB2eN9xnHi nbjogbGVmdDsgdmVydGljYW fgIDrlU092PNHmvNmyDjJvr GllbnQg HGonKCj8A8QnNzdniLX+PC9 3ZFFeDB54mSKcxBNis7pajH q5HoZcORJyNAC8rGkxTQlsk 3JkZXIt L19jyDQaa3A1IUEcfPabgJU xHxQmmVS5zE7oLOyxknbhy6 hluaufThjfi6tzcf10jO67K 29sIHdp ZHRoPSIzMCUiIHZhbGlnbj0 zhT9nJk2+CAVpdIL6iCM2kI 3eEBRvYqW4LRlgM124NuOfe CIvPjxj x3jxu7ytzRe0CfO0HLNbgkK zfJyaZCA7f8LyDv29I12iHP dpZHRoPSIyMCUiIHZhbGlnb v1dmF7m Ii8+RYIsqPL7gMH0lH0uOkY gYeC3WTccH207CuTawAJhIl rjB57pZ3LiaZX+DJBwZyt4V CBzdHls OU5zrZArUXczSx9oTUB3MfW qMtZlGExfD5BzMZHjzdjqjx yppBU8PWKjOMFvaZ07Gz8ev DogMTBw uLEItV7nhvtwx5jljfbpIsQ eJWJnBXy7JLz4VSBpwAdrLh HxXLX1IsU7YWJ6aYCqqD3rw Glnbjog eI6kN9UmDLFibsygNd12bQ8 xKnBiSwN7SZufSjh+QklTSE 8LJHLSNVUJNRURIN12II26m TUyg0G0 rKV3X5EtSHUdcdeedgducWR 7NYUjMEFmhF59sPKuMSyyMb 5ht2W6p173XGUcCPBozJ02F l4lrChy RGSwsUKNvY2octpbe5avhdo cSkLoYSRyLPl4ONb2GERjaH dcZcVfTRI4OzM4OVC2nPWxs K1sjDkt yexvpI3sGsq+MTEvMTAvMTk 0NjwvdGQ+ZDZpKQY8zArnLY jiZRTubI1xPEIhN2e7GkJcD rS9QNun L6CmDCUjoyggZf00cL9rHeY fLdY2POfdH6NbumT1WQFdtW OmLEswZDU0H17zm7I6BABhL DAwMDA7 jFX2jB6qqWtpdmwlnJAviGi zlgGknDmcCKfsXUvkR078SR XcrYneRao3HBgaZBNzDD01E A21kXXg h4Y6tVT4Y1JmIWHstyqkgro xdGF5PRVuYANcwF86rEYfXQ zmTy0om0C2c301JCIuQQGts O19Fn6p hAhzMZBpuQANcA3mnfqbt7n jbywhAwWcPICoGQr3MKz7HI WbxYfnRpGuTUS6RvW5DGC6p GGfqS5x wBdqmjvzwD7jGam+TUFMRTw vdGQ+RKUaEKM0cPzxJUkvDM GoxD8aVRElQ4o3NvEyMbT2I DqvC4Jr UIKdowrvXz28sX4gXzMsDzF 8RGpbX9CrynT3QFKjjFEsCF fpNYE8P00bc9K9AGVfVRPeZ TZ8wGX7 wA4pkXlloalpeYVhkHhzyfG niFlzFVdvGIcxV680EUOllX alWsHyINKmPA0tqIxwrGZ+P C62ws09 C3WqNtbwFnf7JMUdGDL2aEU 3vN0sUVMsXKfch3Z0iCQ6F6 SgzwElwm5mq5nePVVeSLqsI 29sbGFw o1I4YMOecIQ3QSHjyGkxRyY dbD34Skw+TBFmcKyho7YfBw vyv2max2fejPn4PeOdAQVlu mFsaWdu NQA8p6WkBg66S41kRUyoXQD kDTBiUEUyTZNrdIzpoq6ypH 9wIi8+FVDyfMK2nYH8tG4uI jAlIiB2 OVwoT742JmLvtNAiEjvay3p ir0iosQo1AeWcTTJyoiSwdN xoPVK6m3OrEs49W6VrnSars 4DiPbu5 cp60fEHzn4A9tTB1I7LdEPY pcntsvVGbjZfhUG5vTVZdjf noGVPhbT9yWVHgR5a3RpCtH bO2EBss C8QjxvO6HKVugPVwUOXylQQ SuU1wrpzey6ewbqriSgLfWR TpJDt4RKf5FMSwdAidWjFqV QW5VqU8 QUE8tNIvdF8hxRfjwhjslX1 wOyc+TLg0r0nviLEqLI7vxE E2QW57MI29dDErn4L5eKD1O 3BhZGRp cdhszodyrEJ9VXKeOSYbvO5 2Nn6rbHolVq5oQMXnNTJ9YK ZmnGShG1DhrY5cSnHdLTWqC TBaW2By fGOuXLltY143CGjtWgE5QCR ywwSaH2PmREJieJhaUaU1z0 W2Zm9JSC72EE08FK25tUOld 5K5dWV3 Y9WjTJBmqrapwikkeMG4FUG fYDKwfD84By5txEtkHq2sNW NjJYQ9FSXhcJWgC5UjdK1uQ iAjMDAw IRDnL2WplAAnLViyF230YVp lWpW6FWQrbcPgM6BaMSQenD wvGaI6o3O6Hw1REp47SF37L D56bGQo a5C4pXM0T0PtOUAxegtuyik yeCN8IEDtEYIxkO32Za4ynR bgFy0dIQPxZLS9TTJifNKnS 1MbhK9s RgQhAOHgRJRfE5YbaNCxGQt kJ723HIhdSjV8AZZkuaSzO5 PwNFMpdHweDyD7y6X5Ad9ZK Xllcjo8 E0RsQkpzrLX+YT96WERwNI0 2mUVniQOur6qimAa4SsPlQD InPOK6xRtuLCcxn4KgFEUvV 29sbGFw c2U (more content not included)... 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 02/27/2024 13:55:09 Allison Brooks [employer]AURANT AREA MANAGER ED PA 02/27/2024 13:56:44 VITALS INFORMATION Vital [...] the external cause Patient Understands: Yes - Patient/family/caregive r verbalizes understanding of instructions given Comment: [facility] ED Note-Nursingon 02-27-2024 ED Note-Nursing Pt [...] pt is A/Ox4 call light within reach [facility] ED Patient Summaryon 024 ED Patient Summary [facility] - Emergency Department [address] [place] [address] PATIENT DISCHARGE INSTRUCTIONS Patient Information Name: KRISTOFER FABIAN Age: 79 Years Date of : 1945 Reason For Visit: Fall; LT ARM SKIN TEAR Arrival Time: 02/27/2024 13:52:03 Primary Care Physician: Provider, None Attending Physician: Hunter Zavala MD Comment: Visit Diagnosis: Diagnoses This Visit Fall ([id number]) Fall at home (W19.XXXA) Skin tear of upper extremity (S41.119A) Unspecified place in unspecified non-institutional (private) residence as the place of occurrence of the external cause (Y92.009) The Pharmacy at [facility] is open Tuesday through Tuesday from 9A [...] alcohol and/or drug addiction problems; contact the [facility] 01/11 Crisis Hotline -Text 9GHTZ pu [phone]. If you received any narcotics, sedation, or [...] and treatment you received today in the [facility] Emergency Department were for an urgent problem and are not intended as complete care. It is important for you to follow up with a doctor, nurse practitioner, or physician?s licensed sales assistant for ongoing care. If your symptoms [...] so we can reach you if necessary. [facility] Emergency Department has provided you with a complete list of medications post discharge. Please inform your collection systems administrator/provider of your visit and for further instruction on these medications. Any specific questions regarding your chronic medications and dosages should be discussed with your primary care physician(s) and/or pharmacist. New Medications [facility] [address] [place], [place] [id number], [phone] bacitracin topical (bacitracin 500 units/g topical ointment) [...] bulbs that (more content not included)... Normal [facility] Complete Blood Count Auto Di ffon 06-27-2020 Basophils (Bld) [#/Vol] 0.1 10*3/uL Normal 0.0-0.2 [facility] Comment on above: Result Comment: PERF ORMED BY: [facility] [address] [place] [address] PATHOLOGIST HOME COORDINATOR SANDRA AGUILAR M.D. Performed By: #### L IPID, CMP, CBC #### [facility] [address] [place] [address] [place] Basophils/100 WBC (Bld) 0.8 % Normal . [facility] Comment on above: Performed By: #### L IPID, CMP, CBC #### [facility] [address] Eosinophils (Bld) [#/Vol] 0.3 10*3/uL Normal 0.0-0.45 [facility] Comment on above: Performed By: #### L IPID, CMP, CBC #### [address] Eosinophils/100 WBC (Bld) 3.5 % Normal . [facility] Comment on above: Performed By: #### L IPID, CMP, CBC #### [address] Erythrocyte distribution width (RBC) [Ratio] 13.4 % Normal 12.0-14.8 [facility] Comment on above: Performed By: #### L IPID, CMP, CBC #### [address] Hematocrit (Bld) [Volume fraction] 41.9 % Normal 38.8-50.0 [facility] Comment on above: Performed By: #### L IPID, CMP, CBC #### [address] Hemoglobin (Bld) [Mass/Vol] 14.5 g/dL Normal 13.0-17.0 [facility] Comment on above: Performed By: #### L IPID, CMP, CBC #### [place] [address] [place] Lymphocytes (Bld) [#/Vol] 1.7 10*3/uL Normal 1.00-4.8 [facility] Comment on above: Performed By: #### L IPID, CMP, CBC #### [place] [address] [place] Lymphocytes/100 WBC (Bld) 17.4 % Normal . [facility] Comment on above: Performed By: #### L IPID, CMP, CBC #### [facility] [address] MCH (RBC) [Entitic mass] 29.0 pg Normal 27.5-35.2 [facility] Comment on above: Performed By: #### L IPID, CMP, CBC #### [facility] [address] MCV (RBC) [Entitic vol] 83.5 fL Normal 83.5-101 [facility] Comment on above: Performed By: #### L IPID, CMP, CBC #### [address] Mean Corpuscular HGB Conc 34.7 g/dL Normal 32.5-35.6 [facility] Comment on above: Performed By: #### L IPID, CMP, CBC #### [address] Monocytes (Bld) [#/Vol] 0.6 10*3/uL Normal 0.0-0.8 [facility] Comment on above: Performed By: #### L IPID, CMP, CBC #### [address] Monocytes/100 WBC (Bld) 6.2 % Normal . [facility] Comment on above: Performed By: #### L IPID, CMP, CBC #### [address] Neutrophils (Bld) [#/Vol] 7.0 10*3/uL Normal 1.8-7.7 [facility] Comment on above: Performed By: #### L IPID, CMP, CBC #### [address] Neutrophils/100 WBC (Bld) 72.1 % Normal . [facility] Comment on above: Performed By: #### L IPID, CMP, CBC #### [address] Nucleated RBC/100 WBC (Bld) [Ratio] 0.1 % Normal 0-0.5 [facility] Comment on above: Performed By: #### L IPID, CMP, CBC #### [address] Platelet mean volume (Bld) [Entitic vol] 10.9 fL High 6.6-10.1 [facility] Comment on above: Performed By: #### L IPID, CMP, CBC #### [facility] [address] Platelets (Bld) [#/Vol] 189 10*3/uL Normal 150-450 [facility] Comment on above: Performed By: #### L IPID, CMP, CBC #### [address] RBC (Bld) [#/Vol] 5.01 10*6/uL Normal 3.90-5.60 [facility] Comment on above: Performed By: #### L IPID, CMP, CBC #### [address] WBC (Bld) [#/Vol] 9.7 10*3/uL Normal 4.5-11.0 [facility] Comment on above: Performed By: #### L IPID, CMP, CBC #### [address] Comprehensive Metabolic Pane josé luis 06-27-2020 Albumin [Mass/Vol] 4.0 g/dL Normal 3.2-5.5 [facility] Comment on above: Performed By: #### L IPID, CMP, CBC #### [address] Albumin/Globulin [Mass ratio] 1.7 {ratio} Normal [facility] Comment on above: Performed By: #### L IPID, CMP, CBC #### [address] ALP [Catalytic activity/Vol] 68 U/L Normal 32-92 [facility] Comment on above: Performed By: #### L IPID, CMP, CBC #### [facility] [address] [place] [id number] [place] ALT [Catalytic activity/Vol] 32 U/L Normal 10-60 [facility] Comment on above: Performed By: #### L IPID, CMP, CBC #### [facility] [address] [place] [address] [place] AST [Catalytic activity/Vol] 21 U/L Normal 10-42 [facility] Comment on above: Performed By: #### L IPID, CMP, CBC #### [facility] [address] [place] [id number] [place] Bilirubin [Mass/Vol] 0.8 mg/dL Normal 0.3-1.2 [facility] Comment on above: Performed By: #### L IPID, CMP, CBC #### [facility] [address] [place] [address] [place] Calcium [Mass/Vol] 9.5 mg/dL Normal 8.2-10.2 [facility] Comment on above: Performed By: #### L IPID, CMP, CBC #### [facility] [address] [place] [address] [place] Chloride [Moles/Vol] 104 mmol/L Normal 95-114 [facility] Comment on above: Performed By: #### L IPID, CMP, CBC #### [facility] [address] [place] [id number] [place] CO2 [Moles/Vol] 22.8 mmol/L Normal 22.0-30.0 [facility] Comment on above: Performed By: #### L IPID, CMP, CBC #### [facility] [address] [place] [id number] [place] Creatinine [Mass/Vol] 1.38 mg/dL High 0.64-1.27 [facility] Comment on above: Performed By: #### L IPID, CMP, CBC #### [facility] [address] [place] [id number] [place] Estimated GFR ( Belinda > 60 Normal [facility] Comment on above: Result Comment: GFR estimated reference range: According to KDOQI guidelines, <60 ml/min/1.73m2 is sufficient to diagnose a patient with chronic kidney disease. Performed By: #### L IPID, CMP, CBC #### [facility] [address] [place] [address] Estimated GFR (Non- Am 50 Normal [facility] Comment on above: Performed By: #### L IPID, CMP, CBC #### [facility] [address] Globulin (S) [Mass/Vol] 2.4 g/dL Normal [facility] Comment on above: Performed By: #### L IPID, CMP, CBC #### [address] Glucose [Mass/Vol] 103 mg/dL High 70-100 [facility] Comment on above: Result Comment: [place] Glucose Reference Range is dependent on time and content of last meal. Glucose of more than 200 mg/dL in a nonstressed, ambulatory subject supports the diagnosis of Diabetes Mellitus. ADA recommended reference range Performed By: #### L IPID, CMP, CBC #### [address] Potassium [Moles/Vol] 4.6 mmol/L Normal 3.5-5.1 [facility] Comment on above: Performed By: #### L IPID, CMP, CBC #### [address] Protein [Mass/Vol] 6.4 g/dL Normal 6.1-7.9 [facility] Comment on above: Performed By: #### L IPID, CMP, CBC #### [place] [address] [place] Sodium [Moles/Vol] 138 mmol/L Normal 136-146 [facility] Comment on above: Performed By: #### L IPID, CMP, CBC #### [address] Urea nitrogen [Mass/Vol] 21 mg/dL Normal 9-23 [facility] Comment on above: Performed By: #### L IPID, CMP, CBC #### [address] [place] [address] [facility] Lipid Panelon 06-27-2020 Cholesterol [Mass/Vol] 129 mg/dL Low 140-200 [facility] Comment on above: Result Comment: Chol less than 200 mg/dl low risk Chol 201-239 mg/dl borderline risk Chol 240 mg/dl and greater high risk Performed By: #### L IPID, CMP, CBC #### [facility] [address] Cholesterol in HDL [Mass/Vol] 37 mg/dL Normal 29-71 [facility] Comment on above: Result Comment: HDL CHOL ATP-III CLASSIFICATION Cardiovascular Risk HDL > or equal to 60 mg/dL LOW HDL < 40 mg/dL HIGH Performed By: #### L IPID, CMP, CBC #### [facility] [address] Cholesterol.total/C holesterol in HDL [Mass ratio] 3.5 {ratio} Normal <5.0 [facility] Comment on above: Result Comment: PERF ORMED BY: [place] [address] PATHOLOGIST HOME COORDINATOR SANDRA AGUILAR M.D. Performed By: #### L IPID, CMP, CBC #### [address] LDL Cholesterol,Calcula ernie 69 mg/dL Normal 0-100 [facility] Comment on above: Result Comment: LDL ATP III CLASSIFICATION LDL less than 100 mg/dL Optimal LDL 100-129 mg/dL Near or above optimal LDL 130-159 mg/dL Borderline high LDL 160-189 mg/dL High LDL greater than 189 mg/dL Very high Performed By: #### L IPID, CMP, CBC #### [facility] [address] [place] [address] [place] Triglyceride w/Reflex 116 mg/dL Normal 35-149 [facility] Comment on above: Result Comment: TRIG ATP III CLASSIFICATION TRIG less than 150 mg/dL Normal TRIG 150-199 mg/dL Borderline high TRIG 200-500 mg/dL High TRIG greater than 500 mg/dL Very high Standard traceable to the Center for Disease Conrtrol and Prevention (CDC) test method. Performed By: #### L IPID, CMP, CBC #### [facility] [address] [address] VLDL CHOLESTEROL 23 mg/dL Normal [facility] Comment on above: Performed By: #### L IPID, CMP, CBC #### [facility] [address] [id number] [place] POC GLUCOSE LABon 12-06-2017 Glucose mass conc 170 mg/dL High 70-100 [facility] Comment on above: Performed By: #### 8 [id number] ####[facility] [place] [address], [facility] Glucose mass conc 135 mg/dL High 70-100 [facility] Comment on above: Performed By: #### 8 [id number] ####[facility] [place] [address], [facility] Glucose mass conc 137 mg/dL High 70-100 [facility] Comment on above: Performed By: #### 8 [id number] ####[facility] [facility] [address], [facility] BASIC METABOLIC PANELon 11-10 Calcium mass conc 8.8 mg/dL Normal 8.6-10.3 [facility] Comment on above: Order Comment: Unkno wn Performed By: #### 8 [id number] #### [facility] [address] [place] [address], [facility] Chloride molar conc 96 mmol/L Low 98-107 [facility] Comment on above: Order Comment: Unkno wn Performed By: #### 8 [id number] #### [facility] [address] [place] [address], [place] CO2 molar conc 28 mmol/L Normal 21-31 [facility] Comment on above: Order Comment: Unkno wn Performed By: #### 8 [id number] #### [facility] [address] [place] [address], [facility] Creatinine mass conc 1.43 mg/dL High 0.70-1.30 [facility] Comment on above: Order Comment: Unkno wn Performed By: #### 8 [id number] #### [facility] [address] [place] [address], [facility] GFR/1.73 sq M predicted among blacks MDRD vol rate/area (S/P/Bld) 59 ml/min/1.73sq m Abnormal >60 [facility] Comment on above: Order Comment: Unkno wn Result Comment: Calc ulation may not be valid for patients over 70 years Performed By: #### 8 [id number] #### [facility] [address] [facility] [address], [facility] GFR/1.73 sq M predicted among non-blacks MDRD vol rate/area (S/P/Bld) 49 ml/min/1.73sq m Abnormal >60 [facility] Comment on above: Order Comment: Unkno wn Result Comment: Calc ulation may not be valid for patients over 70 years Performed By: #### 8 [id number] #### [facility] [address] [facility] [place] [address], [facility] Glucose mass conc 171 mg/dL High 70-100 [facility] Comment on above: Order Comment: Unkno wn Performed By: #### 8 [id number] #### [facility] [address] [facility] [place] [address], [facility] Potassium molar conc 3.7 mmol/L Normal 3.5-5.1 [facility] Comment on above: Order Comment: Unkno wn Performed By: #### 8 [id number] #### [facility] [address] [place] [address], [facility] Sodium molar conc 132 mmol/L Low 136-145 [facility] Comment on above: Order Comment: Unkno wn Performed By: #### 8 [id number] #### [facility] [address] [facility] [address] Urea nitrogen mass conc 30 mg/dL High 7-25 [facility] Comment on above: Order Comment: Unkno wn Performed By: #### 8 [id number] #### [facility] [address] [facility] [address] CBC COMPLETE BLOOD COUNTon 0 12-05-2017 Erythrocyte distribution width Ratio (RBC) 12.8 % Normal 11.5-15.0 [facility] Comment on above: Order Comment: Unkno wn Performed By: #### 8 [id number] #### [facility] [address] [facility] [address] Hematocrit Volume Fraction (Bld) 29.4 % Low 39.0-50.0 [facility] Comment on above: Order Comment: Unkno wn Performed By: #### 8 [id number] #### [facility] [address] [facility] [address] Hemoglobin mass conc (Bld) 10.0 g/dL Low 13.0-17.0 [facility] Comment on above: Order Comment: Unkno wn Performed By: #### 8 [id number] #### [facility] [address] [facility] [place] [address], [facility] MCH Entitic mass (RBC) 28.2 pg Normal 27.0-33.0 [facility] Comment on above: Order Comment: Unkno wn Performed By: #### 8 [id number] #### [facility] [address] [facility] [place] [place] [address], [facility] MCHC mass conc (RBC) 34.0 g/dL Normal 32.0-35.0 [facility] Comment on above: Order Comment: Unkno wn Performed By: #### 8 [id number] #### [facility] [address] [place] [address], [facility] MCV Entitic volume (RBC) 83.1 fL Normal 82.0-98.0 [facility] Comment on above: Order Comment: Unkno wn Performed By: #### 8 [id number] #### [facility] [address] [place] [address], [facility] Nucleated RBC/100 WBC Ratio (Bld) 0 % Normal 0-0 [facility] Comment on above: Order Comment: Unkno wn Performed By: #### 8 [id number] #### [facility] [address] [place] [address], [facility] PLAT CNT 161 10*3/uL Normal 150-400 [facility] Comment on above: Order Comment: Unkno wn Performed By: #### 8 [id number] #### [facility] [address] [facility] [place] [place] [address], [facility] RBC #/vol (Bld) 3.54 10*6/uL Low 4.20-5.70 [facility] Comment on above: Order Comment: Unkno wn Performed By: #### 8 [id number] #### [facility] [address] [place] [address], [facility] WBC #/vol (Bld) 14.56 10*3/uL High 4.00-10.60 The [facility] Comment on above: Order Comment: Unkno wn Performed By: #### 8 [id number] #### [facility] [address] [facility] [place] [address], [facility] CPK-MB PROFILEon 12-05-2017 CK enzyme act/vol 181 U/L Normal 30-223 [facility] Comment on above: Performed By: #### 8 [id number] #### [facility] [address] [place] [address], [facility] CK.MB mass conc 2.1 ng/mL Critically high 0.0-1.9 [facility] Comment on above: Performed By: #### 8 [id number] #### [facility] [address] [place] [address], [facility] CK.MB mass conc 3.8 ng/mL Normal 0.0-5.0 [facility] Comment on above: Result Comment: IF T OTAL CK <200 U/L AND: 1. CKMB IS 5-10 NG/ML----BORDERLINE 2. CKMB IS >10 NG/ML----INDIC[place]IVE OF [place] OR IF TOTAL CK >200 U/L AND CKMB INDEX >1.9----[place] Performed By: #### 8 [id number] #### [facility] [address] MAGNESIUM BLOODon 12-05-2017 Magnesium mass conc 2.1 mg/dL Normal 1.9-2.7 [facility] Comment on above: Order Comment: Unkno wn Performed By: #### 8 [id number] #### [facility] [address] Operative Reporton 8 Operative Report MR#: [id number] I [facility] Pt. Name: Kristofer Fabian Room #: [id number] Discharge Date: Birthdate: 1945 OPERATIVE REPORT DATE [...] Peters MD Date Trans: 12/05/2017 08:48 P/mmo [id number] cc: Herman Peters MD [address] [facility] [facility] [address] Taryn Coley M.D. [address] [facility]. Bldg. B [facility] [address] Normal [facility] POC GLUCOSE LABon 12-05-2017 Glucose mass conc 144 mg/dL High 70-100 [facility] Comment on above: Performed By: #### 8 [id number] ####[facility] [place] [address], [facility] Glucose mass conc 132 mg/dL High 70-100 [facility] Comment on above: Performed By: #### 8 5499 ####[facility] [place] [address], [facility] Glucose mass conc 139 mg/dL High 70-100 [facility] Comment on above: Performed By: #### 8 5499 #### [facility] [address] [facility] [place] [place] [address], [facility] Glucose mass conc 152 mg/dL High 70-100 [facility] Comment on above: Performed By: #### 8 [id number] #### [facility] [address] [facility] [place] [address], [facility] PORTABLE ABDOMENon 8 PORTABLE ABDOMEN [facility] Department of Radiology [address] [place] [id number] ===== Patient Name: KRISTOFER FABIAN : 1945 Sex: M Age: Race: White Pt. Location: [address] [place] [address] Patient Status: I Ordered Date: 12/05/2017 10:00:00 AM Completed Date: 12/05/2017 11:04 AM Requesting Provider: IRENE BENITEZ Attending Provider: HERMAN PETERS Report Copy To: Signs & Symptoms: Distention History: Patient history not available Comments: R/O Ileus Exam: PORTABLE ABDOMEN ===== PORTABLE ABDOMEN 12/05/2017 11:04 AM EDT SIGNS [...] considered pseudoobstruction or Angie's syndrome. Electronically signed by:Donnell Collado. Transcribed by: [email or web address], User Resident: Electronically Signed by: DONNELL COLLADO @ 12/05/2017 03:22 PM Normal [facility] Comment on above: Order Comment: R/O I leus POTASSIUM BLOODon 12-05-2017 Potassium molar conc 3.8 mmol/L Normal 3.5-5.1 [facility] Comment on above: Order Comment: No: D o not add to previous draw Performed By: #### 4 1406 ####[facility] [place] [address], [facility] TROPONIN-Ion 12-05-2017 Troponin I.cardiac mass conc 0.41 ng/mL High 0.00-0.04 [facility] Comment on above: Result Comment: REFE RENCE RANGES: 0.00 - 0.04 ng/ml NORMAL 0.05 - 0.50 ng/ml INDETERMINATE > 0.50 ng/ml CONSISTENT WITH AN M.I. Performed By: #### 8 [id number] #### [facility] [address] [place] [address], [facility] POC GLUCOSE LABon 12-04-2017 Glucose mass conc 164 mg/dL High 70-100 [facility] Comment on above: Performed By: #### 8 [id number] #### [facility] [address] [place] [address], [facility] Glucose mass conc 173 mg/dL High 70-100 [facility] Comment on above: Performed By: #### 8 [id number] #### [facility] [address] [facility] [address], [facility] Glucose mass conc 148 mg/dL High 70-100 [facility] Comment on above: Performed By: #### 8 [id number] #### [facility] [address] ARTERIAL BLOOD GAS WITH ICAo n 12-03-2017 BASE EXCESS -3 mmol/L Low -2-2 [facility] Comment on above: Performed By: #### 3 1302 #### [facility] [address] [facility] [place] [address], [facility] [employer] [place] Normal [facility] Comment on above: Performed By: #### 3 1302 #### [facility] [address] [place] [address], [facility] HCO3 molar conc (Bld) 22 mmol/L Low 23-27 [facility] Comment on above: Performed By: #### 3 1302 #### [facility] [address] IONIZED CALCIUM 1.24 mmol/L Normal 1.13-1.[address] [facility] Comment on above: Performed By: #### 3 1302 #### [facility] [address] [facility]. [address] LPM 3.0 LPM Normal 0.5-20.0 [facility] Comment on above: Performed By: #### 3 1302 #### [facility] [address] [facility]. [address] Oxygen ppres (Bld) 121 mm[Hg] Critically high 75-100 T [facility] Comment on above: Performed By: #### 3 1302 #### [facility] [address] Oxygen saturation in Blood 96.5 % Normal 94.0-97.0 [facility] Comment on above: Performed By: #### 3 1302 #### [facility] [address] PCO2 38 mmHg Normal 35-45 [facility] Comment on above: Performed By: #### 3 1302 #### [facility] [address] pH (Bld) 7.37 [pH] Normal 7.35-7.45 [facility] Comment on above: Performed By: #### 3 1302 #### [facility] [address] BASIC METABOLIC PANELon 11-10 Calcium mass conc 9.0 mg/dL Normal 8.6-10.3 [facility] Comment on above: Order Comment: , , = ========= , Ordering Provider - VENESSA WHITE [employer] SAL[employer] WORKER, S , Performed By: #### 0 1, , [id number] ####[facility] [place] [address], [facility] Chloride molar conc 105 mmol/L Normal 98-107 [facility] Comment on above: Order Comment: , , = ========= , Ordering Adia WHITE [employer] SAL[employer] WORKER, S , Performed By: #### 0 70, , [id number] ####[facility] [facility] [place] [address], [facility] CO2 molar conc 24 mmol/L Normal 21-31 [facility] Comment on above: Order Comment: , , = ========= , Ordering Adia WHITE [employer] WORKER, S , Performed By: #### 0 70, , [id number] ####[facility] [facility] [place] [address], [facility] Creatinine mass conc 1.42 mg/dL High 0.70-1.30 [facility] [place] Comment on above: Order Comment: , , = ========= , Ordering Adia WHITE [employer] SAL[employer] WORKER, S , Performed By: #### 0 70, , 84193 ####[facility] [place] [address], [facility] GFR/1.73 sq M predicted among blacks MDRD vol rate/area (S/P/Bld) 59 ml/min/1.73sq m Abnormal >60 [facility] Comment on above: Order Comment: , , = ========= , Ordering Adia WHITE [employer] WORKER, S , Result Comment: Calc ulation may not be valid for patients over 70 years Performed By: #### 0 70, , 57323 ####[facility] [place] [address], [facility] GFR/1.73 sq M predicted among non-blacks MDRD vol rate/area (S/P/Bld) 49 ml/min/1.73sq m Abnormal >60 [facility] Comment on above: Order Comment: , , = ========= , Ordering dAia WHITE DELIV[employer] SAL[employer] WORKER, S , Result Comment: Calc ulation may not be valid for patients over 70 years Performed By: #### 0 70, , [address] ####[address] [facility] [place] [address], [facility] Glucose mass conc 115 mg/dL High 70-100 [facility] Comment on above: Order Comment: , , = ========= , Ordering Adia WHITE [employer] WORKER, S , Performed By: #### 0 70, , 31424 ####[address] [facility] [place] [address], [facility] Potassium molar conc 4.3 mmol/L Normal 3.5-5.1 [facility] Comment on above: Order Comment: , , = ========= , Ordering Adia WHITE [employer] SAL[employer] WORKER, S , Performed By: #### 0 70, , 96960 ####[address] [facility] [place] [address], [facility] Sodium molar conc 134 mmol/L Low 136-145 [facility] Comment on above: Order Comment: , , = ========= , Ordering Adia WHITE [employer] WORKER, S , Performed By: #### 0 70, , 91098 ####[facility] Urea nitrogen mass conc 23 mg/dL Normal 7-25 [facility] Comment on above: Order Comment: , , = ========= , Ordering Adia - VENESSA WHITE [employer] SAL[employer] WORKER, S , Performed By: #### 0 0071, 68769, 61178 ####[facility] CBC COMPLETE BLOOD COUNTon 0 12-03-2017 Erythrocyte distribution width Ratio (RBC) 13.0 % Normal 11.5-15.0 [facility] Comment on above: Order Comment: , , = ========= , Ordering Adia - VENESSA WHITE [employer] SAL[employer] WORKER, S , Performed By: #### 5 0608 ####[place] [address] Hematocrit Volume Fraction (Bld) 34.0 % Low 39.0-50.0 [facility] Comment on above: Order Comment: , , = ========= , Ordering Adia - VENESSA WHITE [employer] SAL[employer] WORKER, S , Performed By: #### 5 0608 ####[place] [address] Hemoglobin mass conc (Bld) 11.7 g/dL Low 13.0-17.0 [facility] Comment on above: Order Comment: , , = ========= , Ordering Adia - VENESSA WHITE [employer] SAL[employer] WORKER, S , Performed By: #### 5 0608 ####[address] MCH Entitic mass (RBC) 28.3 pg Normal 27.0-33.0 [facility] Comment on above: Order Comment: , , = ========= , Ordering Adia - VENESSA WHITE DELIV[employer] SALES WORKER, S , Performed By: #### 5 0608 ####[place] [address] MCHC mass conc (RBC) 34.4 g/dL Normal 32.0-35.0 [facility] Comment on above: Order Comment: , , = ========= , Ordering Provider - VENESSA WHITE [employer]IV[employer] SAL[employer] WORKER, S , Performed By: #### 5 0608 ####[address] MCV Entitic volume (RBC) 82.3 fL Normal 82.0-98.0 [facility] Comment on above: Order Comment: , , = ========= , Ordering Provider - VENESSA WHITE DELIV[employer] SAL[employer] WORKER, S , Performed By: #### 5 0608 ####[address] Nucleated RBC/100 WBC Ratio (Bld) 0 % Normal 0-0 [facility] Comment on above: Order Comment: , , = ========= , Ordering Provider - VENESSA WHITE DELIV[employer] SALES WORKER, S , Performed By: #### 5 0608 ####[address] PLAT CNT 184 10*3/uL Normal 150-400 [facility] Comment on above: Order Comment: , , = ========= , Ordering Provider - VENESSA WHITE [employer]IV[employer] SAL[employer] WORKER, S , Performed By: #### 5 0608 ####[address] RBC #/vol (Bld) 4.13 10*6/uL Low 4.20-5.70 [facility] Comment on above: Order Comment: , , = ========= , Ordering Provider - VENESSA WHITE DELIV[employer] SALES WORKER, S , Performed By: #### 5 0608 ####[facility] WBC #/vol (Bld) 15.96 10*3/uL High 4.00-10.60 [facility] Comment on above: Order Comment: , , = ========= , Ordering Provider - VENESSA WHITE DELIV[employer] SALES WORKER, S , Performed By: #### 5 0608 ####[facility] CPK-MB PROFILEon 12-03-2017 CK enzyme act/vol 228 U/L High 30-223 [facility] Comment on above: Order Comment: post op day 1No: Do not add to previous draw Performed By: #### 3 1302 #### [facility] [address] CK.MB mass conc 8.9 ng/mL Critically high 0.0-1.9 [facility] Comment on above: Order Comment: post op day 1No: Do not add to previous draw Result Comment: M-CR ITICAL RESULT(S) REVIEWED, CALLED TO AND READ BACK BY MARGARETTE RODRIGUEZ RN @ 0542 Performed By: #### 3 1302 #### [facility] [address] CK.MB mass conc 20.2 ng/mL High 0.0-5.0 [facility] Comment on above: Order Comment: post op day 1No: Do not add to previous draw Result Comment: M-CR ITICAL RESULT(S) REVIEWED, CALLED TO AND READ BACK BY CRITICAL RESULT(S) REVIEWED, CALLED TO AND READ BACK BY MARGARETTE RODRIGUEZ RN @ 0542 IF TOTAL CK <200 U/L AND: 1. CKMB IS 5-10 NG/ML----BORDERLINE 2. CKMB IS >10 NG/ML----INDIC[place]IVE OF [place] OR IF TOTAL CK >200 U/L AND CKMB INDEX >1.9----INDIC[place] OF [place] Performed By: #### 3 1302 #### [facility] [address] [place] [address], [place] MAGNESIUM BLOODon 12-03-2017 Magnesium mass conc 2.3 mg/dL Normal 1.9-2.7 [facility] Comment on above: Order Comment: , , = ========= , Ordering Provider - VENESSA WHITE DELIV[employer] SALES WORKER, S , Performed By: #### 0 0071, 85496, 15554 ####[facility] [facility] [place] [address], [facility] POC GLUCOSE LABon 12-03-2017 Glucose mass conc 139 mg/dL High 70-100 [facility] Comment on above: Performed By: #### 3 1302 #### [facility] [address] [place] [address], [place] Glucose mass conc 145 mg/dL High 70-100 [facility] Comment on above: Performed By: #### 3 1302 #### [facility] [address] [facility] [place] [address], [place] Glucose mass conc 126 mg/dL High 70-100 [facility] Comment on above: Performed By: #### 3 1302 #### [facility] [address] [place] [address], [place] Glucose mass conc 116 mg/dL High 70-100 [facility] Comment on above: Performed By: #### 3 1302 #### [facility] [address] [place] [address], [place] Glucose mass conc 128 mg/dL High 70-100 [facility] Comment on above: Performed By: #### 3 1302 #### [facility] [address] [facility] [place] [address], [place] Glucose mass conc 119 mg/dL High 70-100 [facility] Comment on above: Performed By: #### 3 1302 #### [facility] [address] [place] [address], [place] Glucose mass conc 129 mg/dL High 70-100 [facility] Comment on above: Performed By: #### 8 5499 ####[facility] [facility] [place] [address], [place] Glucose mass conc 116 mg/dL High 70-100 [facility] Comment on above: Performed By: #### 8 5499 ####[facility] [facility] [place] [address], [place] Glucose mass conc 116 mg/dL High 70-100 [facility] Comment on above: Performed By: #### 8 5499 ####[facility] [facility] [place] [address], [place] Glucose mass conc 116 mg/dL High 70-100 [facility] Comment on above: Performed By: #### 8 5499 ####[facility] [facility] [place] [address], [place] Glucose mass conc 144 mg/dL High 70-100 [facility] Comment on above: Performed By: #### 8 5499 ####[facility] [facility] [place] [address], [place] Glucose mass conc 147 mg/dL High 70-100 [facility] Comment on above: Performed By: #### 8 5499 ####[facility] [facility] [place] [address], [place] PORTABLE CHEST 1 VIEWon 11-10 PORTABLE CHEST 1 VIEW [facility] Department of Radiology [address] [place] [id number] ===== Patient Name: KRISTOFER FABIAN : 1945 Sex: M Age: Race: White Pt. Location: [id number] Patient Status: I Ordered Date: 12/03/2017 9:30:00 AM Completed Date: 12/03/2017 10:06 AM Requesting Provider: HERMAN PETERS Attending Provider: HERMAN PETERS Report Copy To: Signs & Symptoms: CABG History: Patient history not available Comments: R/O Atelectasis, Post op day 1 CABG Exam: PORTABLE CHEST 1 VIEW ===== PORTABLE CHEST 1 VIEW 12/03/2017 10:06 AM [...] Bibasilar airspace opacities likely representing atelectasis. Approved by:Juan Luis Reyes on 12/03/2017 1:25 PM EDT. I, Shaw Dent, have reviewed the images and report and concur with these findings. Electronically signed by:Shaw Dent. Transcribed by: [email or web address], User Resident: JUAN LUIS REYES Electronically Signed by: SHAW DENT @ 12/03/2017 02:01 PM I personally read this/these film(s) with this resident Normal [facility] Comment on above: Order Comment: R/O A telectasis, Post op day 1 CABG PROTHROMBIN TIMEon 8 INR Coag RelTime (PPP) 1.14 {INR} Normal 0.91-1.16 [facility] Comment on above: Order Comment: [...] CHEST 1995;[id number]. Performed By: #### 5 [id number] ####[facility] Prothrombin time (PT) Coag time (PPP) 14.6 s Normal 12.3-14.8 [facility] Comment on above: Order Comment: , , = ========= , Ordering Provider - VENESSA WHITE NP, S , Result Comment: ALL RESULTS MUST BE INTERPRETED WITH RESPECT TO BLOOD DRAWING ARTIFACT OR DILUTION ERROR OF ANTICOAGULANT AT THE TIME OF SAMPLING. Performed By: #### 5 [id number] ####[facility] [place] [address], [facility] ACTIVATED CLOTTING TIMEon ACTIVATED CLOTTING TIME 132 sec Normal 82-152 [facility] Comment on above: Performed By: #### 4 [id number] #### [facility] [address] [place] [address], [place] ACTIVATED CLOTTING TIME 508 sec High 82-152 [facility] Comment on above: Performed By: #### 6 2586 #### [facility] [address] [place] [address], [facility] ACTIVATED CLOTTING TIME 644 sec High 82-152 [facility] Comment on above: Performed By: #### 6 2586 #### [facility] [address] [place] [address], [facility] ACTIVATED CLOTTING TIME 479 sec High 82-152 [facility] Comment on above: Performed By: #### 6 2586 #### [facility] [address] [place] [address], [facility] ACTIVATED CLOTTING TIME 467 sec High 82-152 [facility] Comment on above: Performed By: #### 6 2586 #### [facility] [address] [place] [address], [facility] ACTIVATED CLOTTING TIME 138 sec Normal 82-152 [facility] Comment on above: Performed By: #### 6 2586 #### [facility] [address] [place] [address], [facility] APTTon 12-02-2017 aPTT Coag time (Bld) 36.5 s High 25.0-35.0 [facility] Comment on above: Result Comment: ALL [...] THIS PURPOSE. Performed By: #### 5 6101, [id number], [id number] #### [facility] [address] [place] [address], [facility] ARTERIAL BLOOD GAS WITH ICAo n 12-02-2017 BASE EXCESS -4 mmol/L Low -2-2 [facility] Comment on above: Performed By: #### 4 [id number] #### [facility] [address] [place] [address], [facility] DELIVERY SYSTEMS MV Normal [facility] Comment on above: Performed By: #### 4 [id number] #### [facility] [address] [place] [address], [facility] FIO2 40 % Normal 21-100 [facility] Comment on above: Performed By: #### 4 [id number] #### [facility] [address] [place] [address], [facility] HCO3 molar conc (Bld) 21 mmol/L Low 23-27 [facility] [place] Comment on above: Performed By: #### 4 [id number] #### [facility] [address] [place] [address], [facility] IONIZED CALCIUM 1.23 mmol/L Normal 1.13-1.32 [facility] Comment on above: Performed By: #### 4 [id number] #### [facility] [address] [place] [address], [facility] MIN VOLUME 11.3 Normal [facility] [place] Comment on above: Performed By: #### 4 [id number] #### [facility] [address] [place] [address], [facility] MODALITY CPAP Normal [facility] Comment on above: Performed By: #### 4 [id number] #### [facility] [address] [place] [address], [facility] Oxygen ppres (Bld) 106 mm[Hg] Critically high 75-100 [facility] Comment on above: Performed By: #### 4 6447 #### [facility] [address] [address], [facility] Oxygen saturation in Blood 95.0 % Normal 94.0-97.0 [facility] [place] Comment on above: Performed By: #### 4 [id number] #### [facility] [address] [place] [address], [facility] PCO2 38 mmHg Normal 35-45 [facility] Comment on above: Performed By: #### 4 6447 #### [facility] [address] [place] [address], [facility] PEEP 5.0 CMH20 Normal [facility] Comment on above: Performed By: #### 4 6428 #### [facility] [address] [place] [address], [facility] PF RATIO 265 mmHg Normal 50-400 [facility] Comment on above: Performed By: #### 4 6492 #### [facility] [address] [place] [address], [facility] pH (Bld) 7.35 [pH] Normal 7.35-7.45 [facility] Comment on above: Performed By: #### 4 6403 #### [facility] [address] [place] [address], [facility] PRESSURE SUPPORT [address] [facility] Comment on above: Performed By: #### 4 7503 #### [facility] [address] [place] [address], [facility] BASE EXCESS -5 mmol/L Low -2-2 [facility] Comment on above: Order Comment: on ar rival to CVU Performed By: #### 4 7827 #### [facility] [address] [place] [address], [facility] [employer] MV Normal [facility] Comment on above: Order Comment: on ar rival to CVU Performed By: #### 4 [id number] #### [facility] [address] [place] [address], [place] FIO2 50 % Normal 21-100 [facility] Comment on above: Order Comment: on ar rival to CVU Performed By: #### 4 [id number] #### [facility] [address] [place] [address], [place] HCO3 molar conc (Bld) 21 mmol/L Low 23-27 [facility] Comment on above: Order Comment: on ar rival to CVU Performed By: #### 4 6447 #### [facility] [address] [place] [address], [facility] IONIZED CALCIUM 1.26 mmol/L Normal 1.13-1.32 [facility] Comment on above: Order Comment: on ar rival to CVU Performed By: #### 4 6447 #### [facility] [address] [place] [address], [facility] MIN VOLUME 7.5 Normal [facility] Comment on above: Order Comment: on ar rival to CVU Performed By: #### 4 6447 #### [facility] [address] [place] [address], [facility] MODALITY SIMV Normal [facility] Comment on above: Order Comment: on ar rival to CVU Performed By: #### 4 [id number] #### [facility] [address] [place] [address], [place] Oxygen ppres (Bld) 113 mm[Hg] Critically high 75-100 [facility] Comment on above: Order Comment: on ar rival to CVU Performed By: #### 4 6447 #### [facility] [address] [place] [address], [facility] Oxygen saturation in Blood 95.0 % Normal 94.0-97.0 [facility] [place] Comment on above: Order Comment: on ar rival to CVU Performed By: #### 4 6447 #### [facility] [address] [place] [address], [place] PCO2 43 mmHg Normal 35-45 [facility] Comment on above: Order Comment: on ar rival to CVU Performed By: #### 4 6447 #### [facility] [address] [place] [address], [place] PEEP 5.0 CMH20 Normal [facility] Comment on above: Order Comment: on ar rival to CVU Performed By: #### 4 6447 #### [facility] [address] [place] [address], [place] PF RATIO 226 mmHg Normal 50-400 [facility] Comment on above: Order Comment: on ar rival to CVU Performed By: #### 4 6447 #### [facility] [address] [place] [address], [place] pH (Bld) 7.30 [pH] Low 7.35-7.45 [facility] Comment on above: Order Comment: on ar rival to CVU Performed By: #### 4 6447 #### [facility] [address] [place] [address], [place] PRESSURE SUPPORT [address] [facility] Comment on above: Order Comment: on ar rival to CVU Performed By: #### 4 6447 #### [facility] [address] [place] [address], [place] TIDAL VOLUME (VT) CC 500 Normal [facility] [place] Comment on above: Order Comment: on ar rival to CVU Performed By: #### 4 6447 #### [facility] [address] [place] [address], [place] BASIC METABOLIC PANELon 08-2 Calcium mass conc 7.7 mg/dL Low 8.6-10.3 [facility] Comment on above: Performed By: #### 4 6447 #### [facility] [address] [place] [address], [facility] Chloride molar conc 105 mmol/L Normal 98-107 [facility] Comment on above: Performed By: #### 4 6447 #### [facility] [address] [place] [address], [facility] CO2 molar conc 23 mmol/L Normal 21-31 [facility] Comment on above: Performed By: #### 4 6461 #### [facility] [address] [place] [address], [facility] Creatinine mass conc 1.45 mg/dL High 0.70-1.30 [facility] Comment on above: Performed By: #### 4 6447 #### [facility] [address] [place] [address], [facility] GFR/1.73 sq M predicted among blacks MDRD vol rate/area (S/P/Bld) 58 ml/min/1.73sq m Abnormal >60 [facility] Comment on above: Result Comment: Calc ulation may not be valid for patients over 70 years Performed By: #### 4 6403 #### [facility] [address] [place] [address], [facility] GFR/1.73 sq M predicted among non-blacks MDRD vol rate/area (S/P/Bld) 48 ml/min/1.73sq m Abnormal >60 [facility] Comment on above: Result Comment: Calc ulation may not be valid for patients over 70 years Performed By: #### 4 1713 #### [facility] [address] [place] [address], [facility] Glucose mass conc 139 mg/dL High 70-100 [facility] Comment on above: Performed By: #### 4 8108 #### [facility] [address] [place] [address], [facility] Potassium molar conc 4.6 mmol/L Normal 3.5-5.1 [facility] Comment on above: Performed By: #### 4 6447 #### [facility] [address] [place] [address], [facility] Sodium molar conc 135 mmol/L Low 136-145 [facility] Comment on above: Performed By: #### 4 6447 #### [facility] [address] [place] [address], [facility] Urea nitrogen mass conc 23 mg/dL Normal 7-25 [facility] Comment on above: Performed By: #### 4 6447 #### [facility] [address] [facility] [place] [place], [place] [id number] [place] [address] CBC COMPLETE BLOOD COUNTon 12-02-2017 Erythrocyte distribution width Ratio (RBC) 12.8 % Normal 11.5-15.0 [facility] Comment on above: Performed By: #### 4 6447 #### [facility] [address] [facility] [place] [address], [facility] Hematocrit Volume Fraction (Bld) 33.3 % Low 39.0-50.0 [facility] Comment on above: Performed By: #### 4 6447 #### [facility] [address] [place] [address], [facility] Hemoglobin mass conc (Bld) 11.4 g/dL Low 13.0-17.0 [facility] Comment on above: Performed By: #### 4 6447 #### [facility] [address] [place] [address], [facility] MCH Entitic mass (RBC) 28.1 pg Normal 27.0-33.0 [facility] Comment on above: Performed By: #### 4 6483 #### [facility] [address] [place], [place] [address] [place] [address] MCHC mass conc (RBC) 34.2 g/dL Normal 32.0-35.0 [facility] Comment on above: Performed By: #### 4 6447 #### [facility] [address] [facility] [place] [address] MCV Entitic volume (RBC) 82.2 fL Normal 82.0-98.0 [facility] Comment on above: Performed By: #### 4 6447 #### [facility] [address] [facility] [place] [address] Nucleated RBC/100 WBC Ratio (Bld) 0 % Normal 0-0 [facility] Comment on above: Performed By: #### 4 [id number] #### [facility] [address] [facility] [place] [address], [facility] PLAT CNT 141 10*3/uL Low 150-400 [facility] Comment on above: Performed By: #### 4 6447 #### [facility] [address] [facility] [place] [address] RBC #/vol (Bld) 4.05 10*6/uL Low 4.20-5.70 [facility] Comment on above: Performed By: #### 4 6447 #### [facility] [address] [facility] [place] [address], [facility] WBC #/vol (Bld) 20.03 10*3/uL High 4.00-10.60 [facility]: Performed By: #### 4 6447 #### [facility] [address] [facility] [place] [address], [facility] FIBRINOGENon 12-02-2017 FIBRINOGEN 294 mg/dL Normal 150-425 [facility] Comment on above: Performed By: #### 6 2586 #### [facility] [address] [place] [address], [facility] MAGNESIUM BLOODon 12-02-2017 Magnesium mass conc 2.7 mg/dL Normal 1.9-2.7 [facility] Comment on above: Performed By: #### 4 6447 #### [facility] [address] [place] [address], [facility] PERFUSION BLOOD PANELon 11-10 BASE EXCESS 0.0 mmol/L Normal -2.0-3.0 [facility] Comment on above: Performed By: #### 4 6447 #### [facility] [address] [place] [address], [facility] Glucose mass conc 109 mg/dL High 70-105 [facility] Comment on above: Performed By: #### 4 [id number] #### [facility] [address] [place] [address], [facility] Hematocrit Volume Fraction (Bld) 28 % Low 38-51 [facility] Comment on above: Performed By: #### 4 [id number] #### [facility] [address] [place] [address], [facility] Hemoglobin mass conc (Bld) 9.5 g/dL Low 12.0-17.0 [facility] Comment on above: Performed By: #### 4 6447 #### [facility] [address] [place] [address], [facility] IONIZED CALCIUM 1.14 mmol/L Normal 1.12-1.32 [facility] Comment on above: Performed By: #### 4 6447 #### [facility] [address] [place] [address], [facility] Oxygen ppres (Bld) 238.0 mm[Hg] High 80.0-105.0 [facility] Comment on above: Performed By: #### 4 6445 #### [facility] [address] [place] [address], [facility] PCO2 41.3 mmHg Normal 35.0-45.0 [facility] Comment on above: Performed By: #### 4 5187 #### [facility] [address] [place] [address], [facility] pH (Bld) 7.39 [pH] Normal 7.35-7.45 [facility] Comment on above: Performed By: #### 4 6447 #### [facility] [address] [place] [address], [facility] Potassium molar conc 4.7 mmol/L Normal 3.5-4.9 [facility] Comment on above: Performed By: #### 4 6447 #### [facility] [address] [place] [address], [facility] Sodium molar conc 136 mmol/L Low 138-146 [facility] Comment on above: Performed By: #### 4 6487 #### [facility] [address] [place] [address], [facility] BASE EXCESS -1.0 mmol/L Normal -2.0-3.0 The [facility] Comment on above: Performed By: #### 4 6447 #### [facility] [address] [place] [address], [facility] Glucose mass conc 112 mg/dL High 70-105 [facility] Comment on above: Performed By: #### 4 6459 #### [facility] [address] [place] [address], [facility] Hematocrit Volume Fraction (Bld) 27 % Low 38-51 [facility] Comment on above: Performed By: #### 4 6447 #### [facility] [address] [place] [address], [facility] Hemoglobin mass conc (Bld) 9.2 g/dL Low 12.0-17.0 [facility] Comment on above: Performed By: #### 4 6442 #### [facility] [address] [place] [address], [facility] IONIZED CALCIUM 0.94 mmol/L Low 1.12-1.32 [facility] Comment on above: Performed By: #### 4 6447 #### [facility] [address] [place] [address], [facility] Oxygen ppres (Bld) 299.0 mm[Hg] High 80.0-105.0 [facility] Comment on above: Performed By: #### 4 6447 #### [facility] [address] [facility] [place] [address], [facility] PCO2 31.5 mmHg Low 35.0-45.0 [facility] Comment on above: Performed By: #### 4 6447 #### [facility] [address] [facility]. [address] pH (Bld) 7.47 [pH] High 7.35-7.45 [facility] Comment on above: Performed By: #### 4 6447 #### [facility] [address] [facility]. [address] Potassium molar conc 4.9 mmol/L Normal 3.5-4.9 [facility] Comment on above: Performed By: #### 4 6447 #### [facility] [address] [facility] [place] [address], [facility] Sodium molar conc 134 mmol/L Low 138-146 [facility] Comment on above: Performed By: #### 4 6447 #### [facility] [address] [place] [address], [facility] BASE EXCESS 2.0 mmol/L Normal -2.0-3.0 [facility] Comment on above: Performed By: #### 6 2586 #### [facility] [address] [facility] [place] [address], [facility] Glucose mass conc 121 mg/dL High 70-105 [facility] Comment on above: Performed By: #### 6 2586 #### [facility] [address] [place] [address], [facility] Hematocrit Volume Fraction (Bld) 28 % Low 38-51 [facility] Comment on above: Performed By: #### 6 2586 #### [facility] [address] [place] [address], [facility] Hemoglobin mass conc (Bld) 9.5 g/dL Low 12.0-17.0 [facility] Comment on above: Performed By: #### 6 2586 #### [facility] [address] [place] [address], [facility] IONIZED CALCIUM 1.01 mmol/L Low 1.12-1.32 [facility] Comment on above: Performed By: #### 6 2586 #### [facility] [address] [place] [address], [facility] Oxygen ppres (Bld) 299.0 mm[Hg] High 80.0-105.0 [facility] Comment on above: Performed By: #### 6 2586 #### [facility] [address] [facility] [place] [address], [facility] PCO2 37.3 mmHg Normal 35.0-45.0 [facility] Comment on above: Performed By: #### 6 2586 #### [facility] [address] [place] [address], [facility] pH (Bld) 7.45 [pH] Normal 7.35-7.45 [facility] Comment on above: Performed By: #### 6 2586 #### [facility] [address] [place] [address], [facility] Potassium molar conc 4.6 mmol/L Normal 3.5-4.9 [facility] Comment on above: Performed By: #### 6 2586 #### [facility] [address] [place] [address], [facility] Sodium molar conc 134 mmol/L Low 138-146 [facility] Comment on above: Performed By: #### 6 2586 #### [facility] [address] [place] [address], [facility] BASE EXCESS 1.0 mmol/L Normal -2.0-3.0 [facility] Comment on above: Performed By: #### 6 2586 #### [facility] [address] [place] [address], [facility] Glucose mass conc 110 mg/dL High 70-105 [facility] Comment on above: Performed By: #### 6 2586 #### [facility] [address] [place] [address], [facility] Hematocrit Volume Fraction (Bld) 31 % Low 38-51 [facility] Comment on above: Performed By: #### 6 2586 #### [facility] [address] [place] [address], [facility] Hemoglobin mass conc (Bld) 10.5 g/dL Low 12.0-17.0 [facility] Comment on above: Performed By: #### 6 2586 #### [facility] [address] [place] [address], [facility] IONIZED CALCIUM 1.01 mmol/L Low 1.12-1.[address] [facility] Comment on above: Performed By: #### 6 2586 #### [facility] [address] [place] [address], [facility] Oxygen ppres (Bld) 334.0 mm[Hg] High 80.0-105.0 [facility] Comment on above: Performed By: #### 6 2586 #### [facility] [address] [place] [address], [facility] PCO2 36.3 mmHg Normal 35.0-45.0 [facility] Comment on above: Performed By: #### 6 2586 #### [facility] [address] [place] [address], [facility] pH (Bld) 7.45 [pH] Normal 7.35-7.45 [facility] Comment on above: Performed By: #### 6 2586 #### [facility] [address] [place] [address], [facility] Potassium molar conc 4.6 mmol/L Normal 3.5-4.9 [facility] Comment on above: Performed By: #### 6 [id number] #### [facility] [address] [place] [address], [facility] Sodium molar conc 135 mmol/L Low 138-146 [facility] Comment on above: Performed By: #### 6 [id number] #### [facility] [address] [place] [address], [facility] BASE EXCESS -1.0 mmol/L Normal -2.0-3.0 The [facility] Comment on above: Performed By: #### 6 [id number] #### [facility] [address] [place] [address], [facility] Glucose mass conc 97 mg/dL Normal 70-105 [facility] Comment on above: Performed By: #### 6 [id number] #### [facility] [address] [place] [address], [facility] Hematocrit Volume Fraction (Bld) 36 % Low 38-51 [facility] Comment on above: Performed By: #### 6 [id number] #### [facility] [address] [place] [address], [facility] Hemoglobin mass conc (Bld) 12.2 g/dL Normal 12.0-17.0 [facility] Comment on above: Performed By: #### 6 [id number] #### [facility] [address] [place] [address], [place] IONIZED CALCIUM 1.10 mmol/L Low 1.12-1.32 The [facility] Comment on above: Performed By: #### 6 [id number] #### [facility] [address] [place] [address], [facility] Oxygen ppres (Bld) 396.0 mm[Hg] High 80.0-105.0 [facility] Comment on above: Performed By: #### 6 2586 #### [facility] [address] [place] [address], [facility] PCO2 46.9 mmHg High 35.0-45.0 [facility] Comment on above: Performed By: #### 6 2586 #### [facility] [address] [place] [address], [facility] pH (Bld) 7.34 [pH] Low 7.35-7.45 [facility] Comment on above: Performed By: #### 6 2586 #### [facility] [address] [place] [address], [facility] Potassium molar conc 3.9 mmol/L Normal 3.5-4.9 [facility] Comment on above: Performed By: #### 6 2586 #### [facility] [address] [place] [address], [facility] Sodium molar conc 140 mmol/L Normal 138-146 [facility] Comment on above: Performed By: #### 6 [id number] #### [facility] [address] [place] [address], [facility] BASE EXCESS 0.0 mmol/L Normal -2.0-3.0 [facility] Comment on above: Performed By: #### 6 2586 #### [facility] [address] [place] [address], [facility] Glucose mass conc 100 mg/dL Normal 70-105 [facility] Comment on above: Performed By: #### 6 2586 #### [facility] [address] [place] [address], [facility] Hematocrit Volume Fraction (Bld) 43 % Normal 38-51 [facility] Comment on above: Performed By: #### 6 2586 #### [facility] [address] [place] [address], [facility] Hemoglobin mass conc (Bld) 14.6 g/dL Normal 12.0-17.0 [facility] Comment on above: Performed By: #### 6 2586 #### [facility] [address] [place] [address], [facility] IONIZED CALCIUM 1.18 mmol/L Normal 1.12-1.32 [facility] Comment on above: Performed By: #### 6 2586 #### [facility] [address] [place] [address], [facility] Oxygen ppres (Bld) 89.0 mm[Hg] Normal 80.0-105.0 The [facility] Comment on above: Performed By: #### 6 2586 #### [facility] [address] [place] [address], [facility] PCO2 35.7 mmHg Normal 35.0-45.0 [facility] Comment on above: Performed By: #### 6 2586 #### [facility] [address] [place] [address], [facility] pH (Bld) 7.43 [pH] Normal 7.35-7.45 [facility] Comment on above: Performed By: #### 6 2586 #### [facility] [address] [place] [address], [facility] Potassium molar conc 4.2 mmol/L Normal 3.5-4.9 [facility] Comment on above: Performed By: #### 6 2586 #### [facility] [address] [place] [address], [place] Sodium molar conc 138 mmol/L Normal 138-146 [facility] Comment on above: Performed By: #### 6 2586 #### [facility] [address] [facility] [place] [address], [facility] POC GLUCOSE LABon 12-02-2017 Glucose mass conc 147 mg/dL High 70-100 [facility] Comment on above: Performed By: #### 4 6447 #### [facility] [address] [facility] [place] [address], [facility] Glucose mass conc 145 mg/dL High 70-100 [facility] Comment on above: Performed By: #### 4 6447 #### [facility] [address] [facility] [place] [address], [facility] Glucose mass conc 128 mg/dL High 70-100 [facility] Comment on above: Performed By: #### 8 5499 ####[facility] [facility] [place] [address], [facility] Glucose mass conc 113 mg/dL High 70-100 [facility] Comment on above: Performed By: #### 8 5499 #### [facility] [address] [facility] [place] [place] [address], [facility] PORTABLE CHEST 1 VIEWon 11-10 PORTABLE CHEST 1 VIEW [facility] Department of Radiology [address] [place] [id number] ===== Patient Name: KRISTOFER FABIAN : 1945 Sex: M Age: Race: White Pt. Location: OUTP Patient Status: I Ordered Date: 12/02/2017 6:10:00 PM Completed Date: 12/02/2017 07:11 PM Requesting Provider: HERMAN PETERS Attending Provider: HERMAN PETERS Report Copy To: Signs & Symptoms: Post CABG History: Patient history not available Comments: Check E.T. Position Exam: PORTABLE CHEST 1 VIEW ===== PORTABLE CHEST 1 VIEW 12/02/2017 7:11 PM [...] findings. Electronically signed by:Shaw Dent. Transcribed by: [email or web address], User Resident: ROBIN LENZ Electronically Signed by: SHAW DENT @ 12/03/2017 08:48 AM I personally read this/these film(s) with this resident Normal [facility] Comment on above: Order Comment: Check E.T. Position PROTHROMBIN TIMEon 8 INR Coag RelTime (PPP) 1.38 {INR} High 0.91-1.16 [facility] Comment on above: Result Comment: ACC P RECOMMENDED INR FOR WARFARIN THERAPY ------ [...] CHEST 1995;108:[id number]-246S. Performed By: #### 5 6101, [id number], [address] #### [facility] [address] Prothrombin time (PT) Coag time (PPP) 17.0 s High 12.3-14.8 [facility] Comment on above: Result Comment: ALL RESULTS MUST BE INTERPRETED WITH RESPECT TO BLOOD DRAWING ARTIFACT OR DILUTION ERROR OF ANTICOAGULANT AT THE TIME OF SAMPLING. Performed By: #### 5 6101, 95145, [address] #### [facility] [address] TYPE AND CROSSMATCHon 2017 ABO INTERPRETATION B Normal [facility] Comment on above: Performed By: #### 6 2594 #### [facility] [address] [place] [address], [facility] RH INTERPRETATION Negative Normal [facility] Comment on above: Performed By: #### 6 2594 #### [facility] [address] [facility]. [address] Cardiovascular Lab Reporton 11-29-2017 Cardiovascular Lab Report [facility] Patient Name: Kristofer Fabian MR #: [id number] [facility] Physician: Ehab Eltahawy, M.D. Department of Service Date: 11/28/2017 Medicine Birthdate: 1945 Division of Room #: Cardiology Adult Cardiovascular Services [facility] [address] [place] [address] Cardiovascular Laboratory Report FINAL IMPRESSIONS: 1. 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 2. Chronic total occlusion of the [...] Coley as scheduled. 5. Follow up with ga in the [facility] in the next 2-4 weeks. PROCEDURES: Limited femoral angiography, bilateral selective coronary angiography, placement of a 6-Latvian MynxGrip closure device. METHODS: After risks, benefits, and alternatives were explained, written informed consent was obtained. The patient was prepped and draped in the usual sterile fashion over both groins. Using 1% lidocaine solution, local infiltration anesthesia was achieved. Using a modified Seldinger technique, access to the right common femoral artery was obtained. A 6-Latvian 11 cm sheath was inserted without difficulty. Baseline femoral arterial angiography was performed. Bilateral selective coronary angiography was then performed using JL4 and JR4 catheters. After reviewing the images, it was elected to conclude the procedure. A 6-Latvian MynxGrip closure device was deployed per protocol [...] small caliber AV groove branch. There are oykp-lz-iyred collaterals. Right coronary artery: This is a [...] Rashaun/Sotero Hugo M.D. Date Trans: 11/29/2017 03:52 Tori [id number] cc: Taryn Coley M.D. [address] [facility] [address] Normal [facility] *MRSA/MSSA CULTUREon 018 *MRSA/MSSA CULTURE Clinical Report: (D) Specimen: NASAL SWAB Collected: 11/28/2017 11:27 Status: Final Last Updated: 11/29/2017 10:02 ISO (Final) No Methicillin Resistant Staphylococcus aureus Isolated (MRSA) ISO (Final) No Methicillin Sensitive Staphylococcus aureus Isolated (MSSA) Normal [facility] Comment on above: Performed By: #### 3 1302 #### [place] [address] [address] CHEST AND LATERALon 11-29-19 18 CHEST AND LATERAL [facility] Department of Radiology [address] [place] [address] ===== Patient Name: KRISTOFER FABIAN : 1945 Sex: M Age: Race: White Pt. Location: Patient Status: O Ordered Date: 11/28/2017 12:50:00 PM Completed Date: 11/28/2017 12:59 PM Requesting Provider: VENESSA WHITE Attending Provider: SOTERO HUGO Report Copy To: TARYN COLEY Signs & Symptoms: I25.10 Athscl heart disease of [place] coronary artery w/o ang pctrs I10 History: [facility] Comments: , , , Ordering Provider - VENESSA WHITE NP, S , Exam: CHEST AND LATERAL ===== CHEST AND LATERAL 11/28/2017 12:59 PM EDT SIGNS AND SYMPTOMS: I25.10 Athscl heart disease of [place] coronary artery w/o ang pctrs I10 TECHNOLOGIST COMMENTS: Pre-op clearance. S/P cardiac cath rn procedure today QUESTION FOR THE RADIOLOGIST: , [...] JAMES on 11/28/2017 1:34 PM EDT. I, Donnell Collado, have reviewed the images and report and concur with these findings. Electronically signed by:Donnell Collado. Transcribed by: [email or web address], User Resident: ANAHI JAMES Electronically Signed by: DONNELL COLLADO @ 11/28/2017 02:39 PM I personally read this/these film(s) with this resident Normal [facility] Comment on above: Order Comment: , , = ========= , Ordering Provider - VENESSA WHITE DELIVERY SALES WORKER, S , HEMOGLOBIN A1Con 11-28-2017 Hemoglobin A1c/Hemoglobin.tota l mass fraction (Bld) 5.8 % Normal 4.0-6.0 [facility] Comment on above: Performed By: #### 4 6447 #### [facility] [address] Hemoglobin A1c/Hemoglobin.tota l mass fraction (Bld) 120 mg/dL Normal 70-126 [facility] Comment on above: Performed By: #### 4 6447 #### [facility] [address] [facility] [place] [address], [facility] LIVER BATTERYon 11-28-2017 Albumin mass conc 4.0 g/dL Normal 3.5-5.7 [facility] Comment on above: Performed By: #### 9 9909 #### [facility] [address] [place] [address], [facility] ALKALINE PHOSPH 51 IU/L Normal 34-104 The [facility] Comment on above: Performed By: #### 9 9909 #### [facility] [address] [facility]. [address] ALT enzyme act/vol 14 U/L Normal 7-52 The [facility] Comment on above: Performed By: #### 9 9909 #### [facility] [address] [place] [address], [place] AST enzyme act/vol 18 U/L Normal 13-39 [facility] Comment on above: Performed By: #### 9 9909 #### [facility] [address] [place] [address], [place] Bilirubin mass conc 0.5 mg/dL Normal 0.3-1.0 The [facility] Comment on above: Performed By: #### 9 9909 #### [facility] [address] [place] [address], [place] Bilirubin.direct mass conc 0.1 mg/dL Normal 0.0-0.2 [facility] Comment on above: Performed By: #### 9 9909 #### [facility] [address] [place] [address], [place] Protein mass conc 6.5 g/dL Normal 6.0-8.3 [facility] Comment on above: Performed By: #### 9 9909 #### [facility] [address] [place] [address], [place] TYPE AND SCREENon 11-28-2017 ABO INTERPRETATION B Normal The [facility] Comment on above: Performed By: #### 6 2586 #### [facility] [address] [place] [address], [place] RH INTERPRETATION Negative Normal [facility] Comment on above: Performed By: #### 6 2586 #### [facility] [address] [place] [address], [place] Vital Signs Date Time Vital Sign Value Performing Clinician Romeo lora 12-02-2017 21:32-0400 Respiratory rate 12 /min DEFAULT PHYSICIAN The [facility] Comment on above: Order Comment: on ar rival to CVU Performed By: #### 4 6447 #### [facility] [address] Encounters Encounter Date Encounter Type Care Provider Facility Start: 01-22-2025 End: 01-22-2025 ambulatory [facility] Start: 01-01-2025 ambulatory [facility] Start: 11-28-2024 ambulatory [facility] Start: 11-01-2024 ambulatory [facility] Start: 10-24-2024 ambulatory [facility] Start: 09-06-2024 ambulatory [facility] Start: 07-31-2024 End: 07-31-2024 ambulatory [facility] Start: 06-29-2024 ambulatory [facility] Start: 06-07-2024 End: 06-07-2024 ambulatory [facility] Start: 05-28-2024 ambulatory [facility] Start: 05-11-2024 Evaluation and management of inpatient [facility] Start: 05-10-2024 Evaluation and management of inpatient [facility] Start: 05-10-2024 ambulatory [facility] Start: 05-10-2024 End: 05-11-2024 Evaluation and management of inpatient [facility] Start: 04-24-2024 End: 04-24-2024 ambulatory [facility] Start: 04-16-2024 ambulatory [facility] Start: 04-16-2024 ambulatory [facility] Start: 04-09-2024 ambulatory [facility] Start: 04-05-2024 ambulatory [facility] Start: 03-20-2024 End: 03-20-2024 ambulatory [facility] Start: 03-19-2024 ambulatory [facility] Start: 02-27-2024 End: 02-27-2024 Emergency department patient visit Allison Brooks Facility:[facility] Start: 02-20-2024 ambulatory [facility] Start: 02-09-2024 ambulatory [facility] Start: 01-24-2018 End: 01-25-2018 Patient encounter procedure DEFAULT PHYSICIAN Facility:[facility] Start: 12-02-2017 End: 12-06-2017 Evaluation and management of inpatient HERMAN S FRAN Facility:[facility] Start: 11-28-2017 End: 11-29-2017 Patient encounter procedure EHAB A BOGDANPARISAMARIA DEL CARMEN Facility:[facility] Start: 11-22-2017 End: 11-23-2017 Patient encounter procedure DEFAULT PHYSICIAN Facility:[facility] Start: 11-21-2017 End: 11-22-2017 Patient encounter procedure DEFAULT PHYSICIAN Facility:[facility] Start: 11-16-2017 End: 11-17-2017 Patient encounter procedure DEFAULT PHYSICIAN Facility:[facility] Start: 11-16-2017 End: 11-17-2017 Patient encounter procedure DEFAULT PHYSICIAN Facility:[facility] Start: 11-04-2017 End: 11-05-2017 Patient encounter procedure DEFAULT PHYSICIAN Facility:[facility] Procedures Date Procedure Procedure Detail Performing Clinician Start: 12-02-2017 Antibody screen DEFAULT PHYSICIAN Comment on above: Performed By: #### 6 [id number] #### [address] Start: 12-02-2017 BYPASS 1 COR ART FRO M L INT MAMMARY, OPEN APPROACH HERMAN S FRAN Start: 12-02-2017 BYPASS 2 COR ART FRO M AORTA WITH AUTOL VN, OPEN APPROACH HERMAN S FRAN Start: 12-02-2017 EXCISION OF LEFT SAP HENOUS VEIN, PERC ENDO APPROACH HERMAN S FRAN Start: 12-02-2017 INSERT INFUSION DEV IN R INT JUGULAR VEIN, PERC ERA GILLIS Start: 12-02-2017 INSERTION OF MONITOR ING DEVICE INTO UP ART, PERC APPROACH ERA GILLIS Start: 12-02-2017 MEASURE OF ARTERIAL SATURATION, PERIPHERAL, PERC APPROACH HERMAN S FRAN Start: 12-02-2017 Performance of Cardi ac Output, Continuous HERMAN S FRAN Start: 12-02-2017 ULTRASONOGRAPHY OF R IGHT AND LEFT HEART, TRANSESOPHAGEAL ERA GILLIS Start: 12-02-2017 Ultrasonography of R ight Jugular Veins, Guidance ERA GILLIS Start: 11-28-2017 Antibody screen DEFAULT PHYSICIAN Comment on above: Performed By: #### 6 2586 #### [facility] [address] [place], [place] [id number] [place] [address] Payers Date Payer Category Payer Medicare [id number] 2012 Unknown [id number] 50 1946 Unknown [id number] 2.16.8 [id number] 1945 Unknown [id number] 2.16.8 [id number] 1945 Unknown [id number] 2.16.8 [id number] 1945 Unknown [id number] 2.16.8 [id number] 1945 Unknown [id number] 2.16.8 [id number] 1945 Unknown [id number] 2.16.8 [id number] 1945 Unknown [id number] 2.16.8 [id number] 1945 Unknown [id number] 2.16.8 [id number] 1945 Unknown [id number] 2.16.8 [id number] Medicare [id number] Unknown Unknown [id number] Clinical Notes 02-27-2024 to 01-22-2025 Note Date & Type Note Facility 01-22-2025 Note Cardiovascular Medic ine [facility] SUBJECTIVE Chief Complaint Patient presents with Follow-up [...] Bilateral edema which resolves with elevating legs. Kristofer Fabian is a 79 y.o. male here for [...] by Dr. Ray. Says his DAO is much better. Denies chest pain, palpitations, lightheadedness/syncope, and bleeding on Eliquis. 06/07/2024 He states he feels like he has more energy and is able to do more activities without getting SOB. He has mild leg swelling - this is stable. Denies c/o CP, dyspnea, orthopnea, PND, dizziness/LH, palpitations, syncope. 01/22/2025 He states he has been doing well since last seen. Dr. Ray referred him to [facility] after his last visit to further [...] Essential (primary) hypertension PAF (paroxysmal atrial fibrillation) (CMS/HCC) Encounter for therapeutic drug level monitoring alf (current) use of anticoagulants Paroxysmal A-fib (CMS/HCC) SVT (supraventricular tachycardia) PVC (premature ventricular contraction) Cardiomyopathy (CMS/HCC) Past Medical History: Diagnosis Date Abnormal ECG [...] kg (253 lb) SpO2 95% BMI 34.31 kg/m??? Smoking Status Former BSA 2.42 m??? Medications: Current Outpatient Medications: acetaminophen (Tylenol) 500 [...] (fluid retention wtih abdomional distention or leg swelling)., Disp: 30 [...] carvedilol (Coreg) 6.25 mg tablet, Take 1 t (more content not included)... [facility] 07-31-2024 Note [facility] Consult Note Reason for visit: SVT/PVC 07/31/24 Pt had PVC ablation on 05/10/24. PVC burden with limited frequency after anesthesia was instituted. The location was mapped to the inferoseptal aspect of the RV adjacent to tricuspid valve. Given the challenge of limited PVC, LOOP reveals PVC burden of 18%. 04/24/24 Patient here for H&P prior to afib ablation scheduled for 05/10/2024. However LOOP data reveals no AF but more PVC. He is symptomatic and likely from PVC and is short of breath likely from poor perfusion. SVT noted on LOOP on Feb 11, 2024 that lasted for 13s. EK04/24/24 SR with PVC in bigeminy. LBBB morphology andn +in I, AVL and neg in III with late transition suggestive of mid RV exit. 03/20/24 Doing very well, but tires easily. [...] data: HPI: Kristofer Fabian Sr. is a 79 y.o. year old with [...] loss) Hyperlipidemia Hypertension PVC (premature ventricular contraction) PSH: Past Surgical History: Procedure Laterality Date CARDIAC CATHETERIZATION CARDIAC SURGERY 06/13/2023 LOOP RECORDER- [employer] COMPLETE DENTURE CORONARY ARTERY BYPASS GRAFT TRIPLE BYPASS SH: Social Determinants of Health Tobacco Use: Medium Risk (07/31/2024) Patient History Smoking Tobacco Use: Former Smokeless Tobacco Use: Never Passive Exposure: Not on file Alcohol Use: Not on file Financial Resource Strain: Low Risk (05/10/2024) Overall Financial Resource Strain (CARDIA) Difficulty of Paying Living Expenses: Not hard at all Food Insecurity: No Food Insecurity (05/10/2024) Hunger Vital Sign Worried About Running Out of Food in the Last Year: Never true Ran Out of Food in the Last Year: Not on file Transportation Needs: No Transportation Needs (05/10/2024) Transportation Lack of Transportation (Medical): No Lack of Transportation (Non-Medical): Not on file Physical Activity: Not on file Stress: Not on file Social Connections: Not on file Intimate Partner Violence: Unknown (05/10/2024) Humiliation, A (more content not included)... [facility] 06-07-2024 Note Cardiovascular Medic ine [facility] SUBJECTIVE Chief Complaint Patient presents with PVC Hypertension Hyperlipidemia Kristofer Fabian Sr. is a 79 y.o. male here for follow-up. HPI PMHx: CAD s/p CABG in 2018, hypertension, A-fib, CKD Patient here for follow up PVC ablation performed on 05/10/[address] Ray. Says his DAO is much better. Denies chest pain, palpitations, lightheadedness/syncope, and bleeding on Eliquis. He states he feels like he has more energy and is able to do more activities without getting SOB. He has mild leg swelling - this is stable. Denies c/o CP, dyspnea, orthopnea, PND, dizziness/LH, palpitations, syncope. Patient Active Problem List Diagnosis Atrial fibrillation (CMS/HCC) Coronary arteriosclerosis Dyspnea on exertion Fatigue Age-related nuclear cataract, bilateral Hearing loss Sensorineural hearing loss, bilateral Visual impairment Encounter for fitting and adjustment of hearing aid Essential (primary) hypertension PAF (paroxysmal atrial fibrillation) (CMS/HCC) Encounter for therapeutic drug level monitoring emt intermediate (current) use of anticoagulants Paroxysmal A-fib (CMS/HCC) SVT (supraventricular tachycardia) PVC (premature ventricular contraction) Cardiomyopathy (CMS/HCC) Past Medical History: Diagnosis Date Abnormal ECG [...] Drug use: Not Currently No Known Allergies ROS Constitutional: Positive for malaise/fatigue. HENT: Positive for hearing loss. Cardiovascular: Positive for dyspnea on exertion (improving). All other systems reviewed and are negative. OBJECTIVE Visit Vitals BP 120/70 (BP Location: Left arm, Patient Position: Sitting) Pulse 57 Ht 1.829 m (6') Wt 114 kg (251 lb) SpO2 96% BMI 34.04 kg/m??? Smoking Status Former BSA 2.41 m??? Medications: Current Outpatient Medications: acetaminophen (Tylenol) 500 [...] (fluid retention wtih abdomional distention or leg swelling)., Disp: 30 tablet, Rfl: 3 glucosamine-chondroitin 500-400 mg tablet, Take 1 tablet by mouth two times daily., Disp: , Rfl: lisinopril 40 mg tablet, Take 1 tablet every day by oral route for 30 days. (Patient taking differently: in the morning. Take 1 tablet every day by oral route for 30 days.), Disp: 90 tablet, Rfl: 3 metoprolol tartrate (Lopressor) 25 mg tablet, TAKE ONE (1) TABLET BY MOUTH TWICE DAILY, Disp: 180 tablet, Rfl: 3 multivitamin tablet, Take 1 tablet by mouth in the morning., Disp: , Rfl: Physical Exam Constitutional: Appearance: Normal appearance. HENT: [...] Corrected Atrial Rate 05/10/2024 60 BPM Corrected SC Interval 05/10/2024 206 ms Corrected QR (more content not included)... [facility] 06-07-2024 Note [facility] PVC ablation performed on 05/10/[address] Ray. Says his DAO is much better. Denies chest pain, palpitations, lightheadedness/syncope, and bleeding on Eliquis. Review of Systems Constitutional: Positive for malaise/fatigue. HENT: Positive for hearing loss. Cardiovascular: Positive for dyspnea on exertion (improving). All other systems reviewed and are negative. [facility] 05-11-2024 Note PVC/ VT ABLATION PRO CEDURE REPORT DATE OF PROCEDURE: 05/10/2024 PERFORMING PHYSICIAN: Dr. Maxim Ray CONSENT: Patient NAME OF THE PROCEDURE: PVC/ VT Ablation LOCATION: EP Lab INDICATIONS FOR PROCEDURE: 1. Symptomatic PVC burden. 2. Non sustained VT. 3. Cardiomyopathy. PROCEDURAL SEDATION: As per anesthesia. FLUROSCOPY: PROCEDURES PERFORMED: 1. Sonosite guided venous accesss as noted below and stored in system. 2. Intracardiac EP 3D mapping. 3. Intracardiac echocardiogram. 4. Ablation of PVC of predominant morphology. 5. Arterial line placement. PREPARATION: 79year old with past medical history of CAD s/p CABG in 2018, hypertension, A-fib, CKD endorsed more shortness of breath. After his CABG patient had postop A-fib and a supposed history of sinus bradycardia with frequent ventricular ectopy. Recently just had a 30-day event monitor ordered and a TTE to rule out A-fib and cardiomyopathy and lexiscan stress. He has been having increased DAO and can feel palpitations that are associated with dyspnea / racing heart feeling. His LOOP did not reveal any Afib and significant PVC as noted below and so was brought for ablation. On the day of his presentation, he was noted to have PVCs that were of inferior axis. The PVC was positive in lead I, II and negative in III, negative in aVR with late transition compaed to sinus rhythm that suggested a right side inferior RV origin.. PROCEDURE DETAILS: Patient was brought to the EP lab in the post absorptive state. A procedural pause was performed identifying the patient, the procedure to be performed. Preoperative antibiotics was administered. Risks, benefits and alternatives of the procedure were discussed with the patient and family who agreed to proceed. Please refer to my consult note for details of the discussion and of indications.The patient was brought to the EP lab and a procedural pause was performed identifying the patient, the procedure. Both the groins were prepared and draped. Sonosite was used to evaluate the patency of the blood vessels and once it was determined to be patient, images were procured and stored. After infiltration with 1% lidocaine, 3 venous sheaths were placed in the right and a femoral arterial line was placed on the right side as noted below. Heparin 7000U bolus was given. RFV: 8Fx3 Optrell multipolar, Navistar ThermoCool ST Bi-Directional, ICE/ EZ Steer RFA: 5F: Arterial access for monitoring . Following anesthesia, the PVC burden fell from being a bigeminy to 1: 30 beats or less which made mapping challenging. I proceeded with mapping the PVC. I used the Optrell catheter to create a RV, LV aortic sinus 3D geometry using CARTO 3D mapping software and the predominant PVC was mapped. ICE imaging was done to have baseline images. He was noted to have dilated RA and notable difficulty to reach the RV through 8-Latvian. So, the short sheath was exchanged for a Vizigo sheath. Optrell catheter was advanced into the RV and this was meticulously mapped. No early signals were seen on the outflow area and then mapping in the inferior aspect adjacent to the tricuspid valve shows earlier signals. I meticulously mapped the area and noted that the earliest site was inferior and more septal. I ensured the area was away from the His site. Here, we noted that the signals are at least 30 millisecond pre-QRS with a nice QS complex. Pace mapping here performed revealed a 87% match. I then utilized the ablation catheter to perform refine mapping. I could not see a single location as such but a constellation of site where the the signals were 25-28ms preQRS. I then performed ablation. Given the scant PVC it was difficult to ascertain if this would give suppression. Ablation was performed in and around the area. Isuprel was started at 3mcg/min and there was no increase in PVC noted. I took that as a sign of fair end point. EP study was then performed. ICE confirmed absence of pericardial effusion and sheaths and catheters were removed. Perclose was used for the venous side and Mynx was utilized for arterial closure. Compression was used for hemostasis. The patient appeared to tolerate the procedure well and was returned to room in stable condition. No complications were immediately observed. AHms 127 HVms 55 VERPms 600/310 AV Wenkebach ms 400ms AH jump ms 600/480 AVNERP ms 600/420 AERP ms 600/280 POST PROCEDURE DIAGNOSIS 1. Symptomatic PVC burden [...] to [facility]. Maxim Ray MD Cardiac Electrophysiology Maxim Ray MD Cardiac Electrophysi (more content not included)... [facility] 05-10-2024 Note Patient: Bony Chen op Sr. Procedure Summary Date: 05/10/24 Room / Location: [facility] / [facility] H[facility] VASCULAR LAB (Cath) Anesthesia Start: 1148 Anesthesia Stop: 1424 Procedure: Ablation PVC Diagnosis: PVC (premature ventricular contraction) (pvc) Providers: Maxim Ray MD Responsible Provider: Temi Brown MD Anesthesia Type: general ASA Status: Not recorded Anesthesia Type: general Vitals Value Taken Time BP 157/75 05/10/24 1500 Temp 36.7 ???C (98.1 ???F) 05/10/24 1430 Pulse 68 05/10/24 1505 Resp 17 05/10/24 1505 SpO2 99 % 05/10/24 1505 Vitals shown include unfiled device data. Anesthesia Post Evaluation Patient location during evaluation: PACU Patient participation: complete - patient participated Level of consciousness: awake and alert Pain management: adequate Multimodal analgesia pain management approach Airway patency: patent Two or more strategies used to mitigate risk of obstructive sleep apnea Cardiovascular status: hemodynamically stable Respiratory status: acceptable, room air, spontaneous ventilation and nonlabored ventilation Hydration status: euvolemic Patient is hemodynamically stable and is able to be discharged from PACU per anesthesia protocol. No notable events documented. [facility] 05-10-2024 Note Airway Date/Time: 05/10/2024 11:51 AM Urgency: elective General Information and Staff Patient location during procedure: OR Anesthesiologist: Temi Brown MD Resident/BAILER TENDERS SUPERVISOR/CAA: Tonia Angel MD Performed: resident/BAILER TENDERS SUPERVISOR/CAA Indications and Patient Condition Indications for airway management: anesthesia Spontaneous Ventilation: absent Sedation level: deep Preoxygenated: yes Mask difficulty assessment: 1 - vent by mask Final Airway Details Final airway type: endotracheal airway Successful airway: ETT Cuffed: yes Successful intubation technique: direct laryngoscopy Facilitating devices/methods: intubating stylet Endotracheal tube insertion site: oral Blade: Spike Blade size: #3 ETT size (mm): 7.5 Cormack-Lehane Classification: grade I - full view of glottis Placement verified by: capnometry Measured from: lips ETT to lips (cm): 22 Number of attempts at approach: 1 Number of other approaches attempted: 0 [facility] 05-10-2024 Note Patient: Bony Chen op Sr. Procedure Information Anesthesia Start Date/Time: 05/10/24 1148 Procedure: Ablation PVC Location: [facility] EP / [facility] VASCULAR LAB (Cath) Providers: Maxim Ray MD Relevant Problems Cardio (+) Atrial fibrillation (CMS/HCC) (+) Coronary arteriosclerosis (+) Essential (primary) hypertension (+) PAF (paroxysmal atrial fibrillation) (CMS/HCC) (+) PVC (premature ventricular contraction) (+) Paroxysmal A-fib (CMS/HCC) (+) SVT (supraventricular tachycardia) (CMS/HCC) Pulmonary (+) Dyspnea on exertion Clinical information reviewed: Tobacco Allergies Meds Med Hx Surg Hx Fam Hx Soc Hx Physical Exam Airway Mallampati: III Cardiovascular - normal exam Dental - normal exam (+) edentulous Pulmonary - normal exam Abdominal - normal exam Anesthesia Plan ASA 3 general The patient is not a current smoker. Patient was previously instructed to abstain from smoking on day of procedure. Patient did not smoke on day of procedure. Education provided regarding risk of obstructive sleep apnea. intravenous induction Postoperative administration of opioids is intended. Anesthetic plan and risks discussed with patient. Use of blood products discussed with patient who consented to blood products. Plan discussed with CAA. Additional Equipment Requests [facility] 05-10-2024 Note [place] Electrophysiology Consult Note Reason for visit: SVT/PVC 05/10/24 Pt here for PVC ablation.' 03/20/24 Doing very well, but tires easily. [...] data: HPI: Kristofer Fabian Sr. is a 79 y.o. year old with [...] loss) Hyperlipidemia Hypertension PVC (premature ventricular contraction) PSH: Past Surgical History: Procedure Laterality Date CARDIAC CATHETERIZATION CARDIAC SURGERY 06/13/2023 LOOP RECORDER- [employer] COMPLETE DENTURE CORONARY ARTERY BYPASS GRAFT TRIPLE BYPASS SH: Social Determinants of Health Tobacco Use: Medium Risk (05/10/2024) Patient History Smoking Tobacco Use: Former Smokeless Tobacco Use: Never Passive Exposure: Not on file Alcohol Use: Not on file Financial Resource Strain: Not on file Food Insecurity: Not on file Transportation Needs: Not on file Physical Activity: Not on file Stress: Not on file Social Connections: Not on file Intimate Partner Violence: Unknown (06/02/2023) [place] Safety & Environment Fear of Current or Ex-Partner: Not on file Emotionally Abused: Not on file Physically Abused: Not on file Sexually Abused: Not on file Physically or Sexually Abused: Not on file Depression: Not on file Housing Stability: Not on file Utilities: Not on file Health Literacy: Not on file Allergies: No Known Allergies Weight: 118kg Visit Vitals Temp 36 ???C (96.8 ???F) (Temporal) Resp 18 Ht 1.829 m (6') Wt 115 kg (253 lb 4.9 oz) BMI 34.35 kg/m??? Smoking Status Former BSA 2.42 m??? Meds: No current facility-administered medications on file prior to encounter. Current Outpatient Medications on File Prior to Encounter Medication Sig Dispense Refill acetaminophen (Tylenol) 500 mg tablet Take by mouth every 6 (six) hours if needed for mild pain (1-3 pain score). amLODIPine (Norvasc) 5 mg tablet Take 1 tablet (5 mg) by mouth once daily as directed. as directed 90 tablet 3 apixaban (Eliquis) 5 mg tablet Take 1 tablet (5 mg) by mouth two times daily. 180 tablet 3 atorvas (more content not included)... [facility] 04-24-2024 Note [place] Electrophysiology Consult Note Reason for visit: SVT/PVC 04/24/24 Patient here for H&P prior to afib ablation scheduled for 05/10/2024. However LOOP data reveals no AF but more PVC. He is symptomatic and likely from PVC and is short of breath likely from poor perfusion. SVT noted on LOOP on Feb 11, 2024 that lasted for 13s. EK04/24/24 SR with PVC in bigeminy. LBBB morphology andn +in I, AVL and neg in III with late transition suggestive of mid RV exit. 03/20/24 Doing very well, but tires easily. [...] data: HPI: Kristofer Fabian Sr. is a 79 y.o. year old with past medical history of CAD s/p CABG in 2018, hypertension, A-fib, CKD. He was recently seen by Dr. CONCECPION who noted more shortness of breath than [...] Arrhythmia Atrial fibrillation (CMS/HCC) Coronary artery disease Hyperlipidemia Hypertension PSH: Past Surgical History: Procedure Laterality [...] on file Intimate Partner Violence: Unknown (06/02/2023) [place] Safety & [place] Fear of Current or Ex-Partner: Not on file Emotionally Abused: Not on file Physically Abused: Not on file Sexually Abused: Not on file Physically or Sexually Abused: Not on file Depression: Not on file Housing Stability: Not on file Utilities: Not on file Health Literacy: Not on file Allergies: No Known Allergies Weight: 115kg Visit Vitals BP 140/78 (BP Location: Left arm, Patient Position: Sitting) [...] mg) by mouth two times daily. 180 (more content not included)... [facility] 03-20-2024 Note [place] Electrophysiology Consult Note Reason for [...] endorse any palpitations. LOOP data: HPI: Kristofer Moran Bishop Adan. is a 79 y.o. year old with [...] on file Intimate Partner Violence: Unknown (06/02/2023) [place] Safety [place] Fear of Current or [...] medications on fi (more content not included)... [facility] 03-20-2024 Note Patient here for 4 m o follow up CAD, hypertension, and SVT. Doing very well, but tires easily. Denies chest pain, palpitations, lightheadedness/syncope, and bleeding on Eliquis. Review of Systems Constitutional: Positive for malaise/fatigue. HENT: Positive for hearing loss. Cardiovascular: Positive for dyspnea on exertion. All other systems reviewed and are negative. [facility] 02-27-2024 Note Education Materials Caregiving Fall Prevention [...] Keep items that you use often in kaqh-zm-thcur places. Lower the shelves around your home [...] the way. ? Do not use floor turkish or wax that makes floors slippery. What [...] ? Centers for Disease Control and Prevention, [place]: cdc.gov ? National [place] on Aging: main.nih.gov ? National [place] on Aging: main.nih.gov Contact a health care [...] an emergency. Get (more content not included)... [facility] Summary Purpose Family History No Family History Records FoundNo Family History Records FoundNo Family History Records FoundNo Family History Records FoundNo Family History Records Found Advance Directives No Advanced Directives Records FoundNo Advanced Directives Records FoundNo Advanced Directives Records FoundNo Advanced Directives Records FoundNo Advanced Directives Records Found Hospital Course Note MR#: [id number] [facility] Pt. Name: Kristofer Fabian Admitted: 12/02/2017 Discharged: [...] occlusion of his right coronary system with [id number] collaterals. He was deemed to be suitable for coronary artery bypass grafting on consultation. The patient was admitted on 12/02/2017 and und (more content not included)... Additional Source Comments (unrecognized sect ion and content) No Status Records FoundNo Status Records FoundNo Status Records FoundNo Status Records FoundNo Status Records Found INFORMATION SOURCE (unrecogn ized section and content) DATE CREATED AUTHOR 08/03/2018 [facility] DATE CREATED AUTHOR AUTHOR'S ORGANIZ ATION 04/26/2021 [facility] DATE CREATED AUTHOR AUTHOR'S ORGANIZ ATION 03/08/2024 [facility] DATE CREATED AUTHOR AUTHOR'S ORGANIZ ATION 08/02/2024 [facility] DATE CREATED AUTHOR AUTHOR'S ORGANIZ ATION 01/26/[address] [facility] FOR RECORDS PERTAINING TO PATIENTS WHO ARE [...] BE BASED ON THE PRIMARY CLINICAL RECORDS. [facility] Test [facility]. provides no warranty or guarantee of the accuracy or completeness of information in this document.
== END 2025-01-28 09:26 | disposition home or self-care (01) ==
LOC: CARD 09:28
PROVIDERS: Visit Provider Nurse Practitioner Family
DX: I49.3 Ventricular premature depolarization (principal)
CPT/HCPCS: 93306

== ENCOUNTER 2025-01-28 10:19 | Outpatient (OUT) | payer MEDICARE, OTHER, SELFPAY ==
--- OUTSIDE RECORDS SUMMARY | 2025-01-28 10:26 | XMS_ITS | Clinical Summary ---
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 202308/23/2023 PAF (paroxysmal [...] Description 01/22/2025 10:20 AM EDT Office Visit [facility] [place] [address] [place] [address] Sandrine Toledo CNP PVC (premature ventricular contraction) (Primary Dx); Venous insufficiency of both lower extremities; Benign hypertensive heart disease without congestive heart failure; Frequent PVCs; Mixed hyperlipidemia; Coronary artery disease involving [place] coronary artery of [place] heart without angina pectoris; Hx of CABG; Leg edema 12/28/2024 11:45 AM EDT Ancillary Procedure [facility] [address] [place] [address] Awareness of heartbeats 12/28/2024 Orders Only [facility] [address] [place] [address] Victor Hugo Corcoran MD 11/27/2024 10:20 AM EDT Ancillary Procedure [facility] [address] [place] [address] Awareness of heartbeats 11/24/2024 Orders Only [facility] [address] [place] [address] Victor Hugo Corcoran MD 10/29/2024 10:50 AM EDT Ancillary Procedure [facility] [address] [place] [address] Awareness of heartbeats from Last 3 Months [...] drink = 0.6 oz pur e alcohol) [facility] Utilities Answer Date Recorded In the past 12 months has [facility] [employer], gas, oil, or water [employer] threatened to shut off services in your [...] any time in the past 12 m [facility], were you homeless or living [...] this topic Medical Devices Implanted Type Area Stopper Maker Device Identifier Shelf Expiration Date Model / Serial / Lot Monitor,Cardia c,Lux,Dxii+[facility] - [id number] - [id number] Implanted:Qty: 1 on 06/13/2023 by Maxim Ray MD at [facility] Implantable Loop Recorder [employer] 11/15/2024 [id number] / [id number] / Procedures Procedure Name Priority Date/Time Associated [...] Maxim Ray MD CV IMPLANTABLE CARDIAC DEVICE SD OCEDURES Final Result CPACS * Cardiac device check - Remote loop recorder (ILR) (12/28/2024 12:00 AM EDT) Only the most recent of2 resultswithin the time period is included. Anatomical Region Laterality Modality Other 12/28/2024 us Victor Hugo Corcoran MD CV IMPLANTABLE CARDIAC DEVICE PROCEDURES Final Result from Last 3 Months Insurance MEDICARE Advance Directives * Full Code (Latest Code Status on File) Date Activated Date Inactivated Comments 05/10/2024 2:37 PM 05/11/2024 4:02 PM Care Teams Deburr Technician Relationship Specialty Start Date End Date Scott Logan MD [address] [facility] - General 02/24/23
--- OUTSIDE RECORDS SUMMARY | 2025-01-28 10:26 | XMS_ITS | Clinical Summary ---
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] Health [...] Influenza Vaccine (#1) 2024 Insurance MEDICARE [facility] Address: [address] [place] [address] Care Teams Garbage Pick Up Man Relationship Specialty Start Date End Date Maxim Ray MD [address] [place] [address] Primary Staff Physician Cardiology 08/01/24 Ashvin Jacobo MD [address] [facility] [address] [place] [address] Public Policy Manager Cardiology 08/01/[address] [place] [address] Pharmacist Pharmacy 08/01/24 Sandrine Toledo MD [address] [place] [phone] Referring Cardiology 01/24/25
--- OUTSIDE RECORDS SUMMARY | 2025-01-28 10:26 | XMS_ITS | Encounter Summary ---
Author Organization [facility] Address [address] [place] [address] Care Team Providers Care [facility] Attendant Name Role Phone Scott Logan MD Primary Care Provider [phone] Encounter Details Date Type Department Care Team (Late st Contact Info) Description 08/23/2024 Orders Only [facility] [address] [place] [address] Maxim Ray MD [address] [place] [address] Social History Tobacco Use Types Packs/Day Years Used Date Smoking Tobacco: Former Cigarettes Smokeless Tobacco: Never Alcohol Use Standard Drinks/Week Comments Not Currently 0 (1 standard drink = 0.6 oz pur e alcohol) [facility] Utilities Answer Date Recorded In the past 12 months has [facility] [employer], gas, oil, or water [employer] threatened to shut off services in your [...] any time in the past 12 m [facility], were you homeless or living in a [place] health [place] facility (including now)? No 05/10/2024 Hunger Vital Sign [...] on filedocumented in this encounter Care Teams [facility] Attendant Relationship Specialty Start Date End Date Scott Logan MD [address] PCP - General 02/24/23 documented as of this encounter
--- OUTSIDE RECORDS SUMMARY | 2025-01-28 10:26 | XMS_ITS | Encounter Summary ---
Author Organization [facility] Address [address] [place] [address] Care Team Providers Care Supervisor [employer] Name Role Phone Scott Logan MD Primary Care Provider [phone] Reason for Visit * Reason Comments Med Refill Encounter Details Date Type Department Care Team (Late st Contact Info) Description 10/16/[address] [facility] [place] [address] [place] [phone] Sotero Carvalho MD [address] [facility] [address] [facility] [place] [place] [phone] Benign hypertensive heart disease without congestive heart [...] failure documented in this encounter Care Teams Supervisor [employer] Relationship Specialty Start Date End Date Scott Logan MD [address] [facility] - General 02/24/23 documented as of this encounter
--- OUTSIDE RECORDS SUMMARY | 2025-01-28 10:26 | XMS_ITS | Encounter Summary ---
Author Organization [facility] Address [address] [place] [address] Care Team Providers Care Toggle Press Folder And Feeder Name Role Phone Scott Logan MD Primary Care Provider Encounter Details Date Type Department Care Team (Late st Contact Info) Description 09/26/2024 Orders Only [facility] [address] [place] [address] Victor Hugo Corcoran MD [address] [place] [address] Social History Tobacco Use Types Packs/Day Years Used Date Smoking Tobacco: Former Cigarettes Smokeless Tobacco: Never Alcohol Use Standard Drinks/Week Comments Not Currently 0 (1 standard drink = 0.6 oz pur e alcohol) [facility] Utilities Answer Date Recorded In the past 12 months has [facility] [employer], gas, oil, or water [employer] threatened to shut off services in your [...] any time in the past 12 m [facility], were you homeless or living in a halfway (including now)? No 05/10/2024 Hunger Vital Sign [...] on filedocumented in this encounter Care Teams Toggle Press Folder And Feeder Relationship Specialty Start Date End Date Scott Logan MD [address] PCP - General 02/24/23 documented as of this encounter
--- OUTSIDE RECORDS SUMMARY | 2025-01-28 10:26 | XMS_ITS | Encounter Summary ---
Author Organization [facility] Address [address] [place] [address] Care Team Providers Care Associate Director Of Development Name Role Phone Scott Logan MD Primary Care Provider [phone] Reason for Visit * Reason Comments Med Refill Encounter Details Date Type Department Care Team (Late st Contact Info) Description 05/18/2023 Refill [facility] Heart at [place] [address] [place] [address] Sotero Carvalho MD [address] [facility] [address] [facility] [place] [address] Essential hypertension Social History Tobacco [...] hypertension documented in this encounter Care Teams Associate Director Of Development Relationship Specialty Start Date End Date Scott Logan MD [address] [facility] PCP - General 02/24/23 documented as of this encounter
--- OUTSIDE RECORDS SUMMARY | 2025-01-28 10:27 | XMS_ITS | Clinical Summary ---
Author Organization [facility] Healthcare Address [address] [place] [address] Care Team Providers Care Combination Man Name Role Phone Unavailable Primary Care Provider [...]
--- OUTSIDE RECORDS SUMMARY | 2025-01-28 10:27 | XMS_ITS | Encounter Summary ---
Author Organization [facility] Address [address] [place] [address] Care Team Providers Care Jail Manager Name Role Phone Scott Logan MD Primary Care Provider [phone] Reason for Visit * Reason Comments Med Refill Encounter Details Date Type Department Care Team (Late st Contact Info) Description 01/07/2023 Refill [facility] Heart at [place] [address] [place] [phone] Sotero Carvalho MD [address] [facility] [address] [facility] [place] [phone] Essential hypertension Social History Tobacco Use Types [...] hypertension documented in this encounter Care Teams Jail Manager Relationship Specialty Start Date End Date Scott Logan MD [address] PCP - General 02/24/23 documented as of this encounter
--- OUTSIDE RECORDS SUMMARY | 2025-01-28 10:27 | XMS_ITS | Encounter Summary ---
Author Organization [facility] Address [address] [place] [address] Care Team Providers Care [place] Mill Operator Name Role Phone Scott Logan MD Primary Care Provider [phone] Encounter Details Date Type Department Care Team (Late st Contact Info) Description 07/27/2024 Orders Only [facility] [address] [place] [address] Victor Hugo Corcoran MD [address] [place] [address] Social History Tobacco Use Types Packs/Day Years Used Date Smoking Tobacco: Former Cigarettes Smokeless Tobacco: Never Alcohol Use Standard Drinks/Week Comments Not Currently 0 (1 standard drink = 0.6 oz pur e alcohol) [facility] Utilities Answer Date Recorded In the past 12 months has [facility] [employer], gas, oil, or water [employer] threatened to shut off services in your [...] any time in the past 12 m [facility], were you homeless or living in a [facility] (including now)? No 05/10/2024 Hunger Vital Sign [...] on filedocumented in this encounter Care Teams [employer] Operator Relationship Specialty Start Date End Date Scott Loagn MD [address] PCP - General 02/24/23 documented as of this encounter
--- OUTSIDE RECORDS SUMMARY | 2025-01-28 10:28 | XMS_ITS | CCD ---
Author Organization [facility] Care Team Providers Care Traffic Control Officer Name Role Phone PHYSICIAN, DEFAULT Admitting Unavailable [...] Referring Unavailable VALDOVINOS-EMERY, TARYN Primary Care Unavailable [facility] Procedure Practitioner Unavailab HERMAN May Surgeon Unavailable [facility] Procedure Practitioner Unavailab ERA Buckley Surgeon Unavailable PHYSICIAN, DEFAULT Admitting Unavailable PHYSICIAN, DEFAULT Attending Unavailable VALDOVINOS-JULIO, TARYN Primary Care Unavailable Allison Brooks Attending Unavailable Allison Brooks Admitting Unavailable Provider, None Primary Care Unavailable MAXIM RAY Attending Unavailable MAXIM RAY Admitting Unavailable MAXIM ARY Attending Unavailable DEVAN BRADFORD Referring Unavailable MARIANA VIEIRA Attending Unavailable MAXIM ARY Referring Unavailable JESÚSMAXIM Referring Unavailable JESÚSMAXIM Referring [...] Propensity to adverse reactions to drug (disorder) [facility] Repository Problems Active Problems Problem Classification Problem Date Documented Date Episodic/Chronic Cardiac dysrhythmias (5 sources) Unspecified atrial fibrillation; Translations: [Paroxysmal atrial fibrillation] Onset: 12-02-2017 Chronic Cardiac dysrhythmias (2 sources) Palpitations; Translations: [Palpitations] Onset: 01-01-2025 Episodic Coronary atherosclerosis and other heart disease (3 sources) Atherosclerotic heart disease of [place] coronary artery without angina pectoris; Translations: [ATHSCL HEART DISEASE OF [place] CORONARY ARTERY W/O ANG PCTRS] Onset: 11-28-2017 [...] know if you do not hear from [facility] for referral for management of your frequent PVCs. Normal [facility] Office Visiton 01-22-2025 Follow-up visit [id number] Bret Fabian Sr. 1945 Date Provider Department Center 01/22/2025 166-MARIANA VIEIRA BRENDA [facility] Family History Problem Relation Age of Onset Coronary artery disease Mother Heart attack Mother Stroke Father Family Status - Relation Status Age at Mother Father Sister Brother Level of Service:41319 [place] OFFICE/OUTPATIENT ESTABLISHED MOD MDM 30 MIN Reason for Visit and Comments: Follow-up [425000] - Patient is here today for a 6 month follow up appointment. Patient denies chest pain. Patient has had no testing since his last office visit with cardiology. Patient will have his annual physical and blood work with the [facility] in March 2025 Atrial Fibrillation [80] Coronary Artery Disease [187] Hypertension [175578] SVT [Other] PVC [Other] Cardiomyopathy [104] Shortness of Breath [815078] - SOB/DAO not as bad as it use to be Fatigue [46] - Not as bad as it has been in the past Edema [[id number]] - Bilateral edema which resolves with elevating legs. Normal [facility] Orders Onlyon 12-28-2024 Orders Only [id number] Bret Fabian Sr. 1945 Date Provider Department Center 12/28/2024 325-DALIA CANALES [facility] CARD [facility] Family History Problem Relation Age of Onset Coronary artery disease Mother Heart attack Mother Stroke Father Family Status - Relation Status Age at Mother Father Sister Brother [facility] Orders Onlyon 11-24-2024 Orders Only [id number] Bret Fabian Sr. 1945 M Date Provider Department Center 11/24/2024 DALIA MELGAR HVC CARD [facility] Family History Problem Relation Age of Onset Coronary artery disease Mother Heart attack Mother Stroke Father Family Status - Relation Status Age at Mother Father Sister Brother [facility] Orders Onlyon 10-26-2024 Orders Only [id number] Bret Fabian N Sr. 1945 M Date Provider Department Center 10/26/2024 325-DALIA CANALES [facility] Family History Problem Relation Age of Onset Coronary artery disease Mother Heart attack Mother Stroke Father Family Status - Relation Status Age at Mother Father Sister Brother [facility] CNPNon 08-01-2024 CNPN Telephone (CARDMN) KRISTOFER FABIAN SR. ([id number]) 1945 M Date Time Provider Department 08/01/24 YUSRA SOFIA CARDMN During your visit today, we recorded the following information about you: Bk Joe 08/01/2024 3:51 PM Signed Outside medical records scanned into [employer] and shared [employer]. Allergies As of Date: 08/01/2024 (Not on File) Date Reviewed: Never Reviewed Reason for Visit: Received Outside Medical Records [[id number]] Prescriptions as of 08/01/2024 - amLODIPine (NORVASC) [...] Encounter Status:Closed by BK JOE on 08/01/24 [facility] CNPN Telephone (CARDMN) KRISTOFER FABIAN ([id number]) 1945 M Date Time Provider Department 08/01/24 YUSRA SOFIA CARDAVERY During your visit today, we recorded the following information about you: Karol David 08/01/2024 3:37 PM Signed Referral documents received by fax. Forwarded to scheduling team. Karol David, Admin Allergies As of Date: 08/01/2024 (Not on File) Date Reviewed: Never Reviewed Reason for Visit: Appointment [186] Cmt: Referral received - [facility] Heart @ [facility] Prescriptions as of 08/01/2024 - amLODIPine (NORVASC) [...] Encounter Status:Closed by KAROL DAVID on 08/01/24 [facility] Office Visiton 07-31-2024 Follow-up visit [id number] Bret Fabian Sr. 1945 M Date Provider Department Center 07/31/2024 [facility]-MAXIM RAY [facility] Family History Problem Relation Age of Onset Coronary artery disease Mother Heart attack Mother Stroke Father Family Status - Relation Status Age at Mother Father Sister Brother Level of Service:48816 [facility] OFFICE/OUTPATIENT ESTABLISHED LOW MDM 20 MIN Normal [facility] Follow-Upon 06-07-2024 Follow-Up [id number] Bret Fabian Sr. 1945 M Date Provider Department Center 06/07/2024 MARIANA BARRY BRENDA [facility] Family History Problem Relation Age of Onset Coronary artery disease Mother Heart attack Mother Stroke Father Family Status - Relation Status Age at Mother Father Level of Service:59333 [facility] OFFICE/OUTPATIENT ESTABLISHED MOD MDM 30 MIN Reason for Visit and Comments: PVC [Other] Hypertension [266590] Hyperlipidemia [182] Normal [facility] 36on 05-12-2024 36 Post Discharge Call Good morning, I am Nina Marsh RN a lead nurse from [facility]. I am calling you to follow up [...] Kristofer Moran Fabian Sr. Date 05/12/24 Normal [facility] Telephoneon 05-12-2024 Telephone [id number] Bret Fabian Sr. 1945 M Date Provider Department [facility] 05/12/2024 NINA PHILIP JOSELINE [facility] Family History Problem Relation Age of Onset Coronary artery disease Mother Heart attack Mother Stroke Father Family Status - Relation Status Age at Mother Father Reason for Visit and Comments: Hospital Follow-up [832] Normal [facility] 30on 05-11-2024 30 The patient is [...] and maintained or improved Outcome: Progressing Normal [facility] B-TYPE NATRIURETIC PEPTIDEon 05-11-2024 Natriuretic peptide B (Bld) [Mass/Vol] 113 pg/mL High 0-100 [facility] Comment on above: Performed By: #### L [id number] ####[facility] ([facility])[address] [place] [address] CBCon 05-11-2024 Erythrocyte distribution width (RBC) [Ratio] 13.6 % Normal 11.5-15.0 [facility] Comment on above: Performed By: #### L [id number] ####[facility] ([facility])[address] [place] [address] ERYTHROCYTE MEAN CORPUSCULAR HEMOGLOBIN CONCENTRATION (G/DL) BY AUTOMATED 33.7 g/dL Normal 32.0-35.0 [facility] Comment on above: Performed By: #### L [id number] ####[facility] ([facility] [place] [address] Hematocrit (Bld) [Volume fraction] 41.2 % Normal 39.0-55.0 [facility] Comment on above: Performed By: #### L [id number] ####[facility] ([facility] [place] [address] Hemoglobin (Bld) [Mass/Vol] 13.9 g/dL Normal 13.0-17.0 [facility] Comment on above: Performed By: #### L [id number] ####[facility] ([facility])[address] [place] [address] MCH (RBC) [Entitic mass] 28.8 pg Normal 27.0-33.0 [facility] Comment on above: Performed By: #### L [id number] ####[facility] ([facility])[address] [place] [address] MCV (RBC) [Entitic vol] 85.3 fL Normal 82.0-98.0 [facility] Comment on above: Performed By: #### L [id number] ####[facility] ([facility])[address] [place] [address] PLATELETS (10*3/UL) IN BLOOD AUTOMATED COUNT 225 10*3/uL Normal 150-400 [facility] Comment on above: Performed By: #### L [id number] ####[facility] ([facility])[address] [place] [address] RBC (Bld) [#/Vol] 4.83 10*6/uL Normal 4.20-5.70 [facility] Comment on above: Performed By: #### L [id number] ####[facility] ([facility])[address] [place] [address] WBC (Bld) [#/Vol] 9.74 10*3/uL Normal 4.00-10.60 [facility] Comment on above: Performed By: #### L [id number] ####[facility] ([facility])[address] [place] [address] COMPREHENSIVE METABOLIC PANE José Luis 05-11-2024 Albumin [Mass/Vol] 4.5 g/dL Normal 3.5-5.7 [facility] Comment on above: Performed By: #### L [id number] #### [facility] ([facility]) [address] [place] [address] ALP [Catalytic activity/Vol] 71 U/L Normal 34-104 [facility] Comment on above: Performed By: #### L [id number] #### [facility] ([facility]) [address] [place] [address] ALT [Catalytic activity/Vol] 11 U/L Normal 7-52 [facility] Comment on above: Performed By: #### L [id number] #### [facility] ([facility]) [address] [place] [address] Anion gap [Moles/Vol] 11 mmol/L Normal 7-20 [facility] Comment on above: Performed By: #### L [id number] #### [facility] ([facility]) [address] [place] [address] AST [Catalytic activity/Vol] 21 U/L Normal 13-39 [facility] Comment on above: Performed By: #### L [id number] #### [facility] ([facility]) [address] [place] [address] Bilirubin [Mass/Vol] 1.0 mg/dL Normal 0.3-1.0 [facility] Comment on above: Performed By: #### L [id number] #### [facility] ([facility]) [address] [place] [address] Calcium [Mass/Vol] 9.3 mg/dL Normal 8.6-10.3 [facility] Comment on above: Performed By: #### L [id number] #### [facility] ([facility]) [address] [place] [address] Chloride [Moles/Vol] 103 mmol/L Normal 98-107 [facility] Comment on above: Performed By: #### L [id number] #### [facility] ([facility]) [address] [place] [address] CO2 [Moles/Vol] 27 mmol/L Normal 21-31 [facility] Comment on above: Performed By: #### L [id number] #### [facility] ([facility]) [address] [place] [address] Creatinine [Mass/Vol] 1.27 mg/dL Normal 0.70-1.30 [facility] Comment on above: Performed By: #### L [id number] #### [facility] ([facility]) [address] [place] [address] GLOMERULAR FILTRATION RATE ML/MIN/1.73 SQ M.PREDICTED 57.8 mL/min/1.73m*2 Low >60.0 [facility] Comment on above: Result Comment: [facility]???s estimated glomerular filtration rate (eGFR) will [...] individuals. Performed By: #### L [id number] #### [facility] ([facility]) [address] [place] [address] Glucose [Mass/Vol] 147 mg/dL High 70-100 [facility] Comment on above: Performed By: #### L [id number] #### [facility] ([facility]) [address] [place] [address] Potassium [Moles/Vol] 3.9 mmol/L Normal 3.5-5.1 [facility] Comment on above: Performed By: #### L [id number] #### [facility] ([facility]) [address] [place] [address] Protein [Mass/Vol] 7.1 g/dL Normal 6.0-8.3 [facility] Comment on above: Performed By: #### L [id number] #### [facility] ([facility]) [address] [place] [address] Sodium [Moles/Vol] 137 mmol/L Normal 136-145 [facility] Comment on above: Performed By: #### L [id number] #### [facility] ([facility]) [address] [place] [address] Urea nitrogen [Mass/Vol] 24 mg/dL Normal 7-25 [facility] Comment on above: Performed By: #### L [id number] #### [facility] ([facility]) [address] [place] [address] UREA NITROGEN/CREATININE (MASS RATIO) IN SER/PLAS 18.9 Normal [facility] Comment on above: Performed By: #### L [id number] #### [facility] ([facility]) [address] [place] [address] DSon 05-11-2024 DS Admission Admitted 05/10/2024 for [...] Your Medications These medications were sent to [facility] [address] [place], [place] [id number] furosemide 40 mg tablet Activity For 1 [...] by Dr. Hugo and Dr. Ray at [facility]. Pertinent home meds: Eliquis, amlodipine, atorvastatin, lisinopril [...] Exam P (more content not included)... Normal [facility] HPon 05-11-2024 [facility] Electrophysiology Consult Note Reason for visit: SVT/PVC [...] CARDIAC CATHETERIZATION CARDIAC SURGERY 06/13/2023 LOOP RECORDER- [employer] COMPLETE DENTURE CORONARY ARTERY BYPASS GRAFT TRIPLE [...] Year: No Utilities: Not At Risk (05/10/2024) [facility] Utilities Threatened with loss of utilities: No Health Literacy: Not on file Allergies: No Known Allergies Weight: 118kg Visit Vitals BP (!) 144/94 Pulse 66 Temp 36.4 ???C (97.6 ???F) (T (more content not included)... Normal [facility] MAGNESIUMon 05-11-2024 Magnesium [Mass/Vol] 2.2 mg/dL Normal 1.9-2.7 [facility] Comment on above: Performed By: #### L [id number] #### [facility] ([facility]) [address] [place] [address] 30on 05-10-2024 30 The patient is Moderately [...] symptoms for stability, deterioration, or improvement Normal [facility] POCT GLUCOSE METER UNSOLICIT ED RESULTSon 05-10-2024 Glucose [Mass/Vol] 115 mg/dL High 70-105 [facility] Comment on above: Order Comment: Waive d Testing in the ED is performed under the ED CLIA certificate #[id number]. Result Comment: dspe ars Performed By: #### L [id number] #### [facility] ([facility]) [address] [place] [address] Glucose [Mass/Vol] 109 mg/dL High 70-105 [facility] Comment on above: Order Comment: Waive d Testing in the ED is performed under the ED CLIA certificate #[id number]. Result Comment: aepp ink Performed By: #### L [id number] #### [facility] ([facility]) [address] [place] [address] PROTIME-INRon 05-10-2024 INR IN PPP BY COAGULATION ASSAY 1.13 High 0.90-1.10 [facility] Comment on above: Result Comment: ACCC [...] CHEST 1995;108:231S-246S. Performed By: #### L [id number] ####[facility] ([facility])[address] [place] [address] PROTHROMBIN TIME (PT) IN PPP BY COAGULATION ASSAY 14.5 Seconds Normal 12.3-14.8 [facility] Comment on above: Performed By: #### L [id number] ####[facility] ([facility])[address] [place] [address] Prep for Procedureon 025 Prep for Procedure [id number] Bret Fabian N Sr. 1945 M Date Provider Department Center 05/10/20241986-MINNIE FALCON [facility] VASC LAB [facility] Family History Problem Relation Age of Onset Coronary artery disease Mother Heart attack Mother Stroke Father Family Status - Relation Status Age at Mother Father Normal [facility] Office Visiton 04-24-2024 Follow-up visit [id number] Bret Fabian N Sr. 1945 Date Provider Department Center 04/24/2024 241-MAXIM RAY [facility] Family History Problem Relation Age of Onset Coronary artery disease Mother Heart attack Mother Stroke Father Family Status - Relation Status Age at Mother Father Level of Service:61792 [place] OFFICE/OUTPATIENT ESTABLISHED HIGH MDM 40 MIN Normal [facility] Prep for Procedureon 024 Prep for Procedure [id number] Bret Fabian N Sr. 1945 M Date Provider Department Center 03/27/20241986-MINNEI FALCON [facility] VASC LAB [facility] Family History Problem Relation Age of Onset Coronary artery disease Mother Heart attack Mother Stroke Father Family Status - Relation Status Age at Mother Father Normal [facility] Office Visiton 03-20-2024 Follow-up visit [id number] Bret Moran Sr. 1945 M Date Provider Department Center 03/20/2024 MAXIM GILMORE BRENDA [facility] Family History Problem Relation Age of Onset Coronary artery disease Mother Heart attack Mother Stroke Father Family Status - Relation Status Age at Mother Father Level of Service:48942 [place] OFFICE/OUTPATIENT ESTABLISHED HIGH MDM 40 MIN Normal [facility] Coding Summaryon 03-06-2024 Coding Summary [employer] 64 LwyfiqaiQPk0rRy+PGhlYWQ +PH4DKAHfM90kqFRmoP1gV6 NMTElOSywgQVBQTElOSyIgb cBzBV3rxIUaPWLi IC8+YB9sJBDuRjyjmBUxd9V 9aYF5J84nti7pPNhgcCX9BP WfNcPzbusav4hrxSt6VLpiM mluOyBt JYObsS97CEF9hO31Hu11dSC cjCWtg2qcbQe7KnDgVCEoDK C4rNrpFKsyq9UuYNGwQ31xz BOdf2C1 SWPxbMmtaABoIkQizPJ6uI9 vMLwjwojcs1hvmmdhZvt6dv 08bCVaf7J3kOG5V5YifwC5L GJvbGQg WjokmUJOjA8dpsfij7dveur vItEoBRXwOVm6UKm7KKLntS wrKwDuWF47YJJ8KCRntcHtP 2FsLWFs nRxkXnC8p7L8Sl5ZG0LSJab dY4FBRBGTQTgqiYP+PC90cj 16E8YpMiqeAnc9ZUJfESX0s WZ2uH0q PQMgIUfir5S7bIJ5A6NejdC lhm2uq8hxJGOoZKqoD43foZ Bgs1R2ONHygCU9KJMwzQefG iBzaG93 Oyc+OAEcjRyyz2QbLcfqv5y ho3givJv1GuccSGOeboDdbM usQSQ2y0XwHv4uJAIicPA8y OW0yO9h HhLsJkX6LIhmS109DsOigDH uJwndG80zM7QqgGV+PHRyPj p5BRVhsJcdXT2uR0OmJRUjg mctbGVm tMtjEI7cHDComvnqDUFwjB2 nDBPbD0h7WtRpBxY2XQohW4 JaCXDdppemNt27fE4xBcZvY vF8USgi P7WoapS4PFGkbVQhYUpmPVC 2I44kh6G4PMIaAGQaPVW6lC H7xJ8tcMcchexqtODrjXqmi mVydGlj POhvREbbW108ZRUxsLtgQlV vZGluZyBEYXRlOiAgMTEvMj YvMjAyNDwvdGQ+VSDcTON2m WxlPSAn tUBwERbwPy3bgYfyuEhhUI0 iLIQnohxrKRChwD1gDZDhfW BsxXisXZ6aBULthcndg448I iAxMHB0 CXVzrUHrY5PlpA2bIhKcYKR pEEIbD6KdeGMwPIumA966UO cyJwX5EVFjqoInF8GpIUUzr WduOiB0 d5O9Tm5Gp7UcmcurX5XmxOP nGpSoIapeWXz9Y3NxNbkfnW I+OI90LOOkLB22NAv9YJE7t WxlPSdi HMMtH5YqoG7oBpVvOMGoLDD kOyc+PHRhYmxlIHdpZHRoPS yyRRFxGvXveKgcTX1eDf1rS GVyLWNv kBndhCRhFvIhc2xyOFXlVJc qGI6mnGgeG9FdzSC9IBIyh0 f2Ly49M41vS5DriVS+PGNvb JM0yVN0 nP9hVpJqNgX3NNkaA158EtQ twHNuCpdpo6hsz2gdpHf7Ns G7XBFuiyNxzUrvNMA2z9CyH j27U32i IHdpZHRoPSIxNSUiIHZhbGl snu2uwV9ePj9+GUKcsJF7nV X9wQ7cFlYxAsI6DJezF742U nRvcCIv Gjtcz4cws8znxKt3TdIzEAR zgwDjoTegSTU7l2BaJu25I6 JipEzxr1EfGdm0fx19cAAdc 8C6xFJ7 S9LgXTFqcoopqTYwnMeiFK0 fALQmajqzEQCnqG1eNCWiL6 c0KtBbOxN8GBpbM3IutvC5M GJvbGQg RXMjiQGQyM7qcasok1zzklq pAkFbDTTmSGj9JWa8QWQdzG yjRoAcGHG1MxU0TZZ5eKFym V0jgUvx phyapO0yOvx+FMR1lMHzyJO JGU6bBkeklNQ+OOBmSZR9tH paBErmUJQpqF5pLFFmY4v0Z iAwLjA1 WNggO0IvbpT1SRKelTSyJUB rlNGDkF7redkqs0vccgpsTu GwVILwNPe1JEn5ZZLtpHqkN iBsZWZ0 AeO3HGE8iOCglY1nqJtzagr knH0rToz+XtdctUcdSIN1FN z6H8JhYnu0WKCnxEmlQF2pa GFkZGlu Br7hzIuqdLxcTM8yCNYfmgo uf538ScQkb0ziQGThiXGbII mjMTA1V79mb4S9VOZeYNRwS JO2tAE3 pV2trZtyfuqkjJCnqXdcrlE ubEznOAtsEYhiR957HUVlhY lxLwXjWJf4M4BvLpc0MBKcg LlbCN1q zMUfRXsxTa8ryEqabMxyUJ1 dWMSuhqksm493FiMfa8kvIH PwfEYeEFqcGWQ7M65mg3P5L CMwMDAw KFM9jEE5yZ8ncXgvrpdlvPR mdDsgdmVydGljYWwtYWxpZ2 57TEJdmZjzBkFltDl9O7OmN fi5RGUv hWxdUM8isVIaGZjwMc4akBu zmLfbXL3uORWeuugcn904Mr Yqw4leFCWmtJFfUPotVHU2A 40mh6R6 UDJvJBUcXVX8pFE4iZ1wqLf nbjogbGVmdDsgdmVydGljYW juUGutQ719PLVcdIqnLzJif GllbnQg UHwcMQx0R5FgUlyodDH+PC9 8GCBzTP08xIEnmVMgg0rsiW v5TwTgTXTpCKZ8nGbpBVsjj 3JkZXIt X10ssHKsp5R9IEWsuCmwmKJ hLnQrfUX6dA8oLLmqxqaob7 ksobriVsvye0tkur01mL38D 29sIHdp ZHRoPSIzMCUiIHZhbGlnbj0 tqM4sBf9+MABlpMK5iNO9iO 8nRYHjCjP4EXhvV052QaVkw CIvPjxj v4ccj3fdqTr5YeC2KIQkfoT gfXlkKOF1u5GgIp30F08iUU dpZHRoPSIyMCUiIHZhbGlnb s3aiW5s Ii8+BVUofKD2qGK8bP6kExD xHzQ4MGsuT421QkIlnUPrOr qwJ50qV1EaiCB+HKLaXlo5L CBzdHls DL2slURfUDifDb0kMDQ8FfD mYdDdFHozD2VyATNvacsheu qkcJF8IVMaKWVxaJ04Ey2cj DogMTBw hFTOdG1dmuvlb1fdlsxbTxM zEJZgAJi0MHc4PKDczNoeCo ZxHWF6LnZ5KCU3iNUukP3wy Glnbjog kV2cO3ZeGDUsvtghVd50nD3 gNrKqFmX9MRxwYzx+QklTSE 9DIEDKCQJIOZETRH83CK21a GYew6S8 nWH5E7JsJKPlgjbehnyxwKX 4HLKrEDRyxY33nLDhGSeyHa 4fo5Q3z769OIIqMFTicE31E n8rpPno AWIocBXXaQ4rotadp5isild dLlTgQZJdIHk1JNy2XEFinF srFqAqBQQ4SyH0XUH7eRCuh B8kmIpc fvhrfD4xEhq+MTEvMTAvMTk 0NjwvdGQ+KWDmMRU9mYdfFT rwLCIteO4zGSOpQ5z4EzLlL xI1PRkg K2NsLRAiuvcwAs41lR4sMcW pAhL6QNizB4FphkY3SVGzmS EgSVfjRLY2A84zw0E4LPTrR DAwMDA7 vHR3yA8wiVbgmafwzXCohJa fecGbaLgaXYfqSRdjJ538HY FdzIwsXbe3OYqzFDEbIZ94F Q94yIWp j0C2nDQ2Z0KwNJSfpkqmhmg ljBF2NOZnTBNmdF79bIFpQU ixQs8ce2B5q236UNGnMFWcq D78Ut1m qBckTCDpnYDXnH1tlvvmj2v bizdeZeKbVDPrWZb8DIu6YE HpaBtwCdOkSFE4LiU7HYY2d QVgsG8m aHuhunjqgM6iJtl+TUFMRTw vdGQ+CYXlQZF3jDnlRRkqJF OlzR1iFSUmB3c4DhJxOmO2R UxlT9Eb LVWuvjfsVf10rU0wBfMeUqU 4UWbnD5BwvqO6MIGfaSPcTX rrQBP8F92no1W9DYKkXVZdD TZ3zXD1 aP2toDhxdixvvXZmuKyznpW tbLneELluUTolB258ITBheF buPzPaGBTjWV0mqHifmDJ+P F63xv54 W2RuXdygAhl0XJQrJUE5sUT 3yH8oDAXlCTeqj5U0jDW0N0 ApufXrpf6st8csYZIdVWhmG 29sbGFw j7V5DYZovIY7RWSriRttWvD zvG66Jal+DPJjfBxym6IgGv ygc8cef5howKl3JuCwKMVqh mFsaWdu ZRB8s0RzVv60E54bXVuvUPQ sTAFpQBGwFDXafBqbxr0olT 9wIi8+EKLbwLX7zBM1oC6pV jAlIiB2 WYaaU494FnWypHLpRaqlr7n jj5gvdXs6FsLbSCTzbqLolD sgQJK1q5YaHr93D5TsoUbxh 8IcSwz3 xq03cIOap1C8eLC3V0QrRHN rtgklsMSgsVzgUC3fWYOapn koLCTcdH2aRBYzQ0u3XrSkP uX6VJsb P5KpllB3OHRayIPlJJFdqDI YuJ7sqowub2angfqwJaFiRX MqLAv5XFt2ADDojNlaBhWdR HU2KmV6 XRA9dNMgtF2zuEnedjjppQ9 wOyc+KOw8a0utzRMpIL1nqT B8SB20WQ47sGDgn7R6vCJ7L 3BhZGRp odxktgbhuHD4KZFvBADdoB6 9Mk1uyLoeGx1mXINeWJV6PY EwnFVkS4SkvN7yZrAsDTBtG YOqS3Qm oTDqESzsK814OHjxLkI4LJA rmsIcN8LcOYDknCwzGxE8l9 R6Xh0OOF47ZG41QP08qYBvo 4I1wCF4 N0SkHHZgfovwbinexTF2JYA aBCMeuU39Gp0zgDvhYe6gVF MpWUS9SVPxhGSyT8AqyY3fB iAjMDAw WLNwA6WuxCWvQYylB659TVb iDvR5KGAcuxJzH3BsORYakW zgIbW6t3V7Nt3MKh94VS40J P92dZSw f5A4pVO0B1BjOKRuuutznhm wqSN0VHNsHYNuqH77Rp0uyI tkZe4hYFOjYFL3JHNosZGhV 6OjvZ7h UwQuNNGmEDLnQ7GxjMSlFQx hC247NSqoNdY8CVDrhwMjK8 FmZMPktZwsNjS2n4E8Bb3HG Xllcjo8 C2YrXxzetIX+SB65VUYqYW9 3sEVmiTYko1vciRi7RxOmOH WvSNK3lWciBCgfh9OsQUJrD 29sbGFw c2U (more content not included)... Normal [facility] ED Clinical Summaryon 2023 ED Clinical Summary [facility] - Emergency Department [address] [place] [address] ED Clinical Summary PERSON INFORMATION Name: KRISTOFER FABIAN Age: 79 Years Sex: MALE : 1945 MRN: Acct#: Visit Reason: Fall; LT ARM SKIN TEAR Arrival: 02/27/2024 13:52:03 Discharge: 02/27/2024 15:08:00 LOS: 000 01:16 Check In: 02/27/2024 13:52:03 Checkout:02/27/2024 15:08:00 Address: [address] [place] [address] PCP: Provider, None PROVIDER INFORMATION Provider Role Assigned Unassigned Deepti Harper POWDER PRESS OPERATOR Nurse 02/27/2024 13:55:09 Allison Brooks PRODUCT DIRECTOR ED PA 02/27/2024 13:56:44 VITALS INFORMATION Vital [...] r verbalizes understanding of instructions given Comment: [facility] ED Note-Nursingon 02-27-2024 ED Note-Nursing [...] pt is A/Ox4 call light within reach [facility] ED Patient Summaryon 024 ED Patient Summary [facility] - Emergency Department [address] [place] [address] PATIENT DISCHARGE INSTRUCTIONS Patient Information Name: KRISTOFER FABIAN Age: 79 Years Date of : 1945 Reason For Visit: Fall; LT ARM SKIN TEAR Arrival Time: 02/27/2024 13:52:03 Primary Care Physician: Provider, None Attending Physician: Hunter Zavala MD Comment: Visit Diagnosis: Diagnoses This Visit Fall ([id number]) Fall at home (W19.XXXA) Skin tear of upper extremity (S41.119A) Unspecified place in unspecified non-institutional (private) residence as the place of occurrence of the external cause (Y92.009) The Pharmacy at [facility] is open Tuesday through Tuesday from [...] alcohol and/or drug addiction problems; contact the [facility] 01/11 Crisis Hotline -Text 7MBIX zt [phone]. If you received any narcotics, sedation, or [...] treatment you received today in the [facility] Emergency Department were for an urgent problem and are not intended as complete care. It is important for you to follow up with a doctor, nurse practitioner, or physician?s assistant center director for ongoing care. If your symptoms become [...] so we can reach you if necessary. [facility] Emergency Department has provided you with a complete list of medications post discharge. Please inform your radio electronics officer/provider of your visit and for further instruction on these medications. Any specific questions regarding your chronic medications and dosages should be discussed with your primary care physician(s) and/or pharmacist. New Medications [facility], [address], [place] [id number], [phone] bacitracin topical (bacitracin 500 units/g topical ointment) [...] bulbs that (more content not included)... Normal [facility] Complete Blood Count Auto Di ffon 06-27-2020 Basophils (Bld) [#/Vol] 0.1 10*3/uL Normal 0.0-0.2 [facility] Comment on above: Result Comment: PERF ORMED BY: [facility] [address] [place] [address] PATHOLOGIST CHEESE SPECIALIST SANDRA AGUILAR M.D. Performed By: #### L IPID, CMP, CBC #### [facility] [address] [place] [address] [place] Basophils/100 WBC (Bld) 0.8 % Normal . [facility] Comment on above: Performed By: #### L IPID, CMP, CBC #### [facility] [address] Eosinophils (Bld) [#/Vol] 0.3 10*3/uL Normal 0.0-0.45 [facility] Comment on above: Performed By: #### L IPID, CMP, CBC #### [address] Eosinophils/100 WBC (Bld) 3.5 % Normal . [facility] Comment on above: Performed By: #### L IPID, CMP, CBC #### [address] Erythrocyte distribution width (RBC) [Ratio] 13.4 % Normal 12.0-14.8 [facility] Comment on above: Performed By: #### L IPID, CMP, CBC #### [address] Hematocrit (Bld) [Volume fraction] 41.9 % Normal 38.8-50.0 [facility] Comment on above: Performed By: #### L IPID, CMP, CBC #### [address] Hemoglobin (Bld) [Mass/Vol] 14.5 g/dL Normal 13.0-17.0 [facility] Comment on above: Performed By: #### L IPID, CMP, CBC #### [place] [address] [place] Lymphocytes (Bld) [#/Vol] 1.7 10*3/uL Normal 1.00-4.8 [facility] Comment on above: Performed By: #### L IPID, CMP, CBC #### [place] [address] [place] Lymphocytes/100 WBC (Bld) 17.4 % Normal . [facility] Comment on above: Performed By: #### L IPID, CMP, CBC #### [facility] [address] MCH (RBC) [Entitic mass] 29.0 pg Normal 27.5-35.2 [facility] Comment on above: Performed By: #### L IPID, CMP, CBC #### [facility] [address] MCV (RBC) [Entitic vol] 83.5 fL Normal 83.5-101 [facility] Comment on above: Performed By: #### L IPID, CMP, CBC #### [address] Mean Corpuscular HGB Conc 34.7 g/dL Normal 32.5-35.6 [facility] Comment on above: Performed By: #### L IPID, CMP, CBC #### [address] Monocytes (Bld) [#/Vol] 0.6 10*3/uL Normal 0.0-0.8 [facility] Comment on above: Performed By: #### L IPID, CMP, CBC #### [address] Monocytes/100 WBC (Bld) 6.2 % Normal . [facility] Comment on above: Performed By: #### L IPID, CMP, CBC #### [address] Neutrophils (Bld) [#/Vol] 7.0 10*3/uL Normal 1.8-7.7 [facility] Comment on above: Performed By: #### L IPID, CMP, CBC #### [address] Neutrophils/100 WBC (Bld) 72.1 % Normal . [facility] Comment on above: Performed By: #### L IPID, CMP, CBC #### [address] Nucleated RBC/100 WBC (Bld) [Ratio] 0.1 % Normal 0-0.5 [facility] Comment on above: Performed By: #### L IPID, CMP, CBC #### [address] Platelet mean volume (Bld) [Entitic vol] 10.9 fL High 6.6-10.1 [facility] Comment on above: Performed By: #### L IPID, CMP, CBC #### [facility] [address] Platelets (Bld) [#/Vol] 189 10*3/uL Normal 150-450 [facility] Comment on above: Performed By: #### L IPID, CMP, CBC #### [address] RBC (Bld) [#/Vol] 5.01 10*6/uL Normal 3.90-5.60 [facility] Comment on above: Performed By: #### L IPID, CMP, CBC #### [address] WBC (Bld) [#/Vol] 9.7 10*3/uL Normal 4.5-11.0 [facility] Comment on above: Performed By: #### L IPID, CMP, CBC #### [address] Comprehensive Metabolic Pane josé luis 06-27-2020 Albumin [Mass/Vol] 4.0 g/dL Normal 3.2-5.5 [facility] Comment on above: Performed By: #### L IPID, CMP, CBC #### [address] Albumin/Globulin [Mass ratio] 1.7 {ratio} Normal [facility] Comment on above: Performed By: #### L IPID, CMP, CBC #### [address] ALP [Catalytic activity/Vol] 68 U/L Normal 32-92 [facility] Comment on above: Performed By: #### L IPID, CMP, CBC #### [facility] [address] [place] [id number] [place] ALT [Catalytic activity/Vol] 32 U/L Normal 10-60 [facility] Comment on above: Performed By: #### L IPID, CMP, CBC #### [facility] [address] [place] [address] [place] AST [Catalytic activity/Vol] 21 U/L Normal 10-42 [facility] Comment on above: Performed By: #### L IPID, CMP, CBC #### [facility] [address] [place] [id number] [place] Bilirubin [Mass/Vol] 0.8 mg/dL Normal 0.3-1.2 [facility] Comment on above: Performed By: #### L IPID, CMP, CBC #### [facility] [address] [place] [address] [place] Calcium [Mass/Vol] 9.5 mg/dL Normal 8.2-10.2 [facility] Comment on above: Performed By: #### L IPID, CMP, CBC #### [facility] [address] [place] [address] [place] Chloride [Moles/Vol] 104 mmol/L Normal 95-114 [facility] Comment on above: Performed By: #### L IPID, CMP, CBC #### [facility] [address] [place] [id number] [place] CO2 [Moles/Vol] 22.8 mmol/L Normal 22.0-30.0 [facility] Comment on above: Performed By: #### L IPID, CMP, CBC #### [facility] [address] [place] [id number] [place] Creatinine [Mass/Vol] 1.38 mg/dL High 0.64-1.27 [facility] Comment on above: Performed By: #### L IPID, CMP, CBC #### [facility] [address] [place] [id number] [place] Estimated GFR ( Belinda > 60 Normal [facility] Comment on above: Result Comment: GFR estimated reference range: According to KDOQI guidelines, <60 ml/min/1.73m2 is sufficient to diagnose a patient with chronic kidney disease. Performed By: #### L IPID, CMP, CBC #### [facility] [address] [place] [address] Estimated GFR (Non- Am 50 Normal [facility] Comment on above: Performed By: #### L IPID, CMP, CBC #### [facility] [address] Globulin (S) [Mass/Vol] 2.4 g/dL Normal [facility] Comment on above: Performed By: #### L IPID, CMP, CBC #### [address] Glucose [Mass/Vol] 103 mg/dL High 70-100 [facility] Comment on above: Result Comment: [place] Glucose Reference Range is dependent on time and content of last meal. Glucose of more than 200 mg/dL in a nonstressed, ambulatory subject supports the diagnosis of Diabetes Mellitus. ADA recommended reference range Performed By: #### L IPID, CMP, CBC #### [address] Potassium [Moles/Vol] 4.6 mmol/L Normal 3.5-5.1 [facility] Comment on above: Performed By: #### L IPID, CMP, CBC #### [address] Protein [Mass/Vol] 6.4 g/dL Normal 6.1-7.9 [facility] Comment on above: Performed By: #### L IPID, CMP, CBC #### [place] [address] [place] Sodium [Moles/Vol] 138 mmol/L Normal 136-146 [facility] Comment on above: Performed By: #### L IPID, CMP, CBC #### [address] Urea nitrogen [Mass/Vol] 21 mg/dL Normal 9-23 [facility] Comment on above: Performed By: #### L IPID, CMP, CBC #### [address] [place] [address] [facility] Lipid Panelon 06-27-2020 Cholesterol [Mass/Vol] 129 mg/dL Low 140-200 [facility] Comment on above: Result Comment: Chol less than 200 mg/dl low risk Chol 201-239 mg/dl borderline risk Chol 240 mg/dl and greater high risk Performed By: #### L IPID, CMP, CBC #### [facility] [address] Cholesterol in HDL [Mass/Vol] 37 mg/dL Normal 29-71 [facility] Comment on above: Result Comment: HDL CHOL ATP-III CLASSIFICATION Cardiovascular Risk HDL > or equal to 60 mg/dL LOW HDL < 40 mg/dL HIGH Performed By: #### L IPID, CMP, CBC #### [facility] [address] Cholesterol.total/C holesterol in HDL [Mass ratio] 3.5 {ratio} Normal <5.0 [facility] Comment on above: Result Comment: PERF ORMED BY: [place] [address] PATHOLOGIST CHEESE SPECIALIST SANDRA AGUILAR M.D. Performed By: #### L IPID, CMP, CBC #### [address] LDL Cholesterol,Calcula ernie 69 mg/dL Normal 0-100 [facility] Comment on above: Result Comment: LDL ATP III CLASSIFICATION LDL less than 100 mg/dL Optimal LDL 100-129 mg/dL Near or above optimal LDL 130-159 mg/dL Borderline high LDL 160-189 mg/dL High LDL greater than 189 mg/dL Very high Performed By: #### L IPID, CMP, CBC #### [facility] [address] [place] [address] [place] Triglyceride w/Reflex 116 mg/dL Normal 35-149 [facility] Comment on above: Result Comment: TRIG ATP III CLASSIFICATION TRIG less than 150 mg/dL Normal TRIG 150-199 mg/dL Borderline high TRIG 200-500 mg/dL High TRIG greater than 500 mg/dL Very high Standard traceable to the Center for Disease Conrtrol and Prevention (CDC) test method. Performed By: #### L IPID, CMP, CBC #### [facility] [address] VLDL CHOLESTEROL 23 mg/dL Normal [facility] Comment on above: Performed By: #### L IPID, CMP, CBC #### [facility] [address] [place] [id number] [place] POC GLUCOSE LABon 12-06-2017 Glucose mass conc 170 mg/dL High 70-100 [facility] Comment on above: Performed By: #### 8 5499 ####[facility] [place] [address], [facility] Glucose mass conc 135 mg/dL High 70-100 [facility] Comment on above: Performed By: #### 8 5499 ####[facility] [place] [address], [facility] Glucose mass conc 137 mg/dL High 70-100 [facility] Comment on above: Performed By: #### 8 5499 ####[facility] [place] [address], [facility] BASIC METABOLIC PANELon 11-10 Calcium mass conc 8.8 mg/dL Normal 8.6-10.3 [facility] Comment on above: Order Comment: Unkno wn Performed By: #### 8 5499 #### [facility] [address] [place] [address], [facility] Chloride molar conc 96 mmol/L Low 98-107 [facility] Comment on above: Order Comment: Unkno wn Performed By: #### 8 5499 #### [facility] [address] [place] [address], [place] CO2 molar conc 28 mmol/L Normal 21-31 [facility] Comment on above: Order Comment: Unkno wn Performed By: #### 8 5499 #### [facility] [address] [place] [address], [facility] Creatinine mass conc 1.43 mg/dL High 0.70-1.30 [facility] Comment on above: Order Comment: Unkno wn Performed By: #### 8 5499 #### [facility] [address] [place] [address], [facility] GFR/1.73 sq M predicted among blacks MDRD vol rate/area (S/P/Bld) 59 ml/min/1.73sq m Abnormal >60 The [facility] Comment on above: Order Comment: Unkno wn Result Comment: Calc ulation may not be valid for patients over 70 years Performed By: #### 8 5499 #### [facility] [address] [place] [address], [facility] GFR/1.73 sq M predicted among non-blacks MDRD vol rate/area (S/P/Bld) 49 ml/min/1.73sq m Abnormal >60 [facility] Comment on above: Order Comment: Unkno wn Result Comment: Calc ulation may not be valid for patients over 70 years Performed By: #### 8 5499 #### [facility] [address] [place] [address], [facility] Glucose mass conc 171 mg/dL High 70-100 [facility] Comment on above: Order Comment: Unkno wn Performed By: #### 8 5499 #### [facility] [address] [place] [address], [facility] Potassium molar conc 3.7 mmol/L Normal 3.5-5.1 [facility] Comment on above: Order Comment: Unkno wn Performed By: #### 8 5499 #### [facility] [address] [place] [address], [facility] Sodium molar conc 132 mmol/L Low 136-145 [facility] Comment on above: Order Comment: Unkno wn Performed By: #### 8 5499 #### [facility] [address] [facility] Urea nitrogen mass conc 30 mg/dL High 7-25 [facility] Comment on above: Order Comment: Unkno wn Performed By: #### 8 5499 #### [facility] [address] [facility] CBC COMPLETE BLOOD COUNTon 0 12-05-2017 Erythrocyte distribution width Ratio (RBC) 12.8 % Normal 11.5-15.0 [facility] Comment on above: Order Comment: Unkno wn Performed By: #### 8 5499 #### [facility] [address] [facility] Hematocrit Volume Fraction (Bld) 29.4 % Low 39.0-50.0 [facility] Comment on above: Order Comment: Unkno wn Performed By: #### 8 5499 #### [facility] [address] [facility] Hemoglobin mass conc (Bld) 10.0 g/dL Low 13.0-17.0 [facility] Comment on above: Order Comment: Unkno wn Performed By: #### 8 5499 #### [facility] [address] [facility] [address], [facility] MCH Entitic mass (RBC) 28.2 pg Normal 27.0-33.0 [facility] Comment on above: Order Comment: Unkno wn Performed By: #### 8 5499 #### [facility] [address] [place] [address], [facility] MCHC mass conc (RBC) 34.0 g/dL Normal 32.0-35.0 [facility] Comment on above: Order Comment: Unkno wn Performed By: #### 8 5499 #### [facility] [address] [place] [address], [facility] MCV Entitic volume (RBC) 83.1 fL Normal 82.0-98.0 [facility] Comment on above: Order Comment: Unkno wn Performed By: #### 8 5499 #### [facility] [address] [place] [address], [facility] Nucleated RBC/100 WBC Ratio (Bld) 0 % Normal 0-0 [facility] Comment on above: Order Comment: Unkno wn Performed By: #### 8 5499 #### [facility] [address] [place] [address], [facility] PLAT CNT 161 10*3/uL Normal 150-400 [facility] Comment on above: Order Comment: Unkno wn Performed By: #### 8 5499 #### [facility] [address] [place] [address], [facility] RBC #/vol (Bld) 3.54 10*6/uL Low 4.20-5.70 [facility] Comment on above: Order Comment: Unkno wn Performed By: #### 8 5499 #### [facility] [address] [place] [address], [facility] WBC #/vol (Bld) 14.56 10*3/uL High 4.00-10.60 [facility] Comment on above: Order Comment: Unkno wn Performed By: #### 8 5499 #### [facility] [address] [place] [address], [facility] CPK-MB PROFILEon 12-05-2017 CK enzyme act/vol 181 U/L Normal 30-223 [facility] Comment on above: Performed By: #### 8 5499 #### [facility] [address] [place] [address], [facility] CK.MB mass conc 2.1 ng/mL Critically high 0.0-1.9 [facility] Comment on above: Performed By: #### 8 5499 #### [facility] [address] [place] [address], [facility] CK.MB mass conc 3.8 ng/mL Normal 0.0-5.0 [facility] Comment on above: Result Comment: IF T OTAL CK <200 U/L AND: 1. CKMB IS 5-10 NG/ML----BORDERLINE 2. CKMB IS >10 NG/ML----INDICATIVE OF PA OR IF TOTAL CK >200 U/L AND CKMB INDEX >1.9----INDICATIVE OF PA Performed By: #### 8 5499 #### [facility] [address] MAGNESIUM BLOODon 12-05-2017 Magnesium mass conc 2.1 mg/dL Normal 1.9-2.7 [facility] Comment on above: Order Comment: Unkno wn Performed By: #### 8 5499 #### [facility] [address] Operative Reporton 8 Operative Report MR#: [id number] I [facility] Pt. Name: Kristofer Fabian Room #: [id number] Discharge Date: Birthdate: 1945 OPERATIVE REPORT DATE [...] Peters MD Date Trans: 12/05/2017 08:48 P/mmo [id number] cc: Herman Peters MD [address] [facility] [address] [facility] [address] Taryn Coley M.D. [address] [facility]. Bldg. [facility] [address] Normal [facility] POC GLUCOSE LABon 12-05-2017 Glucose mass conc 144 mg/dL High 70-100 [facility] Comment on above: Performed By: #### 8 5499 ####[facility] [place] [address], [facility] Glucose mass conc 132 mg/dL High 70-100 [facility] Comment on above: Performed By: #### 8 5499 ####[facility] [place] [address], [facility] Glucose mass conc 139 mg/dL High 70-100 [facility] Comment on above: Performed By: #### 8 5499 #### [facility] [address] [facility] [address], [facility] Glucose mass conc 152 mg/dL High 70-100 [facility] Comment on above: Performed By: #### 8 5499 #### [facility] [address] [facility] [place] [address], [facility] PORTABLE ABDOMENon 8 PORTABLE ABDOMEN [facility] Department of Radiology [address] [place] [id number] ===== Patient Name: KRISTOFER FABIAN : 1945 Sex: M Age: Race: White Pt. Location: [address] [place] [address] Patient Status: I Ordered Date: 12/05/2017 10:00:00 [...] syndrome. Electronically signed by:Donnell Collado. Transcribed by: [email or web address], User Resident: Electronically Signed by: DONNELL COLLADO @ 12/05/2017 03:22 PM Normal [facility] Comment on above: Order Comment: R/O I leus POTASSIUM BLOODon 12-05-2017 Potassium molar conc 3.8 mmol/L Normal 3.5-5.1 [facility] Comment on above: Order Comment: No: D o not add to previous draw Performed By: #### 4 1406 ####[facility] [place] [address], [facility] TROPONIN-Ion 12-05-2017 Troponin I.cardiac mass conc 0.41 ng/mL High 0.00-0.04 [facility] Comment on above: Result Comment: REFE RENCE RANGES: 0.00 - 0.04 ng/ml NORMAL 0.05 - 0.50 ng/ml INDETERMINATE > 0.50 ng/ml CONSISTENT WITH AN M.I. Performed By: #### 8 5499 #### [facility] [address] [place] [address], [facility] POC GLUCOSE LABon 12-04-2017 Glucose mass conc 164 mg/dL High 70-100 [facility] Comment on above: Performed By: #### 8 5499 #### [facility] [address] [place] [address], [facility] Glucose mass conc 173 mg/dL High 70-100 [facility] Comment on above: Performed By: #### 8 5499 #### [facility] [address] [place] [address], [facility] Glucose mass conc 148 mg/dL High 70-100 [facility] Comment on above: Performed By: #### 8 5499 #### [facility] [address] ARTERIAL BLOOD GAS WITH ICAo n 12-03-2017 BASE EXCESS -3 mmol/L Low -2-2 [facility] Comment on above: Performed By: #### 3 1302 #### [facility] [address] [facility] [address], [facility] [employer] [place] Normal [facility] Comment on above: Performed By: #### 3 1302 #### [facility] [address] [place] [address], [facility] HCO3 molar conc (Bld) 22 mmol/L Low 23-27 [facility] Comment on above: Performed By: #### 3 1302 #### [facility] [address] IONIZED CALCIUM 1.24 mmol/L Normal 1.13-1.32 [facility] Comment on above: Performed By: #### 3 1302 #### [facility] [address] [facility]. [address] LPM 3.0 LPM Normal 0.5-20.0 [facility] Comment on above: Performed By: #### 3 1302 #### [facility] [address] [facility]. [address] Oxygen ppres (Bld) 121 mm[Hg] Critically high 75-100 T [facility] Comment on above: Performed By: #### 3 1302 #### [facility] [address] Oxygen saturation in Blood 96.5 % Normal 94.0-97.0 [facility] Comment on above: Performed By: #### 3 1302 #### [facility] [address] PCO2 38 mmHg Normal 35-45 [facility] Comment on above: Performed By: #### 3 1302 #### [facility] [address] pH (Bld) 7.37 [pH] Normal 7.35-7.45 [facility] Comment on above: Performed By: #### 3 1302 #### [facility] [address] BASIC METABOLIC PANELon 11-10 Calcium mass conc 9.0 mg/dL Normal 8.6-10.3 [facility] Comment on above: Order Comment: , , = ========= , Ordering Provider - VENESSA WHITE COLOR CHECKER ROVING OR YARN, S , Performed By: #### 0 1, , [id number] ####[facility] [facility] [place] [address], [facility] Chloride molar conc 105 mmol/L Normal 98-107 [facility] Comment on above: Order Comment: , , = ========= , Ordering Adia WHITE COLOR CHECKER ROVING OR YARN, S , Performed By: #### 0 70, , [id number] ####[facility] [facility] [address], [facility] CO2 molar conc 24 mmol/L Normal 21-31 [facility] Comment on above: Order Comment: , , = ========= , Ordering Adia WHITE COLOR CHECKER ROVING OR YARN, S , Performed By: #### 0 70, , [id number] ####[facility] [facility] [address], [facility] Creatinine mass conc 1.42 mg/dL High 0.70-1.30 [facility] Comment on above: Order Comment: , , = ========= , Ordering Adia WHITE COLOR CHECKER ROVING OR YARN, S , Performed By: #### 0 70, , [id number] ####[facility] [place] [address], [facility] GFR/1.73 sq M predicted among blacks MDRD vol rate/area (S/P/Bld) 59 ml/min/1.73sq m Abnormal >60 [facility] Comment on above: Order Comment: , , = ========= , Ordering Adia WHITE COLOR CHECKER ROVING OR YARN, S , Result Comment: Calc ulation may not be valid for patients over 70 years Performed By: #### 0 70, , 35713 ####[facility] [facility] [address], [facility] GFR/1.73 sq M predicted among non-blacks MDRD vol rate/area (S/P/Bld) 49 ml/min/1.73sq m Abnormal >60 [facility] Comment on above: Order Comment: , , = ========= , Ordering Adia WHITE COLOR CHECKER ROVING OR YARN, S , Result Comment: Calc ulation may not be valid for patients over 70 years Performed By: #### 0 70, , [id number] ####[place] [id number] [facility] [address], [facility] Glucose mass conc 115 mg/dL High 70-100 [facility] Comment on above: Order Comment: , , = ========= , Ordering Adia WHITE COLOR CHECKER ROVING OR YARN, S , Performed By: #### 0 70, , 13917 ####[place] [address] [facility] [address], [facility] Potassium molar conc 4.3 mmol/L Normal 3.5-5.1 [facility] Comment on above: Order Comment: , , = ========= , Ordering Adia WHITE COLOR CHECKER ROVING OR YARN, S , Performed By: #### 0 70, , 56209 ####[place] [address] [facility] [address], [facility] Sodium molar conc 134 mmol/L Low 136-145 [facility] Comment on above: Order Comment: , , = ========= , Ordering Adia WHITE COLOR CHECKER ROVING OR YARN, S , Performed By: #### 0 70, , 84813 ####[facility] Urea nitrogen mass conc 23 mg/dL Normal 7-25 [facility] Comment on above: Order Comment: , , = ========= , Ordering Adia - VENESSA WHITE COLOR CHECKER ROVING OR YARN, S , Performed By: #### 0 0071, 45898, 93778 ####[facility] CBC COMPLETE BLOOD COUNTon 0 12-03-2017 Erythrocyte distribution width Ratio (RBC) 13.0 % Normal 11.5-15.0 [facility] Comment on above: Order Comment: , , = ========= , Ordering Adia - VENESSA WHITE COLOR CHECKER ROVING OR YARN, S , Performed By: #### 5 0608 ####[place] [address] Hematocrit Volume Fraction (Bld) 34.0 % Low 39.0-50.0 [facility] Comment on above: Order Comment: , , = ========= , Ordering Adia - VENESSA WHITE COLOR CHECKER ROVING OR YARN, S , Performed By: #### 5 0608 ####[place] [address] Hemoglobin mass conc (Bld) 11.7 g/dL Low 13.0-17.0 [facility] Comment on above: Order Comment: , , = ========= , Ordering Adia - VENESSA WHITE COLOR CHECKER ROVING OR YARN, S , Performed By: #### 5 0608 ####[address] MCH Entitic mass (RBC) 28.3 pg Normal 27.0-33.0 [facility] Comment on above: Order Comment: , , = ========= , Ordering Adia - VENESSA WHITE COLOR CHECKER ROVING OR YARN, S , Performed By: #### 5 0608 ####[place] [address] MCHC mass conc (RBC) 34.4 g/dL Normal 32.0-35.0 [facility] Comment on above: Order Comment: , , = ========= , Ordering Provider - VENESSA WHITE COLOR CHECKER ROVING OR YARN, S , Performed By: #### 5 0608 ####[address] MCV Entitic volume (RBC) 82.3 fL Normal 82.0-98.0 [facility] Comment on above: Order Comment: , , = ========= , Ordering Provider - VENESSA WHITE COLOR CHECKER ROVING OR YARN, S , Performed By: #### 5 0608 ####[address] Nucleated RBC/100 WBC Ratio (Bld) 0 % Normal 0-0 [facility] Comment on above: Order Comment: , , = ========= , Ordering Provider - VENESSA WHITE COLOR CHECKER ROVING OR YARN, S , Performed By: #### 5 0608 ####[address] PLAT CNT 184 10*3/uL Normal 150-400 [facility] Comment on above: Order Comment: , , = ========= , Ordering Provider - VENESSA WHITE COLOR CHECKER ROVING OR YARN, S , Performed By: #### 5 0608 ####[address] RBC #/vol (Bld) 4.13 10*6/uL Low 4.20-5.70 [facility] Comment on above: Order Comment: , , = ========= , Ordering Provider - VENESSA WHITE COLOR CHECKER ROVING OR YARN, S , Performed By: #### 5 0608 ####[facility] WBC #/vol (Bld) 15.96 10*3/uL High 4.00-10.60 [facility] Comment on above: Order Comment: , , = ========= , Ordering Provider - VENESSA WHITE COLOR CHECKER ROVING OR YARN, S , Performed By: #### 5 0608 ####[facility] CPK-MB PROFILEon 12-03-2017 CK enzyme act/vol 228 U/L High 30-223 [facility] Comment on above: Order Comment: post op day 1No: Do not add to previous draw Performed By: #### 3 1302 #### [facility] [address] CK.MB mass conc 8.9 ng/mL Critically high 0.0-1.9 [facility] Comment on above: Order Comment: post op day 1No: Do not add to previous draw Result Comment: M-CR ITICAL RESULT(S) REVIEWED, CALLED TO AND READ BACK BY MARGARETTE RODRIGUEZ RN @ 0542 Performed By: #### 3 1302 #### [facility] [address] CK.MB mass conc 20.2 ng/mL High 0.0-5.0 [facility] Comment on above: Order Comment: post op day 1No: Do not add to previous draw Result Comment: M-CR ITICAL RESULT(S) REVIEWED, CALLED TO AND READ BACK BY CRITICAL RESULT(S) REVIEWED, CALLED TO AND READ BACK BY MARGARETTE RODRIGUEZ RN @ 0542 IF TOTAL CK <200 U/L AND: 1. CKMB IS 5-10 NG/ML----BORDERLINE 2. CKMB IS >10 NG/ML----INDICATIVE OF PA OR IF TOTAL CK >200 U/L AND CKMB INDEX >1.9----INDICATIVE OF PA Performed By: #### 3 1302 #### [facility] [address] [place] [address], [place] MAGNESIUM BLOODon 12-03-2017 Magnesium mass conc 2.3 mg/dL Normal 1.9-2.7 [facility] Comment on above: Order Comment: , , = ========= , Ordering Provider - VENESSA WHITE COLOR CHECKER ROVING OR YARN, S , Performed By: #### 0 0071, 29618, 86825 ####[facility] [place] [address], [facility] POC GLUCOSE LABon 12-03-2017 Glucose mass conc 139 mg/dL High 70-100 [facility] Comment on above: Performed By: #### 3 1302 #### [facility] [address] [place] [address], [place] Glucose mass conc 145 mg/dL High 70-100 [facility] Comment on above: Performed By: #### 3 1302 #### [facility] [address] [place] [address], [place] Glucose mass conc 126 mg/dL High 70-100 [facility] Comment on above: Performed By: #### 3 1302 #### [facility] [address] [place] [address], [place] Glucose mass conc 116 mg/dL High 70-100 [facility] Comment on above: Performed By: #### 3 1302 #### [facility] [address] [place] [address], [place] Glucose mass conc 128 mg/dL High 70-100 [facility] Comment on above: Performed By: #### 3 1302 #### [facility] [address] [place] [address], [place] Glucose mass conc 119 mg/dL High 70-100 [facility] Comment on above: Performed By: #### 3 1302 #### [facility] [address] [place] [address], [place] Glucose mass conc 129 mg/dL High 70-100 [facility] Comment on above: Performed By: #### 8 5499 ####[facility] [facility] [address], [place] Glucose mass conc 116 mg/dL High 70-100 [facility] Comment on above: Performed By: #### 8 5499 ####[facility] [facility] [place] [address], [place] Glucose mass conc 116 mg/dL High 70-100 [facility] Comment on above: Performed By: #### 8 5499 ####[facility] [facility] [address], [place] Glucose mass conc 116 mg/dL High 70-100 [facility] Comment on above: Performed By: #### 8 5499 ####[facility] [facility] [address], [place] Glucose mass conc 144 mg/dL High 70-100 [facility] Comment on above: Performed By: #### 8 5499 ####[facility] [facility] [address], [place] Glucose mass conc 147 mg/dL High 70-100 [facility] Comment on above: Performed By: #### 8 5499 ####[facility] [facility] [address], [place] PORTABLE CHEST 1 VIEWon 11-10 PORTABLE CHEST 1 VIEW [facility] Department of Radiology [address] [place] [id number] ===== Patient Name: KRISTOFER FABIAN : 1945 Sex: M Age: Race: White Pt. Location: [id number] Patient Status: I Ordered Date: 12/03/2017 9:30:00 [...] findings. Electronically signed by:Shaw Dent. Transcribed by: [email or web address], User Resident: JUAN LUIS REYES Electronically Signed by: SHAW DENT @ 12/03/2017 02:01 PM I personally read this/these film(s) with this resident Normal [facility] Comment on above: Order Comment: R/O A telectasis, Post op day 1 CABG PROTHROMBIN TIMEon 8 INR Coag RelTime (PPP) 1.14 {INR} Normal 0.91-1.16 [facility] Comment on above: Order Comment: , [...] CHEST 1995;[id number]. Performed By: #### 5 6101 ####[facility] Prothrombin time (PT) Coag time (PPP) 14.6 s Normal 12.3-14.8 [facility] Comment on above: Order Comment: , , = ========= , Ordering Provider - VENESSA WHITE NP, S , Result Comment: ALL RESULTS MUST BE INTERPRETED WITH RESPECT TO BLOOD DRAWING ARTIFACT OR DILUTION ERROR OF ANTICOAGULANT AT THE TIME OF SAMPLING. Performed By: #### 5 6101 ####[facility] [place] [address], [facility] ACTIVATED CLOTTING TIMEon ACTIVATED CLOTTING TIME 132 sec Normal 82-152 [facility] Comment on above: Performed By: #### 4 6447 #### [facility] [address] [place] [address], [place] ACTIVATED CLOTTING TIME 508 sec High 82-152 [facility] Comment on above: Performed By: #### 6 2586 #### [facility] [address] [place] [address], [facility] ACTIVATED CLOTTING TIME 644 sec High 82-152 [facility] Comment on above: Performed By: #### 6 2586 #### [facility] [address] [place] [address], [facility] ACTIVATED CLOTTING TIME 479 sec High 82-152 [facility] Comment on above: Performed By: #### 6 2586 #### [facility] [address] [place] [address], [facility] ACTIVATED CLOTTING TIME 467 sec High 82-152 [facility] Comment on above: Performed By: #### 6 2586 #### [facility] [address] [place] [address], [facility] ACTIVATED CLOTTING TIME 138 sec Normal 82-152 [facility] Comment on above: Performed By: #### 6 2586 #### [facility] [address] [place] [address], [facility] APTTon 12-02-2017 aPTT Coag time (Bld) 36.5 s High 25.0-35.0 [facility] Comment on above: Result Comment: ALL [...] THIS PURPOSE. Performed By: #### 5 6101, 52514, 76425 #### [facility] [address] [place] [address], [facility] ARTERIAL BLOOD GAS WITH ICAo n 12-02-2017 BASE EXCESS -4 mmol/L Low -2-2 [facility] Comment on above: Performed By: #### 4 6447 #### [facility] [address] [place] [address], [facility] DELIVERY SYSTEMS MV Normal [facility] Comment on above: Performed By: #### 4 6447 #### [facility] [address] [place] [address], [facility] FIO2 40 % Normal 21-100 [facility] Comment on above: Performed By: #### 4 6447 #### [facility] [address] [place] [address], [facility] HCO3 molar conc (Bld) 21 mmol/L Low 23-27 [facility] Comment on above: Performed By: #### 4 6447 #### [facility] [address] [place] [address], [facility] IONIZED CALCIUM 1.23 mmol/L Normal 1.13-1.32 [facility] Comment on above: Performed By: #### 4 6447 #### [facility] [address] [place] [address], [facility] MIN VOLUME 11.3 Normal [facility] Comment on above: Performed By: #### 4 6447 #### [facility] [address] [place] [address], [facility] MODALITY CPAP Normal [facility] Comment on above: Performed By: #### 4 6447 #### [facility] [address] [place] [address], [facility] Oxygen ppres (Bld) 106 mm[Hg] Critically high 75-100 [facility] Comment on above: Performed By: #### 4 6447 #### [facility] [address] [place] [address], [facility] Oxygen saturation in Blood 95.0 % Normal 94.0-97.0 [facility] Comment on above: Performed By: #### 4 6447 #### [facility] [address] [place] [address], [facility] PCO2 38 mmHg Normal 35-45 [facility] Comment on above: Performed By: #### 4 6447 #### [facility] [address] [place] [address], [facility] PEEP 5.0 CMH20 Normal [facility] Comment on above: Performed By: #### 4 6456 #### [facility] [address] [place] [address], [facility] PF RATIO 265 mmHg Normal 50-400 [facility] Comment on above: Performed By: #### 4 6485 #### [facility] [address] [place] [address], [facility] pH (Bld) 7.35 [pH] Normal 7.35-7.45 [facility] Comment on above: Performed By: #### 4 6419 #### [facility] [address] [place] [address], [facility] PRESSURE SUPPORT 5 Normal [facility] Comment on above: Performed By: #### 4 6084 #### [facility] [address] [place] [address], [facility] BASE EXCESS -5 mmol/L Low -2-2 [facility] Comment on above: Order Comment: on ar rival to CVU Performed By: #### 4 0452 #### [facility] [address] [place] [address], [facility] DELIVERY SYSTEMS MV Normal [facility] Comment on above: Order Comment: on ar rival to CVU Performed By: #### 4 6447 #### [facility] [address] [place] [address], [place] FIO2 50 % Normal 21-100 [facility] Comment on above: Order Comment: on ar rival to CVU Performed By: #### 4 6447 #### [facility] [address] [place] [address], [place] HCO3 molar conc (Bld) 21 mmol/L Low 23-27 [facility] Comment on above: Order Comment: on ar rival to CVU Performed By: #### 4 6447 #### [facility] [address] [place] [address], [facility] IONIZED CALCIUM 1.26 mmol/L Normal 1.13-1.32 [facility] Comment on above: Order Comment: on ar rival to CVU Performed By: #### 4 6447 #### [facility] [address] [place] [address], [facility] MIN VOLUME 7.5 Normal [facility] Comment on above: Order Comment: on ar rival to CVU Performed By: #### 4 6447 #### [facility] [address] [place] [address], [facility] MODALITY SIMV Normal [facility] Comment on above: Order Comment: on ar rival to CVU Performed By: #### 4 6447 #### [facility] [address] [place] [address], [place] Oxygen ppres (Bld) 113 mm[Hg] Critically high 75-100 [facility] Comment on above: Order Comment: on ar rival to CVU Performed By: #### 4 6447 #### [facility] [address] [place] [address], [facility] Oxygen saturation in Blood 95.0 % Normal 94.0-97.0 [facility] Comment on above: Order Comment: on ar rival to CVU Performed By: #### 4 6447 #### [facility] [address] [place] [address], [place] PCO2 43 mmHg Normal 35-45 [facility] Comment on above: Order Comment: on ar rival to CVU Performed By: #### 4 6447 #### [facility] [address] [place] [address], [place] PEEP 5.0 CMH20 Normal [facility] Comment on above: Order Comment: on ar rival to CVU Performed By: #### 4 6447 #### [facility] [address] [place] [address], [place] PF RATIO 226 mmHg Normal 50-400 [facility] Comment on above: Order Comment: on ar rival to CVU Performed By: #### 4 6447 #### [facility] [address] [place] [address], [place] pH (Bld) 7.30 [pH] Low 7.35-7.45 [facility] Comment on above: Order Comment: on ar rival to CVU Performed By: #### 4 6447 #### [facility] [address] [place] [address], [place] PRESSURE SUPPORT 8 Normal [facility] Comment on above: Order Comment: on ar rival to CVU Performed By: #### 4 6447 #### [facility] [address] [place] [address], [place] TIDAL VOLUME (VT) CC 500 Normal [facility] Comment on above: Order Comment: on ar rival to CVU Performed By: #### 4 6447 #### [facility] [address] [place] [address], [place] BASIC METABOLIC PANELon 08-2 Calcium mass conc 7.7 mg/dL Low 8.6-10.3 [facility] Comment on above: Performed By: #### 4 6447 #### [facility] [address] [place] [address], [facility] Chloride molar conc 105 mmol/L Normal 98-107 [facility] Comment on above: Performed By: #### 4 6447 #### [facility] [address] [place] [address], [facility] CO2 molar conc 23 mmol/L Normal 21-31 [facility] Comment on above: Performed By: #### 4 6481 #### [facility] [address] [place] [address], [facility] Creatinine mass conc 1.45 mg/dL High 0.70-1.30 [facility] Comment on above: Performed By: #### 4 6447 #### [facility] [address] [place] [address], [facility] GFR/1.73 sq M predicted among blacks MDRD vol rate/area (S/P/Bld) 58 ml/min/1.73sq m Abnormal >60 [facility] Comment on above: Result Comment: Calc ulation may not be valid for patients over 70 years Performed By: #### 4 6414 #### [facility] [address] [place] [address], [facility] GFR/1.73 sq M predicted among non-blacks MDRD vol rate/area (S/P/Bld) 48 ml/min/1.73sq m Abnormal >60 [facility] Comment on above: Result Comment: Calc ulation may not be valid for patients over 70 years Performed By: #### 4 2520 #### [facility] [address] [place] [address], [facility] Glucose mass conc 139 mg/dL High 70-100 [facility] Comment on above: Performed By: #### 4 8134 #### [facility] [address] [place] [address], [facility] Potassium molar conc 4.6 mmol/L Normal 3.5-5.1 [facility] Comment on above: Performed By: #### 4 6447 #### [facility] [address] [place] [address], [facility] Sodium molar conc 135 mmol/L Low 136-145 [facility] Comment on above: Performed By: #### 4 6447 #### [facility] [address] [place] [address], [facility] Urea nitrogen mass conc 23 mg/dL Normal 7-25 [facility] Comment on above: Performed By: #### 4 6447 #### [facility] [address] [facility] [place] [place] [id number] [place] [address] CBC COMPLETE BLOOD COUNTon 12-02-2017 Erythrocyte distribution width Ratio (RBC) 12.8 % Normal 11.5-15.0 [facility] Comment on above: Performed By: #### 4 6447 #### [facility] [address] [facility] [address], [facility] Hematocrit Volume Fraction (Bld) 33.3 % Low 39.0-50.0 [facility] Comment on above: Performed By: #### 4 6447 #### [facility] [address] [place] [address], [facility] Hemoglobin mass conc (Bld) 11.4 g/dL Low 13.0-17.0 [facility] Comment on above: Performed By: #### 4 6447 #### [facility] [address] [place] [address], [facility] MCH Entitic mass (RBC) 28.1 pg Normal 27.0-33.0 [facility] Comment on above: Performed By: #### 4 6409 #### [facility] [address] [place], [place] [address] [place] [address] MCHC mass conc (RBC) 34.2 g/dL Normal 32.0-35.0 [facility] Comment on above: Performed By: #### 4 6447 #### [facility] [address] [facility] [address] MCV Entitic volume (RBC) 82.2 fL Normal 82.0-98.0 [facility] Comment on above: Performed By: #### 4 6447 #### [facility] [address] [facility]. [address] Nucleated RBC/100 WBC Ratio (Bld) 0 % Normal 0-0 [facility] Comment on above: Performed By: #### 4 6447 #### [facility] [address] [facility] [place] [address], [facility] PLAT CNT 141 10*3/uL Low 150-400 [facility] Comment on above: Performed By: #### 4 6447 #### [facility] [address] [facility]. [address] RBC #/vol (Bld) 4.05 10*6/uL Low 4.20-5.70 [facility] Comment on above: Performed By: #### 4 6447 #### [facility] [address] [facility] [address], [facility] WBC #/vol (Bld) 20.03 10*3/uL High 4.00-10.60 [facility] Comment on above: Performed By: #### 4 6447 #### [facility] [address] [facility] [place] [address], [facility] FIBRINOGENon 12-02-2017 FIBRINOGEN 294 mg/dL Normal 150-425 [facility] Comment on above: Performed By: #### 6 2586 #### [facility] [address] [place] [address], [facility] MAGNESIUM BLOODon 12-02-2017 Magnesium mass conc 2.7 mg/dL Normal 1.9-2.7 [facility] Comment on above: Performed By: #### 4 6447 #### [facility] [address] [place] [address], [facility] PERFUSION BLOOD PANELon 11-10 BASE EXCESS 0.0 mmol/L Normal -2.0-3.0 [facility] Comment on above: Performed By: #### 4 6447 #### [facility] [address] [place] [address], [facility] Glucose mass conc 109 mg/dL High 70-105 [facility] Comment on above: Performed By: #### 4 6447 #### [facility] [address] [place] [address], [facility] Hematocrit Volume Fraction (Bld) 28 % Low 38-51 [facility] Comment on above: Performed By: #### 4 6447 #### [facility] [address] [place] [address], [facility] Hemoglobin mass conc (Bld) 9.5 g/dL Low 12.0-17.0 [facility] Comment on above: Performed By: #### 4 6447 #### [facility] [address] [place] [address], [facility] IONIZED CALCIUM 1.14 mmol/L Normal 1.12-1.32 [facility] Comment on above: Performed By: #### 4 6447 #### [facility] [address] [place] [address], [facility] Oxygen ppres (Bld) 238.0 mm[Hg] High 80.0-105.0 [facility] Comment on above: Performed By: #### 4 6498 #### [facility] [address] [place] [address], [facility] PCO2 41.3 mmHg Normal 35.0-45.0 [facility] Comment on above: Performed By: #### 4 7906 #### [facility] [address] [place] [address], [facility] pH (Bld) 7.39 [pH] Normal 7.35-7.45 [facility] Comment on above: Performed By: #### 4 6447 #### [facility] [address] [place] [address], [facility] Potassium molar conc 4.7 mmol/L Normal 3.5-4.9 [facility] Comment on above: Performed By: #### 4 6447 #### [facility] [address] [place] [address], [facility] Sodium molar conc 136 mmol/L Low 138-146 [facility] Comment on above: Performed By: #### 4 6436 #### [facility] [address] [place] [address], [facility] BASE EXCESS -1.0 mmol/L Normal -2.0-3.0 [facility] Comment on above: Performed By: #### 4 6447 #### [facility] [address] [place] [address], [facility] Glucose mass conc 112 mg/dL High 70-105 [facility] Comment on above: Performed By: #### 4 6418 #### [facility] [address] [place] [address], [facility] Hematocrit Volume Fraction (Bld) 27 % Low 38-51 [facility] Comment on above: Performed By: #### 4 6447 #### [facility] [address] [place] [address], [facility] Hemoglobin mass conc (Bld) 9.2 g/dL Low 12.0-17.0 [facility] Comment on above: Performed By: #### 4 6496 #### [facility] [address] [place] [address], [facility] IONIZED CALCIUM 0.94 mmol/L Low 1.12-1.32 [facility] Comment on above: Performed By: #### 4 6447 #### [facility] [address] [place] [address], [facility] Oxygen ppres (Bld) 299.0 mm[Hg] High 80.0-105.0 [facility] Comment on above: Performed By: #### 4 6447 #### [facility] [address] [place] [address], [facility] PCO2 31.5 mmHg Low 35.0-45.0 [facility] Comment on above: Performed By: #### 4 6447 #### [facility] [address] [facility]. [address] pH (Bld) 7.47 [pH] High 7.35-7.45 [facility] Comment on above: Performed By: #### 4 6447 #### [facility] [address] [facility]. [address] Potassium molar conc 4.9 mmol/L Normal 3.5-4.9 [facility] Comment on above: Performed By: #### 4 6447 #### [facility] [address] [facility] [address], [facility] Sodium molar conc 134 mmol/L Low 138-146 [facility] Comment on above: Performed By: #### 4 6447 #### [facility] [address] [place] [address], [facility] BASE EXCESS 2.0 mmol/L Normal -2.0-3.0 [facility] Comment on above: Performed By: #### 6 2586 #### [facility] [address] [facility] [place] [address], [facility] Glucose mass conc 121 mg/dL High 70-105 [facility] Comment on above: Performed By: #### 6 2586 #### [facility] [address] [place] [address], [facility] Hematocrit Volume Fraction (Bld) 28 % Low 38-51 [facility] Comment on above: Performed By: #### 6 2586 #### [facility] [address] [place] [address], [facility] Hemoglobin mass conc (Bld) 9.5 g/dL Low 12.0-17.0 [facility] Comment on above: Performed By: #### 6 2586 #### [facility] [address] [place] [address], [facility] IONIZED CALCIUM 1.01 mmol/L Low 1.12-1.32 [facility] Comment on above: Performed By: #### 6 2586 #### [facility] [address] [place] [address], [facility] Oxygen ppres (Bld) 299.0 mm[Hg] High 80.0-105.0 [facility] Comment on above: Performed By: #### 6 2586 #### [facility] [address] [place] [address], [facility] PCO2 37.3 mmHg Normal 35.0-45.0 [facility] Comment on above: Performed By: #### 6 2586 #### [facility] [address] [place] [address], [facility] pH (Bld) 7.45 [pH] Normal 7.35-7.45 [facility] Comment on above: Performed By: #### 6 2586 #### [facility] [address] [place] [address], [facility] Potassium molar conc 4.6 mmol/L Normal 3.5-4.9 [facility] Comment on above: Performed By: #### 6 2586 #### [facility] [address] [place] [address], [facility] Sodium molar conc 134 mmol/L Low 138-146 [facility] Comment on above: Performed By: #### 6 2586 #### [facility] [address] [place] [address], [facility] BASE EXCESS 1.0 mmol/L Normal -2.0-3.0 [facility] Comment on above: Performed By: #### 6 2586 #### [facility] [address] [place] [address], [facility] Glucose mass conc 110 mg/dL High 70-105 [facility] Comment on above: Performed By: #### 6 2586 #### [facility] [address] [place] [address], [facility] Hematocrit Volume Fraction (Bld) 31 % Low 38-51 [facility] Comment on above: Performed By: #### 6 2586 #### [facility] [address] [place] [address], [facility] Hemoglobin mass conc (Bld) 10.5 g/dL Low 12.0-17.0 [facility] Comment on above: Performed By: #### 6 2586 #### [facility] [address] [place] [address], [facility] IONIZED CALCIUM 1.01 mmol/L Low 1.12-1.32 [facility] Comment on above: Performed By: #### 6 2586 #### [facility] [address] [place] [address], [facility] Oxygen ppres (Bld) 334.0 mm[Hg] High 80.0-105.0 [facility] Comment on above: Performed By: #### 6 2586 #### [facility] [address] [place] [address], [facility] PCO2 36.3 mmHg Normal 35.0-45.0 [facility] Comment on above: Performed By: #### 6 2586 #### [facility] [address] [place] [address], [facility] pH (Bld) 7.45 [pH] Normal 7.35-7.45 [facility] Comment on above: Performed By: #### 6 2586 #### [facility] [address] [place] [address], [facility] Potassium molar conc 4.6 mmol/L Normal 3.5-4.9 [facility] Comment on above: Performed By: #### 6 2586 #### [facility] [address] [place] [address], [facility] Sodium molar conc 135 mmol/L Low 138-146 [facility] Comment on above: Performed By: #### 6 2586 #### [facility] [address] [place] [address], [facility] BASE EXCESS -1.0 mmol/L Normal -2.0-3.0 [facility] Comment on above: Performed By: #### 6 2586 #### [facility] [address] [place] [address], [facility] Glucose mass conc 97 mg/dL Normal 70-105 [facility] Comment on above: Performed By: #### 6 2586 #### [facility] [address] [place] [address], [facility] Hematocrit Volume Fraction (Bld) 36 % Low 38-51 [facility] Comment on above: Performed By: #### 6 2586 #### [facility] [address] [place] [address], [facility] Hemoglobin mass conc (Bld) 12.2 g/dL Normal 12.0-17.0 [facility] Comment on above: Performed By: #### 6 2586 #### [facility] [address] [place] [address], [place] IONIZED CALCIUM 1.10 mmol/L Low 1.12-1.32 [facility] Comment on above: Performed By: #### 6 2586 #### [facility] [address] [place] [address], [facility] Oxygen ppres (Bld) 396.0 mm[Hg] High 80.0-105.0 [facility] Comment on above: Performed By: #### 6 2586 #### [facility] [address] [place] [address], [facility] PCO2 46.9 mmHg High 35.0-45.0 [facility] Comment on above: Performed By: #### 6 2586 #### [facility] [address] [place] [address], [facility] pH (Bld) 7.34 [pH] Low 7.35-7.45 [facility] Comment on above: Performed By: #### 6 2586 #### [facility] [address] [place] [address], [facility] Potassium molar conc 3.9 mmol/L Normal 3.5-4.9 [facility] Comment on above: Performed By: #### 6 2586 #### [facility] [address] [place] [address], [facility] Sodium molar conc 140 mmol/L Normal 138-146 [facility] Comment on above: Performed By: #### 6 2586 #### [facility] [address] [place] [address], [facility] BASE EXCESS 0.0 mmol/L Normal -2.0-3.0 [facility] Comment on above: Performed By: #### 6 2586 #### [facility] [address] [place] [address], [facility] Glucose mass conc 100 mg/dL Normal 70-105 [facility] Comment on above: Performed By: #### 6 2586 #### [facility] [address] [place] [address], [facility] Hematocrit Volume Fraction (Bld) 43 % Normal 38-51 [facility] Comment on above: Performed By: #### 6 2586 #### [facility] [address] [place] [address], [facility] Hemoglobin mass conc (Bld) 14.6 g/dL Normal 12.0-17.0 [facility] Comment on above: Performed By: #### 6 2586 #### [facility] [address] [place] [address], [facility] IONIZED CALCIUM 1.18 mmol/L Normal 1.12-1.32 [facility] Comment on above: Performed By: #### 6 2586 #### [facility] [address] [place] [address], [facility] Oxygen ppres (Bld) 89.0 mm[Hg] Normal 80.0-105.0 [facility] Comment on above: Performed By: #### 6 2586 #### [facility] [address] [place] [address], [facility] PCO2 35.7 mmHg Normal 35.0-45.0 [facility] Comment on above: Performed By: #### 6 2586 #### [facility] [address] [place] [address], [facility] pH (Bld) 7.43 [pH] Normal 7.35-7.45 [facility] Comment on above: Performed By: #### 6 2586 #### [facility] [address] [place] [address], [facility] Potassium molar conc 4.2 mmol/L Normal 3.5-4.9 [facility] Comment on above: Performed By: #### 6 2586 #### [facility] [address] [place] [address], [place] Sodium molar conc 138 mmol/L Normal 138-146 [facility] Comment on above: Performed By: #### 6 2586 #### [facility] [address] [facility] [address], [facility] POC GLUCOSE LABon 12-02-2017 Glucose mass conc 147 mg/dL High 70-100 [facility] Comment on above: Performed By: #### 4 6447 #### [facility] [address] [place] [address], [facility] Glucose mass conc 145 mg/dL High 70-100 [facility] Comment on above: Performed By: #### 4 6447 #### [facility] [address] [facility] [address], [facility] Glucose mass conc 128 mg/dL High 70-100 [facility] Comment on above: Performed By: #### 8 5499 ####[facility] [facility] [address], [facility] Glucose mass conc 113 mg/dL High 70-100 [facility] Comment on above: Performed By: #### 8 5499 #### [facility] [address] [facility] [address], [facility] PORTABLE CHEST 1 VIEWon 11-10 PORTABLE CHEST 1 VIEW [facility] Department of Radiology [address] [place] [id number] ===== Patient Name: KRISTOFER FABIAN : [...] findings. Electronically signed by:Shaw Dent. Transcribed by: [email or web address], User Resident: ROBIN LENZ Electronically Signed by: SHAW DENT @ 12/03/2017 08:48 AM I personally read this/these film(s) with this resident Normal [facility] Comment on above: Order Comment: Check E.T. Position PROTHROMBIN TIMEon 8 INR Coag RelTime (PPP) 1.38 {INR} High 0.91-1.16 [facility] Comment on above: Result Comment: ACC [...] CHEST 1995;108:231S-246S. Performed By: #### 5 6101, [address], [address] #### [facility] [address] Prothrombin time (PT) Coag time (PPP) 17.0 s High 12.3-14.8 [facility] Comment on above: Result Comment: ALL RESULTS MUST BE INTERPRETED WITH RESPECT TO BLOOD DRAWING ARTIFACT OR DILUTION ERROR OF ANTICOAGULANT AT THE TIME OF SAMPLING. Performed By: #### 5 6101, 113[address], [address] #### [facility] [address] TYPE AND CROSSMATCHon 2017 ABO INTERPRETATION B Normal [facility] Comment on above: Performed By: #### 6 2594 #### [facility] [address] [place] [address], [facility] RH INTERPRETATION Negative Normal [facility] Comment on above: Performed By: #### 6 2594 #### [facility] [address] [facility]. [address] Cardiovascular Lab Reporton 11-29-2017 Cardiovascular Lab Report [facility] Patient Name: Kristofer Fabian MR #: [id number] [facility] Physician: Ehab Eltahawy, M.D. Department of Service Date: 11/28/2017 Medicine Birthdate: 1945 Division of Room #: Cardiology Adult Cardiovascular Services [facility] [address] [place] [address] Cardiovascular Laboratory Report FINAL IMPRESSIONS: 1. 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 2. Chronic total occlusion of the [...] Coley as scheduled. 5. Follow up with w[facility] in the [facility] in the next 2-4 weeks. PROCEDURES: Limited femoral angiography, bilateral selective coronary angiography, placement of a 6-Omani MynxGrip closure device. METHODS: After risks, benefits, and alternatives were explained, written informed consent was obtained. The patient was prepped and draped in the usual sterile fashion over both groins. Using 1% lidocaine solution, local infiltration anesthesia was achieved. Using a modified Seldinger technique, access to the right common femoral artery was obtained. A 6-Omani 11 cm sheath was inserted without difficulty. Baseline femoral arterial angiography was performed. Bilateral selective coronary angiography was then performed using JL4 and JR4 catheters. After reviewing the images, it was elected to conclude the procedure. A 6-Omani MynxGrip closure device was deployed per protocol [...] small caliber AV groove branch. There are fqoq-vf-wdoja collaterals. Right coronary artery: This is a [...] Hugo M.D. Date Trans: 11/29/2017 03:52 Tori [id number] cc: Taryn Coley M.D. [address] [facility] [address] Normal [facility] *MRSA/MSSA CULTUREon 018 *MRSA/MSSA CULTURE Clinical Report: (D) Specimen: NASAL SWAB Collected: 11/28/2017 11:27 Status: Final Last Updated: 11/29/2017 10:02 ISO (Final) No Methicillin Resistant Staphylococcus aureus Isolated (MRSA) ISO (Final) No Methicillin Sensitive Staphylococcus aureus Isolated (MSSA) Normal [facility] Comment on above: Performed By: #### 3 1302 #### [place] [address] CHEST AND LATERALon 11-29-19 18 CHEST AND LATERAL [facility] Department of Radiology [address] [place] [address] ===== Patient Name: KRISTOFER FABIAN : 1945 Sex: M Age: Race: White Pt. 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 S/P labor service representative procedure today QUESTION FOR THE RADIOLOGIST: , [...] findings. Electronically signed by:Donnell Collado. Transcribed by: [email or web address], User Resident: ANAHI JAMES Electronically Signed by: DONNELL COLLADO @ 11/28/2017 02:39 PM I personally read this/these film(s) with this resident Normal [facility] Comment on above: Order Comment: , , = ========= , Ordering Provider - VENESSA WHITE COLOR CHECKER ROVING OR YARN, S , HEMOGLOBIN A1Con 11-28-2017 Hemoglobin A1c/Hemoglobin.tota l mass fraction (Bld) 5.8 % Normal 4.0-6.0 [facility] Comment on above: Performed By: #### 4 6447 #### [facility] [address] Hemoglobin A1c/Hemoglobin.tota l mass fraction (Bld) 120 mg/dL Normal 70-126 [facility] Comment on above: Performed By: #### 4 6447 #### [facility] [address] [facility] [address], [facility] LIVER BATTERYon 11-28-2017 Albumin mass conc 4.0 g/dL Normal 3.5-5.7 [facility] Comment on above: Performed By: #### 9 9909 #### [facility] [address] [place] [address], [facility] ALKALINE PHOSPH 51 IU/L Normal 34-104 The [facility] Comment on above: Performed By: #### 9 9909 #### [facility] [address] [facility]. [address] ALT enzyme act/vol 14 U/L Normal 7-52 [facility] Comment on above: Performed By: #### 9 9909 #### [facility] [address] [place] [address], [place] AST enzyme act/vol 18 U/L Normal 13-39 [facility] Comment on above: Performed By: #### 9 9909 #### [facility] [address] [place] [address], [place] Bilirubin mass conc 0.5 mg/dL Normal 0.3-1.0 [facility] Comment on above: Performed By: #### 9 9909 #### [facility] [address] [place] [address], [place] Bilirubin.direct mass conc 0.1 mg/dL Normal 0.0-0.2 [facility] Comment on above: Performed By: #### 9 9909 #### [facility] [address] [place] [address], [place] Protein mass conc 6.5 g/dL Normal 6.0-8.3 [facility] Comment on above: Performed By: #### 9 9909 #### [facility] [address] [place] [address], [place] TYPE AND SCREENon 11-28-2017 ABO INTERPRETATION B Normal [facility] Comment on above: Performed By: #### 6 2586 #### [facility] [address] [place] [address], [place] RH INTERPRETATION Negative Normal [facility] Comment on above: Performed By: #### 6 2586 #### [facility] [address] [place] [address], [place] Vital Signs Date Time Vital Sign Value Performing Clinician Romeo lora 12-02-2017 21:32-0400 Respiratory rate 12 /min DEFAULT PHYSICIAN [facility] Comment on above: Order Comment: on ar rival to CVU Performed By: #### 4 6447 #### [facility] [address] Encounters Encounter Date Encounter Type Care Provider Facility Start: 01-22-2025 End: 01-22-2025 ambulatory [facility] Start: 01-01-2025 ambulatory [facility] Start: 11-28-2024 ambulatory [facility] Start: 11-01-2024 ambulatory [facility] Start: 10-24-2024 ambulatory [facility] Start: 09-06-2024 ambulatory [facility] Start: 07-31-2024 End: 07-31-2024 ambulatory [facility] Start: 06-29-2024 ambulatory [facility] Start: 06-07-2024 End: 06-07-2024 ambulatory [facility] Start: 05-28-2024 ambulatory [facility] Start: 05-11-2024 Evaluation and management of inpatient [facility] Start: 05-10-2024 Evaluation and management of inpatient [facility] Start: 05-10-2024 ambulatory [facility] Start: 05-10-2024 End: 05-11-2024 Evaluation and management of inpatient [facility] Start: 04-24-2024 End: 04-24-2024 ambulatory [facility] Start: 04-16-2024 ambulatory [facility] Start: 04-16-2024 ambulatory [facility] Start: 04-09-2024 ambulatory [facility] Start: 04-05-2024 ambulatory [facility] Start: 03-20-2024 End: 03-20-2024 ambulatory [facility] Start: 03-19-2024 ambulatory [facility] Start: 02-27-2024 End: 02-27-2024 Emergency department patient visit Allison Brooks Facility:[facility] Start: 02-20-2024 ambulatory [facility] Start: 02-09-2024 ambulatory [facility] Start: 01-24-2018 End: 01-25-2018 Patient encounter procedure DEFAULT PHYSICIAN Facility:[facility] Start: 12-02-2017 End: 12-06-2017 Evaluation and management of inpatient HERMAN S FRAN Facility:[facility] Start: 11-28-2017 End: 11-29-2017 Patient encounter procedure EHAB A BOGDANPARISAMARIA DEL CARMEN Facility:[facility] Start: 11-22-2017 End: 11-23-2017 Patient encounter procedure DEFAULT PHYSICIAN Facility:[facility] Start: 11-21-2017 End: 11-22-2017 Patient encounter procedure DEFAULT PHYSICIAN Facility:[facility] Start: 11-16-2017 End: 11-17-2017 Patient encounter procedure DEFAULT PHYSICIAN Facility:[facility] Start: 11-16-2017 End: 11-17-2017 Patient encounter procedure DEFAULT PHYSICIAN Facility:[facility] Start: 11-04-2017 End: 11-05-2017 Patient encounter procedure DEFAULT PHYSICIAN Facility:[facility] Procedures Date Procedure Procedure Detail Performing Clinician Start: 12-02-2017 Antibody screen DEFAULT PHYSICIAN Comment on above: Performed By: #### 6 2594 #### [address] Start: 12-02-2017 BYPASS 1 COR ART [...] above: Performed By: #### 6 2586 #### [facility] [address] [place], [place] [address] [place] [address] Payers Date Payer Category Payer Medicare [id number] 2012 Unknown [id number] 50 1946 Unknown [id number] 2.16.8 [id number] 1945 Unknown [id number] 2.16.8 [id number] 1945 Unknown [id number] 2.16.8 [id number] 1945 Unknown [id number] 2.16.8 [id number] 1945 Unknown [id number] 2.16.8 [id number] 1945 Unknown [id number] 2.16.8 [id number] 1945 Unknown [id number] 2.16.8 [id number] 1945 Unknown [id number] 2.16.8 [id number] 1945 Unknown [id number] 2.16.8 [id number] Medicare [id number] Unknown Unknown [id number] Clinical Notes 02-27-2024 to 01-22-2025 Note Date & Type Note Facility 01-22-2025 Note Cardiovascular Medic in[facility] SUBJECTIVE Chief Complaint Patient presents with [...] last seen. Dr. Ray referred him to [facility] after his last visit to further [...] (CMS/HCC) Encounter for therapeutic drug level monitoring half-way (current) use of anticoagulants Paroxysmal A-fib (CMS/HCC) [...] Take 1 t (more content not included)... [facility] 07-31-2024 Note [place] Electrophysiology Consult Note [...] CARDIAC CATHETERIZATION CARDIAC SURGERY 06/13/2023 LOOP RECORDER- [employer] COMPLETE DENTURE CORONARY ARTERY BYPASS GRAFT TRIPLE [...] (05/10/2024) Humiliation, A (more content not included)... [facility] 06-07-2024 Note Cardiovascular Medic in[facility] SUBJECTIVE Chief Complaint Patient presents with [...] (CMS/HCC) Encounter for therapeutic drug level monitoring long term (current) use of anticoagulants Paroxysmal A-fib (CMS/HCC) [...] Corrected Atrial Rate 05/10/2024 60 BPM Corrected VA Interval 05/10/2024 206 ms Corrected QR (more content not included)... [facility] 06-07-2024 Note Patient here for [facility] low up PVC ablation performed on 05/10/[address] Ray. Says his DAO is much better. Denies chest pain, palpitations, lightheadedness/syncope, and bleeding on Eliquis. Review of Systems Constitutional: Positive for malaise/fatigue. HENT: Positive for hearing loss. Cardiovascular: Positive for dyspnea on exertion (improving). All other systems reviewed and are negative. [facility] 05-11-2024 Note PVC/ [place] ABLATION PRO [...] notable difficulty to reach the RV through [id number]. So, the short sheath was exchanged for [...] re-map without GA/ referral to [facility]. Maxim Rya MD Cardiac Electrophysiology Maxim Ray MD Cardiac Electrophysi (more content not included)... [facility] 05-10-2024 Note Patient: Bony Chen op Sr. Procedure Summary Date: 05/10/24 Room / Location: [facility] RADIOGRAPHER ANGIOGRAM 1 / [facility] HVC VASCULAR LAB (Cath) Anesthesia Start: 1148 [...] per anesthesia protocol. No notable events documented. [facility] 05-10-2024 Note Airway Date/Time: 05/10/2024 11:51 AM Urgency: elective General Information and Staff Patient location during procedure: OR Anesthesiologist: Temi Brown MD Resident/DEMAND PLANNING ANALYST/CAA: Tonia Angel MD Performed: resident/DEMAND PLANNING ANALYST/CAA Indications and Patient Condition Indications for airway [...] 1 Number of other approaches attempted: 0 [facility] 05-10-2024 Note Patient: Bony Chen op Sr. Procedure Information Anesthesia Start Date/Time: 05/10/24 1148 Procedure: Ablation PVC Location: [facility] RADIOGRAPHER ANGIOGRAM 1 EP / [facility] VASCULAR LAB (Cath) Providers: Maxim Ray MD [...] Plan discussed with CAA. Additional Equipment Requests [facility] 05-10-2024 Note [place] Electrophysiology Consult Note Reason for visit: SVT/PVC [...] CARDIAC CATHETERIZATION CARDIAC SURGERY 06/13/2023 LOOP RECORDER- [employer] COMPLETE DENTURE CORONARY ARTERY BYPASS GRAFT TRIPLE [...] tablet 3 atorvas (more content not included)... [facility] 04-24-2024 Note [facility] Electrophysiology Consult Note [...] on file Intimate Partner Violence: Unknown (06/02/2023) [place] Safety & Environment Fear of Current or [...] times daily. 180 (more content not included)... [facility] 03-20-2024 Note [facility] Electrophysiology Consult Note [...] on file Intimate Partner Violence: Unknown (06/02/2023) [place] Safety [place] Fear of Current or [...] medications on fi (more content not included)... [facility] 03-20-2024 Note Patient here for 4 m o follow up CAD, hypertension, and SVT. Doing very well, but tires easily. Denies chest pain, palpitations, lightheadedness/syncope, and bleeding on Eliquis. Review of Systems Constitutional: Positive for malaise/fatigue. HENT: Positive for hearing loss. Cardiovascular: Positive for dyspnea on exertion. All other systems reviewed and are negative. [facility] 02-27-2024 Note Education Materials Caregiving Fall [...] Keep items that you use often in [id number] places. Lower the shelves around your home [...] the way. ? Do not use floor persian or wax that makes floors slippery. What [...] Control and Prevention, [place]: cdc.gov ? National [place] on Aging: main.nih.gov ? National [place] on Aging: main.nih.gov Contact a health care [...] an emergency. Get (more content not included)... [facility] Summary Purpose Family History No Family History Records FoundNo Family History Records FoundNo Family History Records FoundNo Family History Records FoundNo Family History Records Found Advance Directives No Advanced Directives Records FoundNo Advanced Directives Records FoundNo Advanced Directives Records FoundNo Advanced Directives Records FoundNo Advanced Directives Records Found Hospital Course Note MR#: [id number] [facility] Pt. Name: Kristofer Fabian Admitted: [...] occlusion of his right coronary system with [id number] collaterals. He was deemed to be suitable for coronary artery bypass grafting on consultation. The patient was admitted on 12/02/2017 and und (more content not included)... Additional Source Comments (unrecognized sect ion and content) No Status Records FoundNo Status Records FoundNo Status Records FoundNo Status Records FoundNo Status Records Found INFORMATION SOURCE (unrecogn ized section and content) DATE CREATED AUTHOR 08/03/2018 [facility] DATE CREATED AUTHOR AUTHOR'S ORGANIZ ATION 04/26/2021 [facility] DATE CREATED AUTHOR AUTHOR'S ORGANIZ ATION 03/08/2024 [facility] DATE CREATED AUTHOR AUTHOR'S ORGANIZ ATION 08/02/2024 [facility] DATE CREATED AUTHOR AUTHOR'S ORGANIZ ATION 01/26/2025 [facility] FOR RECORDS PERTAINING TO PATIENTS WHO ARE [...] BE BASED ON THE PRIMARY CLINICAL RECORDS. [facility] [employer] [facility]. provides no warranty or guarantee of the accuracy or completeness of information in this document.
[2025-01-28 11:05] LABS: Cholesterol 147 mg/dL (<=200); HDL Cholesterol 45 mg/dL (40-60); Triglycerides 183 mg/dL (<=150); VLDL CHOLESTEROL 36.6 mg/dL
== END 2025-01-28 10:20 | disposition home or self-care (01) ==
LOC: LAB 10:24
PROVIDERS: Visit Provider Nurse Practitioner Family
DX: E78.2 Mixed hyperlipidemia (principal)
CPT/HCPCS: 36415; 80061